=== PATIENT | female | born 1960 | race Caucasian/White ===

== ENCOUNTER → 2018-03-21 | Outpatient (REF) | payer OTHER | LOC: M LAB REF 17:00 | DX: N39.0 Urinary tract infection, site not specified (principal) ==

== ENCOUNTER → 2019-04-24 | Outpatient (REF) | payer MEDICARE, OTHER | LOC: M LAB REF 16:59 | PROVIDERS: ATTEND Internal Medicine Nephrology | DX: N39.0 Urinary tract infection, site not specified (principal) ==

== ENCOUNTER 2019-05-01 06:02 | Emergency (ER) | payer MEDICARE ==
[~2019-05-01] VITALS: Ht 160 cm; Wt 80.0 kg
[2019-05-01] MEDS ORDERED: AMPI500C9 PO (06:14)
[2019-05-01] MEDS ORDERED: HYDR-3715 PO (06:14)
[2019-05-01] MEDS ORDERED: SYNT150T PO (06:14)
[2019-05-01] MEDS ORDERED: METO1TAB87 PO (06:14)
[2019-05-01] MEDS ORDERED: CALC-333 PO (06:14)
[2019-05-01] MEDS ORDERED: RENATAB6 PO (06:14)
[2019-05-01] MEDS ORDERED: PANT40TA3 PO (06:14)
[2019-05-01] MEDS ORDERED: ONDANSETRON 4MG/2ML VIAL (J2405) IV ONE (06:30)
[2019-05-01] MEDS ORDERED: MORPHINE 4 MG/ML 1ML VIAL/SYRINGE (J2270) IV ONE ×2 (06:30→09:15)
[2019-05-01] MEDS ORDERED: NS 1,000 ML IV ONE (06:30)
[2019-05-01 07:37] LABS: BASO # 0.1 10^3/uL (0.0-0.2); BASO % 0.5 % (0.0-1.0); EOS # 0.1 10^3/uL (0.0-0.50); EOS % 0.3 % (0.0-3.0); HEMATOCRIT 46.7 % (36.0-47.0); HEMOGLOBIN 15.2 g/dl (12.0-15.5); LYMPH # 1.1 10^3/uL (1.5-4.5); LYMPH % 6.8 % (24.0-44.0); MEAN CORPUSCULAR HEMOGLOBIN 29.8 pg (27.0-33.0); MEAN CORPUSCULAR HGB CONC 32.5 g/dl (32.0-36.5); MEAN CORPUSCULAR VOLUME 91.6 fl (80.0-96.0); MONO # 0.8 10^3/uL (0.0-0.8); MONO % 4.9 % (0.0-5.0); NEUTROPHILS # 13.4 10^3/uL (1.8-7.7); NEUTROPHILS % 86.5 % (36.0-66.0); PLATELET COUNT, AUTOMATED 188 10^3/uL (150-450); WHITE BLOOD COUNT 15.5 10^3/uL (4.0-10.0)
[2019-05-01 07:52] LABS: CALCIUM LEVEL 8.6 MG/DL (8.5-10.1); CREATININE FOR GFR 2.83 MG/DL (0.55-1.30); GLOMERULAR FILTRATION RATE 18.3 (>51); POTASSIUM SERUM 3.7 MEQ/L (3.5-5.1)
[2019-05-01] MEDS ORDERED: cefTRIAXone SOD 1 GM in D5W MINI-BAG PLUS 50 ML IV ONE (09:00)
--- NOTE | 2019-05-01 10:02 | REPVR ---
EXAM: US Retroperitoneal Limited, Kidneys EXAM DATE/TIME: 05/01/19 (7:27am) CLINICAL HISTORY: 59 year old female. Right flank pain. Evaluate for hydronephrosis, stones. TECHNIQUE: Imaging protocol: Real-time ultrasound of the retroperitoneum with image documentation. Examination was focused on the kidneys. COMPARISON: No relevant prior studies available FINDINGS: RIGHT KIDNEY --- The right kidney measures 16.3 cm in length. No hydronephrosis is noted. No upper tract stones are identified. Numerous cysts. Largest right renal cyst (medial right kidney) measures 5.2 x 5.1 x 5.0 cm size. LEFT KIDNEY --- The left kidney measures 15.6 cm in length. No hydronephrosis is noted. No upper tract stones are identified. Numerous cysts. Largest left renal cyst (mid-upper pole) measures 4.1 x 4.2 x 3.3 cm size. URINARY BLADDER --- No significant pathology. No stones nor mass. IMPRESSION: Findings compatible with polycystic kidney disease. Each kidney is enlarged, with numerous cysts, bilaterally. No hydronephrosis. No urinary tract stones are identified. No perinephric collections. Electronically signed by: Caty Garcia On 05/01/2019 10:02:26 AM
[2019-05-01] MEDS ORDERED: NORC1TAB7 PO (10:37)
[2019-05-01] MEDS ORDERED: KEFL500C17 PO (10:37)
--- NOTE | 2019-05-01 10:46 | REP ---
REASON: Possible pyelonephritis. Patient has right flank pain. History of recent urinary tract infection. COMPARISON: 06/12/2008. The lack of intravenous contrast significantly decreases the sensitivity of the examination particularly when evaluating for acute pyelonephritis. Bilateral dependent subsegmental atelectatic changes are seen in the lung bases. There are no pleural or pericardial effusions. There is bilateral hydronephrosis and hydroureter. This has increased from the prior exam. There is right perinephric stranding. There is a 7 mm sized calcification in the inferior pole of the left kidney. This was not present on the prior exam. The single tiny calcification is not causing obstructive phenomenon. There are no other nephroliths. There are no ureteroliths. There are no urinary bladder calcifications. There are bilateral pelvic phleboliths status quo. There are no choleliths. Limited evaluation of the solid intra-abdominal organs shown no gross abnormalities. Limited evaluation of the pancreas and adrenal glands show no gross abnormalities or significant changes from the prior exam. Limited evaluation of the abdominal aorta and para-aortic regions show para-aortic adenopathy on the right representing a change from the prior exam. There is no free fluid or free air. Limited evaluation of the bowel loops show no gross abnormalities. CT PELVIS: Limited evaluation of the bowel loops show sigmoid colon diverticulosis. In the left adnexa, there is a 2.4 cm sized low density lesion most consistent with small left ovarian cyst. This is essentially unchanged compared to the prior exam. There is no free fluid or free air. There is no pelvic adenopathy. Bone window technique throughout the examination shows the osseous structures to be stable and intact. IMPRESSION: 1. Bilateral hydronephrosis and hydroureter increased from the prior exam. Etiology uncertain. Without intravenous contrast accurate assessment for inflammatory/infectious etiologies cannot be made. Acute pyelonephritis cannot be assessed for. Renal carbuncle cannot be assessed for. There is right para-aortic adenopathy, which indicate a certain degree of perinephric inflammation. Again, since no intravenous contrast was administered, the finding can only be presumptive. 2. Small nonobstructing left nephrolith as described above. 3. Bilateral subsegmental atelectatic changes in the lung bases. 4. Small left ovarian cyst as described above. 5. Sigmoid colon diverticulosis. Electronically Signed by Ryne Meléndez DO 05/01/2019 12:01 P
[2019-05-01 10:51] VITALS: BP 141/67
--- NOTE | 2019-05-06 19:48 | ED PDOC ---
Post-Departure Follow-Up dr tatum faxed formal report of renal us for fu Ottoniel Renee MD May 06, 2019 19:48
== END 2019-05-01 10:53 | disposition home or self-care (01) ==
LOC: M ED 06:02
DX: N10 Acute pyelonephritis (principal); I10 Essential (primary) hypertension; E03.9 Hypothyroidism, unspecified; Z85.43 Personal history of malignant neoplasm of ovary; Z79.899 Other long term (current) drug therapy; Z79.890 Hormone replacement therapy; Z88.1 Allergy status to other antibiotic agents; Z88.2 Allergy status to sulfonamides; Z88.8 Allergy status to other drugs, medicaments and biological substances; Z87.891 Personal history of nicotine dependence
CPT/HCPCS: 36415; 51701; 74176; 76775; 80048; 81001; 83605; 85025; 87088; 87186; 96361; 96365; 96375; 96376; 99284; J0696; J2270; J2405

== ENCOUNTER → 2019-05-16 | Outpatient (REF) | payer MEDICARE ==
[~2019-05-16] MED LIST: ACET-897 PO; AMPI500C9 PO; AUGM875T28 PO; CALC-333 PO; CALC500T44 PO; CEFU1TAB20 PO; CEFU50TA PO; FLUC10TA PO; HYDR-3715 PO; KEFL500C17 PO; METO1TAB87 PO; METR1GEL7 PV; NORC1TAB7 PO; PANT40TA3 PO; RENATAB6 PO; SYNT150T PO
== END ==
LOC: M LAB REF 16:59
PROVIDERS: ATTEND Nurse Practitioner Family
DX: N39.0 Urinary tract infection, site not specified (principal)

== ENCOUNTER → 2019-07-11 | Outpatient (REF) | payer MEDICARE ==
[~2019-07-11] MED LIST changes: -ACET-897 PO; -AUGM875T28 PO; -CALC500T44 PO; -CEFU1TAB20 PO; -CEFU50TA PO; -FLUC10TA PO; -METR1GEL7 PV
== END ==
LOC: M LAB REF 13:42
PROVIDERS: ATTEND Nurse Practitioner Family
DX: N39.0 Urinary tract infection, site not specified (principal)

== ENCOUNTER 2019-09-08 23:25 | Inpatient (IN) | payer MEDICARE ==
[~2019-09-08] VITALS: Ht 162.6 cm; Wt 81.8 kg
[2019-09-08] MEDS ORDERED: NS 1,000 ML IV ONE (23:45)
[2019-09-08 23:54] LABS: BASO # 0.1 10^3/uL (0.0-0.2); BASO % 0.4 % (0.0-1.0); EOS # 0.1 10^3/uL (0.0-0.5); EOS % 0.4 % (0.0-3.0); HEMATOCRIT 47.9 % (36.0-47.0); HEMOGLOBIN 15.3 g/dl (12.0-15.5); LYMPH # 1.9 10^3/uL (1.5-5.0); LYMPH % 9.7 % (24.0-44.0); MEAN CORPUSCULAR HEMOGLOBIN 27.9 pg (27.0-33.0); MEAN CORPUSCULAR HGB CONC 31.9 g/dl (32.0-36.5); MEAN CORPUSCULAR VOLUME 87.2 fl (80.0-96.0); MONO # 0.8 10^3/uL (0.0-0.8); MONO % 3.8 % (0.0-5.0); NEUTROPHILS # 16.9 10^3/uL (1.5-8.5); PLATELET COUNT, AUTOMATED 229 10^3/uL (150-450); RED BLOOD COUNT 5.49 10^6/uL (4.00-5.40); WHITE BLOOD COUNT 19.9 10^3/uL (4.0-10.0)
[2019-09-09] MEDS ORDERED: ONDANSETRON 4MG/2ML VIAL (J2405) IV ONE (00:15)
[2019-09-09] MEDS: MORPHINE 4 MG/ML 1ML VIAL/SYRINGE (J2270) IV PRN ×2 (00:18→02:15)
[2019-09-09 00:35] LABS: ALBUMIN 3.6 GM/DL (3.2-5.2); ALT/SGPT 27 U/L (12-78); BILIRUBIN,DIRECT < 0.1 MG/DL (0.0-0.2); BILIRUBIN,TOTAL 0.4 MG/DL (0.2-1.0); LIPASE 485 U/L (73-393); TOTAL PROTEIN 8.1 GM/DL (6.4-8.2)
[2019-09-09 00:38] LABS: ETHYL ALCOHOL (ETHANOL) < 0.003 % (0.000-0.010)
[2019-09-09] MEDS ORDERED: cefTRIAXone SOD 1 GM in D5W MINI-BAG PLUS 50 ML IV ONE (01:45)
--- NOTE | 2019-09-09 02:14 | REPVR ---
PROCEDURE INFORMATION: Exam: CT Abdomen And Pelvis Without Contrast Exam date and time: 09/09/2019 1:52 AM Age: 59 years old Clinical indication: Abdominal pain; Flank; Right; Additional info: Right flank pain TECHNIQUE: Imaging protocol: Computed tomography of the abdomen and pelvis without contrast. Radiation optimization: All CT scans at this facility use at least one of these dose optimization techniques: automated exposure control; mA and/or kV adjustment per patient size (includes targeted exams where dose is matched to clinical indication); or iterative reconstruction. COMPARISON: CT ABD PELVIS W/O CONTRAST 05/01/2019 9:22 AM FINDINGS: Lungs: Lung parenchyma is unremarkable except for dependent atelectasis. Mediastinum: Small hiatal hernia is present. Liver: Noncontrast liver shows no obvious lesion. Gallbladder and bile ducts: Gallbladder is present and shows no evidence of gallstone. Pancreas: Noncontrast pancreas shows no obvious mass or adjacent fluid. Spleen: Noncontrast spleen shows no obvious focal deformity. Adrenals: Adrenal glands are normal in appearance. Kidneys and ureters: Bilateral hydroureteronephrosis and perinephric lymphadenopathy, similar to the prior CT. No identifiable ureter calculus. Nonobstructive lower pole left renal stone. Stomach and bowel: No evidence of small bowel obstruction. Diverticular changes are present within the colon without inflammation. Appendix: Appendix is not seen. No RLQ inflammation to suggest appendicitis. Intraperitoneal space: No pneumoperitoneum. Vasculature: Atherosclerotic change present in the aorta, without aneurysm. Bladder: Unremarkable as visualized. Reproductive: Stable left ovarian cystic lesion measuring 2 cm. Bones/joints: Bony structures show no acute fracture or destructive process. Other findings: Limited evaluation without enteric or IV contrast. IMPRESSION: Bilateral hydroureteronephrosis asymmetric right perinephric stranding and perinephric lymphadenopathy without identifiable stone. Pattern is similar to the prior CT from 05/01/2019. This could be secondary to a urothelial mass involving the distal ureter. Electronically signed by: Rajiv Jose On 09/09/2019 02:14:40 AM
[2019-09-09] MEDS ORDERED: NS 1,000 ML IV SCH (03:34)
[2019-09-09] MEDS ORDERED: ONDANSETRON 4MG/2ML VIAL (J2405) IV PRN (03:45)
--- NOTE | 2019-09-09 04:06 | HPEPDOC ---
General Date of Admission 09/09/19 Date of Service: Sep 09, 2019 Chief Complaint The patient is a 59-year-old female admitted with a reason for visit of Back Pain. Source: Patient Timing/Duration: Day(s) Severity: Moderate Associated Symptoms: Chills, Nausea, Vomiting, Weakness History of Present Illness Patient is 59 years old female with past medical history of cervical cancer treated with radiation in 1991, atonic bladder, radiation cystitis, secondary hyperparathyroidism, patient self catheterizes herself a few times in a day, chronic kidney diseases stage IV, hypertension, chronic anemia presented hospital with chills, right flank and suprapubic pain. Patient stated that for past 2 days she has been having increased right flank pain associated with suprapubic pain and chills. Of note, patient was recently treated with cephalexin for UTI, she completed the course of antibiotics for 10 days. In emergency room patient was found to have tachycardia, leukocytosis. Urinalysis shows pyuria. CT of abdomen and pelvis showed bilateral hydroureteronephrosis asymmetric right perinephric stranding and perinephric lymphadenopathy without identifiable stone. Pattern is similar to the prior CT from 05/01/2019. This could be secondary to a urothelial mass involving the distal ureter. Home Medications Scheduled Calcium Carbonate/Vitamin D3 (Calcium 500+D Tablet Chew) 1 Each Tab.chew, 1 TAB PO DAILY, (Reported) Levothyroxine Sodium (Synthroid) 150 Mcg Tablet, 150 MCG PO DAILY, (Reported) TAKES BEFORE DINNER Metoprolol Tartrate (Metoprolol Tartrate) 25 Mg Tablet, 25 MG PO BID, (Reported) Pantoprazole Sodium (Pantoprazole Sodium) 40 Mg Tablet.dr, 40 MG PO DAILY, (Reported) Vit B Comp No.3/Folic/C/Biotin ([place] Rx Tablet) 1 Each Tablet, 1 TAB PO DAILY, (Reported) Allergies Coded Allergies: povidone-iodine (Verified Allergy, Severe, rash/burn, 09/08/19) soap (Verified Allergy, Severe, rash/burn, 09/08/19) Quinolones (Verified Allergy, Unknown, 09/08/19) Sulfa (Sulfonamide Antibiotics) (Verified Allergy, Unknown, 09/08/19) ciprofloxacin (Verified Allergy, Unknown, 09/08/19) epoetin reina (Verified Allergy, Unknown, 09/08/19) ibuprofen (Verified Allergy, Unknown, 09/08/19) trimethoprim (Verified Allergy, Unknown, 09/08/19) Past Medical History Medical History cervical cancer treated with radiation in 1991, atonic bladder, radiation cystitis, secondary hyperparathyroidism, patient self catheterizes herself a few times in a day, chronic kidney diseases stage IV, hypertension, chronic anemia Surgical History Appendectomy Family History I personally reviewed family history and found nonsignificant Social History * Smoker: Denies Alcohol: occationally Drugs: denies A-FIB/CHADSVASC A-FIB History Current/History of A-Fib/PAF?: No Current PO Anticoag Therapy: No Review of Systems Constitutional: Reports: Chills, Malaise Eyes: Denies: Pain ENT: Denies: Head Aches Skin: Denies: Rash Pulmonary: Denies: Dyspnea Cardiovascular: Denies: Chest Pain, Palpitations Gastrointestinal: Reports: Nausea Genitourinary: Reports: Other Symptoms (suprapubic pain) Hematologic: Denies: Bruising Endocrine: Denies: Polydipsia, Polyphagia Musculoskeletal: Denies: Neck Pain Neurological: Denies: Weakness, Numbness Psych: Reports: Mood Normal Physical Examination General Exam: Positive: Alert, Cooperative Eye Exam: Positive: PERRLA ENT Exam: Positive: Atraumatic Neck Exam: Positive: Supple; Negative: JVD Chest Exam: Positive: Clear to auscultation Heart Exam: Positive: Tachycardic; Negative: Rate Normal Telemetry: Positive: Sinus, Tachycardia Abdomen Exam: Positive: Normal bowel sounds Extremity Exam: Negative: Cyanosis Skin Exam: Positive: Nl turgor and temperature Neuro Exam: Positive: Normal Gait, Cranial Nerves 3-12 NL Psych Exam: Positive: Mental status NL Vital Signs Vital Signs Date Time Temp Pulse Resp B/P (MAP) Pulse Ox O2 Delivery O2 Flow Rate FiO2 09/09/19 02:15 18 93 Room Air 09/09/19 01:05 135/70 (91) 09/09/19 00:55 91 09/08/19 23:26 97.4 Laboratory Data Labs 24H Laboratory Tests 2 09/08/19 23:43: Immature Granulocyte % (Auto) 0.7, Neutrophils (%) (Auto) 85.0H, Lymphocytes (%) (Auto) 9.7L, Monocytes (%) (Auto) 3.8, Eosinophils (%) (Auto) 0.4, Basophils (%) (Auto) 0.4, Neutrophils # (Auto) 16.9H, Lymphocytes # (Auto) 1.9, Monocytes # (Auto) 0.8, Eosinophils # (Auto) 0.1, Basophils # (Auto) 0.1, Nucleated Red Blood Cells % (auto) 0.0, Total Bilirubin 0.4, Direct Bilirubin < 0.1, Aspartate Amino Transf (AST/SGOT) 27, Alanine Aminotransferase (ALT/SGPT) 27, Alkaline Phosphatase 67, Total Protein 8.1, Albumin 3.6, Albumin/Globulin Ratio 0.80L, Lipase 485H, Ethyl Alcohol Level < 0.003 09/08/19 23:59: POC Glucose (Misc Panel) 142H, POC Sodium (Misc Panel) 141, POC Potassium (Misc Panel) 4.1, POC Chloride (Misc Panel) 111H, POC Total CO2 (Misc Panel) 21.0L, POC Blood Urea Nitrogen (Misc Panel 73H, POC Ionized Calcium (Misc Panel) 4.7, POC Creatinine (Misc Panel) 3.1H, POC Hematocrit (Misc Panel) 47.0 09/09/19 00:44: Urine Color YELLOW, Urine Appearance TURBIDH, Urine pH 6.0, Urine Specific [place] 1.009, Urine Protein 3+H, Urine Glucose (UA) NEGATIVE, Urine Ketones NEGATIVE, Urine Blood 2+H, Urine Nitrite NEGATIVE, Urine Bilirubin NEGATIVE, Urine Urobilinogen 0.2, Urine Leukocyte Esterase 3+H, Urine WBC (Auto) TNTCH, Urine RBC (Auto) TNTCH, Urine Hyaline Casts (Auto) 0, Urine Bacteria (Auto) 1+H, Urine Squamous Epithelial Cells 0, Urine Sperm (Auto) 09/09/19 02:34: Lactic Acid Level 1.8 CBC/BMP Laboratory Tests 09/08/19 23:43 Microbiology Microbiology 09/09/19 Blood Culture, Received Pending 09/09/19 Blood Culture, Received Pending 09/09/19 Urine Culture, Received Pending Assessment/Plan Patient is 59 years old female with past medical history of cervical cancer treated with radiation in 1991, atonic bladder, radiation cystitis, secondary hyperparathyroidism, patient self catheterizes herself a few times in a day, chronic kidney diseases stage IV, hypertension, chronic anemia presented hospital with chills, right flank and suprapubic pain. Patient stated that for past 2 days she has been having increased right flank pain associated with suprapubic pain and chills. Of note, patient was recently treated with cephalexin for UTI, she completed the course of antibiotics for 10 days. Patient was diagnosed with sepsis secondary to acute pyelonephritis Problems (1) Sepsis Status: Acute Problem Text: Secondary to acute pyelonephritis Patient has leukocytosis with tachycardia Patient had a history of bacteriuria with Pseudomonas Cefepime IV IV fluid Urine culture Blood culture CT of abdomen showed Bilateral hydroureteronephrosis asymmetric right perinephric stranding and perinephric lymphadenopathy without identifiable stone.This could be secondary to a urothelial mass involving the distal ureter. Consider urologist consult for further evaluation of possible malignancy of the right distal ureter (2) Pyelonephritis Status: Acute Problem Text: See above Plan / VTE VTE Prophylaxis Ordered?: Yes JOSE ANTONIO ROBLERO DO Sep 09, 2019 04:06
[2019-09-09 04:22] VITALS: BP 127/75
[2019-09-09] MEDS: METOPROLOL TART 25 MG TABLET PO SCH ×2 (08:12→20:40)
[2019-09-09] MEDS: CEFEPIME HCL 1 GM in D5W MINI-BAG PLUS 50 ML IV SCH ×2 (08:12→20:40)
[2019-09-09] MEDS: ACETAMINOPHEN TAB 650MG DOSE (2X325MG) PO PRN ×2 (08:12→15:20)
[2019-09-09] MEDS: PANTOPRAZOLE 40MG TAB (PROTONIX) PO SCH (08:12)
[2019-09-09 08:38] LABS: BASO # 0.1 10^3/uL (0.0-0.2); BASO % 0.3 % (0.0-1.0); EOS % 0.1 % (0.0-3.0); HEMATOCRIT 44.3 % (36.0-47.0); LYMPH # 1.2 10^3/uL (1.5-5.0); LYMPH % 6.7 % (24.0-44.0); MEAN CORPUSCULAR HEMOGLOBIN 28.1 pg (27.0-33.0); MEAN CORPUSCULAR HGB CONC 31.6 g/dl (32.0-36.5); MEAN CORPUSCULAR VOLUME 88.8 fl (80.0-96.0); MONO % 5.4 % (0.0-5.0); NEUTROPHILS # 15.3 10^3/uL (1.5-8.5); NEUTROPHILS % 87.1 % (36.0-66.0); PLATELET COUNT, AUTOMATED 204 10^3/uL (150-450); RED BLOOD COUNT 4.99 10^6/uL (4.00-5.40); WHITE BLOOD COUNT 17.6 10^3/uL (4.0-10.0)
[2019-09-09 09:11] LABS: ALBUMIN 2.7 GM/DL (3.2-5.2); BILIRUBIN,TOTAL 0.5 MG/DL (0.2-1.0); CALCIUM LEVEL 8.2 MG/DL (8.5-10.1); CREATININE FOR GFR 2.75 MG/DL (0.55-1.30); GLOMERULAR FILTRATION RATE 18.9 (>51); POTASSIUM SERUM 3.8 MEQ/L (3.5-5.1)
[2019-09-09] MEDS: KCL 20MEQ IN 0.45NS 1000ML 1,000 ML IV SCH ×2 (10:37→20:40)
[2019-09-09 14:00] VITALS: BP 126/73
[2019-09-09] MEDS: LEVOTHYROXINE 150MCG TABLET (0.15MG) PO SCH (15:20)
--- NOTE | 2019-09-09 20:25 | IPN ---
DATE: 09/09/2019 Shayla was on the hospitalist service, a patient of , was also followed by Dr. Sparrow from nephrology group. She has recurrent pyelonephritis recently in April. She had a recent urinary tract infection (UTI) being treated with Keflex as an outpatient, is off the medicine for two days when she developed right flank pain, presented to the emergency room with leukocytosis and evidence of pyelonephritis. PAST MEDICAL HISTORY: Shows hypertension, hypothyroidism, history of gastroesophageal reflux disease (GERD), chronic kidney disease stage IV, history of cervical cancer with radiation therapy, radiation cystitis lead to atonic bladder requiring intermittent self catheterization. She has chronic anemia from chronic kidney disease. Overall, she feels better than she did when she came in, but still feels quite ill. Has remained afebrile, 120/75, pulse 97, 94% oxygen saturation on room air. GENERAL APPEARANCE: Alert and oriented to person in no distress. HEENT: Unremarkable. Lungs: Clear. Heart: Without murmur. Abdomen: Soft, nontender. No masses. Right costovertebral angle (CVA) tenderness present. Extremities: No peripheral edema. LABORATORY: Creatinine is 2.7, potassium is 3.8, white count 17,000, hemoglobin 14, IMPRESSION: 1. Suspected pyelonephritis. She is currently on cefepime 1 gram every 12 hours. She typically grows Klebsiella, which in the past has been sensitive to cephalosporins, including ceftriaxone and cefazolin, await for the culture report to return. She was recently on cephalexin and developed this pyelonephritis a few days after its discontinued. 2. Chronic kidney disease, stage IV. I have ordered daily labs to check renal function. If it is needed, will consult nephrology. 3. Hypertension. Blood pressure under good control on current dose of metoprolol. 4. Hypothyroidism. Continue current dose of levothyroxine.
[2019-09-09 20:35] VITALS: BP 123/72
[2019-09-10] MEDS ORDERED: cefTRIAXone SOD 1 GM in D5W MINI-BAG PLUS 50 ML IV SCH (06:00)
[2019-09-10 06:07] VITALS: BP 126/75
[2019-09-10 06:17] LABS: HEMATOCRIT 40.6 % (36.0-47.0); HEMOGLOBIN 12.7 g/dl (12.0-15.5); MEAN CORPUSCULAR HEMOGLOBIN 28.1 pg (27.0-33.0); MEAN CORPUSCULAR HGB CONC 31.3 g/dl (32.0-36.5); MEAN CORPUSCULAR VOLUME 89.8 fl (80.0-96.0); PLATELET COUNT, AUTOMATED 196 10^3/uL (150-450); RED BLOOD COUNT 4.52 10^6/uL (4.00-5.40); WHITE BLOOD COUNT 10.1 10^3/uL (4.0-10.0)
[2019-09-10 06:46] LABS: CALCIUM LEVEL 8.2 MG/DL (8.5-10.1); CREATININE FOR GFR 3.2 MG/DL (0.55-1.30); GLOMERULAR FILTRATION RATE 15.9 (>51); MAGNESIUM LEVEL 1.9 MG/DL (1.8-2.4); POTASSIUM SERUM 4.8 MEQ/L (3.5-5.1)
[2019-09-10] MEDS: KCL 20MEQ IN 0.45NS 1000ML 1,000 ML IV SCH (06:49)
[2019-09-10] MEDS: PANTOPRAZOLE 40MG TAB (PROTONIX) PO SCH (08:32)
[2019-09-10] MEDS: CEFEPIME HCL 1 GM in D5W MINI-BAG PLUS 50 ML IV SCH ×2 (08:33→20:53)
[2019-09-10] MEDS: METOPROLOL TART 25 MG TABLET PO SCH ×2 (08:33→20:41)
--- NOTE | 2019-09-10 11:10 | IPN ---
DATE: 09/10/2019 Shayla feels better and leukocytosis has improved. She is not febrile. Her renal function is actually a worse today. Her CT showed right greater than left hydroureter, which has been present since April, right ureteral obstruction from possible mass noted. The patient has not seen a urologist in many years. He used to see Dr. Mcclelland, when he was the urologist here, but has not one in the interval. PHYSICAL EXAM: 125/75, pulse of 95, 97.3 degrees. General Appearance: Alert, conversant, looks much better. HEENT: Unremarkable. Lungs: Clear. Heart: Regular rate and rhythm. Abdomen: Soft. Tender on the right side costovertebral angle (CVA) tenderness. No peripheral edema. LABS: White count is down 10. Creatinine is up 3.2. Potassium 4.8. IMPRESSION: 1. Right pyelonephritis. She is on IV cefepime, waiting for results of urine culture. Previously, she grew out Klebsiella and we can narrow the antibiotic spectrum once this comes back. 2. Bilateral ureteral obstruction, right greater than left, possible right ureteral mass can be considered. I have consulted urology to see her. Probably could have an outpatient workup for this, but I think she is very connected with urologist. 3. Chronic kidney disease (CKD), IV. Renal function slightly worse. Will consult nephrology today. 4. Hypertension. Well controlled on current regimen. 5. Hypothyroidism. Stable on current regimen, which will continue.
[2019-09-10] MEDS: SODIUM BICARBONATE 75 MEQ in NS 0.45% 1,000 ML IV SCH (13:49)
[2019-09-10 14:00] VITALS: BP 118/68
--- NOTE | 2019-09-10 14:10 | SMCUROLCON ---
Urology Consultation General Date of Consultation 09/10/19 Reason For Consultation This patient is seen for Pyelonephritis. History of Present Illness This is a 59 y/o F w/ a PMH significant for cervical cancer treated with radiation in 1991, atonic bladder managed w/ CIC, CKD, and HTN, admitted a few days ago for right pyelonephritis. A CT A/P obtained on this admission was notable for b/l hydroureteronephrosis (R > L) down to the level of a distended bladder and right perinephric stranding. She has been in the hospital on broad spectrum abx for 2 days and she notes that her fevers and flank pain are much better. She also notes that she was followed by urology years ago for ureteral strictures and this was managed w/ chronic ureteral stenting for a while. The stents were ultimately removed as they did not improve her kidney function when in place. She notes that she does CIC q3-4hrs, including at night. She denies difficulty w/ this. She has been getting UTIs frequently recently but has only been admitted for pyelonephritis twice, w/ the first episode back in April. She does not take suppressive abx. Past Medical History Medical History see HPI Surgical Hstory appendectomy Medications Current Medications Current Medications Medications (Trade) Dose Ordered Sig/Jahaira Route PRN Reason Start Time Stop Time Status Last Admin Dose Admin Acetaminophen (Tylenol Tab) 650 mg Q4HP PRN PO MILD PAIN or TEMP > 101 09/09/19 03:45 09/09/19 15:20 Cefepime HCl 1 gm/ Dextrose 50 ml @ 100 mls/hr Q12H IV 09/09/19 08:00 09/10/19 08:33 Ceftriaxone Sodium 1 gm/ Dextrose 50 ml @ 100 mls/hr Q24H IV 09/10/19 06:00 09/09/19 03:52 DC Home Med (Med Rec Complete!) ASDIRECTED XX 09/09/19 02:30 09/09/19 02:18 DC Levothyroxine Sodium (Synthroid) 150 mcg DAILY@1600 PO 09/09/19 16:00 09/09/19 15:20 Metoprolol Tartrate (Lopressor) 25 mg BID PO 09/09/19 09:00 09/10/19 08:33 Morphine Sulfate (Morphine Sulfate Inj) 4 mg Q30M PRN IV SEVERE PAIN (PS 8-10) 12/22/19 00:15 09/09/19 02:15 DC 09/09/19 02:15 Ondansetron HCl (ZOFRAN INJection) 4 mg Q6HP PRN IV NAUSEA OR VOMITING 09/09/19 03:45 Pantoprazole Sodium (Protonix) 40 mg DAILY PO 09/09/19 09:00 09/10/19 08:32 Potassium Chloride/Sodium Chloride 1,000 ml @ 100 mls/hr Q10H IV 09/09/19 10:00 09/10/19 10:46 DC 09/10/19 06:49 Sodium Bicarbonate 75 meq/Sodium Chloride 1,075 ml @ 100 mls/hr [id number] IV 09/10/19 13:00 09/11/19 08:59 09/10/19 13:49 Sodium Chloride 1,000 ml @ 150 mls/hr Q6H40M IV 09/09/19 03:34 09/09/19 09:29 DC 09/09/19 03:59 Allergies Allergies: Coded Allergies: povidone-iodine (Verified Allergy, Severe, rash/burn, 09/08/19) soap (Verified Allergy, Severe, rash/burn, 09/08/19) Quinolones (Verified Allergy, Unknown, 09/08/19) Sulfa (Sulfonamide Antibiotics) (Verified Allergy, Unknown, 09/08/19) ciprofloxacin (Verified Allergy, Unknown, 09/08/19) epoetin reina (Verified Allergy, Unknown, 09/08/19) ibuprofen (Verified Allergy, Unknown, 09/08/19) trimethoprim (Verified Allergy, Unknown, 09/08/19) Review of Systems Constitutional: Denies: Fever, Chills, Sweats, Weakness, Malaise Pulmonary: Denies: Dyspnea, Cough Cardiovascular: Denies Chest Pain, Denies Palpitations Gastrointestinal: Denies: Nausea, Vomiting, Abdominal Pain Genitourinary: Reports: Retention (managed w/ CIC) Musculoskeletal: Reports: Back Pain (right flank pain improving) Physical Examination General Exam: Alert, Cooperative ENT EXAM: Atraumatic Chest Exam: Clear to auscultation Heart Exam: Rate Normal, Regular Rhythm Abdomen Exam: BS Hypoactive, Soft, Hepatospenomegaly; No: Tenderness Skin Exam: Nl turgor and temperature Neuro Exam: Normal Speech Psych Exam: Mental status NL, Mood NL Vital Signs/I&O Vital Signs Date Time Temp Pulse Resp B/P (MAP) Pulse Ox O2 Delivery O2 Flow Rate FiO2 09/10/19 08:33 95 126/75 09/10/19 06:07 97.3 20 96 Room Air I&O- Last 24 Hours up to 6 AM 09/10/19 06:00 Intake Total 1460 ml Output Total 2150 ml Balance -690 ml Laboratory Data 24H Labs Laboratory Tests 2 09/10/19 06:01: Nucleated Red Blood Cells % (auto) 0.0, Anion Gap 8, Glomerular Filtration Rate 15.9L, Calcium Level 8.2L, Magnesium Level 1.9 CBC/BMP Laboratory Tests 09/10/19 06:01 Microbiology Microbiology 09/09/19 Blood Culture - Preliminary, Resulted No growth after 24 hours . All specim... 09/09/19 Blood Culture - Preliminary, Resulted No growth after 24 hours . All specim... 09/09/19 Urine Culture, Received Pending Assessment This is a 59 y/o F an atonic bladder managed w/ CIC and b/l hydroureteronephrosis, admitted for right pyelonephritis. She was told that she had b/l ureteral strictures previously. This could be the cause of her hydro. It could also be caused by urinary retention. I recommend placing an indwelling catheter and getting a f/u renal US as an outpatient. If the hydro improves w/ an indwelling catheter, then we will either recommend that she continue w/ that or increase her frequency of CIC. If her hydro does not improve, it would confirm that she has b/l ureteral strictures. For her recurrent UTIs, I recomme nd completing a full course of culture specific abx for this current episode of right pyelonephritis. We will then likely start her on suppressive abx as an outpatient. Plan - place 16Fr indwelling catheter - cont abx for pyelonephritis and adjust based on C&S results - recommend leaving catheter in at discharge - my office will arrange a f/u renal US and f/u in our office in the next 1-2 wks CECILIA LACEY MD Sep 10, 2019 14:10
[2019-09-10] MEDS: LEVOTHYROXINE 150MCG TABLET (0.15MG) PO SCH (15:32)
[2019-09-10 20:15] VITALS: BP 113/59
[2019-09-11] MEDS: SODIUM BICARBONATE 75 MEQ in NS 0.45% 1,000 ML IV SCH (00:55)
[2019-09-11 05:15] VITALS: BP 118/80
[2019-09-11 07:00] LABS: HEMATOCRIT 36.5 % (36.0-47.0); HEMOGLOBIN 11.7 g/dl (12.0-15.5); MEAN CORPUSCULAR HEMOGLOBIN 28.2 pg (27.0-33.0); MEAN CORPUSCULAR HGB CONC 32.1 g/dl (32.0-36.5); PLATELET COUNT, AUTOMATED 169 10^3/uL (150-450); RED BLOOD COUNT 4.15 10^6/uL (4.00-5.40); WHITE BLOOD COUNT 7.6 10^3/uL (4.0-10.0)
[2019-09-11 07:14] LABS: ALBUMIN 2.5 GM/DL (3.2-5.2); CALCIUM LEVEL 8.2 MG/DL (8.5-10.1); CREATININE FOR GFR 2.66 MG/DL (0.55-1.30); GLOMERULAR FILTRATION RATE 19.7 (>51); PHOSPHORUS LEVEL 2.7 MG/DL (2.5-4.9); POTASSIUM SERUM 3.7 MEQ/L (3.5-5.1)
[2019-09-11] MEDS: CEFEPIME HCL 1 GM in D5W MINI-BAG PLUS 50 ML IV SCH (07:54)
[2019-09-11 07:55] VITALS: BP 135/60
[2019-09-11] MEDS: METOPROLOL TART 25 MG TABLET PO SCH (07:55)
[2019-09-11] MEDS: PANTOPRAZOLE 40MG TAB (PROTONIX) PO SCH (09:00)
[2019-09-11] MEDS ORDERED: CEFU1TAB20 PO (11:06)
--- NOTE | 2019-09-11 13:01 | CR ---
DATE OF CONSULTATION: 09/10/2019 CONSULTATION REPORT FOR: Dr. Pancho Campos CONSULTING PHYSICIAN: Dr. Marshal Sparrow REASON FOR CONSULTATION: Chronic kidney disease (CKD), stage IV with obstructive uropathy. HISTORY OF PRESENT ILLNESS: Shayla Cole is a 59-year-old female well-established patient of Dr. Wendi Sparrow. She has a past medical history of remote cervical cancer treated with radiation in the early , atonic bladder, radiation cystitis, chronic kidney disease (CKD) stage IV, secondary hyperparathyroidism of renal origin, and other comorbid conditions mentioned below. She was admitted on 09/09/2019 after presenting to the hospital with complaints of chills, rigors and right flank pain. She reports recent outpatient course of antibiotics for a urinary tract infection. In the emergency room, she was found to be tachycardiac and afebrile. Laboratory studies revealed leukocytosis, white count of 19,000, and metabolic acidosis. Imaging revealed bilateral hydroureteronephrosis with right perinephric stranding and perinephric lymphadenopathy. The patient was admitted and started on IV fluids and IV antibiotics and her renal function and acidosis did not improve and nephrology evaluation was subsequently requested. PAST MEDICAL HISTORY: 1. Chronic kidney disease (CKD), stage IV with baseline glomerular filtration rate (GFR) of about 15 mL/minute per the patient. 2. Atonic bladder, intermittent self-catheterization dependent. 3. Radiation cystitis. 4. Remote history of cervical cancer in the . 5. Secondary hyperparathyroidism. 6. Hypertension. 7. Hypothyroidism. 8. Gastroesophageal reflux disease (GERD). PAST SURGICAL HISTORY: 1. Appendectomy. 2. Failed left arm arteriovenous (AV) fistula. ALLERGIES: QUINOLONES, SULFA, CIPROFLOXACIN, IBUPROFEN, TRIMETHOPRIN, EPOEITIN. HOME MEDICATIONS: - calcium plus vitamin D - Synthroid 150 mcg by mouth daily - metoprolol 25 mg by mouth twice a day - Protonix 40 mg by mouth daily - Helen-Layo one tablet by mouth daily FAMILY HISTORY: Denies family history of end-stage renal disease requiring dialysis. SOCIAL HISTORY: Denies smoking. Reports occasional alcohol. Denies drugs. REVIEW OF SYSTEMS: CONSTITUTIONAL: She reports some chills and malaise. EYES: She denies visual changes or tearing. EARS, NOSE AND THROAT (ENT): She denies odynophagia or rhinorrhea. SKIN: Denies rash or pruritus. PULMONARY: Denies dyspnea or shortness of breath. CARDIOVASCULAR: Denies chest pain, palpitations or edema. GASTROINTESTINAL: Denies vomiting or diarrhea. GENITOURINARY: Reports self-catheterization dependent and she reports recent urinary tract infection (UTI). HEMATOLOGIC: She denies easy bleeding or bruising. ENDOCRINE: She reports secondary hyperparathyroidism. She denies diabetes. MUSCULOSKELETAL: Denies any acute myalgias or arthralgias. NEUROLOGIC: Denies seizure or syncope. PSYCHIATRIC: Denies depression or anxiety. Remainder of review of systems is negative or as per history of present illness (HPI). VITAL SIGNS: Temperature 98.5, pulse 88, respiratory rate 16, blood pressure 118/68, saturating 95% on room air. Urine output today is 3500. GENERAL: The patient is seen at the bedside awake, alert, oriented, comfortable, in no distress. Extraocular muscles are intact. Pupils are round and reactive to light. Tongue is moist. Neck is supple. There is no jugular venous distension. CARDIAC: S1, S2, regular rate and rhythm. No friction murmur. LUNGS: Clear to auscultation bilaterally. No crackle, rale or rhonchus. ABDOMEN: Soft and nontender. There are bowel sounds. GENITOURINARY: Shows indwelling Weeks catheter. MUSCULOSKELETAL: No clubbing, cyanosis or edema. There is a failed fistula present in the left upper extremity. NEUROLOGIC: She is oriented times three. No focal deficits. PSYCHIATRIC: Appropriate mood and affect. SKIN: Normal turgor and temperature. LABORATORY DATA: White count 10.1, hemoglobin 12.7, potassium 4.8, bicarbonate 16, BUN 54, creatinine 3.2. INPATIENT MEDICATIONS: - cefepime 1 gram IV daily - I started her on half-normal saline with 75 mEq of sodium bicarbonate to run at 100 mL/hour - Synthroid 150 mcg by mouth daily - metoprolol 25 mg by mouth twice a day - Zofran as needed - Protonix 40 mg by mouth daily IMAGING STUDIES: CT of the abdomen and pelvis 09/09/2019: Bilateral hydroureteronephrosis with right-sided perinephric stranding and some lesion at the ureter. PROBLEMS: 1. Chronic kidney disease (CKD), stage IV. The patient has a very longstanding history of CKD, stage IV, reports her baseline glomerular filtration rate (GFR) is around 15 mL/minute and she is fairly close to baseline renal function. She has had a fistula placed in the left arm previously but it failed. There is no urgent indication for dialysis initiation at this time. Her volume status is acceptable. She is mildly acidotic and I am putting her on some bicarbonate-containing fluids. Her obstructive uropathy is being addressed by urology. 2. Obstructive uropathy, CAT scan with bilateral hydroureteronephrosis. The patient reports history of ureteral strictures in the past that were attributed to her history of radiation therapy for cervical cancer. Her right-sided hydronephrosis is more prominent. If obstruction does not repeat on imaging with the Weeks catheter then her on ureteral strictures will need to be addressed. 3. Metabolic acidosis, secondary to renal failure. The patient is switched over to bicarbonate-containing fluids half normal saline (NS) with 75 mEq of sodium bicarbonate. 4. Pyelonephritis. White count is improving steadily from 19,000 down to 10,000. She is on IV cefepime. Urine culture is pending.
--- NOTE | 2019-09-11 13:35 | IPN ---
DATE: 09/11/2019 SUBJECTIVE: Shayla is seen and examined this morning at bedside. She denies any overnight events or complaints. Her Weeks catheter put out 4.5 liters of urine yesterday. Her acidosis has improved with serum bicarbonate up to 20, and her urine culture grew 30,000 colonies of klebsiella. She is on discharge pending this morning. VITAL SIGNS: Temperature 97.0, pulse 79, respiratory rate 18, blood pressure 118/80, saturating 97% on room air. Intake yesterday was 1560. Urine output was 4475, net negative 2915. Weight in the bed scale today is not recorded. GENERAL: The patient is seen awake, alert, oriented, comfortable in no acute distress. Extraocular muscles are intact. Pupils are round and reactive to light. Mucous membranes are moist. NECK: Supple. Jugular veins were not elevated. CARDIAC: S1, S2, regular rate and rhythm. No friction murmur. LUNGS: Clear to auscultation bilaterally. No crackle, rale, or rhonchus. ABDOMEN: Soft and nontender. There are bowel sounds. GENITOURINARY: Shows indwelling Weeks catheter with yellow urine. EXTREMITIES: Negative for clubbing, cyanosis, or edema. The left upper extremity has failed fistula present. NEUROLOGIC: She is oriented times three. No focal deficits. SKIN: Normal turgor and temperature. LABORATORY DATA: Sodium 146, potassium 3.7, bicarbonate 20, BUN 45, creatinine 2.6. White count 7.6. Urine culture: Klebsiella 30,000 colonies. MEDICATIONS: Reviewed and no change from prior. PROBLEMS: 1. Chronic kidney disease (CKD), stage IV. The patient's renal function is at her baseline or actually a little bit better than her usual baseline. Her bicarbonate level has come up nicely. She is off of intravenous (IV) fluids. She has had improved urine output with the Weeks catheter. She is acceptable for discharge from a nephrology point of view with followup in the nephrology office with Dr. Wendi Sparrow in 1-2 weeks. 2. Pyelonephritis. Her serum white blood cell (WBC) count has normalized from 19,000 down to 7000 today. She remained afebrile. Her urine culture grew klebsiella. She has received a couple days of IV cefepime, and now she is been transitioned over to oral cephalosporin. 3. Bilateral hydroureteronephrosis in this patient with history of obstructive uropathy. She has been evaluated by urology. She has a Weeks catheter. Urine output was 4.5 liters. She is going to be discharged with the Weeks catheter in place, to followup with urology to assess with a repeat imaging to see if the bilateral obstruction has improved. 4. Hypertension. Blood pressures are well controlled. No changes are being made number DISPOSITION: The patient is at baseline renal function or actually better than baseline renal function. Her volume status and electrolytes are acceptable. She has a Weeks catheter in place and will be discharged with the same and will complete a course of cephalosporin for her klebsiella pyelonephritis. She will followup in the nephrology office and tells me she already has an appointment made. The patient is okay for discharge from nephrology point of view.
--- NOTE | 2019-09-12 18:06 | DS.PDOC ---
Discharge Summary General Date of Admission Sep 09, 2019 at 03:34 Date of Discharge September 11, 2019 Primary Care Physician: Carlos A Martínez MD [facility] Specialist/Consultants Involve: DARNELL FERGUSON DO Specialist/Consultants Involve Merlin Dumas M.D. Discharge Summary PROCEDURES PERFORMED DURING STAY: [None]. ADMITTING DIAGNOSES: 1. . DISCHARGE DIAGNOSES: 1. . COMPLICATIONS/CHIEF COMPLAINT: Pyelonephritis. HISTORY OF PRESENT ILLNESS: . HOSPITAL COURSE: . DISCHARGE MEDICATIONS: Please see below. ALLERGIES: Please see below. PHYSICAL EXAMINATION ON DISCHARGE: VITAL SIGNS: Please see below. GENERAL: HEENT: NECK: CARDIOVASCULAR EXAMINATION: RESPIRATORY EXAMINATION: ABDOMINAL EXAMINATION: EXTREMITIES: SKIN: NEUROLOGICAL EXAMINATION: PSYCHIATRIC EXAMINATION: LABORATORY DATA: Please see below. IMAGING: PROGNOSIS: ACTIVITY: [As tolerated]. DIET: DISCHARGE PLAN: DISPOSITION: Home, Self-Care. DISCHARGE INSTRUCTIONS: 1. . ITEMS TO FOLLOWUP ON ON OUTPATIENT: 1. . DISCHARGE CONDITION: [Stable]. TIME SPENT ON DISCHARGE: Greater than minutes. Vital Signs/I&Os Vital Signs Date Time Temp Pulse Resp B/P (MAP) Pulse Ox O2 Delivery O2 Flow Rate FiO2 09/11/19 07:55 60 135/60 09/11/19 05:15 97.0 18 97 Room Air I&O- Last 24 Hours up to 6 AM 09/12/19 06:00 Intake Total 720 ml Output Total 450 ml Balance 270 ml Microbiology Microbiology 09/09/19 Blood Culture - Preliminary, Resulted No Growth after 72 hours. All specime... 09/09/19 Blood Culture - Preliminary, Resulted No Growth after 72 hours. All specime... 09/09/19 Urine Culture - Final, Complete Klebsiella Oxytoca Discharge Medications Scheduled Calcium Carbonate/Vitamin D3 (Calcium 500+D Tablet Chew) 1 Each Tab.chew, 1 TAB PO DAILY, (Reported) Cefuroxime Axetil (Cefuroxime) 250 Mg Tablet, 250 MG PO BID Levothyroxine Sodium (Synthroid) 150 Mcg Tablet, 150 MCG PO DAILY, (Reported) TAKES BEFORE DINNER Metoprolol Tartrate (Metoprolol Tartrate) 25 Mg Tablet, 25 MG PO BID, (Reported) Pantoprazole Sodium (Pantoprazole Sodium) 40 Mg Tablet.dr, 40 MG PO DAILY, (Reported) Vit B Comp No.3/Folic/C/Biotin (Helen-Layo Rx Tablet) 1 Each Tablet, 1 TAB PO SUKHI LY, (Reported) Allergies Coded Allergies: povidone-iodine (Verified Allergy, Severe, rash/burn, 09/08/19) soap (Verified Allergy, Severe, rash/burn, 09/08/19) Quinolones (Verified Allergy, Unknown, 09/08/19) Sulfa (Sulfonamide Antibiotics) (Verified Allergy, Unknown, 09/08/19) ciprofloxacin (Verified Allergy, Unknown, 09/08/19) epoetin reina (Verified Allergy, Unknown, 09/08/19) ibuprofen (Verified Allergy, Unknown, 09/08/19) trimethoprim (Verified Allergy, Unknown, 09/08/19) REGGIE JACOBSON MD Sep 12, 2019 18:06
== END 2019-09-11 14:34 | disposition home or self-care (01) | DRG 690 ==
LOC: M ED 23:25 → M ED INP 09-09 03:34 → M MS5PR 09-09 04:19
PROVIDERS: ADMIT Internal Medicine; ATTEND Internal Medicine
DX: N13.6 Pyonephrosis (principal); E87.2 Acidosis; N31.2 Flaccid neuropathic bladder, not elsewhere classified; N25.81 Secondary hyperparathyroidism of renal origin; N18.4 Chronic kidney disease, stage 4 (severe); I12.9 Hypertensive chronic kidney disease with stage 1 through stage 4 chronic kidney disease, or unspecified chronic kidney disease; D63.1 Anemia in chronic kidney disease; E03.9 Hypothyroidism, unspecified; K21.9 Gastro-esophageal reflux disease without esophagitis; B96.1 Klebsiella pneumoniae [K. pneumoniae] as the cause of diseases classified elsewhere; Z85.41 Personal history of malignant neoplasm of cervix uteri; Z92.3 Personal history of irradiation; Z79.899 Other long term (current) drug therapy; Z88.1 Allergy status to other antibiotic agents; Z88.2 Allergy status to sulfonamides; Z88.8 Allergy status to other drugs, medicaments and biological substances; Z88.6 Allergy status to analgesic agent; Z91.048 Other nonmedicinal substance allergy status

== ENCOUNTER 2019-09-21 00:50 | Inpatient (IN) | payer MEDICARE ==
[~2019-09-21] VITALS: Ht 162.6 cm; Wt 81.8 kg
[~2019-09-21 00:50] MED LIST changes: +CEFU1TAB20 PO
[2019-09-21] MEDS ORDERED: ONDANSETRON 4 MG ORAL DISINTEGRATING TAB (Q0162 PER 1MG) PO ONE (01:45)
[2019-09-21] MEDS ORDERED: ONDANSETRON 4MG/2ML VIAL (J2405) IV ONE ×2 (02:00→04:30)
[2019-09-21 02:41] LABS: BASO # 0.1 10^3/uL (0.0-0.2); BASO % 0.3 % (0.0-1.0); EOS # 0.1 10^3/uL (0.0-0.5); EOS % 0.6 % (0.0-3.0); HEMATOCRIT 49.4 % (36.0-47.0); HEMOGLOBIN 15.6 g/dl (12.0-15.5); LYMPH # 1.3 10^3/uL (1.5-5.0); LYMPH % 6.3 % (24.0-44.0); MEAN CORPUSCULAR HEMOGLOBIN 27.8 pg (27.0-33.0); MEAN CORPUSCULAR HGB CONC 31.6 g/dl (32.0-36.5); MEAN CORPUSCULAR VOLUME 88.1 fl (80.0-96.0); MONO # 0.6 10^3/uL (0.0-0.8); NEUTROPHILS # 18.7 10^3/uL (1.5-8.5); NEUTROPHILS % 89.3 % (36.0-66.0); PLATELET COUNT, AUTOMATED 231 10^3/uL (150-450); RED BLOOD COUNT 5.61 10^6/uL (4.00-5.40); WHITE BLOOD COUNT 20.9 10^3/uL (4.0-10.0)
[2019-09-21 03:12] LABS: ALBUMIN 3.7 GM/DL (3.2-5.2); BILIRUBIN,DIRECT 0.1 MG/DL (0.0-0.2); BILIRUBIN,TOTAL 0.7 MG/DL (0.2-1.0); CALCIUM LEVEL 9.4 MG/DL (8.5-10.1); CREATININE FOR GFR 2.82 MG/DL (0.55-1.30); GLOMERULAR FILTRATION RATE 18.4 (>51); POTASSIUM SERUM 4.3 MEQ/L (3.5-5.1); TOTAL PROTEIN 8.7 GM/DL (6.4-8.2)
[2019-09-21] MEDS ORDERED: MORPHINE 4 MG/ML 1ML VIAL/SYRINGE (J2270) IV PRN (04:30)
[2019-09-21] MEDS ORDERED: PIPERACILLIN/TAZOBACTAM SOD 3.375 GM in D5W MINI-BAG PLUS 50 ML IV ONE (05:15)
[2019-09-21] MEDS ORDERED: CALC500T44 PO (05:30)
[2019-09-21] MEDS ORDERED: ACET-897 PO (05:30)
[2019-09-21] MEDS ORDERED: PIPERACILLIN/TAZOBACTAM SOD 3.375 GM in D5W MINI-BAG PLUS 50 ML IV SCH (08:00)
[2019-09-21] MEDS ORDERED: ONDANSETRON 4MG/2ML VIAL (J2405) IV PRN (08:00)
--- NOTE | 2019-09-21 08:14 | HPEPDOC ---
General Date of Admission 09/21/19 Date of Service: Sep 21, 2019 Chief Complaint The patient is a 59-year-old female admitted with a reason for visit of Flank Pain/Vomiting. Source: Patient Exam Limitations: No limitations Timing/Duration: 24 hours Severity: Moderate Associated Symptoms: Loss of appetite, Nausea, Vomiting History of Present Illness Patient is 59 years old female with past medical history of cervical cancer treated with radiation in 1991, atonic bladder, radiation cystitis, secondary hyperparathyroidism, patient self catheterizes herself a few times in a day, chronic kidney diseases stage IV, hypertension, chronic anemia presented hospital with chills, right flank and suprapubic pain. Patient stated that for past 12h she has been having increased right flank pain associated with suprapubic pain and chills. Of note, patient was recently treated for right pyelonephritis in August 2019, patient was discharge with recommendation to continue taking antibiotics. However, patient stopped taking antibiotics due to fungal infection. In previous admission urologist Dr. Dumas recommended suppressive dose of antibiotics in the outpatient settings. Of note patient has been having frequent UTI due to self-catheterization and atonic bladder. 16Fr indwelling catheter was recommended on discharge. In ER patient was found to have tachycardia, leukocytosis. CT of abdomen and pelvis was done, result has been result pending. Home Medications Scheduled Calcium Carbonate/Vitamin D3 (Calcium 500-Vit D3 200 Tablet) 1 Each Tablet, 1 TAB PO BID, (Reported) Cefuroxime Axetil (Cefuroxime) 500 Mg Tablet, 1 TAB PO BID Fluconazole (Diflucan) 100 Mg Tablet, 100 MG PO DAILY Levothyroxine Sodium (Synthroid) 150 Mcg Tablet, 150 MCG PO QPM, (Reported) TAKES AROUND 1600 Metoprolol Tartrate (Metoprolol Tartrate) 25 Mg Tablet, 25 MG PO BID, (Reported) Metronidazole (Metrogel-Vaginal) 70 Gm Gel.w.appl, 1 APLCTR PV QPM Pantoprazole Sodium (Pantoprazole Sodium) 40 Mg Tablet.dr, 40 MG PO DAILY, (Reported) Vit B Comp No.3/Folic/C/Biotin (Helen-Layo Rx Tablet) 1 Each Tablet, 1 TAB PO DAILY, (Reported) Scheduled PRN Acetaminophen (Tylenol Extra Strength) 500 Mg Tablet, 500 MG PO Q4H PRN for PAIN / FEVER, (Reported) Allergies Coded Allergies: povidone-iodine (Verified Allergy, Severe, rash/burn, 09/21/19) soap (Verified Allergy, Severe, rash/burn, 09/21/19) Quinolones (Verified Allergy, Unknown, 09/21/19) Sulfa (Sulfonamide Antibiotics) (Verified Allergy, Unknown, 09/21/19) ciprofloxacin (Verified Allergy, Unknown, 09/21/19) epoetin reina (Verified Allergy, Unknown, 09/21/19) ibuprofen (Verified Allergy, Unknown, 09/21/19) trimethoprim (Verified Allergy, Unknown, 09/21/19) Past Medical History Medical History cervical cancer treated with radiation in 1991, atonic bladder, radiation cystitis, secondary hyperparathyroidism, patient self catheterizes herself a few times in a day, chronic kidney diseases stage IV, hypertension, chronic anemia Surgical History Appendectomy Family History I personally reviewed family history and found nonsignificant Social History * Smoker: Denies Alcohol: rarely Drugs: denies A-FIB/CHADSVASC A-FIB History Current/History of A-Fib/PAF?: No Current PO Anticoag Therapy: No Review of Systems Constitutional: Reports: Chills, Fatigue Eyes: Denies: Pain ENT: Denies: Head Aches, Ear Pain Skin: Denies: Rash, Lesions Pulmonary: Denies: Dyspnea, Cough Cardiovascular: Denies: Chest Pain, Palpitations Gastrointestinal: Reports: Nausea, Vomiting Genitourinary: Reports: Dysuria Hematologic: Denies: Bruising Endocrine: Denies: Polydipsia, Polyphagia Musculoskeletal: Denies: Neck Pain Neurological: Denies: Weakness Psych: Reports: Mood Normal Physical Examination General Exam: Positive: Alert, Cooperative Eye Exam: Positive: PERRLA ENT Exam: Positive: Atraumatic, Mucous membr. moist/pink Neck Exam: Positive: Supple; Negative: JVD Chest Exam: Positive: Clear to auscultation Heart Exam: Positive: Tachycardic Telemetry: Positive: Tachycardia; Negative: No significant arrhythmia Abdomen Exam: Positive: BS Hypoactive, Tenderness (right flank tenderness) Extremity Exam: Negative: Clubbing, Cyanosis Skin Exam: Positive: Nl turgor and temperature Neuro Exam: Positive: Normal Gait, Strength at 5/5 X4 ext, Cranial Nerves 3-12 NL Psych Exam: Positive: Mental status NL Vital Signs Vital Signs Date Time Temp Pulse Resp B/P (MAP) Pulse Ox O2 Delivery O2 Flow Rate FiO2 09/21/19 07:00 92 16 117/57 (77) 94 09/21/19 05:10 Room Air 09/21/19 00:51 97.5 Laboratory Data Labs 24H Laboratory Tests 2 09/21/19 02:27: Immature Granulocyte % (Auto) 0.5, Neutrophils (%) (Auto) 89.3H, Lymphocytes (%) (Auto) 6.3L, Monocytes (%) (Auto) 3.0, Eosinophils (%) (Auto) 0.6, Basophils (%) (Auto) 0.3, Neutrophils # (Auto) 18.7H, Lymphocytes # (Auto) 1.3L, Monocytes # (Auto) 0.6, Eosinophils # (Auto) 0.1, Basophils # (Auto) 0.1, Nucleated Red Blood Cells % (auto) 0.0, Urine Color YELLOW, Urine Appearance TURBIDH, Urine pH 6.0, Urine Specific [place] 1.007, Urine Protein 3+H, Urine Glucose (UA) NEGATIVE, Urine Ketones NEGATIVE, Urine Blood 2+H, Urine Nitrite NEGATIVE, Urine Bilirubin NEGATIVE, Urine Urobilinogen 0.2, Urine Leukocyte Esterase 3+H, Urine WBC (Auto) TNTCH, Urine RBC (Auto) 140H, Urine Hyaline Casts (Auto) 0, Urine Bacteria (Auto) NEGATIVE, Urine Squamous Epithelial Cells 0, Urine Sperm (Auto) , Anion Gap 13, Glomerular Filtration Rate 18.4L, Calcium Level 9.4, Total Bilirubin 0.7, Direct Bilirubin 0.1, Aspartate Amino Transf (AST/SGOT) 25, Alanine Aminotransferase (ALT/SGPT) 29, Alkaline Phosphatase 64, Total Protein 8.7H, Albumin 3.7, Albumin/Globulin Ratio 0.74L, Lipase 568H CBC/BMP Laboratory Tests 09/21/19 02:27 Microbiology Microbiology 09/21/19 Urine Culture, Received Pending Assessment/Plan Patient is 59 years old female with past medical history of cervical cancer treated with radiation in 1991, atonic bladder, radiation cystitis, secondary hyperparathyroidism, patient self catheterizes herself a few times in a day, chronic kidney diseases stage IV, hypertension, chronic anemia presented hospital with chills, right flank and suprapubic pain. Patient stated that for past 12h she has been having increased right flank pain associated with suprap ubic pain and chills. Of note, patient was recently treated for right pyelonephritis in August 2019, patient was discharge with recommendation to continue taking antibiotics. However, patient stopped taking antibiotics due to fungal infection Problems (1) Sepsis Status: Acute Problem Text: Secondary to acute pyelonephritis Patient has leukocytosis with tachycardia Patient had a history of bacteriuria with Pseudomonas. Also patient received multiple courses of different antibiotics for past 6 months Zosyn IV IV fluid Urine culture Blood culture CT of abdomen was done, result pending Ultrasound of the kidneys Appreciate/agree with urologist consult (2) Pyelonephritis Status: Acute Problem Text: Pyelonephritis Acute See above Plan / VTE VTE Prophylaxis Ordered?: Yes JOSE ANTONIO ROBLERO DO Sep 21, 2019 08:14
--- NOTE | 2019-09-21 08:17 | REPVR ---
PROCEDURE INFORMATION: Exam: CT Abdomen And Pelvis Without Contrast Exam date and time: 09/21/2019 5:08 AM Age: 59 years old Clinical indication: Abdominal pain; Flank; Right; Additional info: Right flank pain, pyelonephritis, ckd TECHNIQUE: Imaging protocol: Computed tomography of the abdomen and pelvis without contrast. Radiation optimization: All CT scans at this facility use at least one of these dose optimization techniques: automated exposure control; mA and/or kV adjustment per patient size (includes targeted exams where dose is matched to clinical indication); or iterative reconstruction. COMPARISON: CT ABD PELVIS W/O CONTRAST 09/09/2019 1:49 AM FINDINGS: Liver: Normal. No mass. Gallbladder and bile ducts: Normal. No calcified stones. No ductal dilation. Pancreas: Normal. No ductal dilation. Spleen: Normal. No splenomegaly. Adrenals: Normal. No mass. Kidneys and ureters: Severe bilateral renal pelvicaliectasis and mild-moderate ureterectasis redemonstrated. Persistent RIGHT perinephric stranding, stable. Stable mild LEFT renal lower pole calculus disease. Stomach and bowel: Sigmoid colonic diverticula are present without evidence of diverticulitis. Appendix: The vermiform appendix is not identified on this examination. There is, however, no pericecal abnormality to suggest appendicitis. Intraperitoneal space: Unremarkable. No free air. No significant fluid collection. Vasculature: A retroaortic left renal vein is present. Mild aortic atherosclerotic calcification without aneurysm. Calcified phleboliths are present in the lower pelvis bilaterally. Lymph nodes: Unremarkable. No enlarged lymph nodes. Bladder: The urinary bladder is drained by a Weeks catheter. Reproductive: 2.6 cm LEFT ovarian cyst/follicle redemonstrated. Bones/joints: No acute abnormality identified. No acute fracture. Soft tissues: Unremarkable. IMPRESSION: 1. Severe bilateral renal pelvicaliectasis and mild-moderate ureterectasis redemonstrated. 2. Persistent RIGHT perinephric stranding, stable. The finding is consistent with the clinical diagnosis of pyelonephritis. 3. Stable mild LEFT renal lower pole calculus disease. 4. Diverticulosis. Electronically signed by: Angel Irving On 09/21/2019 08:17:03 AM
[2019-09-21] MEDS ORDERED: NS 1,000 ML IV ONE (08:30)
--- NOTE | 2019-09-21 09:08 | REP ---
Clinical: Hydronephrosis. Technique: Real time vaca scale ultrasound examination using curved array transducer. Findings: The bilateral kidneys are enlarged and demonstrate significant cortical thinning and presumed cysts as well as generalized chronic hydronephrosis. The right kidney measures 16.0 x 8.6 x 8.8 cm and the largest cystic area versus chronic dilated paula measures 5.5 cm. The left kidney measures 14.7 x 6.2 x 7.5 cm and the largest cystic area versus chronic dilated paula measures 6.8 cm. No obvious nephrolithiasis. Weeks catheter in bladder. Impression: Marked bilateral cortical thinning and significant bilateral cystic changes versus marked bilateral hydronephrosis. Correlation with renal function and possible pre and postcontrast CT of the abdomen to differentiate between hydronephrosis and cysts should be considered as well as nuclear medicine imaging. Electronically Signed by Thee Browne MD 09/21/2019 08:59 A
[2019-09-21] MEDS: NS 1,000 ML IV SCH ×2 (11:38→17:44)
[2019-09-21] MEDS: HEPARIN SOD (PORCINE) 5000 UNITS/ML VIAL SC SCH ×2 (11:39→20:20)
[2019-09-21] MEDS: PIPERACILLIN/TAZOBACTAM SOD 2.25 GM in D5W MINI-BAG PLUS 50 ML IV SCH ×2 (11:40→17:44)
[2019-09-21] MEDS: ACETAMINOPHEN TAB 650MG DOSE (2X325MG) PO PRN ×2 (13:40→17:45)
[2019-09-21 14:00] VITALS: BP 118/75
[2019-09-21] MEDS: PANTOPRAZOLE 40MG TAB (PROTONIX) PO SCH ×2 (19:27→20:03)
[2019-09-21] MEDS: LEVOTHYROXINE 150MCG TABLET (0.15MG) PO SCH (20:20)
[2019-09-21] MEDS: METOPROLOL TART 25 MG TABLET PO SCH (20:20)
[2019-09-21] MEDS ORDERED: PANTOPRAZOLE 40MG TAB (PROTONIX) PO ONE (21:00)
[2019-09-21 22:00] VITALS: BP 112/64
[2019-09-22] MEDS: PIPERACILLIN/TAZOBACTAM SOD 2.25 GM in D5W MINI-BAG PLUS 50 ML IV SCH ×5 (00:24→23:56)
[2019-09-22] MEDS: NS 1,000 ML IV SCH ×4 (05:12→23:56)
[2019-09-22 06:00] VITALS: BP 113/65
[2019-09-22 06:14] LABS: HEMATOCRIT 36.5 % (36.0-47.0); MEAN CORPUSCULAR HEMOGLOBIN 28.2 pg (27.0-33.0); MEAN CORPUSCULAR HGB CONC 31.5 g/dl (32.0-36.5); MEAN CORPUSCULAR VOLUME 89.5 fl (80.0-96.0); PLATELET COUNT, AUTOMATED 162 10^3/uL (150-450); RED BLOOD COUNT 4.08 10^6/uL (4.00-5.40)
[2019-09-22 06:17] LABS: HEMOGLOBIN 11.5 g/dl (12.0-15.5)
[2019-09-22 06:32] LABS: CALCIUM LEVEL 7.9 MG/DL (8.5-10.1); CREATININE FOR GFR 2.64 MG/DL (0.55-1.30); GLOMERULAR FILTRATION RATE 19.8 (>51); MAGNESIUM LEVEL 1.8 MG/DL (1.8-2.4); POTASSIUM SERUM 3.6 MEQ/L (3.5-5.1)
[2019-09-22] MEDS ORDERED: POTASSIUM CHLORIDE 10 MEQ SR TABLET PO ONE (08:00)
[2019-09-22] MEDS: HEPARIN SOD (PORCINE) 5000 UNITS/ML VIAL SC SCH ×2 (08:07→20:22)
[2019-09-22] MEDS: PANTOPRAZOLE 40MG TAB (PROTONIX) PO SCH (08:08)
[2019-09-22] MEDS: METOPROLOL TART 25 MG TABLET PO SCH ×2 (08:08→20:24)
[2019-09-22] MEDS ORDERED: MIRALAX *UNIT DOSE* 17GM PACKET PO PRN (10:30)
[2019-09-22 14:00] VITALS: BP 114/58
--- NOTE | 2019-09-22 16:11 | IPNPDOC ---
Text Note Date of Service The patient was seen on 09/22/19. NOTE Subjective: Patient stated that she feels much better today, flank pain resolv ed. Patient complains of intermittent vaginal itchiness Objective: GENERAL APPEARANCE: Obese female, not in apparent distress HEENT: Normocephalic, atraumatic. Mucous members moist and pink CARDIOVASCULAR: Regular rate and rhythm. No murmurs, rubs or gallops. Radial pulses are intact. There is no lower extremity edema LUNGS: Diminished lung sounds ABDOMEN: Abdomen is soft and nontender. MUSCULOSKELETAL: Range of motion is intact in all 4 extremities NEUROLOGICAL: Cranial nerves II-12 are grossly intact. Speech is not dysarthric PROCEDURE INFORMATION: Exam: CT Abdomen And Pelvis Without Contrast Exam date and time: 09/21/2019 5:08 AM Age: 59 years old Clinical indication: Abdominal pain; Flank; Right; Additional info: Right flank pain, pyelonephritis, ckd TECHNIQUE: Imaging protocol: Computed tomography of the abdomen and pelvis without contrast. Radiation optimization: All CT scans at this facility use at least one of these dose optimization techniques: automated exposure control; mA and/or kV adjustment per patient size (includes targeted exams where dose is matched to clinical indication); or iterative reconstruction. COMPARISON: CT ABD PELVIS W/O CONTRAST 09/09/2019 1:49 AM FINDINGS: Liver: Normal. No mass. Gallbladder and bile ducts: Normal. No calcified stones. No ductal dilation. Pancreas: Normal. No ductal dilation. Spleen: Normal. No splenomegaly. Adrenals: Normal. No mass. Kidneys and ureters: Severe bilateral renal pelvicaliectasis and mild-moderate ureterectasis redemonstrated. Persistent RIGHT perinephric stranding, stable. Stable mild LEFT renal lower pole calculus disease. Stomach and bowel: Sigmoid colonic diverticula are present without evidence of diverticulitis. Appendix: The vermiform appendix is not identified on this examination. There is, however, no pericecal abnormality to suggest appendicitis. Intraperitoneal space: Unremarkable. No free air. No significant fluid collection. Vasculature: A retroaortic left renal vein is present. Mild aortic atherosclerotic calcification without aneurysm. Calcified phleboliths are present in the lower pelvis bilaterally. Lymph nodes: Unremarkable. No enlarged lymph nodes. Bladder: The urinary bladder is drained by a Weeks catheter. Reproductive: 2.6 cm LEFT ovarian cyst/follicle redemonstrated. Bones/joints: No acute abnormality identified. No acute fracture. Soft tissues: Unremarkable. IMPRESSION: 1. Severe bilateral renal pelvicaliectasis and mild-moderate ureterectasis redemonstrated. 2. Persistent RIGHT perinephric stranding, stable. The finding is consistent with the clinical diagnosis of pyelonephritis. 3. Stable mild LEFT renal lower pole calculus disease. 4. Diverticulosis. Electronically signed by: Angel Irving On 09/21/2019 08:17:03 AM DD: ANGEL IRVING MD 09/21/19 0508 DT: PARKER 09/21/19816 DS: SHEBA 09/21/19816 Assessment/Plan Patient is 59 years old female with past medical history of cervical cancer treated with radiation in 1991, atonic bladder, radiation cystitis, secondary hyperparathyroidism, patient self catheterizes herself a few times in a day, chronic kidney diseases stage IV, hypertension, chronic anemia presented hospital with chills, right flank and suprapubic pain. Patient stated that for past 12h she has been having increased right flank pain associated with suprapubic pain and chills. Of note, patient was recently treated for right pyelonephritis in August 2019, patient was discharge with recommendation to continue taking antibiotics. However, patient stopped taking antibiotics due to fungal infection Problems (1) Sepsis Secondary to acute pyelonephritis Patient has leukocytosis with tachycardia Patient had a history of bacteriuria with Pseudomonas. Also patient received multiple courses of different antibiotics for past 6 months Zosyn IV IV fluid Urine culture pending Blood culture negative for [address] of abdomen was done, no ureter stones urologist consult in the outpatient settings (2) Pyelonephritis See above vaginal itchiness Most likely secondary to yeast infection Diflucan by mouth daily during antibiotic therapy VS,Fishbone, I+O VS, Fishbone, I+O Laboratory Tests 09/22/19 05:56 Vital Signs Date Time Temp Pulse Resp B/P (MAP) Pulse Ox O2 Delivery O2 Flow Rate FiO2 09/22/19 14:00 98.5 88 20 114/58 (76) 96 Room Air I&O- Last 24 Hours up to 6 AM 09/22/19 06:00 Intake Total 2700 ml Output Total 3675 ml Balance -975 ml JOSE ANTONIO ROBLERO DO Sep 22, 2019 16:11
[2019-09-22] MEDS: FLUCONAZOLE 100 MG TAB PO SCH (16:36)
[2019-09-22] MEDS: LEVOTHYROXINE 150MCG TABLET (0.15MG) PO SCH (20:23)
[2019-09-22 22:00] VITALS: BP 122/61
[2019-09-23 06:00] VITALS: BP 122/73
[2019-09-23] MEDS: PIPERACILLIN/TAZOBACTAM SOD 2.25 GM in D5W MINI-BAG PLUS 50 ML IV SCH (06:17)
[2019-09-23 08:16] LABS: HEMATOCRIT 35.1 % (36.0-47.0); MEAN CORPUSCULAR HEMOGLOBIN 28.2 pg (27.0-33.0); MEAN CORPUSCULAR HGB CONC 31.3 g/dl (32.0-36.5); PLATELET COUNT, AUTOMATED 174 10^3/uL (150-450); WHITE BLOOD COUNT 7.5 10^3/uL (4.0-10.0)
[2019-09-23 08:22] VITALS: BP 122/73
[2019-09-23] MEDS: METOPROLOL TART 25 MG TABLET PO SCH (08:22)
[2019-09-23] MEDS: FLUCONAZOLE 100 MG TAB PO SCH (08:22)
[2019-09-23] MEDS: HEPARIN SOD (PORCINE) 5000 UNITS/ML VIAL SC SCH (08:22)
[2019-09-23] MEDS: PANTOPRAZOLE 40MG TAB (PROTONIX) PO SCH (08:22)
[2019-09-23 08:43] LABS: CALCIUM LEVEL 8.4 MG/DL (8.5-10.1); CREATININE FOR GFR 2.49 MG/DL (0.55-1.30); GLOMERULAR FILTRATION RATE 21.2 (>51)
[2019-09-23] MEDS ORDERED: METR1GEL7 PV (10:02)
[2019-09-23] MEDS ORDERED: FLUC10TA PO (10:02)
[2019-09-23] MEDS ORDERED: AUGM875T28 PO (10:02)
[2019-09-23] MEDS ORDERED: CEFU50TA PO (10:04)
--- NOTE | 2019-09-23 11:38 | DS.PDOC ---
Discharge Summary General Date of Admission Sep 21, 2019 at 07:59 Date of Discharge 09/23/19 Discharge Summary PROCEDURES PERFORMED DURING STAY: [None]. ADMITTING DIAGNOSES: Sepsis Pyelonephritis DISCHARGE DIAGNOSES: Sepsis Pyelonephritis COMPLICATIONS/CHIEF COMPLAINT: Pyelonephritis. HISTORY OF PRESENT ILLNESS: Patient is 59 years old female with past medical history of cervical cancer treated with radiation in 1991, atonic bladder, radiation cystitis, secondary hyperparathyroidism, patient self catheterizes herself a few times in a day, chronic kidney diseases stage IV, hypertension, chronic anemia presented hospital with chills, right flank and suprapubic pain. Patient stated that for past 12h she has been having increased right flank pain associated with suprapubic pain and chills. Of note, patient was recently treated for right pyelonephritis in August 2019, patient was discharge with recommendation to continue taking antibiotics. However, patient stopped taking antibiotics due to fungal infection. In previous admission urologist Dr. Dumas recommended suppressive dose of antibiotics in the outpatient settings. Of note patient has been having frequent UTI due to self-catheterization and atonic bladder. 16Fr indwelling catheter was recommended on discharge. In ER patient was found to have tachycardia, leukocytosis. HOSPITAL COURSE: During hospital stay following issue addressed (1) Sepsis Secondary to acute pyelonephritis Patient has leukocytosis with tachycardia Patient had a history of bacteriuria with Pseudomonas. Also patient received multiple courses of different antibiotics for past 6 months Patient received Zosyn IV IV fluid Urine culture positive for Klebsiella oxytoca Blood culture negative CT of abdomen was done, no ureter stones urologist consult in the outpatient settings (2) Pyelonephritis See above vaginal itchiness Most likely secondary to yeast infection Diflucan by mouth daily during antibiotic therapy DISCHARGE MEDICATIONS: Please see below. ALLERGIES: Please see below. PHYSICAL EXAMINATION ON DISCHARGE: VITAL SIGNS: Please see below. GENERAL APPEARANCE: Obese female, not in apparent distress HEENT: Normocephalic, atraumatic. Mucous members moist and pink CARDIOVASCULAR: Regular rate and rhythm. No murmurs, rubs or gallops. Radial pulses are intact. There is no lower extremity edema LUNGS: Diminished lung sounds ABDOMEN: Abdomen is soft and nontender. MUSCULOSKELETAL: Range of motion is intact in all 4 extremities NEUROLOGICAL: Cranial nerves II-12 are grossly intact. Speech is not dysarthric LABORATORY DATA: Please see below. IMAGING: CT ABD PELVIS W/O CONTRAST 09/09/2019 1:49 AM FINDINGS: Liver: Normal. No mass. Gallbladder and bile ducts: Normal. No calcified stones. No ductal dilation. Pancreas: Normal. No ductal dilation. Spleen: Normal. No splenomegaly. Adrenals: Normal. No mass. Kidneys and ureters: Severe bilateral renal pelvicaliectasis and mild-moderate ureterectasis redemonstrated. Persistent RIGHT perinephric stranding, stable. Stable mild LEFT renal lower pole calculus disease. Stomach and bowel: Sigmoid colonic diverticula are present without evidence of diverticulitis. Appendix: The vermiform appendix is not identified on this examination. There is, however, no pericecal abnormality to suggest appendicitis. Intraperitoneal space: Unremarkable. No free air. No significant fluid collection. Vasculature: A retroaortic left renal vein is present. Mild aortic atherosclerotic calcification without aneurysm. Calcified phleboliths are present in the lower pelvis bilaterally. Lymph nodes: Unremarkable. No enlarged lymph nodes. Bladder: The urinary bladder is drained by a Weeks catheter. Reproductive: 2.6 cm LEFT ovarian cyst/follicle redemonstrated. Bones/joints: No acute abnormality identified. No acute fracture. Soft tissues: Unremarkable. IMPRESSION: 1. Severe bilateral renal pelvicaliectasis and mild-moderate ureterectasis redemonstrated. 2. Persistent RIGHT perinephric stranding, stable. The finding is consistent with the clinical diagnosis of pyelonephritis. 3. Stable mild LEFT renal lower pole calculus disease. 4. Diverticulosis. PROGNOSIS: Favorable ACTIVITY: As tolerated DIET: Cardiac DISCHARGE PLAN: Home DISPOSITION: Home DISCHARGE INSTRUCTIONS: Take prescribed medications ITEMS TO FOLLOWUP ON ON OUTPATIENT: Follow-up with urologist on the next week DISCHARGE CONDITION: Stable TIME SPENT ON DISCHARGE: Greater than 20 minutes. Vital Signs/I&Os Vital Signs Date Time Temp Pulse Resp B/P (MAP) Pulse Ox O2 Delivery O2 Flow Rate FiO2 09/23/19 08:22 70 122/73 09/23/19 06:00 97.5 19 96 Room Air I&O- Last 24 Hours up to 6 AM 09/23/19 06:00 Intake Total 3870 ml Output Total 3825 ml Balance 45 ml Laboratory Data Labs 24H Laboratory Tests 2 09/23/19 07:57: Nucleated Red Blood Cells % (auto) 0.0, Anion Gap 9, Glomerular Filtration Rate 21.2L, Calcium Level 8.4L CBC/BMP Laboratory Tests 09/23/19 07:57 Microbiology Microbiology 09/21/19 Blood Culture - Preliminary, Resulted No Growth after 48 hours. All Specime... 09/21/19 Urine Culture - Final, Complete Klebsiella Oxytoca Discharge Medications Scheduled Calcium Carbonate/Vitamin D3 (Calcium 500-Vit D3 200 Tablet) 1 Each Tablet, 1 TAB PO BID, (Reported) Cefuroxime Axetil (Cefuroxime) 500 Mg Tablet, 1 TAB PO BID Fluconazole (Diflucan) 100 Mg Tablet, 100 MG PO DAILY Levothyroxine Sodium (Synthroid) 150 Mcg Tablet, 150 MCG PO QPM, (Reported) TAKES AROUND 1600 Metoprolol Tartrate (Metoprolol Tartrate) 25 Mg Tablet, 25 MG PO BID, (Reported) Metronidazole (Metrogel-Vaginal) 70 Gm Gel.w.appl, 1 APLCTR PV QPM Pantoprazole Sodium (Pantoprazole Sodium) 40 Mg Tablet.dr, 40 MG PO DAILY, (Reported) Vit B Comp No.3/Folic/C/Biotin (Helen-Layo Rx Tablet) 1 Each Tablet, 1 TAB PO DAILY, (Reported) Scheduled PRN Acetaminophen (Tylenol Extra Strength) 500 Mg Tablet, 500 MG PO Q4H PRN for PAIN / FEVER, (Reported) Allergies Coded Allergies: povidone-iodine (Verified Allergy, Severe, rash/burn, 09/21/19) soap (Verified Allergy, Severe, rash/burn, 09/21/19) Quinolones (Verified Allergy, Unknown, 09/21/19) Sulfa (Sulfonamide Antibiotics) (Verified Allergy, Unknown, 09/21/19) ciprofloxacin (Verified Allergy, Unknown, 09/21/19) epoetin reina (Verified Allergy, Unknown, 09/21/19) ibuprofen (Verified Allergy, Unknown, 09/21/19) trimethoprim (Verified Allergy, Unknown, 09/21/19) JOSE ANTONIO ROBLERO DO Sep 23, 2019 11:38
== END 2019-09-23 11:51 | disposition home or self-care (01) | DRG 872 ==
LOC: M ED 00:50 → M ED INP 07:59 → ENRESERV 12:08 → M MSPAV 13:35
PROVIDERS: ADMIT Internal Medicine; ATTEND Internal Medicine
DX: A41.9 Sepsis, unspecified organism (principal); N10 Acute pyelonephritis; N18.4 Chronic kidney disease, stage 4 (severe); N25.81 Secondary hyperparathyroidism of renal origin; N31.2 Flaccid neuropathic bladder, not elsewhere classified; I12.9 Hypertensive chronic kidney disease with stage 1 through stage 4 chronic kidney disease, or unspecified chronic kidney disease; B37.3 Candidiasis of vulva and vagina; D64.9 Anemia, unspecified; Z85.41 Personal history of malignant neoplasm of cervix uteri; Z92.3 Personal history of irradiation; Z79.899 Other long term (current) drug therapy; Z88.1 Allergy status to other antibiotic agents; Z88.2 Allergy status to sulfonamides; Z88.6 Allergy status to analgesic agent; Z88.8 Allergy status to other drugs, medicaments and biological substances

== ENCOUNTER → 2019-11-27 | Outpatient (REF) | payer MEDICARE ==
[~2019-11-27] MED LIST changes: +ACET-897 PO; +AUGM875T28 PO; +CALC500T44 PO; +CEFU50TA PO; +FLUC10TA PO; +HYDR-3713 PO; +METR1GEL7 PV
[2019-11-27 18:13] LABS: APPEARANCE, URINE HAZY (CLEAR); BACTERIA, URINE AUTO 1+ (NEGATIVE); BILIRUBIN, URINE AUTO NEGATIVE (NEGATIVE); BLOOD, URINE BLOOD 1+ (NEGATIVE); COLOR, URINE YELLOW (YELLOW); GLUCOSE, URINE (UA) AUTO NEGATIVE (NEGATIVE); KETONE, URINE AUTO NEGATIVE (NEGATIVE); LEUKOCYTE ESTERASE, URINE AUTO 1+ (NEGATIVE); NITRITE, URINE AUTO NEGATIVE (NEGATIVE); PROTEIN, URINE AUTO 2+ mg/dL (NEGATIVE); RBC, URINE AUTO 9 /HPF (0-3); SPECIFIC GRAVITY URINE AUTO 1.009 (1.002-1.035); SQUAMOUS EPITHELIAL CELL UR AU 0 /HPF (0-6); UROBILINOGEN, URINE AUTO 0.2 mg/dL (0.0-2.0); WBC, URINE AUTO 5 /HPF (0-3)
== END ==
LOC: M SMT 16:46
PROVIDERS: ATTEND Nurse Practitioner Women's Health
DX: R33.9 Retention of urine, unspecified (principal)
CPT/HCPCS: 51702; 81001; 87088; 87186; G0463

== ENCOUNTER 2019-12-12 16:18 | Outpatient (CLI) | payer MEDICARE ==
[~2019-12-12] VITALS: Ht 162.6 cm; Wt 81.0 kg
[2019-12-12 17:00] VITALS: BP 134/63
[2019-12-12] MEDS ORDERED: MEROPENEM INJ 1 GM in IV 1 EA IV ONE (17:00)
[2019-12-12 18:26] VITALS: BP 157/75
== END 2019-12-12 18:30 | disposition home or self-care (01) ==
LOC: M INFU 16:18
PROVIDERS: ATTEND Nurse Practitioner Women's Health
DX: N39.0 Urinary tract infection, site not specified (principal); Z88.1 Allergy status to other antibiotic agents; Z88.2 Allergy status to sulfonamides; Z88.6 Allergy status to analgesic agent; Z88.8 Allergy status to other drugs, medicaments and biological substances
CPT/HCPCS: 96365; J2185

== ENCOUNTER 2019-12-13 09:50 | Day surgery (SDC) | payer MEDICARE ==
[~2019-12-13] VITALS: Ht 162.6 cm; Wt 83.0 kg
[~2019-12-13 09:50] MED LIST changes: +LR 1,000 ML IV ONE; +MEROPENEM INJ 1 GM in IV 1 EA IV ONE; +ceFAZolin SOD 2 GM in IV 1 EA IV ONE
[2019-12-13 10:31] LABS: INR 0.95; PROTHROMBIN TIME 12.4 SECONDS (11.8-14.0)
[2019-12-13] MEDS ORDERED: propofoL 500 MG/50 ML VIAL As Ordered ONE (11:56)
[2019-12-13] MEDS ORDERED: fentaNYL 100 MCG/2 ML INJECTION (J3010) As Ordered ONE (12:08)
[2019-12-13] MEDS ORDERED: ONDANSETRON 4MG/2ML VIAL (J2405) As Ordered ONE (12:08)
[2019-12-13] MEDS ORDERED: MIDAZOLAM INJ 2 MG/2 ML VIAL (J2250) As Ordered ONE (12:08)
[2019-12-13] MEDS ORDERED: CONRAY-60 60% 50ML VIAL (Q9961) As Ordered ONE (12:18)
[2019-12-13] MEDS ORDERED: LIDOCAINE 2% 5ML JELLY UROJET As Ordered ONE (12:18)
[2019-12-13] MEDS ORDERED: LIDOCAINE 2% INJ 100 MG/5 ML SDV (FOR ANES.) As Ordered ONE (13:11)
[2019-12-13] MEDS ORDERED: propofoL 200 MG/20 ML VIAL As Ordered ONE ×3 (13:14→13:37)
--- NOTE | 2019-12-13 14:33 | REP ---
C-ARM VIEWS DURING BILATERAL URETERAL STENT PLACEMENT: Three C-arm views are performed of the abdomen and pelvis. Contrast partially opacifies severe dilated pelvicaliceal systems bilaterally. There are bilateral ureteral stents placed. Both proximal ends of the stents are in their respective renal pelvis and the distal ends in the urinary bladder. 42 seconds of fluoroscopy time is utilized. Electronically Signed by Santhosh Hanna MD 12/13/2019 04:58 P
--- NOTE | 2019-12-13 14:35 | RO ---
DATE OF PROCEDURE: 12/13/2019 PREPROCEDURE DIAGNOSIS: Bilateral hydroureteronephrosis. POSTPROCEDURE DIAGNOSIS: Bilateral ureteral strictures. PROCEDURE: Cystoscopy, bilateral retrograde pyelograms with intraoperative interpretation of images, bilateral ureteral stent placement. SURGEON: Merlin Dumas MD RETAIL ASSOCIATE: None. ANESTHESIA: Monitored anesthesia care (MAC). OPERATIVE INDICATIONS: This is a 59-year-old female with a history of chronic kidney disease and worsening serum creatinine. Recent imaging demonstrated persistent bilateral hydroureteronephrosis. She was brought to the operating room for placement of bilateral ureteral stents. DESCRIPTION OF PROCEDURE: The patient was brought to the operating room and MAC anesthesia was administered. Prophylactic antibiotics were administered. She was then placed in the dorsal lithotomy position, then prepped and draped in the usual sterile fashion. At this point, a rigid cystoscope was inserted into the urethral meatus and advanced to the bladder. Of note, the bladder had changes consistent with radiation cystitis. Bilateral ureteral orifices appeared to be stenotic. At this point, a guidewire was advanced up the left collecting system. A 5-Ugandan open-ended ureteral catheter was then advanced up the left collecting system and then the wire was removed. Once that was done, I aspirated out about approximately 40-50 mL of clear urine from the left kidney. I then shot a retrograde pyelogram. It was notable for severe left hydronephrosis with no extravasation. I then advanced the wire back up the left collecting system and then removed the open-ended ureteral catheter. I then utilized the wire to advance a 7-Ugandan x 24 cm black silicone ureteral stent up into the left collecting system. The wire was removed and there were adequate curls of the stent in the left renal pelvis and in the bladder. At this point, I examined the right ureteral orifice and it was even more stenotic than the left side. With some difficulty I was ultimately able to negotiate a wire up into the right collecting system, and then the 5-Ugandan open-ended ureteral catheter was advanced up the right collecting system. The wire was removed and I aspirated out approximately 40-50 mL of clear urine from the right kidney. I then shot a retrograde pyelogram. It was notable for severe right hydronephrosis with no extravasation. I then advanced the wire back up the right collecting system and removed the open-ended ureteral catheter. I then utilized the wire to advance a 7-Ugandan x 24 cm black silicone ureteral stent into the right collecting system. The wire was removed and there were adequate curls of the stent in the right renal pelvis and in the bladder. At this point, I put in new 16-Ugandan Weeks catheter and the balloon was filled with 10 mL of sterile water. The catheter was connected to gravity drainage, and this marked the conclusion of the procedure. The patient was then taken out of the dorsal lithotomy position, awakened from anesthesia and transported to the recovery room in stable condition. Estimated blood loss: 5 mL. Complications: None. Specimens: None. Plan: I will have the patient followup in urology clinic in approximately 1 month. I will get a renal ultrasound at that time to see if her hydronephrosis has resolved. Also of note at that time, assuming the hydronephrosis has improved, we will likely remove her Weeks catheter, and at that point, she can go back to clean intermittent catheterization. RON
[2019-12-13] MEDS ORDERED: PERCOCET 5MG/325MG TAB As Ordered ONE (14:55)
[2019-12-13] MEDS ORDERED: ONDANSETRON 4MG/2ML VIAL (J2405) IV PRN (15:00)
[2019-12-13] MEDS ORDERED: fentaNYL 100 MCG/2 ML INJECTION (J3010) IV PRN (15:00)
[2019-12-13] MEDS ORDERED: PERCOCET 5MG/325MG TAB PO PRN (15:00)
[2019-12-13 15:45] VITALS: BP 129/66
== END 2019-12-13 16:00 | disposition home or self-care (01) ==
LOC: M SDC 09:50
PROVIDERS: ATTEND Urology
DX: N13.1 Hydronephrosis with ureteral stricture, not elsewhere classified (principal); K21.9 Gastro-esophageal reflux disease without esophagitis; I12.9 Hypertensive chronic kidney disease with stage 1 through stage 4 chronic kidney disease, or unspecified chronic kidney disease; M10.9 Gout, unspecified; N18.4 Chronic kidney disease, stage 4 (severe); Z92.3 Personal history of irradiation; Z79.899 Other long term (current) drug therapy; Z87.891 Personal history of nicotine dependence; Z85.41 Personal history of malignant neoplasm of cervix uteri; Z88.2 Allergy status to sulfonamides; Z88.5 Allergy status to narcotic agent; Z88.8 Allergy status to other drugs, medicaments and biological substances
CPT/HCPCS: 36415; 52332; 74420; 85610; C1769; C2617; J2185; J2250; J2405; J3010; Q9961

== ENCOUNTER → 2020-01-16 | Outpatient (REF) | payer MEDICARE ==
[~2020-01-16] MED LIST changes: -LR 1,000 ML IV ONE; -MEROPENEM INJ 1 GM in IV 1 EA IV ONE; -ceFAZolin SOD 2 GM in IV 1 EA IV ONE
== END ==
LOC: M SMT 17:34
PROVIDERS: ATTEND Nurse Practitioner Women's Health
DX: R33.9 Retention of urine, unspecified (principal)
CPT/HCPCS: 51701; 87186; G0463

== ENCOUNTER → 2020-04-16 | Outpatient (CLI) | payer MEDICARE ==
[~2020-04-16] MED LIST changes: +LEVO150T7 PO; +OXYC1TAB23 PO; +PANT40TA29 PO; -PANT40TA3 PO; +SODI325T9 PO
--- NOTE | 2020-06-06 07:30 | REP ---
URINARY TRACT SONOGRAPHY: HISTORY: Bilateral hydronephrosis. Atonic bladder. Urinary retention. COMPARISON: None. Report is delayed pursuant to a malware attack on the facility. FINDINGS: Scanning at the level of the urinary bladder demonstrates that the urinary bladder is empty. A draining Weeks catheter is in place. Renal cortical atrophy is seen bilaterally. There is moderate to severe bilateral hydronephrosis. Stent catheters are visible in the renal pelvis bilaterally. Bilateral hydroureter is seen. The proximal ureter measures 2.9 cm in AP dimension on the right and 2.0 cm on the left. No renal mass or cyst is observed. The right kidney measures 13.1 x 7.2 x 5.8 cm. Left renal dimensions are 13.9 x 5.2 x 5.5 cm. IMPRESSION: Moderate to advanced bilateral hydronephrosis. Stent catheters visible in the renal pelvis bilaterally. Weeks catheter. MTDD
== END ==
LOC: M RAD 10:00
PROVIDERS: ATTEND Nurse Practitioner Women's Health
DX: N13.30 Unspecified hydronephrosis (principal); N31.2 Flaccid neuropathic bladder, not elsewhere classified; R33.9 Retention of urine, unspecified

== ENCOUNTER → 2020-06-15 | Outpatient (CLI) | payer MEDICARE | LOC: M LABSMTC 11:28 | PROVIDERS: ATTEND Anesthesiology | DX: Z01.812 Encounter for preprocedural laboratory examination (principal); Z20.828 Contact with and (suspected) exposure to other viral communicable diseases | CPT/HCPCS: C9803; U0003 ==

== ENCOUNTER 2020-06-19 13:27 | Outpatient (CLI) | payer MEDICARE ==
[~2020-06-19] VITALS: Ht 162.6 cm; Wt 85.9 kg
[~2020-06-19 13:27] MED LIST changes: -OXYC1TAB23 PO
[2020-06-19 13:30] VITALS: BP 135/71
[2020-06-19] MEDS ORDERED: CEFEPIME HCL 1 GM in D5W MINI-BAG PLUS 50 ML IV ONE (14:00)
[2020-06-19 15:06] VITALS: BP 137/70
== END 2020-06-19 15:20 | disposition home or self-care (01) ==
LOC: M INFU 13:27
PROVIDERS: ATTEND Nurse Practitioner Women's Health
DX: N39.0 Urinary tract infection, site not specified (principal)
CPT/HCPCS: 96365; J0692

== ENCOUNTER 2020-06-20 10:04 | Day surgery (SDC) | payer MEDICARE ==
[~2020-06-20] VITALS: Ht 162.6 cm; Wt 83.9 kg
[~2020-06-20 10:04] MED LIST changes: +CEFEPIME HCL 1 GM in D5W MINI-BAG PLUS 50 ML IV ONE; +LIDOCAINE 1% MDV 20ML VIAL SQ PRN; +LR 1,000 ML IV ONE
[2020-06-20] MEDS ORDERED: MIDAZOLAM INJ 2MG/2ML VIAL (J2250 PER 1MG) As Ordered ONE (10:40)
[2020-06-20] MEDS ORDERED: CONRAY-60 60% 50ML VIAL (Q9961) As Ordered ONE (10:40)
[2020-06-20] MEDS ORDERED: fentaNYL 100 MCG/2 ML INJECTION (J3010) As Ordered ONE (10:41)
[2020-06-20] MEDS ORDERED: LIDOCAINE 2% 100MG/5ML SDV (FOR ANES.) As Ordered ONE (10:42)
[2020-06-20] MEDS ORDERED: propofoL 200 MG/20 ML VIAL As Ordered ONE (10:42)
[2020-06-20] MEDS ORDERED: LIDOCAINE 2% 5ML JELLY UROJET As Ordered ONE (11:50)
[2020-06-20] MEDS ORDERED: PHENYLephrine HCL 500 MCG/5 ML (100MCG/ML) SYRINGE (J2370) As Ordered ONE (12:34)
[2020-06-20] MEDS ORDERED: ACETAMINOPHEN 1000MG 100ML IV BTL (OFIRMEV) (J0131 PER 10MG) As Ordered ONE (12:49)
[2020-06-20] MEDS ORDERED: ONDANSETRON 4MG/2ML VIAL As Ordered ONE (12:49)
[2020-06-20] MEDS ORDERED: PERCOCET 5MG/325MG TAB As Ordered ONE (13:17)
[2020-06-20] MEDS ORDERED: ACETAMINOPHEN TAB 650MG DOSE (2X325MG) PO PRN (13:30)
[2020-06-20] MEDS ORDERED: METOCLOPRAMIDE INJ 10MG/2ML VIAL (J2765 PER 1) IV PRN (13:30)
[2020-06-20] MEDS ORDERED: fentaNYL 100 MCG/2 ML INJECTION (J3010) IV PRN (13:30)
[2020-06-20] MEDS ORDERED: LR 1,000 ML IV SCH (13:30)
[2020-06-20] MEDS ORDERED: ONDANSETRON 4MG/2ML VIAL IV PRN (13:30)
[2020-06-20] MEDS ORDERED: PERCOCET 5MG/325MG TAB PO PRN (13:30)
--- NOTE | 2020-06-20 13:39 | ROOPDOC ---
[facility] Report Of Operation Report of Operation DATE OF PROCEDURE: 06/20/20 PREPROCEDURE DIAGNOSIS: Bilateral hydroureteronephrosis. POSTPROCEDURE DIAGNOSIS: Bilateral ureteral strictures. PROCEDURE: Cystoscopy, bilateral retrograde pyelograms with intraoperative interpretation of images, bilateral ureteral stent placement. SURGEON: Cecilia Lacey MD BUSINESS BROKER: None. ANESTHESIA: Monitored anesthesia care (MAC). OPERATIVE INDICATIONS: This is a 60-year-old female with bilateral ureteral obstruction and urinary retention, managed with chronic ureteral stents and a chronic Weeks, here today for routine stent exchange. DESCRIPTION OF PROCEDURE: The patient was brought to the operating room and MAC anesthesia was administered. Prophylactic antibiotics were administered. She was then placed in the dorsal lithotomy position, then prepped and draped in the usual sterile fashion. At this point, a rigid cystoscope was inserted into the urethral meatus and advanced to the bladder. Of note, the bladder had changes consistent with radiation cystitis. At this point, a guidewire was advanced up the left collecting system. A 5-Prydeinig open-ended ureteral catheter was then advanced up the left collecting system and then the wire was removed. Once that was done, I aspirated out about approximately 30 mL of clear urine from the left kidney. I then shot a retrograde pyelogram. It was notable for mild left hydronephrosis with no extravasation. I then advanced the wire back up the left collecting system and then removed the open-ended ureteral catheter. I then utilized the wire to advance a 7-Prydeinig x 24 cm black silicone ureteral stent up into the left collecting system. The wire was removed and there were adequate curls of the stent in the left renal pelvis and in the bladder. At this point, I examined the right ureteral orifice and it was even more stenotic than the left side. With some difficulty I was ultimately able to negotiate a wire up into the right collecting system, and then the 5-Prydeinig open-ended ureteral catheter was advanced up the right collecting system. The wire was removed and I aspirated out approximately 30 mL of clear urine from the right kidney. I then shot a retrograde pyelogram. It was notable for mild right hydronephrosis with no extravasation. I then advanced the wire back up the right collecting system and removed the open-ended ureteral catheter. I then utilized the wire to advance a 7-Prydeinig x 24 cm black silicone ureteral stent into the right collecting system. The wire was removed and there were adequate curls of the stent in the right renal pelvis and in the bladder. At this point, I put in new 16-Prydeinig Weeks catheter and the balloon was filled with 10 mL of sterile water. The catheter was connected to gravity drainage, and this marked the conclusion of the procedure. The patient was then taken out of the dorsal lithotomy position, awakened from anesthesia and transported to the recovery room in stable condition. Estimated blood loss: 5 mL. Complications: None. Specimens: None. Plan: The patient will continue monthly follow up for catheter changes. We will plan to change her stents in 6 months. CECILIA LACEY MD Jun 20, 2020 13:39
[2020-06-20 14:40] VITALS: BP 123/75
--- NOTE | 2020-06-28 13:35 | REP ---
C-ARM VIEWS ABDOMEN AND PELVIS DURING URETERAL STENT EXCHANGE TECHNIQUE: Three C-arm views of the abdomen and pelvis are performed. FINDINGS: Contrast partially opacifies both pelvicalyceal systems. There are bilateral ureteral stents with their proximal ends in their respective renal pelvis and the distal ends in the urinary bladder. FLUROSCOPY TIME: 45 seconds utilized. MTDD
== END 2020-06-20 15:01 | disposition home or self-care (01) ==
LOC: M SDC 10:04
PROVIDERS: ATTEND Urology
DX: N13.4 Hydroureter (principal); I10 Essential (primary) hypertension; E03.9 Hypothyroidism, unspecified; D64.9 Anemia, unspecified; N18.4 Chronic kidney disease, stage 4 (severe); Z92.3 Personal history of irradiation; Z79.899 Other long term (current) drug therapy; Z88.2 Allergy status to sulfonamides; Z88.1 Allergy status to other antibiotic agents; Z91.048 Other nonmedicinal substance allergy status
CPT/HCPCS: 52332; 74420; C1769; C2617; J0131; J0692; J2250; J2370; J2405; J3010; Q9961

== ENCOUNTER 2020-07-19 09:22 | Inpatient (IN) | payer MEDICARE ==
[~2020-07-19] VITALS: Ht 162.6 cm; Wt 81.5 kg
[2020-07-19] MEDS: LEVOTHYROXINE 150MCG TABLET (0.15MG) PO SCH (06:00)
[~2020-07-19 09:22] MED LIST changes: -CEFEPIME HCL 1 GM in D5W MINI-BAG PLUS 50 ML IV ONE; -LIDOCAINE 1% MDV 20ML VIAL SQ PRN; +LORazepam 2 MG TAB PO PRN; -LR 1,000 ML IV ONE
[2020-07-19] MEDS ORDERED: NS 500 ML IV ONE (10:00)
[2020-07-19] MEDS ORDERED: MORPHINE 2 MG/ML 1ML VIAL (J2270) IV PRN (10:00)
[2020-07-19] MEDS ORDERED: ONDANSETRON 4MG/2ML VIAL IV ONE (10:00)
--- NOTE | 2020-07-19 10:21 | REP ---
INDICATION: hx 2 ureteral stents; left flank pain; foul uirne COMPARISON: Comparison CT study September 21, 2019.. TECHNIQUE: Helical scanning is acquired in 4 mm axial images were reformatted. Coronal and sagittal MPR images were generated and reviewed. FINDINGS: Preliminary digital assembler body radiograph demonstrates a normal bowel gas pattern. Monitoring electrodes are seen. Bilateral double pigtail ureteral stents are noted. The lung bases are clear on axial CT images. There are granulomatous calcifications scattered in the spleen which is normal in size. Liver is normal in size homogeneous in texture. No abnormality is noted in the gallbladder or in the pancreas. Normal adrenal glands are seen bilaterally. No retroperitoneal mass or adenopathy is seen. There is a retroaortic left renal vein. Double-pigtail ureteral stents are noted in good place position. A Weeks catheter is noted in the empty urinary bladder. There is no evidence hydronephrosis on the right. However, there is moderate to marked hydronephrosis affecting the left kidney with cortical thinning. There is mild hydroureter. No ureteral calculus is observed. No ureteral or periureteral mass is appreciated. there is cortical atrophy affecting the right kidney as well. No right ureteral or intrarenal calculus is seen. There is left colonic diverticulosis without CT evidence of diverticulitis. No uterine or abnormality is seen. There is a 2.6 cm cyst in the left ovary unchanged from the comparison CT study September 21, 2019. No abdominal wall defect is observed. The appendix is surgically absent. IMPRESSION: There is moderate to marked hydronephrosis on the left despite the presence of a well positioned double-pigtail ureteral stent. No obstructive lesion is appreciated. Double-pigtail stent on the right in position. Previously noted right-sided hydronephrosis fro cysts is resolved. Bilateral cortical atrophy in the kidneys. 2.6 cm stable cyst left ovary. <Electronically signed by Emile Hester > 07/19/20 101
[2020-07-19 11:00] LABS: BASO # 0.1 10^3/uL (0.0-0.2); BASO % 0.6 % (0.0-1.0); EOS # 0.2 10^3/uL (0.0-0.5); EOS % 2.2 % (0.0-3.0); HEMATOCRIT 45.6 % (36.0-47.0); HEMOGLOBIN 14.9 g/dl (12.0-15.5); LYMPH # 1.7 10^3/uL (1.5-5.0); LYMPH % 17.7 % (24.0-44.0); MEAN CORPUSCULAR HEMOGLOBIN 28.5 pg (27.0-33.0); MEAN CORPUSCULAR HGB CONC 32.7 g/dl (32.0-36.5); MEAN CORPUSCULAR VOLUME 87.2 fl (80.0-96.0); MONO # 0.8 10^3/uL (0.0-0.8); MONO % 7.9 % (0.0-5.0); NEUTROPHILS # 6.8 10^3/uL (1.5-8.5); NEUTROPHILS % 71.1 % (36.0-66.0); PLATELET COUNT, AUTOMATED 173 10^3/uL (150-450); RED BLOOD COUNT 5.23 10^6/uL (4.00-5.40); WHITE BLOOD COUNT 9.6 10^3/uL (4.0-10.0)
[2020-07-19 11:13] LABS: INR 0.93; PROTHROMBIN TIME 12.7 SECONDS (12.5-14.3)
[2020-07-19 11:14] LABS: PARTIAL THROMBOPLASTIN TIME 26.9 SECONDS (24.2-38.5)
[2020-07-19 11:23] LABS: ALBUMIN 3.5 GM/DL (3.2-5.2); BILIRUBIN,DIRECT 0.1 MG/DL (0.0-0.2); BILIRUBIN,TOTAL 0.7 MG/DL (0.2-1.0); TOTAL PROTEIN 7.7 GM/DL (6.4-8.2)
[2020-07-19] MEDS ORDERED: MORPHINE 2 MG/ML 1ML VIAL (J2270) IV ONE (11:30)
[2020-07-19] MEDS ORDERED: PIPERACILLIN/TAZOBACTAM SOD 4.5 GM in D5W MINI-BAG PLUS 50 ML IV ONE (11:30)
[2020-07-19 11:58] LABS: CALCIUM LEVEL 9.2 MG/DL (8.5-10.1); CREATININE FOR GFR 3.01 MG/DL (0.55-1.30); POTASSIUM SERUM 4.2 MEQ/L (3.5-5.1)
[2020-07-19] MEDS ORDERED: MOM 30ML SUSPENSION UDC PO PRN (12:45)
[2020-07-19] MEDS ORDERED: MAALOX 30 ML SUSP *UDC PO PRN (12:45)
--- NOTE | 2020-07-19 13:55 | HPEPDOC ---
[facility] Medical History & Physical Date of Admission Jul 19, 2020 Date of Service: Jul 19, 2020 Attending Physician: PATRICA COLLINS MD History and Physical CHIEF COMPLAINT: fever, CVA tenderness HISTORY OF PRESENT ILLNESS: 60-year-old female with a history of cervical cancer treated with radiation in 1991, atonic bladder, now with indwelling Fernando, CK, stage IV, hypertension, secondary hyperparathyroidism and history of ureteral strictures presented to the ED with 2 day history of fevers, chills, malaise, diaphoresis, lower abdominal pain and left flank pain. She reports having turbid foul-smelling urine. Her urologist is Dr. Dumas. She also sees Dr. Sparrow. She said numerous admissions in the past 2 years for pyelonephritis. She does not take suppressive antibiotic therapy. Her ureteral stents were last exchanged on on 06/20/[address] Dumas. On arrival to ED, she is afebrile, pulse 75, respiratory 20, blood pressure 140/70, pulse oximetry 90% on room air. White blood cell count 9.6. Hemoglobin 14.9. Sodium 140, potassium 4.2. BUN 54. Creatinine 3.[address] of the abdomen and pelvis with and without contrast showed marked hydronephrosis on the left kidney with presence of ureteral stents bilaterally. Of note, patient reports that she drinks 5 beers per day, last drink 07/18/20. She denies ever having episodes of etoh withdrawal, seizures or hallucinations. PAST MEDICAL HISTORY: 1. Cervical cancer treated with radiation therapy in 1991 2. Radiation cystitis 3. Atonic bladder 4. Secondary hyperparathyroism 5. CKDIV 6. Hypertension 7. Chronic anemia PAST SURGICAL HISTORY: appendectomy bilateral ureteral stents last replaced 06/20/2020 SOCIAL HISTORY: [id number] history, quit smoking 2002 Drinks up to 5 beers daily last drink day before admission As illicit drug use FAMILY HISTORY: Family history of diabetes, hypertension, coronary artery disease Patient unable to specify relative specifically ALLERGIES: Please see below. REVIEW OF SYSTEMS: CONSTITUTIONAL: Warts, fevers, chills, diaphoresis overnight HEENT: patient denies blurred vision, loss of vision, headache,. CARDIOVASCULAR: patient denies chest pain, palpitations. RESPIRATORY: patient denies shortness of breath, cough, hemoptysis. GASTROINTESTINAL: patient denies abdominal pain, n/v/d, blood in stool. GENITOURINARY: Patient reports no abdominal pain, left CVA tenderness SKIN: patient denies rashes. MUSCULOSKELETAL: patient denies joint pain, neck pain. NEUROLOGICAL: patient denies focal weakness, numbness, seizures. PSYCHIATRIC: patient denies SI/HI. ENDOCRINE: patient denies polyuria, heat intolerance, cold intolerance. HEMATOLOGIC/LYMPHATIC: patient denies easy bruising. HOME MEDICATIONS: Please see below. PHYSICAL EXAMINATION: VITAL SIGNS: please see below General: NAD, comfortable HEENT: PERRLA, EOMI, sclerae clear Neck: supple, normal ROM, no JVD Respiratory: lungs CTAB, no wheeze, no rales, no crackles CVS: RRR, normal S1, S2, no murmurs Abdo: soft, no masses, no hepatosplenomegaly, BS+, lower abdomen tender to palpation Extremities: no edema, pulses 2+ lower MSK: no joint deformities, normal ROM, left CVA tenderness to percussion Neuro: no focal neuro deficits, moving all 4 extremities, CN2-12 intact. Strength 5/5 in all 4 extremities. No nystagmus. Psych: calm, cooperative, AAO x 3 LABORATORY DATA: See below. IMAGING: CT abdo pelvis wwo contrast (07/19/20): There is moderate to marked hydronephrosis on the left despite the presence of a well positioned double-pigtail ureteral stent. No obstructive lesion is appreciated. Double-pigtail stent on the right in position. Previously noted right-sided hydronephrosis fro cysts is resolved. Bilateral cortical atrophy in the kidneys. 2.6 cm stable cyst left ovary. MICROBIOLOGY: Please see below. ASSESSMENT: 60-year-old female with a history of cervical cancer treated with radiation in 1991, atonic bladder, now with indwelling Fernando, CK, stage IV, hypertension, secondary hyperparathyroidism and history of ureteral strictures. . She is admitted to hospitalist service for management of suspected pyelonephritis and hydronephrosis, with urology and nephrology in consultation. She is plane for ureteral stent replacement for suspected stent blockage. . PLAN: #UTI/pyelonephritis: monitor WBC. follow up cultures. c/w Zosyn, renally dosed. Tylenol prn for fevers. zofran prn for nausea. #L kidney hydronephrosis: seen on CT imaging. bilateral pigtail stents well positioned. Cr 3.2 on POC. Urology consulted for ureteral stent replacement. D/w Dr. Howell. #CKD IV: Cr 3.2, baseline ~2.3-2.5. Follows with Dr. Black, consulted. Avoid nephrotoxins. c/w sodium bicarb 325 mg PO TID. #secondary hyperparathyroidism: c/w calcium-vitD #HTN: c/w home metoprolol 25 mg PO bid #Atonic bladder: indwelling fernando #hypothyroidism: c/w home levothyroxine 150 mcg PO daily #ETOH use: 5 beers per day. CIWA. Ativan prn. withdrawal precautions. Folate, MVT, thiamine. #GERD: pantoprazole 40 mg PO daily DVT ppx: lovenox 30 mg sc daily Vital Signs Vital Signs Date Time Temp Pulse Resp B/P (MAP) Pulse Ox O2 Delivery O2 Flow Rate FiO2 07/19/20 12:00 155/75 (101) 07/19/20 11:55 76 96 07/19/20 11:20 16 Room Air 07/19/20 09:28 97.8 Laboratory Data Labs 24H Laboratory Tests 2 07/19/20 09:46: Immature Granulocyte % (Auto) 0.5, Neutrophils (%) (Auto) 71.1H, Lymphocytes (%) (Auto) 17.7L, Monocytes (%) (Auto) 7.9H, Eosinophils (%) (Auto) 2.2, Basophils (%) (Auto) 0.6, Neutrophils # (Auto) 6.8, Lymphocytes # (Auto) 1.7, Monocytes # (Auto) 0.8, Eosinophils # (Auto) 0.2, Basophils # (Auto) 0.1, Nucleated Red Blood Cells % (auto) 0.0 07/19/20 10:00: Urine Color YELLOW, Urine Appearance CLOUDYH, Urine pH 6.0, Urine Specific [place] 1.006, Urine Protein 2+H, Urine Glucose (UA) NEGATIVE, Urine Ketones NEGATIVE, Urine Blood 3+H, Urine Nitrite NEGATIVE, Urine Bilirubin NEGATIVE, Urine Urobilinogen 0.2, Urine Leukocyte Esterase 3+H, Urine WBC (Auto) TNTCH, Urine RBC (Auto) 41H, Urine Hyaline Casts (Auto) 0, Urine Bacteria (Auto) 2+H, Urine Squamous Epithelial Cells 0, Urine Mucus (Auto) SMALL, Urine Sperm (Auto) 07/19/20 10:01: Prothrombin Time 12.7, Prothromb Time International Ratio 0.93, Activated Parti al Thromboplast Time 26.9, Anion Gap 9, Glomerular Filtration Rate 17.0L, Calcium Level 9.2, Total Bilirubin 0.7, Direct Bilirubin 0.1, Aspartate Amino Transf (AST/SGOT) 11, Alanine Aminotransferase (ALT/SGPT) 21, Alkaline Phosphatase 81, Total Protein 7.7, Albumin 3.5, Albumin/Globulin Ratio 0.8L, Lipase 266 07/19/20 12:16: Coronavirus (COVID-19)(PCR) NEGATIVE CBC/BMP Laboratory Tests 07/19/20 09:46 07/19/20 10:01 Microbiology Microbiology 07/19/20 Blood Culture, Received Pending 07/19/20 Urine Culture, Received Pending 07/19/20 Blood Culture, Received Pending Home Medications Scheduled Calcium Carbonate/Vitamin D3 (Calcium 500-Vit D3 200 Tablet) 1 Each Tablet, 1 TAB PO DAILY Levothyroxine Sodium (Levothyroxine Sodium) 150 Mcg Tablet, 150 MCG PO DAILY Metoprolol Tartrate (Metoprolol Tartrate) 25 Mg Tablet, 25 MG PO BID Pantoprazole Sodium (Pantoprazole Sodium) 40 Mg Tablet.dr, 40 MG PO DAILY NOON Sodium Bicarbonate (Sodium Bicarbonate) 325 Mg Tablet, 325 MG PO TID Vit B Comp No.3/Folic/C/Biotin (Helen-Layo Rx Tablet) 1 Each Tablet, 1 TAB PO DAILY Scheduled PRN Acetaminophen (Tylenol Extra Strength) 500 Mg Tablet, 500 MG PO Q4H PRN for PAIN / FEVER Hydrocodone/Acetaminophen (Hydrocodone-Acetamin 5-325 mg) 1 Each Tablet, 1 TAB PO Q12H PRN for PAIN Allergies Coded Allergies: potassium (Verified Allergy, Intermediate, HIVES, POUNDING HEARTBEAT, 06/13/20) povidone-iodine (Verified Allergy, Intermediate, rash/burn, 06/13/20) soap (Verified Allergy, Intermediate, rash/burn, 06/13/20) Quinolones (Verified Allergy, Unknown, 06/13/20) Sulfa (Sulfonamide Antibiotics) (Verified Allergy, Unknown, 06/13/20) ciprofloxacin (Verified Allergy, Unknown, 06/13/20) epoetin reina (Verified Allergy, Unknown, 06/13/20) ibuprofen (Verified Allergy, Unknown, 06/13/20) trimethoprim (Verified Allergy, Unknown, 06/13/20) A-FIB/CHADSVASC A-FIB History Current/History of A-Fib/PAF?: No Current PO Anticoag Therapy: No PATRICA COLLINS MD Jul 19, 2020 13:55
--- NOTE | 2020-07-19 13:57 | CR.PDOC ---
General Date of Consultation: Jul 19, 2020 Referring Provider: WILLIAM FERGUSON MD @ Consultation REASON FOR CONSULTATION/CHIEF COMPLAINT: Left flank pain in a patient with bilateral left ureteral stents for ureteral obstruction secondary to radiation. HISTORY OF PRESENT ILLNESS: Shayla has a 2 day history of left flank pain, chills, and dark and smelly urine. She is well-known to Dr. Dumas and had bilateral ureteral stent exchanges done in November 2019 and then 06/20/2020. She has bilateral ureteral obstruction and also an atonic bladder. She has a chronic indwelling Weeks catheter. She denies any gross hematuria, history of recurrent urinary tract infections, kidney stones, or other issues. She had radiation therapy for cervical cancer approximately 30 years ago. Her baseline creatinine is usually about 2.4 and today was 3.2. A CT scan of the abdomen and pelvis was done which showed the left ureteral stent to be in place but with left moderate to marked hydronephrosis and the right side was improved since his stents were exchanged. ALLERGIES: Please see below. HOME MEDICATIONS: Please see below. PAST MEDICAL HISTORY: -Cervical cancer with bilateral ureteral obstruction and an atonic bladder after radiation therapy 30 years ago -Hyperparathyroidism -Chronic kidney disease stage IV -High blood pressure PAST SURGICAL HISTORY: -Bilateral ureteral stent exchanges 06/20/[address] Dumas -Appendectomy -Fistula repair in 2014 FAMILY HISTORY: She has 7 brothers and 3 sisters and no significant family history REVIEW OF SYSTEMS: CONSTITUTIONAL: Denies fever and has had chills. A 12 system review is otherwise negative. She has been feeling fairly well. PHYSICAL EXAMINATION: VITAL SIGNS: Please see below. GENERAL APPEARANCE: Well develop well-nourished female in no apparent res piratory distress HEENT: EOMI PERRLA RESPIRATORY: Clear to auscultation CARDIOVASCULAR: Regular rate and rhythm ABDOMEN: Some mild diffuse tenderness but without any rebound or guarding EXTREMITIES: Left flank pain NEUROLOGICAL: Nonfocal PSYCHIATRIC: Alert and oriented 3 LABORATORY DATA: Please see below. ASSESSMENT/PLAN: -Will remove and replace left ureteral stent and most likely will do the right side at the same time -Wait at least 24-48 hours with antibiotics so not to cause septicemia -Follow kidney function Vital Signs/I&O Vital Signs Date Time Temp Pulse Resp B/P (MAP) Pulse Ox O2 Delivery O2 Flow Rate FiO2 07/19/20 12:00 155/75 (101) 07/19/20 11:55 76 96 07/19/20 11:20 16 Room Air 07/19/20 09:28 97.8 Laboratory Data Labs 24H Laboratory Tests 2 07/19/20 09:46: Immature Granulocyte % (Auto) 0.5, Neutrophils (%) (Auto) 71.1H, Lymphocytes (%) (Auto) 17.7L, Monocytes (%) (Auto) 7.9H, Eosinophils (%) (Auto) 2.2, Basophils (%) (Auto) 0.6, Neutrophils # (Auto) 6.8, Lymphocytes # (Auto) 1.7, Monocytes # (Auto) 0.8, Eosinophils # (Auto) 0.2, Basophils # (Auto) 0.1, Nucleated Red Blood Cells % (auto) 0.0 07/19/20 10:00: Urine Color YELLOW, Urine Appearance CLOUDYH, Urine pH 6.0, Urine Specific [place] 1.006, Urine Protein 2+H, Urine Glucose (UA) NEGATIVE, Urine Ketones NEGATIVE, Urine Blood 3+H, Urine Nitrite NEGATIVE, Urine Bilirubin NEGATIVE, Urine Urobilinogen 0.2, Urine Leukocyte Esterase 3+H, Urine WBC (Auto) TNTCH, Urine RBC (Auto) 41H, Urine Hyaline Casts (Auto) 0, Urine Bacteria (Auto) 2+H, Urine Squamous Epithelial Cells 0, Urine Mucus (Auto) SMALL, Urine Sperm (Auto) 07/19/20 10:01: Prothrombin Time 12.7, Prothromb Time International Ratio 0.93, Activated Partial Thromboplast Time 26.9, Anion Gap 9, Glomerular Filtration Rate 17.0L, Calcium Level 9.2, Total Bilirubin 0.7, Direct Bilirubin 0.1, Aspartate Amino Transf (AST/SGOT) 11, Alanine Aminotransferase (ALT/SGPT) 21, Alkaline Phosphatase 81, Total Protein 7.7, Albumin 3.5, Albumin/Globulin Ratio 0.8L, Lipase 266 07/19/20 12:16: Coronavirus (COVID-19)(PCR) NEGATIVE CBC/BMP Laboratory Tests 07/19/20 09:46 07/19/20 10:01 Microbiology Microbiology 07/19/20 Blood Culture, Received Pending 07/19/20 Urine Culture, Received Pending 07/19/20 Blood Culture, Received Pending Allergies Coded Allergies: potassium (Verified Allergy, Intermediate, HIVES, POUNDING HEARTBEAT, 05/21 02/05) povidone-iodine (Verified Allergy, Intermediate, rash/burn, 06/13/20) soap (Verified Allergy, Intermediate, rash/burn, 06/13/20) Quinolones (Verified Allergy, Unknown, 06/13/20) Sulfa (Sulfonamide Antibiotics) (Verified Allergy, Unknown, 06/13/20) ciprofloxacin (Verified Allergy, Unknown, 06/13/20) epoetin reina (Verified Allergy, Unknown, 06/13/20) ibuprofen (Verified Allergy, Unknown, 06/13/20) trimethoprim (Verified Allergy, Unknown, 06/13/20) Home Medications Scheduled Calcium Carbonate/Vitamin D3 (Calcium 500-Vit D3 200 Tablet) 1 Each Tablet, 1 TAB PO DAILY, (Reported) Levothyroxine Sodium (Levothyroxine Sodium) 150 Mcg Tablet, 150 MCG PO DAILY, (Reported) Metoprolol Tartrate (Metoprolol Tartrate) 25 Mg Tablet, 25 MG PO BID, (Reported) Pantoprazole Sodium (Pantoprazole Sodium) 40 Mg Tablet.dr, 40 MG PO DAILY, (Reported) NOON Sodium Bicarbonate (Sodium Bicarbonate) 325 Mg Tablet, 325 MG PO TID, (Reported) Vit B Comp No.3/Folic/C/Biotin (Helen-Layo Rx Tablet) 1 Each Tablet, 1 TAB PO DAILY, (Reported) Scheduled PRN Acetaminophen (Tylenol Extra Strength) 500 Mg Tablet, 500 MG PO Q4H PRN for PAIN / FEVER, (Reported) Hydrocodone/Acetaminophen (Hydrocodone-Acetamin 5-325 mg) 1 Each Tablet, 1 TAB PO Q12H PRN for PAIN, (Reported) RANDALL PASCUAL MD Jul 19, 2020 13:57
[2020-07-19] MEDS: PANTOPRAZOLE 40MG TAB (PROTONIX) PO SCH (14:26)
[2020-07-19 15:00] VITALS: BP 146/89
[2020-07-19] MEDS: CALCIUM/VITAMIN D 500 MG TAB PO SCH (15:10)
[2020-07-19] MEDS: NORCO, ANEXSIA 5/325MG TABLET (HYDROcodone/ACETAMINOPHEN) PO PRN (15:11)
[2020-07-19 18:00] VITALS: BP 146/89
[2020-07-19] MEDS: MULTIVITAMINS/MINERALS THERAP 1 TAB PO SCH (18:05)
[2020-07-19] MEDS: SODIUM BICARBONATE 325 MG TAB PO SCH ×2 (18:05→20:24)
[2020-07-19] MEDS: FOLIC ACID 1 MG TAB PO SCH (18:06)
[2020-07-19] MEDS: PIPERACILLIN/TAZOBACTAM SOD 4.5 GM in D5W MINI-BAG PLUS 50 ML IV SCH (20:22)
[2020-07-19] MEDS: DOCUSATE SODIUM 100 MG CAP PO SCH (20:22)
[2020-07-19] MEDS: THIAMINE 100 MG TAB PO SCH (20:23)
[2020-07-19] MEDS: METOPROLOL TART 25 MG TABLET PO SCH (20:24)
[2020-07-19 22:00] VITALS: BP 114/65
[2020-07-20] VITALS (9 sets, daily range): BP systolic 94–145; BP diastolic 60–85
[2020-07-20] MEDS: PIPERACILLIN/TAZOBACTAM SOD 4.5 GM in D5W MINI-BAG PLUS 50 ML IV SCH ×3 (04:50→12:34)
[2020-07-20 06:42] LABS: BASO # 0.1 10^3/uL (0.0-0.2); BASO % 0.6 % (0.0-1.0); EOS # 0.3 10^3/uL (0.0-0.5); EOS % 3.2 % (0.0-3.0); HEMATOCRIT 41.9 % (36.0-47.0); HEMOGLOBIN 13.3 g/dl (12.0-15.5); LYMPH # 1.6 10^3/uL (1.5-5.0); LYMPH % 20.7 % (24.0-44.0); MEAN CORPUSCULAR HEMOGLOBIN 27.8 pg (27.0-33.0); MEAN CORPUSCULAR HGB CONC 31.7 g/dl (32.0-36.5); MEAN CORPUSCULAR VOLUME 87.7 fl (80.0-96.0); MONO # 0.7 10^3/uL (0.0-0.8); MONO % 8.5 % (0.0-5.0); NEUTROPHILS # 5.3 10^3/uL (1.5-8.5); NEUTROPHILS % 66.5 % (36.0-66.0); PLATELET COUNT, AUTOMATED 167 10^3/uL (150-450); RED BLOOD COUNT 4.78 10^6/uL (4.00-5.40); WHITE BLOOD COUNT 7.9 10^3/uL (4.0-10.0)
[2020-07-20] MEDS: LEVOTHYROXINE 150MCG TABLET (0.15MG) PO SCH (06:53)
[2020-07-20 07:03] LABS: BILIRUBIN,TOTAL 0.7 MG/DL (0.2-1.0); CALCIUM LEVEL 9.2 MG/DL (8.5-10.1); CREATININE FOR GFR 3.25 MG/DL (0.55-1.30); GLOMERULAR FILTRATION RATE 15.6 (>51); MAGNESIUM LEVEL 2.2 MG/DL (1.8-2.4); TOTAL PROTEIN 7.3 GM/DL (6.4-8.2)
[2020-07-20] MEDS: SODIUM BICARBONATE 325 MG TAB PO SCH ×3 (08:59→21:46)
[2020-07-20] MEDS: FOLIC ACID 1 MG TAB PO SCH (08:59)
[2020-07-20] MEDS: DOCUSATE SODIUM 100 MG CAP PO SCH ×2 (08:59→21:47)
[2020-07-20] MEDS: MULTIVITAMINS/MINERALS THERAP 1 TAB PO SCH (08:59)
[2020-07-20] MEDS: PANTOPRAZOLE 40MG TAB (PROTONIX) PO SCH (08:59)
[2020-07-20] MEDS: THIAMINE 100 MG TAB PO SCH ×2 (08:59→21:47)
[2020-07-20] MEDS: CALCIUM/VITAMIN D 500 MG TAB PO SCH (08:59)
[2020-07-20] MEDS: ENOXAPARIN 30MG/0.3ML SYRINGE (J1650 PER 10MG) SC SCH (09:00)
[2020-07-20] MEDS: METOPROLOL TART 25 MG TABLET PO SCH ×2 (09:02→21:47)
--- NOTE | 2020-07-20 09:45 | IPNPDOC ---
Date Seen The patient was seen on 07/20/20. Progress Note SUBJECTIVE: Patient seen and examined at bedside this morning. No acute events overnight. Denies fevers and chills, back pain, dysuria, lower abdominal pain OBJECTIVE PHYSICAL EXAMINATION: VITAL SIGNS: please see below General: NAD, comfortable HEENT: PERRLA, EOMI, sclerae clear Neck: supple, normal ROM, no JVD Respiratory: lungs CTAB, no wheeze, no rales, no crackles CVS: RRR, normal S1, S2, no murmurs Abdo: soft, no masses, no hepatosplenomegaly, BS+ Extremities: no edema, pulses 2+ lower MSK: no joint deformities, normal ROM, left CVA mild tenderness to percussion (improved) Neuro: no focal neuro deficits, moving all 4 extremities, CN2-12 intact. Strength 5/5 in all 4 extremities. No nystagmus. Psych: calm, cooperative, AAO x 3 LABORATORY DATA, IMAGING STUDIES, MICROBIOLOGY: Please see below. DVT prophylaxis ordered?: Y ASSESSMENT: 60-year-old female with a history of cervical cancer treated with radiation in 1991, atonic bladder, now with indwelling Fernando, CK, stage IV, hy pertension, secondary hyperparathyroidism and history of ureteral strictures. She is admitted to hospitalist service for management of suspected pyelonephritis and hydronephrosis, with urology and nephrology in consultation. She is planned for ureteral stent replacement for suspected stent blockage. . PLAN: #UTI/pyelonephritis: afebrile, no WBC. follow up cultures. c/w Zosyn, renally dosed. Tylenol prn for fevers. zofran prn for nausea. #L kidney hydronephrosis: seen on CT imaging. bilateral pigtail stents well positioned. Cr 3.25. Urology consulted for ureteral stent replacement. D/w Dr. Howell, likely OR 07/21/20. #CKD IV: Cr 3.25, stable, baseline ~2.3-2.5. Follows with Dr. Black, consulted. Avoid nephrotoxins. c/w sodium bicarb 325 mg PO TID. #secondary hyperparathyroidism: c/w calcium-vitD #HTN: c/w home metoprolol 25 mg PO bid #Atonic bladder: indwelling fernando #hypothyroidism: c/w home levothyroxine 150 mcg PO daily #ETOH use: 5 beers per day. CIWA. Ativan prn. withdrawal precautions. Folate, MVT, thiamine. #GERD: pantoprazole 40 mg PO daily DVT ppx: lovenox 30 mg sc daily VS, I&O, 24H, Fishbone Vital Signs/I&O Vital Signs Date Time Temp Pulse Resp B/P (MAP) Pulse Ox O2 Delivery O2 Flow Rate FiO2 07/20/20 09:02 75 131/77 07/20/20 06:00 98.5 18 96 Room Air I&O- Last 24 Hours up to 6 AM 07/20/20 06:00 Intake Total 780 ml Output Total 2650 ml Balance -1870 ml Laboratory Data 24H LABS Laboratory Tests 2 07/19/20 09:46: Immature Granulocyte % (Auto) 0.5, Neutrophils (%) (Auto) 71.1H, Lymphocytes (%) (Auto) 17.7L, Monocytes (%) (Auto) 7.9H, Eosinophils (%) (Auto) 2.2, Basophils (%) (Auto) 0.6, Neutrophils # (Auto) 6.8, Lymphocytes # (Auto) 1.7, Monocytes # (Auto) 0.8, Eosinophils # (Auto) 0.2, Basophils # (Auto) 0.1, Nucleated Red Blood Cells % (auto) 0.0 07/19/20 10:00: Urine Color YELLOW, Urine Appearance CLOUDYH, Urine pH 6.0, Urine Specific [place] 1.006, Urine Protein 2+H, Urine Glucose (UA) NEGATIVE, Urine Ketones NEGATIVE, Urine Blood 3+H, Urine Nitrite NEGATIVE, Urine Bilirubin NEGATIVE, Urine Urobilinogen 0.2, Urine Leukocyte Esterase 3+H, Urine WBC (Auto) TNTCH, Urine RBC (Auto) 41H, Urine Hyaline Casts (Auto) 0, Urine Bacteria (Auto) 2+H, Urine Squamous Epithelial Cells 0, Urine Mucus (Auto) SMALL, Urine Sperm (Auto) 07/19/20 10:01: Prothrombin Time 12.7, Prothromb Time International Ratio 0.93, Activated Partial Thromboplast Time 26.9, Anion Gap 9, Glomerular Filtration Rate 17.0L, Calcium Level 9.2, Total Bilirubin 0.7, Direct Bilirubin 0.1, Aspartate Amino Transf (AST/SGOT) 11, Alanine Aminotransferase (ALT/SGPT) 21, Alkaline Phosphatase 81, Total Protein 7.7, Albumin 3.5, Albumin/Globulin Ratio 0.8L, Lipase 266 07/19/20 10:44: POC Lactate (Misc Panel) 1.24 07/19/20 10:49: POC Glucose (Misc Panel) 101, POC Sodium (Misc Panel) 140, POC Potassium (Misc Panel) 4.2, POC Chloride (Misc Panel) 111H, POC Total CO2 (Misc Panel) 20.0L, POC Blood Urea Nitrogen (Misc Panel 56H, POC Ionized Calcium (Misc Panel) 5.1, POC Creatinine (Misc Panel) 3.2H, POC Hematocrit (Misc Panel) 46.0 07/19/20 12:16: Coronavirus (COVID-19)(PCR) NEGATIVE 07/20/20 06:14: Immature Granulocyte % (Auto) 0.5, Neutrophils (%) (Auto) 66.5H, Lymphocytes (%) (Auto) 20.7L, Monocytes (%) (Auto) 8.5H, Eosinophils (%) (Auto) 3.2H, Basophils (%) (Auto) 0.6, Neutrophils # (Auto) 5.3, Lymphocytes # (Auto) 1.6, Monocytes # (Auto) 0.7, Eosinophils # (Auto) 0.3, Basophils # (Auto) 0.1, Nucleated Red Blood Cells % (auto) 0.0, Anion Gap 9, Glomerular Filtration Rate 15.6L, Calcium Level 9.2, Magnesium Level 2.2, Total Bilirubin 0.7, Aspartate Amino Transf (AST/SGOT) 10, Alanine Aminotransferase (ALT/SGPT) 19, Alkaline Phosphatase 74, Total Protein 7.3, Albumin 3.0L, Albumin/Globulin Ratio 0.7L CBC/BMP Laboratory Tests 07/19/20 09:46 07/19/20 10:01 07/20/20 06:14 Microbiology Microbiology 07/19/20 Blood Culture, Received Pending 07/19/20 Urine Culture, Received Pending 07/19/20 Blood Culture, Received Pending PATRICA COLLINS MD Jul 20, 2020 09:45
[2020-07-20] MEDS ORDERED: CONRAY-60 60% 50ML VIAL (Q9961) As Ordered ONE (11:33)
[2020-07-20] MEDS ORDERED: fentaNYL 100 MCG/2 ML INJECTION (J3010) As Ordered ONE ×2 (11:45→14:02)
[2020-07-20] MEDS ORDERED: MIDAZOLAM INJ 2MG/2ML VIAL (J2250 PER 1MG) As Ordered ONE (11:45)
[2020-07-20] MEDS ORDERED: propofoL 200 MG/20 ML VIAL As Ordered ONE (11:46)
[2020-07-20] MEDS ORDERED: dexameTHASONE 4 MG/ML 1ML VIAL (J1100 PER 1MG) As Ordered ONE (11:46)
[2020-07-20] MEDS ORDERED: ONDANSETRON 4MG/2ML VIAL As Ordered ONE (11:46)
[2020-07-20] MEDS ORDERED: LIDOCAINE 2% 100MG/5ML SDV (FOR ANES.) As Ordered ONE (11:46)
[2020-07-20] MEDS ORDERED: ACETAMINOPHEN 1000MG 100ML IV BTL (OFIRMEV) (J0131 PER 10MG) As Ordered ONE (11:51)
[2020-07-20] MEDS ORDERED: ZOSYN 2.25GM VIAL (J2543) As Ordered ONE (12:07)
[2020-07-20] MEDS ORDERED: ePHEDrine SULFATE 25 MG/5 ML(5MG/ML) SYRINGE As Ordered ONE (12:57)
[2020-07-20] MEDS ORDERED: PHENYLephrine HCL 500 MCG/5 ML (100MCG/ML) SYRINGE (J2370) As Ordered ONE (12:57)
--- NOTE | 2020-07-20 13:37 | REP ---
INDICATION: BILATERAL STENT EXCHANGE. COMPARISON: None. TECHNIQUE: Eleven views. 1 minutes 42 seconds of fluoroscopy time. FINDINGS: A sequence of 11 last image hold fluoroscopically obtained spot radiographs of the abdomen document bilateral ureteral stent placement. IMPRESSION: Procedural imaging. <Electronically signed by Emile Hester > 07/20/20 [id number]
[2020-07-20] MEDS ORDERED: oxyCODONE 5MG TAB As Ordered ONE ×2 (13:55→14:22)
[2020-07-20] MEDS: oxyCODONE 5MG TAB PO PRN ×2 (13:55→14:25)
--- NOTE | 2020-07-20 13:55 | ROOPDOC ---
[facility] Report Of Operation Report of Operation DATE OF PROCEDURE: 07/20/20 PREPROCEDURE DIAGNOSES: Bilateral ureteral obstruction and atonic bladder with left stent not functioning correctly. POSTPROCEDURE DIAGNOSES: Same but am not sure that left stent was all the way in the collecting system PROCEDURE: Cystoscopy, urethral dilation, bilateral ureteral stent exchanges, left retrograde pyelogram SURGEON: Melly Pascual MD BORING MACHINE OPERATOR: None ANESTHESIA: LMA, General ESTIMATED BLOOD LOSS: Approximately 5 mL. COMPLICATIONS: There is a question if the left stent is in the collecting system. The original retrograde pyelogram where the stent was did not show the pulse system PROCEDURE NOTE: The patient came through the ER yesterday with left flank pain, not feeling well, and increasing creatinine. A CT scan showed the left stent to be at least in the UPJ but with significant moderate to severe hydronephrosis. The stents had been exchanged at the beginning of June [address] Sparrow requested that they be exchanged again. DESCRIPTION OF PROCEDURE: The patient was brought to the operating room and was prepped and draped in usual fashion. A urethral dilation was done because she said she's been having difficulty with getting catheters in and out because of radiation scar tissue. This went easily. A 22 Latvian cystoscope was then inserted and first the left ureteral stent was pulled out through the urethra and a wire was placed. A yellow open-ended catheter was placed over the wire and a retrograde pyelogram was done which only showed what either looked like the upper pole the kidney. I then pulled back and a repeat retrograde either showed a very large collecting system or we were not in the correct place. It was very hard to tell because I could never get the collecting system completely full to see if there was extravasation. At this point a 8 Latvian universal stent was placed but there is a question if this is in the correct place or not. The right ureteral stent was grasped and a wire was placed and a another stent was placed over the wire. This was shown to be in good placement. The patient tolerated the procedure well and was returned to the recovery room in stable condition. I texted Dr. Duenas who is not donations attendant this weekend just to give her heads up that a nephrostomy tube may need to be placed and then an antegrade nephrostogram can be attempted in the future. If the stent is not in good placement. I Ordered an ultrasound for today. This was dictated with Klaudia and not proofread for errors MELLY PASCUAL MD Jul 20, 2020 13:55
[2020-07-20] MEDS ORDERED: ONDANSETRON 4MG/2ML VIAL IV PRN (14:00)
[2020-07-20] MEDS: fentaNYL 100 MCG/2 ML INJECTION (J3010) IV PRN ×2 (14:01→14:08)
[2020-07-20] MEDS: NORCO, ANEXSIA 5/325MG TABLET (HYDROcodone/ACETAMINOPHEN) PO PRN (17:20)
--- NOTE | 2020-07-20 20:23 | REPVR ---
PROCEDURE INFORMATION: Exam: US Retroperitoneal Limited, Kidneys Exam date and time: 07/20/2020 7:57 PM Age: 60 years old Clinical indication: Condition or disease; Non-vascular catheter/shunt placement or management; Prior surgery; Surgery date: Post-operative (0-2 days); Surgery type: Stent replacement today; Additional info: Renal US today re: Stent placement TECHNIQUE: Imaging protocol: Real-time ultrasound of the retroperitoneum with image documentation. Examination was focused on the kidneys. COMPARISON: RENAL US 05/01/2019 7:25 AM FINDINGS: Right kidney: Right kidney measures 12.3 x 5.9 x 6.7 cm. Increased renal parenchymal echogenicity. Tip of a stent catheter demonstrated in the right collecting system. Left kidney: Left kidney measures 14.5 x 7.1 x 7.8 cm. Tip of stent catheter demonstrated in the left collecting system. Increased renal parenchymal echogenicity. Bladder: Weeks catheter within the urinary bladder. Bladder is collapsed and as such not evaluated. IMPRESSION: Bilateral stents in the kidneys. Increased echogenicity in both kidneys may indicate the presence of an underlying renal parenchymal disorder (medical renal or type 1 renal disease). Electronically signed by: John Rascon On 07/20/2020 20:22:57 PM
[2020-07-20] MEDS: ACETAMINOPHEN TAB 650MG DOSE (2X325MG) PO PRN (21:47)
[2020-07-21] VITALS (13 sets, daily range): BP systolic 141–194; BP diastolic 55–102
[2020-07-21] MEDS: ONDANSETRON 4 MG TAB PO PRN ×2 (01:58→06:31)
[2020-07-21] MEDS: ACETAMINOPHEN TAB 650MG DOSE (2X325MG) PO PRN ×3 (01:59→10:21)
[2020-07-21] MEDS: PIPERACILLIN/TAZOBACTAM SOD 4.5 GM in D5W MINI-BAG PLUS 50 ML IV SCH (05:14)
[2020-07-21] MEDS: LEVOTHYROXINE 150MCG TABLET (0.15MG) PO SCH (05:54)
[2020-07-21 07:00] LABS: BASO % 0.3 % (0.0-1.0); EOS % 0.1 % (0.0-3.0); HEMATOCRIT 42.2 % (36.0-47.0); HEMOGLOBIN 13.3 g/dl (12.0-15.5); LYMPH # 0.5 10^3/uL (1.5-5.0); LYMPH % 4.1 % (24.0-44.0); MEAN CORPUSCULAR HEMOGLOBIN 27.5 pg (27.0-33.0); MEAN CORPUSCULAR HGB CONC 31.5 g/dl (32.0-36.5); MEAN CORPUSCULAR VOLUME 87.4 fl (80.0-96.0); MONO # 0.7 10^3/uL (0.0-0.8); MONO % 5.8 % (0.0-5.0); NEUTROPHILS # 10.6 10^3/uL (1.5-8.5); NEUTROPHILS % 89.2 % (36.0-66.0); PLATELET COUNT, AUTOMATED 166 10^3/uL (150-450); RED BLOOD COUNT 4.83 10^6/uL (4.00-5.40); WHITE BLOOD COUNT 11.8 10^3/uL (4.0-10.0)
[2020-07-21 07:27] LABS: BILIRUBIN,TOTAL 0.8 MG/DL (0.2-1.0); CREATININE FOR GFR 3.31 MG/DL (0.55-1.30); GLOMERULAR FILTRATION RATE 15.2 (>51); MAGNESIUM LEVEL 1.9 MG/DL (1.8-2.4); POTASSIUM SERUM 3.9 MEQ/L (3.5-5.1)
--- NOTE | 2020-07-21 08:49 | IPNPDOC ---
Date Seen The patient was seen on 07/21/20. Progress Note SUBJECTIVE: Patient seen and examined at bedside this morning. Vision, afebrile overnight, and this morning. MAXIMUM TEMPERATURE 100.5 noted patient reports nausea overnight, as well as left flank pain. Reports malaise. OBJECTIVE PHYSICAL EXAMINATION: VITAL SIGNS: please see below General: NAD, comfortable HEENT: PERRLA, EOMI, sclerae clear Neck: supple, normal ROM, no JVD Respiratory: lungs CTAB, no wheeze, no rales, no crackles CVS: RRR, normal S1, S2, no murmurs Abdo: soft, no masses, no hepatosplenomegaly, BS+ Extremities: no edema, pulses 2+ lower MSK: no joint deformities, normal ROM, left CVA mild tenderness to percussion. Neuro: no focal neuro deficits, moving all 4 extremities, CN2-12 intact. Strength 5/5 in all 4 extremities. No nystagmus. Psych: calm, cooperative, AAO x 3 LABORATORY DATA, IMAGING STUDIES, MICROBIOLOGY: Please see below. DVT prophylaxis ordered?: Y ASSESSMENT: 60-year-old female with a history of cervical cancer treated with radiation in 1991, atonic bladder, now with indwelling Fernando, CK, stage IV, hypertension, secondary hyperparathyroidism and history of ureteral strictures. She is admitted to hospitalist service for management of suspected py elonephritis and hydronephrosis, with urology and nephrology in consultation. Status post bilateral ureteral stent placement by Dr. Howell on 07/20/20. . PLAN: #UTI/pyelonephritis: patient developed fevers overnight. no WBC. UA 07/19 (LE 3+, puyuria, bacteria). follow up cultures. c/w Zosyn, renally dosed. Tylenol prn for fevers. zofran prn for nausea. #L kidney hydronephrosis: seen on CT imaging. bilateral pigtail stents well positioned. Cr 3.25. Urology consulted for ureteral stent replacement. Dr. Howell exchanged bilateral ureteral stents. I discussed with her this morning, she reports appropriate stent placement. Continue to monitor UOP. C/w IV zosyn. #CKD IV: Cr 3.25, stable, baseline ~2.3-2.5. Follows with Dr. Black, consulted. Avoid nephrotoxins. c/w sodium bicarb 325 mg PO TID. #secondary hyperparathyroidism: c/w calcium-vitD #HTN: c/w home metoprolol 25 mg PO bid #Atonic bladder: indwelling fernando #hypothyroidism: c/w home levothyroxine 150 mcg PO daily #ETOH use: 5 beers per day. CIWA. Ativan prn. withdrawal precautions. Folate, MVT, thiamine. #GERD: pantoprazole 40 mg PO daily DVT ppx: lovenox 30 mg sc daily VS, I&O, 24H, Fishbone Vital Signs/I&O Vital Signs Date Time Temp Pulse Resp B/P (MAP) Pulse Ox O2 Delivery O2 Flow Rate FiO2 07/21/20 06:00 100.5 96 18 158/97 (117) 93 Room Air 07/20/20 17:45 2.0 I&O- Last 24 Hours up to 6 AM 07/21/20 06:00 Intake Total 2240 ml Output Total 2795 ml Balance -555 ml Laboratory Data 24H LABS Laboratory Tests 2 07/21/20 06:48: Immature Granulocyte % (Auto) 0.5, Neutrophils (%) (Auto) 89.2H, Lymphocytes (%) (Auto) 4.1L, Monocytes (%) (Auto) 5.8H, Eosinophils (%) (Auto) 0.1, Basophils (%) (Auto) 0.3, Neutrophils # (Auto) 10.6H, Lymphocytes # (Auto) 0.5L, Monocytes # (Auto) 0.7, Eosinophils # (Auto) 0.0, Basophils # (Auto) 0.0, Nucleated Red Blood Cells % (auto) 0.0, Anion Gap 8, Glomerular Filtration Rate 15.2L, Calcium Level 9.0, Magnesium Level 1.9, Total Bilirubin 0.8, Aspartate Amino Transf (AST/SGOT) 19, Alanine Aminotransferase (ALT/SGPT) 29, Alkaline Phosphatase 81, Total Protein 8.0, Albumin 3.0L, Albumin/Globulin Ratio 0.6L CBC/BMP Laboratory Tests 07/21/20 06:48 Microbiology Microbiology 07/19/20 Blood Culture - Preliminary, Resulted No growth after 24 hours . All specim... 07/19/20 Urine Culture, Received Pending 07/19/20 Blood Culture - Preliminary, Resulted No growth after 24 hours . All specim... PATRICA COLLINS MD Jul 21, 2020:49
[2020-07-21] MEDS: NORCO, ANEXSIA 5/325MG TABLET (HYDROcodone/ACETAMINOPHEN) PO PRN (08:53)
[2020-07-21] MEDS: DOCUSATE SODIUM 100 MG CAP PO SCH ×2 (08:53→20:48)
[2020-07-21] MEDS: MULTIVITAMINS/MINERALS THERAP 1 TAB PO SCH (08:53)
[2020-07-21] MEDS: PANTOPRAZOLE 40MG TAB (PROTONIX) PO SCH (08:53)
[2020-07-21] MEDS: FOLIC ACID 1 MG TAB PO SCH (08:54)
[2020-07-21] MEDS: SODIUM BICARBONATE 325 MG TAB PO SCH ×3 (08:54→20:47)
[2020-07-21] MEDS: CALCIUM/VITAMIN D 500 MG TAB PO SCH (08:54)
[2020-07-21] MEDS: THIAMINE 100 MG TAB PO SCH ×2 (08:54→20:47)
[2020-07-21] MEDS: METOPROLOL TART 25 MG TABLET PO SCH ×2 (08:54→20:48)
[2020-07-21] MEDS ORDERED: LORazepam 2 MG/ML VIAL IV PRN (09:15)
[2020-07-21] MEDS ORDERED: ONDANSETRON 4MG/2ML VIAL IV PRN (10:00)
[2020-07-21] MEDS ORDERED: VANCOMYCIN HCL 1,000 MG, VIAL MATE ADAPTER 1 EACH in D5W 250 ML IV ONE (11:00)
--- NOTE | 2020-07-21 11:12 | CR ---
DATE: 07/20/2020 REFERRING PHYSICIAN: Julito Hong M.D. REASON FOR CONSULTATION: Acute renal failure in this lady with complicated medical history and admission for left pyelonephritis and hydronephrosis. HISTORY OF PRESENT ILLNESS: Miss Crain is a 60-year-old female, very well known to me. She has a long history of chronic kidney disease with recurrent hydronephrosis in the past. She also has history of atonic bladder and requires self-catheterization. She had bilateral ureteral stents placed in November this year and they were changed on June 20. She presented to the emergency room yesterday with left flank pain. A CT scan of abdomen and pelvis was done which showed moderate to severe left-sided hydronephrosis though she still has the stent in that kidney. There was no hydronephrosis on the right side. The patient did have fever and flank pain and was felt to have a complicated acute pyelonephritis in her left kidney along with obstruction. I was called by emergency room physician and admitting physician and did discuss the plan of care with the ER physician and with the admitting physician. The patient was seen by urology and initially a nephrostomy placement was suggested. However, I did not feel that that was appropriate. The patient was placed on IV antibiotics and urology has now decided to replace her ureteral stents. In any event, she is feeling better today and is currently waiting to go to the OR. She has been on IV antibiotics since yesterday and currently afebrile. PAST MEDICAL AND SURGICAL HISTORY: 1. History of cancer of cervix, status post radiation therapy in 1991. 2. History of radiation cystitis. 3. History of atonic bladder with urinary retention requiring intermittent self-catheterization. 4. History of stage 4 of chronic kidney disease. 5. History of secondary hyperparathyroidism. 6. Hypertension. 7. History of recurrent UTIs. 8. History of chronic anemia. PAST SURGICAL HISTORY: 1. Appendectomy. 2. Bilateral ureteral stents. 3. History of intermittent self-catheterizations. PERSONAL AND SOCIAL HISTORY: Patient reports smoking for about 30 years which she quit in 2002. She drinks up to five beers a day. She denies any illicit drug use. FAMILY HISTORY: Negative for end-stage renal disease. She does have history of diabetes, hypertension and coronary artery disease in her family. HOME MEDICATIONS: 1. Calcium carbonate with vitamin D one tablet daily. 2. Levothyroxine 150 mcg daily. 3. Metoprolol 25 mg b.i.d. 4. Pantoprazole 40 mg daily. 5. Sodium bicarbonate 325 mg t.i.d. 6. Multivitamin one tablet daily. 7. Hydrocodone with Tylenol 5/325 mg every 12 hours p.r.n. pain. ALLERGIES: She has multiple drug allergies including various antibiotics. Her allergies include quinolones, sulfa, Epogen, ibuprofen, trimethoprim, potassium, Povidone-iodine. REVIEW OF SYSTEMS: Patient did have severe pain in her left flank and fever yesterday. She denies any high-grade fever today. Ears, nose and throat are unremarkable. Cardiovascular system: Negative for dyspnea, chest pain or leg edema. Respiratory system is negative for cough or hemoptysis. GI system is negative for vomiting or diarrhea. She does get recurrent nausea. system is as per history of present illness. Endocrine system is significant for hypothyroidism and secondary hyperparathyroidism. Hematological system is significant for anemia but no history of long-term anticoagulation. Psychosocial system: Negative for depression or anxiety. Neurological system is negative for seizures or stroke. Skin is negative for rash or ulcers. Musculoskeletal system is significant for chronic back pain but no leg edema. PHYSICAL EXAMINATION: At the time of my visit, the patient is sitting at the edge of bed. She is awake and alert and without any acute distress. Vital signs: Temperature is 98 degrees Fahrenheit, heart is 60 per minute and respiratory rate 18 per minute. Blood pressure 131/77 mmHg and oxygen saturation 95% on room air. Head is atraumatic. Neck: Supple and without JVD or thyroid enlargement. Pupils equal and reactive to light and sclera is anicteric. Ears, nose and throat are unremarkable. Heart sounds are regular and lungs clear to auscultation bilaterally. She has left-sided flank area tenderness. Abdomen is otherwise soft and bowel sounds are present. Extremities have no cyanosis or clubbing. Neurologically she is awake, alert and oriented x3. LABORATORY DATA: Todays labs showed WBC count 7.9, hemoglobin 13.3 and hematocrit 41.9. Urinalysis showed 3+ leukocyte esterase, too numerous to count WBCs and 41 RBCs. She had 2+ bacteria. Urine culture is still pending. Todays labs showed sodium level 142, potassium 4.0, CO2 21, BUN 52 and creatinine 3.25. Glucose 104 and calcium 9.2. Total protein is 7.3 and albumin of 3.0. CT scan of abdomen and pelvis done in the emergency room yesterday. It did show left-sided hydronephrosis with the stent in place. Right-sided hydronephrosis has resolved. PROBLEMS: 1. Acute pyelonephritis and left hydronephrosis. The patient has most likely obstructed ureteral stent with left-sided hydronephrosis and she also has acute pyelonephritis in that kidney. She has advanced chronic kidney disease and at risk for worsening kidney function. Urology has already seen her and scheduled her for exchange of ureteral stent today. She has been receiving antibiotics which is appropriate pending her urine culture results. I have advised the patient to stay for inpatient antibiotics until she is advised otherwise. 2. Acute renal failure superimposed on chronic kidney disease. The patient has known history of stage 4 of chronic kidney disease at baseline. Worsening kidney function is related to left-sided hydronephrosis and obstruction. I anticipate improvement in her kidney function after she gets her ureteral stent exchanged. She has been receiving IV fluid as she is NPO. 3. Metabolic acidosis. She has chronic metabolic acidosis and had been on sodium bicarbonate tablets which will be continued. 4. Atonic bladder with urinary retention. The patient currently has an indwelling Weeks catheter which is appropriate. Thank you for involving me in the care of Miss Crain. I will follow her along with you. RON
[2020-07-21] MEDS: OXAZEPAM 10 MG CAP PO SCH ×2 (11:20→16:17)
[2020-07-21] MEDS ORDERED: **hydrALAZINE HCL** 25 MG TAB PO ONE (11:30)
[2020-07-21] MEDS: ENOXAPARIN 30MG/0.3ML SYRINGE (J1650 PER 10MG) SC SCH (11:30)
[2020-07-21] MEDS ORDERED: ACETAMINOPHEN TAB 650MG DOSE (2X325MG) PO PRN (13:00)
[2020-07-21] MEDS: MEROPENEM INJ 500 MG in IV 1 EA IV SCH ×2 (13:29→23:47)
--- NOTE | 2020-07-21 14:15 | IRMSE ---
[facility] IR Moderate Sedation Eval. Date and Time Date: Jul 21, 2020 Time: 14:14 ASA Classification ASA Classification: III-Severe systemic dis. Mallampati Score: II NPO: Yes Obstructive Sleep Apnea: No Interval Plan: moderate sedation DAVID JAMES MD Jul 21, 2020 14:14
[2020-07-21] MEDS ORDERED: ISOVUE-300 61% 50ML VIAL As Ordered ONE (14:34)
[2020-07-21] MEDS ORDERED: LIDOCAINE 1% MDV 20ML VIAL As Ordered ONE (14:34)
[2020-07-21] MEDS ORDERED: MIDAZOLAM INJ 2MG/2ML VIAL (J2250 PER 1MG) As Ordered ONE (14:35)
[2020-07-21] MEDS ORDERED: fentaNYL 100 MCG/2 ML INJECTION (J3010) As Ordered ONE (14:35)
[2020-07-21] MEDS ORDERED: diphenhydrAMINE 50MG/ML VIAL (J1200) As Ordered ONE (14:35)
--- NOTE | 2020-07-21 15:28 | IRINPTCON ---
[facility] IR Inpatient Consultation IR Inpatient Consultation DATE: Jul 21, 2020 REASON FOR CONSULTATION/CHIEF COMPLAINT: Left-sided hydronephrosis. HISTORY OF PRESENT ILLNESS: 60-year-old female with known cervical cancer treated with radiation in 1991, with known ureteral strictures treated with bilateral internal ureteral stents, presented to the hospital couple of days ago with fevers, chills, malaise, diaphoresis, lower abdominal pain and left flank pain. CT scan showed massive left-sided hydronephrosis. She then underwent left ureteral stent exchange yesterday. Patient has persistent fevers, increasing white count and worsening renal failure with persistent left-sided hydronephrosis on ultrasound. ALLERGIES: Please see below. HOME MEDICATIONS: Please see below. PAST MEDICAL HISTORY: Cervical cancer Radiation cystitis Atonic bladder Secondary hyperparathyroidism Chronic renal disease Hypertension Anemia PAST SURGICAL HISTORY: Appendectomy Bilateral ureteral stents FAMILY HISTORY: Noncontributory. SOCIAL HISTORY: Quit smoking in 2002. [id number] history. Drinks 5 beers years daily. Denies illicit drug use. REVIEW OF SYSTEMS: Otherwise negative. PHYSICAL EXAMINATION: VITAL SIGNS: Temperature 101.1 pulse 110 blood pressure 164/88 GENERAL APPEARANCE: Patient is in discomfort. Complaining of pain and nausea. HEENT: No scleral icterus. RESPIRATORY: Normal breathing at rest. CARDIOVASCULAR: Tachycardic. ABDOMEN: Distended but soft. EXTREMITIES: Moving all 4 extremities. NEUROLOGICAL: Alert and oriented. PSYCHIATRIC: Appropriate to circumstance. LABORATORY DATA: 07/21/2020 hemoglobin 13.3 hematocrit 42.2 WBC 11.8 (increased from 7.9 yesterday) platelets 166 sodium 136 potassium 3.9 BUN 42 creatinine 3 .31 (increased from 3.01 on 07/19/2020) GFR 15.2 fasting glucose 125. 07/19 INR 0.93 Imaging: I personally reviewed the CT abdomen pelvis performed 07/19/2020. Massive left-sided hydronephrosis. Left ureteral stent in place. I personally reviewed the retrograde pyelogram performed yesterday 07/20/2020 at time of left internal stent exchange. Extravasation left kidney. I personally reviewed the ultrasound performed 07/20/2020. There is left-sided hydronephrosis. ASSESSMENT/PLAN: 60-year-old female with known bilateral ureteral strictures, presents with sepsis and massive left-sided hydronephrosis which persists despite replacement of left internal stent. I discussed the risks and benefits of left nephrostomy and patient is agreeable to proceed. We will perform left nephrostomy for left renal drainage and treatment of sepsis and worsening renal failure. Thank you for this referral. Allergies Coded Allergies: potassium (Verified Allergy, Intermediate, HIVES, POUNDING HEARTBEAT, 06/13/20) povidone-iodine (Verified Allergy, Intermediate, rash/burn, 06/13/20) soap (Verified Allergy, Intermediate, rash/burn, 06/13/20) Quinolones (Verified Allergy, Unknown, 06/13/20) Sulfa (Sulfonamide Antibiotics) (Verified Allergy, Unknown, 06/13/20) ciprofloxacin (Verified Allergy, Unknown, 06/13/20) epoetin reina (Verified Allergy, Unknown, 06/13/20) ibuprofen (Verified Allergy, Unknown, 06/13/20) trimethoprim (Verified Allergy, Unknown, 06/13/20) Home Medications Scheduled Calcium Carbonate/Vitamin D3 (Calcium 500-Vit D3 200 Tablet), 1 TAB PO DAILY, (Reported) Levothyroxine Sodium (Levothyroxine Sodium), 150 MCG PO DAILY, (Reported) Metoprolol Tartrate (Metoprolol Tartrate), 25 MG PO BID, (Reported) Pantoprazole Sodium (Pantoprazole Sodium), 40 MG PO DAILY, (Reported) Sodium Bicarbonate (Sodium Bicarbonate), 325 MG PO TID, (Reported) Vit B Comp No.3/Folic/C/Biotin (Helen-Layo Rx Tablet), 1 TAB PO DAILY, (Reported) Scheduled PRN Acetaminophen (Tylenol Extra Strength), 500 MG PO Q4H PRN for PAIN / FEVER, (Reported) Hydrocodone/Acetaminophen (Hydrocodone-Acetamin 5-325 mg), 1 TAB PO Q12H PRN for PAIN, (Reported) VS, I&O, 24H, Fishbone Vital Signs/I&O Vital Signs Date Time Temp Pulse Resp B/P (MAP) Pulse Ox O2 Delivery O2 Flow Rate FiO2 07/21/20 15:05 109 16 96 Nasal Cannula 2 07/21/20 13:36 101.1 164/88 (113) I&O- Last 24 Hours up to 6 AM 07/21/20 06:00 Intake Total 2240 ml Output Total 2795 ml Balance -555 ml Laboratory Data 24H LABS Laboratory Tests 2 07/21/20 06:48: Immature Granulocyte % (Auto) 0.5, Neutrophils (%) (Auto) 89.2H, Lymphocytes (%) (Auto) 4.1L, Monocytes (%) (Auto) 5.8H, Eosinophils (%) (Auto) 0.1, Basophils (%) (Auto) 0.3, Neutrophils # (Auto) 10.6H, Lymphocytes # (Auto) 0.5L, Monocytes # (Auto) 0.7, Eosinophils # (Auto) 0.0, Basophils # (Auto) 0.0, Nucleated Red Blood Cells % (auto) 0.0, Anion Gap 8, Glomerular Filtration Rate 15.2L, Calcium Level 9.0, Magnesium Level 1.9, Total Bilirubin 0.8, Aspartate Amino Transf (AST/SGOT) 19, Alanine Aminotransferase (ALT/SGPT) 29, Alkaline Phosphatase 81, Total Protein 8.0, Albumin 3.0L, Albumin/Globulin Ratio 0.6L 07/21/20 10:25: Urine Color YELLOW, Urine Appearance HAZY, Urine pH 6.0, Urine Specific [place] 1.011, Urine Protein 2+H, Urine Glucose (UA) NEGATIVE, Urine Ketones NEGATIVE, Urine Blood 3+H, Urine Nitrite NEGATIVE, Urine Bilirubin NEGATIVE, Urine Urobilinogen 0.2, Urine Leukocyte Esterase 3+H, Urine WBC (Auto) 78H, Urine RBC (Auto) TNTCH, Urine Hyaline Casts (Auto) 0, Urine Bacteria (Auto) 1+H, Urine Squamous Epithelial Cells 0, Urine Mucus (Auto) SMALL, Urine Sperm (Auto) 07/21/20 14:09: Lab Scanned Report Miscellaneous Lab CBC/BMP Laboratory Tests 07/21/20 06:48 Microbiology Microbiology 07/21/20 Blood Culture, Received Pending 07/21/20 Blood Culture, Received Pending 07/21/20 Urine Culture, Received Pending 07/19/20 Blood Culture - Preliminary, Resulted No Growth after 48 hours. All Specime... 07/19/20 Urine Culture, Received Pending 07/19/20 Blood Culture - Preliminary, Resulted No Growth after 48 hours. All Specime... DAVID JAMES MD Jul 21, 2020 15:28
--- NOTE | 2020-07-21 15:44 | POST-OPPD ---
Postoperative Procedure Note Date Of Procedure: Jul 21, 2020 Time Of Procedure: 15:28 Percutaneous nephrostomy catheter placement using fluoroscopic and ultrasound guidance. Nephrostogram and Ureterogram. Ultrasound of the left kidney. Clinical Information:Cervical cancer with ureteral strictures. Persistent left hydronephrosis and worsening sepsis and renal failure despite internal stent exchange. Physician: Dr. Duenas. Procedure: The patient was advised of the benefits, risks, and alternatives of the procedure and informed consent was obtained. A time out was performed with verification of the patient's name, MRN, site of procedure, and type of procedure to be performed. The patient was positioned in the prone position on the angiographic table. The site was prepped and draped in the usual sterile fashion. Moderate sedation was performed by the physician including the presence of an independent trained RN who assisted in monitoring the patient's level of consciousness and physiological status. Following the administration of fentanyl and Versed, the physician spent 45 minutes of continuous [id number] time with the patient. A slip tender radiograph reveals bilateral double-J stents. Ultrasound of the left kidney demonstrates dilated calyces. The anticipated puncture site on the flank was anesthetized with lidocaine. Using ultrasound guidance, a lower pole calyx was accessed with a 21G Chiba needle. A nephrostogram and ureterogram were performed demonstrating massive left sided hydronephrosis and complete stent occlusion. An 018 wire was then advanced into the collecting system, under fluoroscopy guidance. The needle was then exchanged for a nonvascular introducer set which was advanced over the wire under fluoroscopy guidance, into the renal pelvis. An Amplatz wire was then advanced into the ureter.This sheath was removed over the wire. A 10 Monegasque nephrostomy catheter was then advanced over the wire, under fluoroscopy guidance into the renal collecting system. The pigtail was formed and locked in position. A final nephrostogram and ureterogram were performed confirming positioning of the pigtail within the renal pelvis with hydronephrosis. There is no contrast within the internal stent. The catheter was sutured in position with 2-0 Prolene and a sterile dressing applied. The catheter was placed to gravity drainage. The patient tolerated the procedure well and was returned to the PRU in stable condition. EBL:< 5 mL. Complications:None. Conclusion: 1. Left-sided nephrostogram demonstrates massive left-sided hydronephrosis. There is no contrast in the left internal stent 2. Successful left-sided nephrostomy catheter placement. Left nephrostomy catheter will require flushing with 10 mL sterile saline daily. 3. Patient to return to IR clinic in 6 weeks for discussion of nephrostomy removal and/or antegrade stenting. 4. Patient will need outpatient follow-up with urology regarding left internal stent. Thank you for this referral DAVID DUENAS MD Jul 21, 2020 15:44
[2020-07-21] MEDS: ACETAMINOPHEN 500 MG TAB PO PRN ×2 (16:18→22:22)
--- NOTE | 2020-07-21 18:21 | IPNPDOC ---
Text Note Date of Service The patient was seen on 07/21/20. NOTE Pt seen at bedside with a Temp of 102 and not feeling well. Still left flank pain. Renal US showed stent to be in good placement. PE: Febrile. Urine slightly dark. Left flank tenderness. Some diffuse abdominal tenderness. Lungs clear. Heart reg. No calf tenderness Impression: -POD #1 Bilateral ureteral stent exchange with massive left hydro -Urosepsis -AKD on top of CKD -Radiation therapy for Cervical CA now with atonic bladder managed by fernando and bilateral ureteral obstruction managed by bilateral ureteral stents Plan: -Pt would benefit from placement of left nephrostomy tube -Continue bilateral ureteral stents and should be exchanged every 6 months -Continue Medical Managment -Continue indwelling fernando catheter for atonic bladder vs Clean Intermittent Catheterization VS,Fishbone, I+O VS, Fishbone, I+O Laboratory Tests 07/21/20 06:48 Vital Signs Date Time Temp Pulse Resp B/P (MAP) Pulse Ox O2 Delivery O2 Flow Rate FiO2 07/21/20 17:55 97.6 116 95 Nasal Cannula 2.0 07/21/20 16:00 152/86 07/21/20 15:57 22 I&O- Last 24 Hours up to 6 AM 07/21/20 06:00 Intake Total 2240 ml Output Total 2795 ml Balance -555 ml RANDALL PASCUAL MD Jul 21, 2020 18:15
[2020-07-21] MEDS ORDERED: diazePAM 10MG/2ML SYRINGE (J3360 PER 5MG) IV ONE (19:15)
[2020-07-21 19:48] LABS: BASO % 0.3 % (0.0-1.0); HEMATOCRIT 44.1 % (36.0-47.0); HEMOGLOBIN 14.2 g/dl (12.0-15.5); LYMPH # 0.6 10^3/uL (1.5-5.0); LYMPH % 4.9 % (24.0-44.0); MEAN CORPUSCULAR HEMOGLOBIN 28.1 pg (27.0-33.0); MEAN CORPUSCULAR HGB CONC 32.2 g/dl (32.0-36.5); MEAN CORPUSCULAR VOLUME 87.3 fl (80.0-96.0); MONO # 0.5 10^3/uL (0.0-0.8); MONO % 4.6 % (0.0-5.0); NEUTROPHILS # 10.6 10^3/uL (1.5-8.5); NEUTROPHILS % 89.8 % (36.0-66.0); PLATELET COUNT, AUTOMATED 155 10^3/uL (150-450); RED BLOOD COUNT 5.05 10^6/uL (4.00-5.40); WHITE BLOOD COUNT 11.8 10^3/uL (4.0-10.0)
[2020-07-21 20:10] LABS: ALBUMIN 3.2 GM/DL (3.2-5.2); BILIRUBIN,TOTAL 0.8 MG/DL (0.2-1.0); CALCIUM LEVEL 8.9 MG/DL (8.5-10.1); CREATININE FOR GFR 3.74 MG/DL (0.55-1.30); GLOMERULAR FILTRATION RATE 13.2 (>51); POTASSIUM SERUM 4.3 MEQ/L (3.5-5.1); TOTAL PROTEIN 7.6 GM/DL (6.4-8.2)
[2020-07-22] VITALS: BP 122/74
[2020-07-22 04:00] VITALS: BP 119/64
[2020-07-22] MEDS: LEVOTHYROXINE 150MCG TABLET (0.15MG) PO SCH (06:18)
[2020-07-22 06:34] LABS: BASO % 0.3 % (0.0-1.0); HEMATOCRIT 39.6 % (36.0-47.0); HEMOGLOBIN 12.4 g/dl (12.0-15.5); LYMPH # 1.3 10^3/uL (1.5-5.0); LYMPH % 8.3 % (24.0-44.0); MEAN CORPUSCULAR HEMOGLOBIN 27.3 pg (27.0-33.0); MEAN CORPUSCULAR HGB CONC 31.3 g/dl (32.0-36.5); MEAN CORPUSCULAR VOLUME 87.2 fl (80.0-96.0); MONO # 1.3 10^3/uL (0.0-0.8); MONO % 8.4 % (0.0-5.0); NEUTROPHILS # 13.1 10^3/uL (1.5-8.5); NEUTROPHILS % 82.5 % (36.0-66.0); PLATELET COUNT, AUTOMATED 161 10^3/uL (150-450); RED BLOOD COUNT 4.54 10^6/uL (4.00-5.40); WHITE BLOOD COUNT 15.8 10^3/uL (4.0-10.0)
[2020-07-22 07:09] LABS: ALBUMIN 2.8 GM/DL (3.2-5.2); BILIRUBIN,TOTAL 0.6 MG/DL (0.2-1.0); CALCIUM LEVEL 8.5 MG/DL (8.5-10.1); CREATININE FOR GFR 4.68 MG/DL (0.55-1.30); GLOMERULAR FILTRATION RATE 10.2 (>51); MAGNESIUM LEVEL 2.1 MG/DL (1.8-2.4); POTASSIUM SERUM 4.2 MEQ/L (3.5-5.1)
[2020-07-22 08:00] VITALS: BP 107/71
--- NOTE | 2020-07-22 08:00 | IPN ---
DATE: 07/21/2020 SUBJECTIVE: Ms. Crain is seen this morning on her bedside. She is not feeling well today. She reports generalized pains and aches and nausea. She underwent ureteral stent exchange yesterday. Patient has been febrile with temperature up to 102.7 degrees Fahrenheit. PHYSICAL EXAMINATION: Heart rate is 110 per minute, respiratory rate 16 per minute and blood pressure 157/96 mmHg. Oxygen saturation is 90% on room air. Temperature 102.7 degrees Fahrenheit. Head: Face is slightly flushed. Her head is atraumatic. Neck: Supple and without JVD or thyroid enlargement. Heart: Sounds are tachycardic. Lungs: Clear to auscultation. Abdomen: Soft and mild tenderness in the left flank area is present. Bowel sounds are normal. Extremities: Without any cyanosis or clubbing. Neurologically: She is awake, at her baseline mentation and without any focal deficit. LABORATORY DATA: Todays labs showed WBC count 11.8, hemoglobin 13.3 and hematocrit 42.2. Platelets 166. Sodium 136, potassium 3.9, chloride 106, CO2 22, BUN 42 and creatinine 3.31. PROBLEMS/PLAN: * Acute renal failure superimposed on chronic kidney disease: No significant change in kidney function. She did have ureteral stents exchanged yesterday. At present she does not have any uremic symptoms and there is no emergent need for dialysis. * Sepsis with left pyelonephritis: Patient had left sided hydronephrosis and acute pyelonephritis. She had her ureteral stent exchange done yesterday and now she feels even more sick. She has already been on Zosyn intravenously and I am going to add vancomycin with 1 gram dose today. Her blood and urine cultures are pending so far. We will get another set of blood cultures today. * Hypertension: Blood pressure is well controlled on current anti-hypertensive medications should be continued. MTDD
[2020-07-22] MEDS: ENOXAPARIN 30MG/0.3ML SYRINGE (J1650 PER 10MG) SC SCH (09:01)
[2020-07-22] MEDS: DOCUSATE SODIUM 100 MG CAP PO SCH ×2 (09:01→19:56)
[2020-07-22] MEDS: FOLIC ACID 1 MG TAB PO SCH (09:02)
[2020-07-22] MEDS: PANTOPRAZOLE 40MG TAB (PROTONIX) PO SCH (09:02)
[2020-07-22] MEDS: SODIUM BICARBONATE 325 MG TAB PO SCH ×3 (09:02→19:56)
[2020-07-22] MEDS: MULTIVITAMINS/MINERALS THERAP 1 TAB PO SCH (09:02)
[2020-07-22] MEDS: CALCIUM/VITAMIN D 500 MG TAB PO SCH (09:02)
[2020-07-22] MEDS: METOPROLOL TART 25 MG TABLET PO SCH ×2 (09:02→19:56)
[2020-07-22] MEDS: THIAMINE 100 MG TAB PO SCH (09:03)
[2020-07-22 12:00] VITALS: BP 127/70
--- NOTE | 2020-07-22 12:21 | IPN ---
NEPHROLOGY PROGRESS NOTE DATE: 07/22/2020 SUBJECTIVE: Ms. Crain is seen this morning on her bedside. She is feeling somewhat better, but still not feeling at her baseline. She has some pain at the site of her nephrostomy that was placed yesterday. She has gross blood in her Weeks catheter bag and in the nephrostomy bag. She denies any dyspnea or chest pain. Her fever has improved. PHYSICAL EXAMINATION: Temperature 97.3 degrees Fahrenheit, heart rate 94 per minute and respiratory rate 20 per minute. Blood pressure 107/70 mmHg and oxygen saturation 97% on 2 liters oxygen. Head: Atraumatic. Neck: Supple and without JVD or thyroid enlargement. Heart: Sounds are regular and without a pericardial friction rub. Lungs: Clear to auscultation. Abdomen: Soft and bowel sounds are normal. A left nephrostomy is in place. Her Weeks catheter is also draining urine with gross hematuria. Neurologically: She is awake, alert and at her baseline mentation. LABORATORY DATA: Todays labs show sodium 136, potassium 4.2, CO2 20, BUN 151 and creatinine up to 4.68. Calcium is 8.5, total protein 7 and albumin 2.8. Yesterday her lactic acid level was 1.1. Urine culture has come back positive for pseudomonas and blood cultures are still pending. PROBLEMS/PLAN: 1. Acute renal failure superimposed on chronic kidney disease: Kidney function did get worse despite nephrostomy tube placement in her left kidney and bilateral ureteral stents. At this point there is no emergent indication for dialysis and we will watch her kidney function for the next 24 hours. I am going to start her on I.V. normal saline 100 mL per hour. 2. Metabolic acidosis: She has mild metabolic acidosis and remains on oral sodium bicarbonate supplement which will be continued. 3. Sepsis with left sided hydronephrosis: Her urine culture has come back positive for pseudomonas and blood cultures are still pending. She had a nephrostomy tube placed yesterday while she had bilateral ureteral stents changed on Tuesday. At this point she remains on antibiotics and meropenem is appropriate for pseudomonas for now. [facility]
[2020-07-22] MEDS: MEROPENEM INJ 500 MG in IV 1 EA IV SCH ×2 (12:29→23:37)
[2020-07-22] MEDS: NS 1,000 ML IV SCH ×3 (12:29→19:56)
[2020-07-22] MEDS: NORCO, ANEXSIA 5/325MG TABLET (HYDROcodone/ACETAMINOPHEN) PO PRN ×2 (12:35→20:41)
--- NOTE | 2020-07-22 15:32 | IPNPDOC ---
Date Seen The patient was seen on 07/22/20. Progress Note SUBJECTIVE: POD1 nephrostomy tube placement, left. Improving sepsis. Cr incr, IVFs started- discussed with Dr. Duenas and Dr. Sparrow. Afebrile since 8 PM 07/21/20. Denies shortness of breath, n/v/d but admits to lethargy. OBJECTIVE: PHYSICAL EXAMINATION: VITAL SIGNS: please see below General: NAD, comfortable HEENT: PERRLA, EOMI, sclerae clear Neck: supple, normal ROM, no JVD Respiratory: lungs CTAB, no wheeze, no rales, no crackles CVS: RRR, normal S1, S2, no murmurs Abdo: soft, no masses, no hepatosplenomegaly, BS+ Back/flank: left flank nephrostomy tube with bright red blood in bag Extremities: no edema, pulses 2+ lower : fernando catheter in place, 100 mL of bright red urine in bag MSK: no joint deformities, normal ROM, left CVA mild tenderness to percussion. Neuro: no focal neuro deficits, moving all 4 extremities, CN2-12 intact. Strength 5/5 in all 4 extremities. No nystagmus. Psych: calm, cooperative, AAO x 3 LABORATORY DATA, IMAGING STUDIES, MICROBIOLOGY: Please see below. DVT prophylaxis ordered?: Y ASSESSMENT: 60-year-old female with a history of cervical cancer treated with radiation in 1991, atonic bladder, now with indwelling Fernando, CK, stage IV, hypertension, secondary hyperparathyroidism and history of ureteral strictures. She is admitted to hospitalist service for management of suspected pyelonephritis and hydronephrosis, with urology and nephrology in consultation. Status post bilateral ureteral stent placement by Dr. Howell on 07/20/20. Nephro stomy tube placement 07/21/20 for left hydronephrosis and UTI, sepsis. PLAN: #Pseudomonas UTI, sepsis likely 2/2 to left kidney hydronephrosis -WBC incr to 15.8, afebrile since 8 PM 07/21/20 temp 102F -UCx: pseudomonas sensitive to meropenem (Day 2) -BCx NG at 24 hrs -F/u daily labs, monitor I&Os -Consider deescalation to PO abx when WBC improves further, remained afebrile for full 24 hours #L kidney hydronephrosis s/p nephrostomy tube 07/21/20 -Dr. Howell exchanged bilateral ureteral stents 07/20/20 -Cr worsened -Started IVFs, c/w treatment above -Nephrology, IR and urology following #Acute kidney injury on CKD IV -Cr worsened to 4.68 from 3.74. Baseline ~2.3-2.5. -C/w IVFs -F/u daily labs. -Avoid nephrotoxic medications Hematuria likely 2/2 to nephrostomy tube placement -H/h decreased to 12.4/39 from 14.2/44. -Does not appear to be worsening -May seen worsening anemia due to dilutional effect with fluids. -Monitor closely, CBC daily #Metabolic acidosis -C/w sodium bicarb 325 mg PO TID #secondary hyperparathyroidism -c/w calcium-vitD #HTN -Stable - c/w home metoprolol 25 mg PO bid #Atonic bladder - indwelling fernando #hypothyroidism - c/w home levothyroxine 150 mcg PO daily #ETOH use -No s/s of withdrawl currently, 5 beers per day. -Follow CIWA. Ativan prn. withdrawal precautions. -C/w Folate, MVT, thiamine. #GERD - pantoprazole 40 mg PO daily DVT ppx -lovenox stopped 2/2 to hematuria. SCD, teds DISPOSITION: C/w treatment above. PT/OT. Plan undecided for discharge. VS, I&O, 24H, Fishbone Vital Signs/I&O Vital Signs Date Time Temp Pulse Resp B/P (MAP) Pulse Ox O2 Delivery O2 Flow Rate FiO2 07/22/20 12:35 18 Room Air 07/22/20 12:00 91 127/70 07/22/20 12:00 97.1 95 2.0 I&O- Last 24 Hours up to 6 AM 07/22/20 05:57 Intake Total 50 ml Output Total 1995 ml Balance -1945 ml Laboratory Data 24H LABS Laboratory Tests 2 07/21/20 19:35: Immature Granulocyte % (Auto) 0.4, Neutrophils (%) (Auto) 89.8H, Lymphocytes (%) (Auto) 4.9L, Monocytes (%) (Auto) 4.6, Eosinophils (%) (Auto) 0.0, Basophils (%) (Auto) 0.3, Neutrophils # (Auto) 10.6H, Lymphocytes # (Auto) 0.6L, Monocytes # (Auto) 0.5, Eosinophils # (Auto) 0.0, Basophils # (Auto) 0.0, Nucleated Red Blood Cells % (auto) 0.0, Anion Gap 12, Glomerular Filtration Rate 13.2L, Lactic Acid Level 1.1, Calcium Level 8.9, Total Bilirubin 0.8, Aspartate Amino Transf (AST/SGOT) 31, Alanine Aminotransferase (ALT/SGPT) 42, Alkaline Phosphatase 104, Total Protein 7.6, Albumin 3.2, Albumin/Globulin Ratio 0.7L 07/22/20 06:23: Immature Granulocyte % (Auto) 0.5, Neutrophils (%) (Auto) 82.5H, Lymphocytes (%) (Auto) 8.3L, Monocytes (%) (Auto) 8.4H, Eosinophils (%) (Auto) 0.0, Basophils (%) (Auto) 0.3, Neutrophils # (Auto) 13.1H, Lymphocytes # (Auto) 1.3L, Monocytes # (Auto) 1.3H, Eosinophils # (Auto) 0.0, Basophils # (Auto) 0.0, Nucleated Red Blood Cells % (auto) 0.0, Anion Gap 9, Glomerular Filtration Rate 10.2L, Calcium Level 8.5, Total Bilirubin 0.6, Aspartate Amino Transf (AST/SGOT) 22, Alanine Aminotransferase (ALT/SGPT) 36, Alkaline Phosphatase 94, Total Protein 7.0, Albumin 2.8L, Albumin/Globulin Ratio 0.7L, Magnesium Level 2.1 CBC/BMP Laboratory Tests 07/21/20 19:35 07/22/20 06:23 Microbiology Microbiology 07/21/20 Blood Culture - Preliminary, Resulted No growth after 24 hours . All specim... 07/21/20 Blood Culture - Preliminary, Resulted No growth after 24 hours . All specim... 07/21/20 Urine Culture - Final, Complete 07/19/20 Blood Culture - Preliminary, Resulted No Growth after 72 hours. All specime... 07/19/20 Urine Culture - Final, Complete Pseudomonas Aeruginosa 07/19/20 Blood Culture - Preliminary, Resulted No Growth after 72 hours. All specime... Current Medications Current Medications Medications (Trade) Dose Ordered Sig/Jahaira Route PRN Reason Start Time Stop Time Status Last Admin Dose Admin Acetaminophen (Tylenol Tab) 650 mg Q4H PRN PO PAIN OR FEVER 07/19/20 12:45 07/21/20 12:52 DC 07/21/20 10:21 Acetaminophen (Tylenol Tab) 1,000 mg Q6HP PRN PO fever 07/21/20 13:00 07/21/20 12:57 DC Acetaminophen (Tylenol Tab) 1,000 mg Q6HP PRN PO fever 07/21/20 13:00 07/21/20 22:22 Acetaminophen/ Hydrocodone Bitart ([place], Anexsia 5/325) 1 tab Q12H PRN PO severe pain 07/19/20 08:00 07/22/20 12:35 Al Hydrox/Mg Hydrox/Simethicone (Mylanta) 30 ml DAILY PRN PO DYSPEPSIA 07/19/20 12:45 Calcium/Vitamin D (Oscal D) 500 mg DAILY PO 07/19/20 09:00 07/22/20 09:02 Docusate Sodium (Colace) 100 mg BID PO 07/19/20 21:00 07/22/20 09:01 Enoxaparin Sodium (Lovenox) 30 mg DAILY SC 07/20/20 09:00 07/22/20 12:01 DC 07/22/20 09:01 Fentanyl Citrate (Sublimaze) 25 mcg Q5MP PRN IV PAIN LEVEL 5-10 07/20/20 14:00 07/20/20 15:00 DC 07/20/20 14:08 Folic Acid (Folic Acid) 1 mg DAILY PO 07/19/20 09:00 07/22/20 09:02 Home Med (Med Rec Complete!) ASDIRECTED XX 07/19/20 12:30 07/19/20 12:35 DC Levothyroxine Sodium (Synthroid) 150 mcg DAILY@0600 PO 07/19/20 06:00 07/22/20 06:18 Lorazepam (Ativan) 2 mg ASDIRECTED PRN IV SEE PROTOCOL 07/21/20 09:15 07/21/20 09:28 Lorazepam (Ativan) 2 mg ASDIRECTED PRN PO SEE PROTOCOL 07/19/20 09:00 07/21/20 09:09 DC 07/21/20 09:01 Magnesium Hydroxide (Milk Of Magnesia) 30 ml DAILY PRN PO CONSTIPATION 07/19/20 12:45 Meropenem 500 mg/ IV Miscellaneous Supplies 50 ml @ 100 mls/hr Q12H IV 07/21/20 12:00 07/22/20 12:29 Metoprolol Tartrate (Lopressor) 25 mg BID PO 07/19/20 21:00 07/22/20 09:02 Morphine Sulfate (Morphine Sulfate Inj) 2 mg Q30M PRN IV MODERATE PAIN (PS 5-7) 07/19/20 10:00 Cancel Multivitamins (Theragram-M) 1 tab DAILY PO 07/19/20 09:00 07/22/20 09:02 Ondansetron HCl (ZOFRAN INJection) 4 mg Q4H PRN IV NAUSEA OR VOMITING 07/21/20 10:00 07/21/20 18:49 Ondansetron HCl (ZOFRAN INJection) 4 mg Q4HP PRN IV NAUSEA OR VOMITING 07/20/20 14:00 07/20/20 15:00 DC Ondansetron HCl (Zofran) 4 mg Q6HP PRN PO NAUSEA OR VOMITING 07/21/20 01:45 07/21/20 09:14 DC 07/21/20 06:31 Oxazepam (Serax) 10 mg TID PO 07/21/20 09:30 07/21/20 19:51 DC 07/21/20 16:17 Oxycodone HCl (Roxicodone, Oxyir) 5 mg ASDIRECTED PRN PO PAIN LEVEL 1-4 07/20/20 14:00 07/20/20 14:26 DC 07/20/20 14:25 Pantoprazole Sodium (Protonix) 40 mg DAILY PO 07/19/20 09:00 07/22/20 09:02 Piperacillin Sod/ Tazobactam Sod 4.5 gm/Dextrose 50 ml @ 50 mls/hr Q8H IV 07/19/20 20:00 07/21/20 10:22 DC 07/21/20 05:14 Sodium Bicarbonate (Sodium Bicarbonate) 325 mg TID PO 07/19/20 16:00 07/22/20 09:02 Sodium Chloride 1,000 ml @ 200 mls/hr Q5H IV 07/22/20 11:45 07/22/20 12:29 Thiamine HCl (Thiamine HCl) 100 mg BID PO 07/19/20 21:00 07/22/20 09:01 DC 07/22/20 09:03 Allergies Coded Allergies: potassium (Verified Allergy, Intermediate, HIVES, POUNDING HEARTBEAT, 06/13/20) povidone-iodine (Verified Allergy, Intermediate, rash/burn, 06/13/20) soap (Verified Allergy, Intermediate, rash/burn, 06/13/20) Quinolones (Verified Allergy, Unknown, 06/13/20) Sulfa (Sulfonamide Antibiotics) (Verified Allergy, Unknown, 06/13/20) epoetin reina (Verified Allergy, Unknown, 06/13/20) ibuprofen (Verified Allergy, Unknown, 06/13/20) trimethoprim (Verified Allergy, Unknown, 06/13/20) Nimo Pat MD Jul 22, 2020 15:32
[2020-07-22 16:00] VITALS: BP 130/84
[2020-07-22] MEDS ORDERED: ACETAMINOPHEN 500 MG TAB PO PRN (16:00)
[2020-07-22 20:00] VITALS: BP_SYST 130; BP_SYST 145; BP_DIAS 75; BP_DIAS 84
[2020-07-23] VITALS: BP_SYST 119; BP_DIAS 59; BP_DIAS 64
[2020-07-23 04:00] VITALS: BP_SYST 119; BP_SYST 123; BP_DIAS 64; BP_DIAS 70
[2020-07-23] MEDS: NS 1,000 ML IV SCH ×2 (05:03→16:30)
[2020-07-23] MEDS: LEVOTHYROXINE 150MCG TABLET (0.15MG) PO SCH (05:03)
[2020-07-23 05:58] LABS: BASO % 0.2 % (0.0-1.0); EOS # 0.1 10^3/uL (0.0-0.5); HEMATOCRIT 38.1 % (36.0-47.0); HEMOGLOBIN 12.1 g/dl (12.0-15.5); LYMPH # 1.4 10^3/uL (1.5-5.0); LYMPH % 11.5 % (24.0-44.0); MEAN CORPUSCULAR HEMOGLOBIN 28.3 pg (27.0-33.0); MEAN CORPUSCULAR HGB CONC 31.8 g/dl (32.0-36.5); MEAN CORPUSCULAR VOLUME 89.2 fl (80.0-96.0); MONO # 0.8 10^3/uL (0.0-0.8); MONO % 6.7 % (0.0-5.0); NEUTROPHILS # 9.9 10^3/uL (1.5-8.5); NEUTROPHILS % 79.9 % (36.0-66.0); PLATELET COUNT, AUTOMATED 153 10^3/uL (150-450); RED BLOOD COUNT 4.27 10^6/uL (4.00-5.40); WHITE BLOOD COUNT 12.4 10^3/uL (4.0-10.0)
[2020-07-23 06:44] LABS: ALBUMIN 2.3 GM/DL (3.2-5.2); BILIRUBIN,TOTAL 0.6 MG/DL (0.2-1.0); CALCIUM LEVEL 8.6 MG/DL (8.5-10.1); CREATININE FOR GFR 3.75 MG/DL (0.55-1.30); GLOMERULAR FILTRATION RATE 13.2 (>51); MAGNESIUM LEVEL 2.3 MG/DL (1.8-2.4); TOTAL PROTEIN 7.3 GM/DL (6.4-8.2)
[2020-07-23 08:00] VITALS: BP 137/61
[2020-07-23] MEDS: SODIUM BICARBONATE 325 MG TAB PO SCH ×3 (08:24→20:48)
[2020-07-23] MEDS: CALCIUM/VITAMIN D 500 MG TAB PO SCH (08:25)
[2020-07-23] MEDS: FOLIC ACID 1 MG TAB PO SCH (08:25)
[2020-07-23] MEDS: NORCO, ANEXSIA 5/325MG TABLET (HYDROcodone/ACETAMINOPHEN) PO PRN ×2 (08:25→16:30)
[2020-07-23] MEDS: MULTIVITAMINS/MINERALS THERAP 1 TAB PO SCH (08:25)
[2020-07-23] MEDS: DOCUSATE SODIUM 100 MG CAP PO SCH ×2 (08:25→20:48)
[2020-07-23] MEDS: PANTOPRAZOLE 40MG TAB (PROTONIX) PO SCH (08:25)
[2020-07-23] MEDS: METOPROLOL TART 25 MG TABLET PO SCH ×2 (08:26→20:47)
[2020-07-23] MEDS ORDERED: MIRALAX *UNIT DOSE* 17GM PACKET PO PRN (10:15)
[2020-07-23] MEDS: MEROPENEM INJ 500 MG in IV 1 EA IV SCH (11:36)
[2020-07-23 12:00] VITALS: BP 119/67
--- NOTE | 2020-07-23 13:26 | IPNPDOC ---
Date Seen The patient was seen on 07/23/20. Progress Note SUBJECTIVE: POD2 nephrostomy tube placement, left. WBC improving, on IV abx. Output greater from nephrostomy tube vs. fernando catheter. Discussed case with Dr. Duenas, c/w IVFs. Hematuria persists but H/H stable. Last dose of lovenox on 07/22/20 so hopefully see improvement in hematuria after today. PT today. Denies shortness of breath, n/v/d but admits to lethargy. OBJECTIVE: PHYSICAL EXAMINATION: VITAL SIGNS: please see below General: NAD, comfortable and more awake this AM HEENT: PERRLA, EOMI, sclerae clear Neck: supple, normal ROM, no JVD Respiratory: lungs CTAB, no wheeze, no rales, no crackles CVS: RRR, normal S1, S2, no murmurs Abdo: soft, no masses, no hepatosplenomegaly, BS+ Back/flank: left flank nephrostomy tube with dark mixed with bright red blood in bag, no clots Extremities: no edema, pulses 2+ lower : fernando catheter in place, sediment but clear urine today MSK: no joint deformities, normal ROM, left CVA mild tenderness to percussion. Neuro: no focal neuro deficits, moving all 4 extremities, CN2-12 intact. Strength 5/5 in all 4 extremities. No nystagmus. Psych: calm, cooperative, AAO x 3 LABORATORY DATA, IMAGING STUDIES, MICROBIOLOGY: Please see below. DVT prophylaxis ordered?: Y ASSESSMENT: 60-year-old female with a history of cervical cancer treated with radiation in 1991, atonic bladder, now with indwelling Fernando, CK, stage IV, hypertension, secondary hyperparathyroidism and history of ureteral strictures. She is admitted to hospitalist service for management of suspected pyelonephritis and hydronephrosis, with urology and nephrology in consultation. Status post bilateral ureteral stent placement by Dr. Howell on 07/20/20. Nephrostomy tube placement 07/21/20 for left hydronephrosis and UTI, sepsis. PLAN: #Pseudomonas UTI, sepsis likely 2/2 to left kidney hydronephrosis -WBC decreased further to 12. 4, afebrile -UCx: pseudomonas sensitive to meropenem (Day 3) -BCx NG at 24 hrs -F/u daily labs, monitor I&Os -Consider deescalation to PO abx when WBC improves further #L kidney hydronephrosis s/p nephrostomy tube 07/21/20 -Incr output from nephrostomy tube vs. fernando cath bag -Dr. Howell exchanged bilateral ureteral stents 07/20/20 -Cr improved today -C/w IVFs, treatment above -Nephrology, IR and urology following #Acute kidney injury on CKD IV -Cr worsened to 4.68 from 3.74. Baseline ~2.3-2.5. -C/w IVFs -F/u daily labs. -Avoid nephrotoxic medications #Hematuria likely s/p nephrostomy tube placement vs. being on lovenox (last administered 07/22/20 in AM) -H/H decreased to 12.1/38 -Monitor closely, CBC daily -If persists, may need to have IR investigate further to r/o bleed #Metabolic acidosis -C/w sodium bicarb 325 mg PO TID #secondary hyperparathyroidism -c/w calcium-vitD #HTN -Stable - c/w home metoprolol 25 mg PO bid #Atonic bladder - indwelling fernando #Hypothyroidism - c/w home levothyroxine 150 mcg PO daily #ETOH use -No s/s of withdrawl -Follow CIWA. Ativan prn. withdrawal precautions. -C/w Folate, MVT, thiamine. #GERD - pantoprazole 40 mg PO daily DVT ppx -lovenox stopped 2/2 to hematuria. SCD, teds DISPOSITION: C/w treatment above. PT/OT. Plan undecided for discharge. VS, I&O, 24H, Fishbone Vital Signs/I&O Vital Signs Date Time Temp Pulse Resp B/P (MAP) Pulse Ox O2 Delivery O2 Flow Rate FiO2 07/23/20 12:00 97.8 65 20 119/67 (84) 95 Room Air 07/22/20 16:00 2.0 I&O- Last 24 Hours up to 6 AM 07/23/20 06:00 Intake Total 2199 ml Output Total 3050 ml Balance -851 ml Laboratory Data 24H LABS Laboratory Tests 2 07/23/20 05:25: Immature Granulocyte % (Auto) 0.7, Neutrophils (%) (Auto) 79.9H, Lymphocytes (%) (Auto) 11.5L, Monocytes (%) (Auto) 6.7H, Eosinophils (%) (Auto) 1.0, Basophils (%) (Auto) 0.2, Neutrophils # (Auto) 9.9H, Lymphocytes # (Auto) 1.4L, Monocytes # (Auto) 0.8, Eosinophils # (Auto) 0.1, Basophils # (Auto) 0.0, Nucleated Red Blood Cells % (auto) 0.0, Anion Gap 10, Glomerular Filtration Rate 13.2L, Calcium Level 8.6, Magnesium Level 2.3, Total Bilirubin 0.6, Aspartate Amino Transf (AST/SGOT) 13, Alanine Aminotransferase (ALT/SGPT) 29, Alkaline Phosphatase 83, Total Protein 7.3, Albumin 2.3L, Albumin/Globulin Ratio 0.5L CBC/BMP Laboratory Tests 07/23/20 05:25 Microbiology Microbiology 07/21/20 Blood Culture - Preliminary, Resulted No Growth after 48 hours. All Specime... 07/21/20 Blood Culture - Preliminary, Resulted No Growth after 48 hours. All Specime... 07/21/20 Urine Culture - Final, Complete 07/19/20 Blood Culture - Preliminary, Resulted No Growth after 72 hours. All specime... 07/19/20 Urine Culture - Final, Complete Pseudomonas Aeruginosa 07/19/20 Blood Culture - Preliminary, Resulted No Growth after 72 hours. All specime... Current Medications Current Medications Medications (Trade) Dose Ordered Sig/Jahaira Route PRN Reason Start Time Stop Time Status Last Admin Dose Admin Acetaminophen (Tylenol Tab) 650 mg Q4H PRN PO PAIN OR FEVER 07/19/20 12:45 07/21/20 12:52 DC 07/21/20 10:21 Acetaminophen (Tylenol Tab) 650 mg Q8HP PRN PO fever 07/22/20 16:00 Acetaminophen (Tylenol Tab) 1,000 mg Q6HP PRN PO fever 07/21/20 13:00 07/21/20 12:57 DC Acetaminophen (Tylenol Tab) 1,000 mg Q6HP PRN PO fever 07/21/20 13:00 07/22/20 15:20 DC 07/21/20 22:22 Acetaminophen/ Hydrocodone Bitart ([place], Anexsia 5/325) 1 tab Q12H PRN PO severe pain 07/19/20 08:00 07/22/20 15:20 DC 07/22/20 12:35 Acetaminophen/ Hydrocodone Bitart ([place], Anexsia 5/325) 1 tab Q8HP PRN PO severe pain 07/22/20 16:00 07/23/20 08:25 Al Hydrox/Mg Hydrox/Simethicone (Mylanta) 30 ml DAILY PRN PO DYSPEPSIA 07/19/20 12:45 Calcium/Vitamin D (Oscal D) 500 mg DAILY PO 07/19/20 09:00 07/23/20 08:25 Docusate Sodium (Colace) 100 mg BID PO 07/19/20 21:00 07/23/20 08:25 Enoxaparin Sodium (Lovenox) 30 mg DAILY SC 07/20/20 09:00 07/22/20 12:01 DC 07/22/20 09:01 Fentanyl Citrate (Sublimaze) 25 mcg Q5MP PRN IV PAIN LEVEL 5-10 07/20/20 14:00 07/20/20 15:00 DC 07/20/20 14:08 Folic Acid (Folic Acid) 1 mg DAILY PO 07/19/20 09:00 07/23/20 08:25 Home Med (Med Rec Complete!) ASDIRECTED XX 07/19/20 12:30 07/19/20 12:35 DC Levothyroxine Sodium (Synthroid) 150 mcg DAILY@0600 PO 07/19/20 06:00 07/23/20 05:03 Lorazepam (Ativan) 2 mg ASDIRECTED PRN IV SEE PROTOCOL 07/21/20 09:15 07/21/20 09:28 Lorazepam (Ativan) 2 mg ASDIRECTED PRN PO SEE PROTOCOL 07/19/20 09:00 07/21/20 09:09 DC 07/21/20 09:01 Magnesium Hydroxide (Milk Of Magnesia) 30 ml DAILY PRN PO CONSTIPATION 07/19/20 12:45 Meropenem 500 mg/ IV Miscellaneous Supplies 50 ml @ 100 mls/hr Q12H IV 07/21/20 12:00 07/23/20 11:36 Metoprolol Tartrate (Lopressor) 25 mg BID PO 07/19/20 21:00 07/23/20 08:26 Morphine Sulfate (Morphine Sulfate Inj) 2 mg Q30M PRN IV MODERATE PAIN (PS 5-7) 07/19/20 10:00 Cancel Multivitamins (Theragram-M) 1 tab DAILY PO 07/19/20 09:00 07/23/20 08:25 Ondansetron HCl (ZOFRAN INJection) 4 mg Q4H PRN IV NAUSEA OR VOMITING 07/21/20 10:00 07/21/20 18:49 Ondansetron HCl (ZOFRAN INJection) 4 mg Q4HP PRN IV NAUSEA OR VOMITING 07/20/20 14:00 07/20/20 15:00 DC Ondansetron HCl (Zofran) 4 mg Q6HP PRN PO NAUSEA OR VOMITING 07/21/20 01:45 07/21/20 09:14 DC 07/21/20 06:31 Oxazepam (Serax) 10 mg TID PO 07/21/20 09:30 07/21/20 19:51 DC 07/21/20 16:17 Oxycodone HCl (Roxicodone, Oxyir) 5 mg ASDIRECTED PRN PO PAIN LEVEL 1-4 07/20/20 14:00 07/20/20 14:26 DC 07/20/20 14:25 Pantoprazole Sodium (Protonix) 40 mg DAILY PO 07/19/20 09:00 07/23/20 08:25 Piperacillin Sod/ Tazobactam Sod 4.5 gm/Dextrose 50 ml @ 50 mls/hr Q8H IV 07/19/20 20:00 07/21/20 10:22 DC 07/21/20 05:14 Polyethylene Glycol (Miralax) 1 pkt DAILYPRN PRN PO CONSTIPATION 07/23/20 10:15 07/23/20 11:26 Senna (Senokot) 2 tab QHS PO 07/23/20 21:00 Sodium Bicarbonate (Sodium Bicarbonate) 325 mg TID PO 07/19/20 16:00 07/23/20 08:24 Sodium Chloride 1,000 ml @ 100 mls/hr Q10H IV 07/22/20 11:45 07/23/20 05:03 Thiamine HCl (Thiamine HCl) 100 mg BID PO 07/19/20 21:00 07/22/20 09:01 DC 07/22/20 09:03 Allergies Coded Allergies: potassium (Verified Allergy, Intermediate, HIVES, POUNDING HEARTBEAT, 06/13/20) povidone-iodine (Verified Allergy, Intermediate, rash/burn, 06/13/20) soap (Verified Allergy, Intermediate, rash/burn, 06/13/20) Quinolones (Verified Allergy, Unknown, 06/13/20) Sulfa (Sulfonamide Antibiotics) (Verified Allergy, Unknown, 06/13/20) epoetin reina (Verified Allergy, Unknown, 06/13/20) ibuprofen (Verified Allergy, Unknown, 06/13/20) trimethoprim (Verified Allergy, Unknown, 06/13/20) Nimo Pat MD Jul 23, 2020 13:26
--- NOTE | 2020-07-23 14:37 | IRPN ---
[facility] IR Progress Note IR Progress Note DATE: Jul 23, 2020 FOLLOW-UP: 48 hours status post left nephrostomy placement for massive left- sided hydronephrosis and urosepsis with worsening renal failure. Patient now feels much better. Left flank pain has gone. No further chills or rigors. Patient is sitting up in bed eating and drinking now. The evening of the nephrostomy placement, she did have hematuria in the Weeks bag and a little bit in the left nephrostomy. She was on Lovenox, last dose she received was yesterday 9 in the morning. She denies dizziness. ON EXAMINATION: Temperature 97.8 pulse 65 blood pressure 119/67 sats 95% on room air Patient appears much better today. No acute distress. Left nephrostomy bag has dark red urine. No clots. Weeks bag has dark red urine. No clots. Patient states Weeks bag had cleared up earlier and then she walked around the block and it became bloody again. Denies dizziness. Ins and outs: 24 hour intake 1430 24 hour output 3000 fluid balance -1570 Left nephrostomy output last 24 hours 1900 mL Labs: 07/23/2020 hemoglobin 12.1 (12.4 yesterday) Hematocrit 38.1 (39.6 yesterday) WBC 12.4 (down from 15.8) platelets 153 Sodium 138 potassium 4.0 BUN 51 creatinine 3.75 (reduced from 4.68 yesterday) IMPRESSION: 60-year-old female status post left nephrostomy placement for acute on chronic renal failure, urosepsis and obstructed left ureter. Patient has good left nephrostomy output. She last received Lovenox 24 hours ago, now that it was stopped, I would anticipate the bloody drainage to clear over the next 48 hours. Patient's hemoglobin remains stable. Patient's kidney function is improving, leukocytosis coming down and patient is now afebrile. Continue to monitor left nephrostomy output. Hydrate patient as patient is currently in negative fluid balance. Will continue to monitor. Allergies Coded Allergies: potassium (Verified Allergy, Intermediate, HIVES, POUNDING HEARTBEAT, ) povidone-iodine (Verified Allergy, Intermediate, rash/burn, 06/13/20) soap (Verified Allergy, Intermediate, rash/burn, 06/13/20) Quinolones (Verified Allergy, Unknown, 06/13/20) Sulfa (Sulfonamide Antibiotics) (Verified Allergy, Unknown, 06/13/20) epoetin reina (Verified Allergy, Unknown, 06/13/20) ibuprofen (Verified Allergy, Unknown, 06/13/20) trimethoprim (Verified Allergy, Unknown, 06/13/20) Current Medications Current Medications Medications (Trade) Dose Ordered Sig/Jahaira Route PRN Reason Start Time Stop Time Status Last Admin Dose Admin Acetaminophen (Tylenol Tab) 650 mg Q4H PRN PO PAIN OR FEVER 07/19/20 12:45 07/21/20 12:52 DC 07/21/20 10:21 Acetaminophen (Tylenol Tab) 650 mg Q8HP PRN PO fever 07/22/20 16:00 Acetaminophen (Tylenol Tab) 1,000 mg Q6HP PRN PO fever 07/21/20 13:00 07/21/20 12:57 DC Acetaminophen (Tylenol Tab) 1,000 mg Q6HP PRN PO fever 07/21/20 13:00 07/22/20 15:20 DC 07/21/20 22:22 Acetaminophen/ Hydrocodone Bitart ([place], Anexsia 5/325) 1 tab Q12H PRN PO severe pain 07/19/20 08:00 07/22/20 15:20 DC 07/22/20 12:35 Acetaminophen/ Hydrocodone Bitart ([place], Anexsia 5/325) 1 tab Q8HP PRN PO severe pain 07/22/20 16:00 07/23/20 08:25 Al Hydrox/Mg Hydrox/Simethicone (Mylanta) 30 ml DAILY PRN PO DYSPEPSIA 07/19/20 12:45 Calcium/Vitamin D (Oscal D) 500 mg DAILY PO 07/19/20 09:00 07/23/20 08:25 Docusate Sodium (Colace) 100 mg BID PO 07/19/20 21:00 07/23/20 08:25 Enoxaparin Sodium (Lovenox) 30 mg DAILY SC 07/20/20 09:00 07/22/20 12:01 DC 07/22/20 09:01 Fentanyl Citrate (Sublimaze) 25 mcg Q5MP PRN IV PAIN LEVEL 5-10 07/20/20 14:00 07/20/20 15:00 DC 07/20/20 14:08 Folic Acid (Folic Acid) 1 mg DAILY PO 07/19/20 09:00 07/23/20 08:25 Home Med (Med Rec Complete!) ASDIRECTED XX 07/19/20 12:30 07/19/20 12:35 DC Levothyroxine Sodium (Synthroid) 150 mcg DAILY@0600 PO 07/19/20 06:00 07/23/20 05:03 Lorazepam (Ativan) 2 mg ASDIRECTED PRN IV SEE PROTOCOL 07/21/20 09:15 07/21/20 09:28 Lorazepam (Ativan) 2 mg ASDIRECTED PRN PO SEE PROTOCOL 07/19/20 09:00 07/21/20 09:09 DC 07/21/20 09:01 Magnesium Hydroxide (Milk Of Magnesia) 30 ml DAILY PRN PO CONSTIPATION 07/19/20 12:45 Meropenem 500 mg/ IV Miscellaneous Supplies 50 ml @ 100 mls/hr Q12H IV 07/21/20 12:00 07/23/20 11:36 Metoprolol Tartrate (Lopressor) 25 mg BID PO 07/19/20 21:00 07/23/20 08:26 Morphine Sulfate (Morphine Sulfate Inj) 2 mg Q30M PRN IV MODERATE PAIN (PS 5-7) 07/19/20 10:00 Cancel Multivitamins (Theragram-M) 1 tab DAILY PO 07/19/20 09:00 07/23/20 08:25 Ondansetron HCl (ZOFRAN INJection) 4 mg Q4H PRN IV NAUSEA OR VOMITING 07/21/20 10:00 07/21/20 18:49 Ondansetron HCl (ZOFRAN INJection) 4 mg Q4HP PRN IV NAUSEA OR VOMITING 07/20/20 14:00 07/20/20 15:00 DC Ondansetron HCl (Zofran) 4 mg Q6HP PRN PO NAUSEA OR VOMITING 07/21/20 01:45 07/21/20 09:14 DC 07/21/20 06:31 Oxazepam (Serax) 10 mg TID PO 07/21/20 09:30 07/21/20 19:51 DC 07/21/20 16:17 Oxycodone HCl (Roxicodone, Oxyir) 5 mg ASDIRECTED PRN PO PAIN LEVEL 1-4 07/20/20 14:00 07/20/20 14:26 DC 07/20/20 14:25 Pantoprazole Sodium (Protonix) 40 mg DAILY PO 07/19/20 09:00 07/23/20 08:25 Piperacillin Sod/ Tazobactam Sod 4.5 gm/Dextrose 50 ml @ 50 mls/hr Q8H IV 07/19/20 20:00 07/21/20 10:22 DC 07/21/20 05:14 Polyethylene Glycol (Miralax) 1 pkt DAILYPRN PRN PO CONSTIPATION 07/23/20 10:15 07/23/20 11:26 Senna (Senokot) 2 tab QHS PO 07/23/20 21:00 Sodium Bicarbonate (Sodium Bicarbonate) 325 mg TID PO 07/19/20 16:00 07/23/20 08:24 Sodium Chloride 1,000 ml @ 100 mls/hr Q10H IV 07/22/20 11:45 07/23/20 05:03 Thiamine HCl (Thiamine HCl) 100 mg BID PO 07/19/20 21:00 07/22/20 09:01 DC 07/22/20 09:03 VS,Fishbone, I+O VS, Fishbone, I+O Laboratory Tests 07/23/20 05:25 Vital Signs Date Time Temp Pulse Resp B/P (MAP) Pulse Ox O2 Delivery O2 Flow Rate FiO2 07/23/20 12:00 97.8 65 20 119/67 (84) 95 Room Air 07/22/20 16:00 2.0 I&O- Last 24 Hours up to 6 AM 07/23/20 06:00 Intake Total 2199 ml Output Total 3050 ml Balance -851 ml DAVID JAMES MD Jul 23, 2020 14:37
[2020-07-23 16:00] VITALS: BP 116/68
[2020-07-23 20:00] VITALS: BP 142/81
[2020-07-23] MEDS ORDERED: SENNA 8.6 MG TAB (SENOKOT) PO SCH (21:00)
[2020-07-24] VITALS: BP 123/64
[2020-07-24] MEDS: NORCO, ANEXSIA 5/325MG TABLET (HYDROcodone/ACETAMINOPHEN) PO PRN ×2 (00:22→16:34)
[2020-07-24] MEDS: NS 1,000 ML IV SCH ×3 (00:27→20:27)
[2020-07-24] MEDS: MEROPENEM INJ 500 MG in IV 1 EA IV SCH (00:54)
[2020-07-24 04:00] VITALS: BP 111/64
[2020-07-24 06:00] LABS: BASO % 0.4 % (0.0-1.0); EOS # 0.2 10^3/uL (0.0-0.5); EOS % 2.4 % (0.0-3.0); HEMATOCRIT 36.4 % (36.0-47.0); HEMOGLOBIN 11.5 g/dl (12.0-15.5); LYMPH # 1.5 10^3/uL (1.5-5.0); MEAN CORPUSCULAR HEMOGLOBIN 27.6 pg (27.0-33.0); MEAN CORPUSCULAR HGB CONC 31.6 g/dl (32.0-36.5); MEAN CORPUSCULAR VOLUME 87.5 fl (80.0-96.0); MONO # 0.7 10^3/uL (0.0-0.8); MONO % 7.2 % (0.0-5.0); NEUTROPHILS # 6.8 10^3/uL (1.5-8.5); NEUTROPHILS % 73.4 % (36.0-66.0); PLATELET COUNT, AUTOMATED 174 10^3/uL (150-450); RED BLOOD COUNT 4.16 10^6/uL (4.00-5.40); WHITE BLOOD COUNT 9.3 10^3/uL (4.0-10.0)
[2020-07-24] MEDS: LEVOTHYROXINE 150MCG TABLET (0.15MG) PO SCH (06:23)
[2020-07-24 06:33] LABS: ALBUMIN 2.3 GM/DL (3.2-5.2); BILIRUBIN,TOTAL 0.5 MG/DL (0.2-1.0); CALCIUM LEVEL 8.7 MG/DL (8.5-10.1); CREATININE FOR GFR 2.85 MG/DL (0.55-1.30); GLOMERULAR FILTRATION RATE 18.1 (>51); MAGNESIUM LEVEL 2.2 MG/DL (1.8-2.4); POTASSIUM SERUM 3.9 MEQ/L (3.5-5.1); TOTAL PROTEIN 6.3 GM/DL (6.4-8.2)
--- NOTE | 2020-07-24 07:50 | IPN ---
DATE: 07/23/2020 SUBJECTIVE: Ms. Cole is seen this morning at her bedside. She is feeling better today and reports that her nausea has improved. She still has pain at the site of the left nephrostomy. She denies any dyspnea, fever, or chills. She is receiving IV fluid which she is tolerating well. She continues to have gross hematuria from her nephrostomy tube, however urine in the Weeks catheter bag is now clear. PHYSICAL EXAMINATION: VITAL SIGNS: Temperature 98.2 degrees Fahrenheit, heart rate 110 per minute, respiratory rate 18 per minute, blood pressure 137/60 mm of mercury and oxygen saturation is 95% on room air. HEENT: Head is atraumatic. NECK: Supple and JVD or thyroid enlargement. Trachea is midline. HEART: Tachycardic. LUNGS: Clear to auscultation. ABDOMEN: Soft with minimal tenderness on the left side. Bowel sounds are present. Nephrostomy tube in the kidney is draining grossly bloody urine. She has a Weeks catheter which is draining clear urine. EXTREMITIES: Without any cyanosis or clubbing. NEUROLOGICALLY: She is awake, alert and oriented x3. LABORATORY STUDIES: Todays labs show a WBC count of 12.4, hemoglobin 12.1 and hematocrit 38.1, platelets 153. Sodium 138, potassium 4.0, CO2 19, BUN 51 and creatinine 3.75, glucose 86 and calcium 8.6. PROBLEMS: 1. Acute kidney injury superimposed on chronic kidney disease related to acute pyelonephritis and obstructed left kidney. Now she has nephrostomy tube after the exchange of ureteral stent failed to drain her kidney. She is receiving IV fluids and kidney function is improving. We will continue with IV fluid hydration at present with normal saline at 100 mL per hour. Kidney function will be checked again tomorrow. 2. Acute pyelonephritis with sepsis her urine culture did grow pseudomonas, however blood cultures have been negative so far. She remains on Meropenem and is currently afebrile. We will continue with the antibiotics and IV fluids. 3. Left sided hydronephrosis - The patient had a nephrostomy tube placed after ureteral stent failed to improve her hydronephrosis. She has gross hematuria in her nephrostomy bag and it remains to be seen how quickly it clears. Hemoglobin dropped only slightly. We will continue with IV fluid hydration for now. Hospitalist is discussing with the Interventional Radiology. 4. Metabolic acidosis she has mild metabolic acidosis and remains on oral sodium bicarbonate supplement which will be continued. MTDD
[2020-07-24 08:00] VITALS: BP 141/78
[2020-07-24] MEDS: DOCUSATE SODIUM 100 MG CAP PO SCH ×2 (09:00→21:00)
[2020-07-24] MEDS: MULTIVITAMINS/MINERALS THERAP 1 TAB PO SCH (09:14)
[2020-07-24] MEDS: SODIUM BICARBONATE 325 MG TAB PO SCH ×3 (09:14→21:00)
[2020-07-24] MEDS: METOPROLOL TART 25 MG TABLET PO SCH ×2 (09:14→21:01)
[2020-07-24] MEDS: CALCIUM/VITAMIN D 500 MG TAB PO SCH (09:14)
[2020-07-24] MEDS: FOLIC ACID 1 MG TAB PO SCH (09:14)
[2020-07-24] MEDS: PANTOPRAZOLE 40MG TAB (PROTONIX) PO SCH (09:14)
[2020-07-24 12:00] VITALS: BP 135/85
--- NOTE | 2020-07-24 13:45 | IPN ---
DATE: 07/24/2020 Mrs. Cole is seen this morning on her bedside. She continues to have significant hematuria from her nephrostomy tube. Her Weeks catheter is draining clear urine. Currently her intravenous (IV) fluid is off due to lack of an IV access, and she is waiting for peripherally inserted central catheter (PICC) line placement. Her oral intake is adequate. She denies any nausea, vomiting, dyspnea, chest pain, fever, or chills. PHYSICAL EXAMINATION: Temperature 97.3 degrees Fahrenheit, heart rate 104 per minute, respiratory rate 20 per minute, blood pressure 141/78 mm of mercury, and oxygen saturation 96% on room air. Head is atraumatic. Neck supple and without jugular venous distention (JVD) or thyroid enlargement. Heart sounds are slightly tachycardic. Lungs clear to auscultation. Abdomen soft and nontender, and bowel sounds are present. Left nephrostomy is in place. Nephrostomy bag has dark, red-colored urine. Her Weeks catheter is draining clear urine. Extremities without any cyanosis or clubbing. Neurologically she is awake, alert, and oriented times three. Today's labs show WBC count 9.3, hemoglobin 11.5, and hematocrit 36.4. Platelets are 174. Sodium 142, potassium 3.9, BUN 45, and creatinine 2.85. PROBLEMS: 1. Acute renal failure superimposed on chronic kidney disease. Kidney function is gradually improving since she had the nephrostomy tube placed in her left kidney. She is also receiving antibiotics and IV fluids. 2. Acute pyelonephritis with hydronephrosis. She had left-sided hydronephrosis despite the ureteral stent placement. Now she has a nephrostomy tube in and remains on antibiotic. Her leukocytosis has improved, and she is afebrile. 3. Gross hematuria from nephrostomy. I am concerned about ongoing hematuria. Dr. Price from interventional radiology is aware of it, and she has already seen and talked to the patient yesterday. Her hemoglobin is gradually dropping. There is no emergent indication for a transfusion at present. 4. Chronic kidney disease. She has significant chronic kidney disease at baseline, and acute kidney failure was related to hydronephrosis and sepsis. Her kidney function is coming toward baseline. She does not have any uremic symptoms, and there is no emergent indication for dialysis. RON
[2020-07-24] MEDS ORDERED: LIDOCAINE 1% MDV 20ML VIAL As Ordered ONE ×2 (13:56→15:15)
[2020-07-24] MEDS ORDERED: ISOVUE-300 61% 50ML VIAL As Ordered ONE (14:54)
[2020-07-24] MEDS ORDERED: MIDAZOLAM INJ 2MG/2ML VIAL (J2250 PER 1MG) As Ordered ONE (15:32)
[2020-07-24] MEDS ORDERED: fentaNYL 100 MCG/2 ML INJECTION (J3010) As Ordered ONE (15:32)
[2020-07-24] MEDS ORDERED: diphenhydrAMINE 50MG/ML VIAL (J1200) As Ordered ONE (15:36)
[2020-07-24] MEDS ORDERED: PROMETHAZINE INJ 25 MG/ML VIAL (J2550) As Ordered ONE (15:40)
--- NOTE | 2020-07-24 15:53 | IPNPDOC ---
Date Seen The patient was seen on 07/24/20. Progress Note SUBJECTIVE: POD3 left nephrostomy tube placement. WBC wnl, d/verenice IV meropenem and started On PO levofloxacin. Still greater o/p from nephrostomy tube (-3.75 L24h) vs. fernando catheter (-1.675L/24h). Hematuria persists , H/H slightly less today. Discussed case with Dr. Sparrow, monitoring closely. Participating well with PT/OT, deconditioned. Denies shortness of breath, n/v/d but admits to lethargy. OBJECTIVE: PHYSICAL EXAMINATION: VITAL SIGNS: please see below General: NAD, comfortable and more awake this AM HEENT: PERRLA, EOMI, sclerae clear Neck: supple, normal ROM, no JVD Respiratory: lungs CTAB, no wheeze, no rales, no crackles CVS: RRR, normal S1, S2, no murmurs Abdo: soft, no masses, no hepatosplenomegaly, BS+ Back/flank: left flank nephrostomy tube with dark mixed with bright red blood in bag, no clots Extremities: no edema, pulses 2+ lower : fernando catheter in place, yellow urine today MSK: no joint deformities, normal ROM, left CVA mild tenderness to percussion. Neuro: no focal neuro deficits, moving all 4 extremities, CN2-12 intact. Strength 5/5 in all 4 extremities. No nystagmus. Psych: calm, cooperative, AAO x 3 LABORATORY DATA, IMAGING STUDIES, MICROBIOLOGY: Please see below. ASSESSMENT: 60-year-old female with a history of cervical cancer treated with radiation in 1991, atonic bladder, now with indwelling Fernando, CK, stage IV, hypertension, secondary hyperparathyroidism and history of ureteral strictures. She is admitted to hospitalist service for management of suspected pyelonephritis and hydronephrosis, with urology and nephrology in consultation. Status post bilateral ureteral stent placement by Dr. Howell on 07/20/20. Nephrostomy tube placement 07/21/20 for left hydronephrosis and UTI, sepsis. PLAN: #Pseudomonas UTI, resolved sepsis likely 2/2 to left kidney hydronephrosis -WBC now wnl, afebrile, still slightly tachycardic -UCx: pseudomonas sensitive to meropenem (Day 4)--> PO levofloxacin. -BCx NG at 24 hrs -F/u daily labs, monitor I&Os -Prior allergy to quinolones;however, was to old one no longer on the market- blistering of lips. Will see how she tolerates this med with her permission. #L kidney hydronephrosis s/p nephrostomy tube 07/21/20 -Incr output from nephrostomy tube vs. fernando cath bag -Dr. Howell exchanged bilateral ureteral stents 07/20/20 -Cr improved today to 2.85, near baseline. -C/w IVFs, treatment above -Nephrology, IR and urology following #Acute kidney injury on CKD IV -Cr improved to 2.85. Baseline ~2.3-2.5. -C/w IVFs -F/u daily labs. -Avoid further nephrotoxic medications #Hematuria likely s/p nephrostomy tube placement vs. being on lovenox (last administered 07/22/20 in AM) -H/H decreased further to 11.5/36.4. -Monitor closely, CBC daily -Discussed with Dr. Cabral, will monitor closely for now. #Metabolic acidosis -C/w sodium bicarb 325 mg PO TID #Secondary hyperparathyroidism -c/w calcium-vitD #HTN -Stable - c/w home metoprolol 25 mg PO bid #Atonic bladder - indwelling fernando #Hypothyroidism - c/w home levothyroxine 150 mcg PO daily #ETOH use -No s/s of withdrawl -Follow CIWA. Ativan prn. withdrawal precautions. -C/w Folate, MVT, thiamine. #GERD - pantoprazole 40 mg PO daily DVT ppx -lovenox stopped 2/2 to hematuria. SCD, teds DISPOSITION: C/w treatment above. PT/OT. Plan undecided for discharge. VS, I&O, 24H, Fishbone Vital Signs/I&O Vital Signs Date Time Temp Pulse Resp B/P (MAP) Pulse Ox O2 Delivery O2 Flow Rate FiO2 07/24/20 13:08 97.5 98 21 98 Room Air 07/24/20 12:00 135/85 (102) 07/22/20 16:00 2.0 I&O- Last 24 Hours up to 6 AM 07/24/20 06:00 Intake Total 2390 ml Output Total 4525 ml Balance -2135 ml Laboratory Data 24H LABS Laboratory Tests 2 07/24/20 05:43: Immature Granulocyte % (Auto) 0.6, Neutrophils (%) (Auto) 73.4H, Lymphocytes (%) (Auto) 16.0L, Monocytes (%) (Auto) 7.2H, Eosinophils (%) (Auto) 2.4, Basophils (%) (Auto) 0.4, Neutrophils # (Auto) 6.8, Lymphocytes # (Auto) 1.5, Monocytes # (Auto) 0.7, Eosinophils # (Auto) 0.2, Basophils # (Auto) 0.0, Nucleated Red Blood Cells % (auto) 0.0, Anion Gap 7L, Glomerular Filtration Rate 18.1L, Calcium Level 8.7, Magnesium Level 2.2, Total Bilirubin 0.5, Aspartate Amino Transf (AST/SGOT) 14, Alanine Aminotransferase (ALT/SGPT) 27, Alkaline Phosphatase 82, Total Protein 6.3L, Albumin 2.3L, Albumin/Globulin Ratio 0.6L CBC/BMP Laboratory Tests 07/24/20 05:43 Microbiology Microbiology 07/21/20 Blood Culture - Preliminary, Resulted No Growth after 72 hours. All specime... 07/21/20 Blood Culture - Preliminary, Resulted No Growth after 72 hours. All specime... 07/21/20 Urine Culture - Final, Complete 07/19/20 Blood Culture - Final, Complete NO GROWTH AFTER 5 DAYS 07/19/20 Urine Culture - Final, Complete Pseudomonas Aeruginosa 07/19/20 Blood Culture - Final, Complete NO GROWTH AFTER 5 DAYS Current Medications Current Medications Medications (Trade) Dose Ordered Sig/Jahaira Route PRN Reason Start Time Stop Time Status Last Admin Dose Admin Acetaminophen (Tylenol Tab) 650 mg Q4H PRN PO PAIN OR FEVER 07/19/20 12:45 07/21/20 12:52 DC 07/21/20 10:21 Acetaminophen (Tylenol Tab) 650 mg Q8HP PRN PO fever 07/22/20 16:00 07/24/20 15:53 DC Acetaminophen (Tylenol Tab) 650 mg Q8HP PRN PO fever 07/24/20 15:53 Acetaminophen (Tylenol Tab) 1,000 mg Q6HP PRN PO fever 07/21/20 13:00 07/21/20 12:57 DC Acetaminophen (Tylenol Tab) 1,000 mg Q6HP PRN PO fever 07/21/20 13:00 07/22/20 15:20 DC 07/21/20 22:22 Acetaminophen/ Hydrocodone Bitart ([place], Anexsia 5/325) 1 tab Q12H PRN PO severe pain 07/19/20 08:00 07/22/20 15:20 DC 07/22/20 12:35 Acetaminophen/ Hydrocodone Bitart ([place], Anexs[place] 5/325) 1 tab Q8HP PRN PO severe pain 07/22/20 16:00 07/24/20 00:22 Al Hydrox/Mg Hydrox/Simethicone (Mylanta) 30 ml DAILY PRN PO DYSPEPSIA 07/19/20 12:45 Calcium/Vitamin D (Oscal D) 500 mg DAILY PO 07/19/20 09:00 07/24/20 09:14 Docusate Sodium (Colace) 100 mg BID PO 07/19/20 21:00 07/23/20 20:48 Enoxaparin Sodium (Lovenox) 30 mg DAILY SC 07/20/20 09:00 07/22/20 12:01 DC 07/22/20 09:01 Fentanyl Citrate (Sublimaze) 25 mcg Q5MP PRN IV PAIN LEVEL 5-10 07/20/20 14:00 07/20/20 15:00 DC 07/20/20 14:08 Folic Acid (Folic Acid) 1 mg DAILY PO 07/19/20 09:00 07/24/20 09:14 Home Med (Med Rec Complete!) ASDIRECTED XX 07/19/20 12:30 07/19/20 12:35 DC Levofloxacin (Levaquin) 250 mg Q48H PO 07/24/20 16:00 UNV Levofloxacin (Levaquin) 500 mg DAILY@06 PO 07/24/20 16:00 UNV Levothyroxine Sodium (Synthroid) 150 mcg DAILY@0600 PO 07/19/20 06:00 07/24/20 06:23 Lorazepam (Ativan) 2 mg ASDIRECTED PRN IV SEE PROTOCOL 07/21/20 09:15 07/21/20 09:28 Lorazepam (Ativan) 2 mg ASDIRECTED PRN PO SEE PROTOCOL 07/19/20 09:00 07/21/20 09:09 DC 07/21/20 09:01 Magnesium Hydroxide (Milk Of Magnesia) 30 ml DAILY PRN PO CONSTIPATION 07/19/20 12:45 07/23/20 16:36 Meropenem 500 mg/ IV Miscellaneous Supplies 50 ml @ 100 mls/hr Q12H IV 07/21/20 12:00 07/24/20 15:50 DC 07/24/20 00:54 Metoprolol Tartrate (Lopressor) 25 mg BID PO 07/19/20 21:00 07/24/20 09:14 Morphine Sulfate (Morphine Sulfate Inj) 2 mg Q30M PRN IV MODERATE PAIN (PS 5-7) 07/19/20 10:00 Cancel Multivitamins (Theragram-M) 1 tab DAILY PO 07/19/20 09:00 07/24/20 09:14 Ondansetron HCl (ZOFRAN INJection) 4 mg Q4H PRN IV NAUSEA OR VOMITING 07/21/20 10:00 07/21/20 18:49 Ondansetron HCl (ZOFRAN INJection) 4 mg Q4HP PRN IV NAUSEA OR VOMITING 07/20/20 14:00 07/20/20 15:00 DC Ondansetron HCl (Zofran) 4 mg Q6HP PRN PO NAUSEA OR VOMITING 07/21/20 01:45 07/21/20 09:14 DC 07/21/20 06:31 Oxazepam (Serax) 10 mg TID PO 07/21/20 09:30 07/21/20 19:51 DC 07/21/20 16:17 Oxycodone HCl (Roxicodone, Oxyir) 5 mg ASDIRECTED PRN PO PAIN LEVEL 1-4 07/20/20 14:00 07/20/20 14:26 DC 07/20/20 14:25 Pantoprazole Sodium (Protonix) 40 mg DAILY PO 07/19/20 09:00 07/24/20 09:14 Piperacillin Sod/ Tazobactam Sod 4.5 gm/Dextrose 50 ml @ 50 mls/hr Q8H IV 07/19/20 20:00 07/21/20 10:22 DC 07/21/20 05:14 Polyethylene Glycol (Miralax) 1 pkt DAILYPRN PRN PO CONSTIPATION 07/23/20 10:15 07/23/20 11:26 Senna (Senokot) 2 tab QHS PO 07/23/20 21:00 07/24/20 10:02 DC Sodium Bicarbonate (Sodium Bicarbonate) 325 mg TID PO 07/19/20 16:00 07/24/20 09:14 Sodium Chloride 1,000 ml @ 100 mls/hr Q10H IV 07/22/20 11:45 07/24/20 00:27 Thiamine HCl (Thiamine HCl) 100 mg BID PO 07/19/20 21:00 07/22/20 09:01 DC 07/22/20 09:03 Allergies Coded Allergies: potassium (Verified Allergy, Intermediate, HIVES, POUNDING HEARTBEAT, 06/13/20) povidone-iodine (Verified Allergy, Intermediate, rash/burn, 06/13/20) soap (Verified Allergy, Intermediate, rash/burn, 06/13/20) Quinolones (Verified Allergy, Unknown, 06/13/20) Sulfa (Sulfonamide Antibiotics) (Verified Allergy, Unknown, 06/13/20) epoetin reina (Verified Allergy, Unknown, 06/13/20) ibuprofen (Verified Allergy, Unknown, 06/13/20) trimethoprim (Verified Allergy, Unknown, 06/13/20) Nimo Pat MD Jul 24, 2020 15:53
[2020-07-24 16:00] VITALS: BP 152/87
[2020-07-24] MEDS ORDERED: HYDROMORPHONE HCL 0.5 MG/ 0.5 ML SYRINGE (J1170 PER 1) IV PRN (16:00)
[2020-07-24] MEDS ORDERED: ONDANSETRON 4MG/2ML VIAL IV PRN (16:00)
--- NOTE | 2020-07-24 16:13 | IRHP ---
[facility] IR Pre-Procedure H & P General Date of Service: Jul 24, 2020 Procedure: Same Day Surgery Interval History and Physical I have seen the patient and reviewed last H & P performed within 30 days. There is no significant interval change. History of Present Illness Chief Complaint The patient is a 60-year-old female admitted with a reason for visit of Acute Renal Failure,Hydronephrosis. PRE-PROCEDURE DIAGNOSIS: hematuria HEART: normal rate. LUNGS: normal breathing at rest. ASA Classification ASA Classification: III-Severe systemic dis. Mallampati Score: II NPO: Yes Problems with prior sedation: No Obstructive Sleep Apnea: No Plan moderate sedation Allergies Coded Allergies: Quinolones (Verified Allergy, Intermediate, tequin - blisters on lips, 07/24/20) potassium (Verified Allergy, Intermediate, HIVES, POUNDING HEARTBEAT, 06/13/20) povidone-iodine (Verified Allergy, Intermediate, rash/burn, 06/13/20) soap (Verified Allergy, Intermediate, rash/burn, 06/13/20) Sulfa (Sulfonamide Antibiotics) (Verified Allergy, Unknown, 06/13/20) epoetin reina (Verified Allergy, Unknown, 06/13/20) ibuprofen (Verified Allergy, Unknown, 06/13/20) trimethoprim (Verified Allergy, Unknown, 06/13/20) Home Medications Scheduled Calcium Carbonate/Vitamin D3 (Calcium 500-Vit D3 200 Tablet), 1 TAB PO DAILY, (R eported) Levothyroxine Sodium (Levothyroxine Sodium), 150 MCG PO DAILY, (Reported) Metoprolol Tartrate (Metoprolol Tartrate), 25 MG PO BID, (Reported) Pantoprazole Sodium (Pantoprazole Sodium), 40 MG PO DAILY, (Reported) Sodium Bicarbonate (Sodium Bicarbonate), 325 MG PO TID, (Reported) Vit B Comp No.3/Folic/C/Biotin ([place] Rx Tablet), 1 TAB PO DAILY, (Reported) Scheduled PRN Acetaminophen (Tylenol Extra Strength), 500 MG PO Q4H PRN for PAIN / FEVER, (Reported) Hydrocodone/Acetaminophen (Hydrocodone-Acetamin 5-325 mg), 1 TAB PO Q12H PRN for PAIN, (Reported) VS, I&O, 24H, Fishbone Vital Signs/I&O Vital Signs Date Time Temp Pulse Resp B/P (MAP) Pulse Ox O2 Delivery O2 Flow Rate FiO2 07/24/20 15:55 109 16 96 Nasal Cannula 2 07/24/20 13:08 97.5 07/24/20 12:00 135/85 (102) I&O- Last 24 Hours up to 6 AM 07/24/20 06:00 Intake Total 2390 ml Output Total 4525 ml Balance -2135 ml Laboratory Data 24H LABS Laboratory Tests 2 07/24/20 05:43: Immature Granulocyte % (Auto) 0.6, Neutrophils (%) (Auto) 73.4H, Lymphocytes (%) (Auto) 16.0L, Monocytes (%) (Auto) 7.2H, Eosinophils (%) (Auto) 2.4, Basophils (%) (Auto) 0.4, Neutrophils # (Auto) 6.8, Lymphocytes # (Auto) 1.5, Monocytes # (Auto) 0.7, Eosinophils # (Auto) 0.2, Basophils # (Auto) 0.0, Nucleated Red Blood Cells % (auto) 0.0, Anion Gap 7L, Glomerular Filtration Rate 18.1L, Calcium Level 8.7, Magnesium Level 2.2, Total Bilirubin 0.5, Aspartate Amino Transf (AST/SGOT) 14, Alanine Aminotransferase (ALT/SGPT) 27, Alkaline Ph osphatase 82, Total Protein 6.3L, Albumin 2.3L, Albumin/Globulin Ratio 0.6L CBC/BMP Laboratory Tests 07/24/20 05:43 Microbiology Microbiology 07/21/20 Blood Culture - Preliminary, Resulted No Growth after 72 hours. All specime... 07/21/20 Blood Culture - Preliminary, Resulted No Growth after 72 hours. All specime... 07/21/20 Urine Culture - Final, Complete 07/19/20 Blood Culture - Final, Complete NO GROWTH AFTER 5 DAYS 07/19/20 Urine Culture - Final, Complete Pseudomonas Aeruginosa 07/19/20 Blood Culture - Final, Complete NO GROWTH AFTER 5 DAYS DAVID JAMES MD Jul 24, 2020 16:12
--- NOTE | 2020-07-24 16:16 | POST-OPPD ---
Postoperative Procedure Note Date Of Procedure: Jul 24, 2020 Time Of Procedure: 16:13 PREOPERATIVE DIAGNOSIS: Persistent hematuria 72 hours post left nephrostomy placement POSTOPERATIVE DIAGNOSIS: Same FINDINGS: Left over the wire nephrostogram demonstrates no arterial or venous communication. Manipulation of nephrostomy location did not change the appearance of the bloody urine. A wire was used under fluoroscopy guidance to gain access down the ureter into the bladder. A nephroureteral catheter was then advanced over the wire and positioned in the bladder. This catheter can drain externally but can also drain internally. We'll continue to urine for clearing of hematuria. PROCEDURE: Nephrostomy to nephroureteral catheter conversion. SURGEON: Henrique ANESTHESIA: Mod sed ESTIMATED BLOOD LOSS: Less than 5 mL COMPLICATIONS: None POSTOPERATIVE CONDITION: Stable DAVID JAMES MD Jul 24, 2020 16:16
[2020-07-24] MEDS ORDERED: LevoFLOXacin 500 MG TABLET PO ONE (16:30)
[2020-07-24] MEDS: CEFEPIME HCL 1 GM in D5W MINI-BAG PLUS 50 ML IV SCH (17:16)
[2020-07-24] MEDS ORDERED: SODIUM CHLORIDE 0.9% INJ 10 ML SYR IV PRN (17:30)
[2020-07-24] MEDS: SODIUM CHLORIDE 0.9% INJ 10 ML SYR IV SCH (18:28)
[2020-07-24 19:20] VITALS: BP 139/63
[2020-07-24] MEDS: MORPHINE 2 MG/ML 1ML VIAL (J2270) IV PRN (22:28)
[2020-07-25] VITALS: BP 145/86
[2020-07-25] MEDS: NORCO, ANEXSIA 5/325MG TABLET (HYDROcodone/ACETAMINOPHEN) PO PRN ×2 (00:44→08:32)
[2020-07-25 04:00] VITALS: BP 122/71
[2020-07-25] MEDS: CEFEPIME HCL 1 GM in D5W MINI-BAG PLUS 50 ML IV SCH ×2 (04:13→16:41)
[2020-07-25 04:42] LABS: BASO # 0.1 10^3/uL (0.0-0.2); BASO % 0.5 % (0.0-1.0); EOS # 0.3 10^3/uL (0.0-0.5); EOS % 2.6 % (0.0-3.0); HEMATOCRIT 33.8 % (36.0-47.0); HEMOGLOBIN 10.7 g/dl (12.0-15.5); LYMPH # 2.4 10^3/uL (1.5-5.0); LYMPH % 23.9 % (24.0-44.0); MEAN CORPUSCULAR HEMOGLOBIN 27.9 pg (27.0-33.0); MEAN CORPUSCULAR HGB CONC 31.7 g/dl (32.0-36.5); MONO # 0.8 10^3/uL (0.0-0.8); MONO % 8.2 % (0.0-5.0); NEUTROPHILS # 6.3 10^3/uL (1.5-8.5); NEUTROPHILS % 63.4 % (36.0-66.0); PLATELET COUNT, AUTOMATED 205 10^3/uL (150-450); RED BLOOD COUNT 3.84 10^6/uL (4.00-5.40)
[2020-07-25 05:10] LABS: ALBUMIN 2.1 GM/DL (3.2-5.2); BILIRUBIN,TOTAL 0.4 MG/DL (0.2-1.0); CREATININE FOR GFR 2.51 MG/DL (0.55-1.30); MAGNESIUM LEVEL 1.9 MG/DL (1.8-2.4); POTASSIUM SERUM 3.9 MEQ/L (3.5-5.1); TOTAL PROTEIN 5.8 GM/DL (6.4-8.2)
[2020-07-25] MEDS: SODIUM CHLORIDE 0.9% INJ 10 ML SYR IV SCH ×2 (06:07→16:42)
[2020-07-25] MEDS: LEVOTHYROXINE 150MCG TABLET (0.15MG) PO SCH (06:07)
[2020-07-25 08:00] VITALS: BP 154/87
[2020-07-25] MEDS: DOCUSATE SODIUM 100 MG CAP PO SCH ×2 (08:10→21:43)
[2020-07-25] MEDS: SODIUM BICARBONATE 325 MG TAB PO SCH ×3 (08:32→21:43)
[2020-07-25] MEDS: CALCIUM/VITAMIN D 500 MG TAB PO SCH (08:32)
[2020-07-25] MEDS: PANTOPRAZOLE 40MG TAB (PROTONIX) PO SCH (08:32)
[2020-07-25] MEDS: FOLIC ACID 1 MG TAB PO SCH (08:32)
[2020-07-25] MEDS: MULTIVITAMINS/MINERALS THERAP 1 TAB PO SCH (08:32)
[2020-07-25] MEDS: NS 1,000 ML IV SCH ×2 (08:33→16:41)
[2020-07-25] MEDS: METOPROLOL TART 25 MG TABLET PO SCH ×2 (08:33→21:44)
[2020-07-25 12:00] VITALS: BP 141/89
[2020-07-25] MEDS: MORPHINE 2 MG/ML 1ML VIAL (J2270) IV PRN (13:51)
[2020-07-25 16:00] VITALS: BP 138/77
--- NOTE | 2020-07-25 17:00 | IPNPDOC ---
Date Seen The patient was seen on 07/25/20. Progress Note SUBJECTIVE: POD 1 of nephrostomy to nephroureteral catheter conversion. Hematuria much improved in nephroureteral catheter bag. Cr improved further. H/H slightly less but should start to level out. Discussed case with Dr. Sparrow, likely discharge after weekend with home health/IV abx. Participating well with PT/OT. Denies shortness of breath, n/v/d but admits to lethargy. OBJECTIVE: PHYSICAL EXAMINATION: VITAL SIGNS: please see below General: NAD, comfortable and more awake this AM HEENT: PERRLA, EOMI, sclerae clear Neck: supple, normal ROM, no JVD Respiratory: lungs CTAB, no wheeze, no rales, no crackles CVS: RRR, normal S1, S2, no murmurs Abdo: soft, no masses, no hepatosplenomegaly, BS+ Back/flank: left flank catheter with light pink, yellow urine in bag Extremities: no edema, pulses 2+ lower : fernando catheter in place, yellow urine today MSK: no joint deformities, normal ROM, left CVA mild tenderness to percussion. Neuro: no focal neuro deficits, moving all 4 extremities, CN2-12 intact. Strength 5/5 in all 4 extremities. No nystagmus. Psych: calm, cooperative, AAO x 3 LABORATORY DATA, IMAGING STUDIES, MICROBIOLOGY: Please see below. ASSESSMENT: 60-year-old female with a history of cervical cancer treated with radiation in 1991, atonic bladder, now with indwelling Fernando, CK, stage IV, hypertension, secondary hyperparathyroidism and history of ureteral strictures. She is admitted to hospitalist service for management of suspected pyelonephritis and hydronephrosis, with urology and nephrology in consultation. Status post bilateral ureteral stent placement by Dr. Howell on 07/20/20. Nephrostomy tube placement 07/21/20 for left hydronephrosis and UTI, sepsis. PLAN: #Pseudomonas UTI, complicated pyelonephritis with resolved sepsis -WBC now wnl, afebrile -UCx: pseudomonas -BCx NG at 24 hrs -Per nephrology, will need to continue 7 days of IV abx after discharge. Arranging with PFS, likely home after weekend due to needing to set up arrangement. -Completed 4 days meropenem, c/w cefepime (Day 2) -F/u daily labs, monitor I&Os #L kidney hydronephrosis s/p nephrostomy tube 07/21/20 -POD 1 of nephrostomy to nephroureteral catheter conversion. -Dr. Howell exchanged bilateral ureteral stents 07/20/20 -Cr improved today to 2.51, near baseline. -C/w IVFs, treatment above -Nephrology, IR and urology following #Hematuria likely s/p nephrostomy tube placement vs. being on lovenox (last administered 07/22/20 in AM) -POD 1 of nephrostomy to nephroureteral catheter conversion with much improvement in hematuria this AM -H/H decreased further to 10.7/33. -Monitor closely, CBC daily -Discussed with Dr. Sparrow #Acute kidney injury on CKD IV -Cr improved to 2.5. Baseline ~2.3-2.5. -C/w IVFs -F/u daily labs. -Avoid further nephrotoxic medications -Nephrology following #Metabolic acidosis -C/w sodium bicarb 325 mg PO TID #Secondary hyperparathyroidism -c/w calcium-vitD #HTN -Stable - c/w home metoprolol 25 mg PO bid #Atonic bladder - indwelling fernando #Hypothyroidism - c/w home levothyroxine 150 mcg PO daily #ETOH use -No s/s of withdrawl -Follow CIWA. Ativan prn. withdrawal precautions. -C/w Folate, MVT, thiamine. #GERD - pantoprazole 40 mg PO daily DVT ppx -lovenox stopped 2/2 to hematuria. SCD, teds DISPOSITION: PT cleared patient for home, no services need. Plan is likely d/c home after weekend to complete a 7 days course of IV cefepime. PFS made aware and arranging home services. Will need f/u with Dr. Sparrow and PCP at discharge. VS, I&O, 24H, Fishbone Vital Signs/I&O Vital Signs Date Time Temp Pulse Resp B/P (MAP) Pulse Ox O2 Delivery O2 Flow Rate FiO2 07/25/20 16:00 98.2 93 16 138/77 (97) 96 Room Air 07/24/20 15:55 2 I&O- Last 24 Hours up to 6 AM 07/25/20 06:00 Intake Total 880 ml Output Total 3350 ml Balance -2470 ml Laboratory Data 24H LABS Laboratory Tests 2 07/25/20 04:34: Immature Granulocyte % (Auto) 1.4, Neutrophils (%) (Auto) 63.4, Lymphocytes (%) (Auto) 23.9L, Monocytes (%) (Auto) 8.2H, Eosinophils (%) (Auto) 2.6, Basophils (%) (Auto) 0.5, Neutrophils # (Auto) 6.3, Lymphocytes # (Auto) 2.4, Monocytes # (Auto) 0.8, Eosinophils # (Auto) 0.3, Basophils # (Auto) 0.1, Nucleated Red Blood Cells % (auto) 0.0, Anion Gap 7L, Glomerular Filtration Rate 21.0L, Calcium Level 8.0L, Magnesium Level 1.9, Total Bilirubin 0.4, Aspartate Amino Transf (AST/SGOT) 24, Alanine Aminotransferase (ALT/SGPT) 33, Alkaline Phosphatase 74, Total Protein 5.8L, Albumin 2.1L, Albumin/Globulin Ratio 0.6L CBC/BMP Laboratory Tests 07/25/20 04:34 Microbiology Microbiology 07/21/20 Blood Culture - Preliminary, Resulted No Growth after 72 hours. All specime... 07/21/20 Blood Culture - Preliminary, Resulted No Growth after 72 hours. All specime... 07/21/20 Urine Culture - Final, Complete 07/19/20 Blood Culture - Final, Complete NO GROWTH AFTER 5 DAYS 07/19/20 Urine Culture - Final, Complete Pseudomonas Aeruginosa 07/19/20 Blood Culture - Final, Complete NO GROWTH AFTER 5 DAYS Current Medications Current Medications Medications (Trade) Dose Ordered Sig/Jahaira Route PRN Reason Start Time Stop Time Status Last Admin Dose Admin Acetaminophen (Tylenol Tab) 650 mg Q4H PRN PO PAIN OR FEVER 07/19/20 12:45 07/21/20 12:52 DC 07/21/20 10:21 Acetaminophen (Tylenol Tab) 650 mg Q8HP PRN PO fever 07/22/20 16:00 07/24/20 15:53 DC Acetaminophen (Tylenol Tab) 650 mg Q8HP PRN PO fever 07/24/20 15:53 Acetaminophen (Tylenol Tab) 1,000 mg Q6HP PRN PO fever 07/21/20 13:00 07/21/20 12:57 DC Acetaminophen (Tylenol Tab) 1,000 mg Q6HP PRN PO fever 07/21/20 13:00 07/22/20 15:20 DC 07/21/20 22:22 Acetaminophen/ Hydrocodone Bitart ([place], Anexsia 5/325) 1 tab Q12H PRN PO severe pain 07/19/20 08:00 07/22/20 15:20 DC 07/22/20 12:35 Acetaminophen/ Hydrocodone Bitart ([place], [place]nexs[place] 5/325) 1 tab Q8HP PRN PO severe pain 07/22/20 16:00 07/25/20 08:32 Al Hydrox/Mg Hydrox/Simethicone (Mylanta) 30 ml DAILY PRN PO DYSPEPSIA 07/19/20 12:45 Calcium/Vitamin D (Oscal D) 500 mg DAILY PO 07/19/20 09:00 07/25/20 08:32 Cefepime HCl 1 gm/ Dextrose 50 ml @ 100 mls/hr Q12H IV 07/24/20 17:00 07/25/20 16:41 Docusate Sodium (Colace) 100 mg BID PO 07/19/20 21:00 07/23/20 20:48 Enoxaparin Sodium (Lovenox) 30 mg DAILY SC 07/20/20 09:00 07/22/20 12:01 DC 07/22/20 09:01 Fentanyl Citrate (Sublimaze) 25 mcg Q5MP PRN IV PAIN LEVEL 5-10 07/20/20 14:00 07/20/20 15:00 DC 07/20/20 14:08 Folic Acid (Folic Acid) 1 mg DAILY PO 07/19/20 09:00 07/25/20 08:32 Heparin Sodium (Heparin (Flush)) 200 units ASDIRECTED PRN IV SEE LABEL COMMENTS 07/24/20 17:30 Heparin Sodium (Heparin (Flush)) 200 units PICC IV 07/24/20 18:00 07/25/20 16:41 Home Med (Med Rec Complete!) ASDIRECTED XX 07/19/20 12:30 07/19/20 12:35 DC Hydromorphone HCl (Dilaudid) 0.5 mg Q2HP PRN IV SEVERE PAIN (PS 8-10) 07/24/20 16:00 07/24/20 18:34 DC Levofloxacin (Levaquin) 250 mg Q48H PO 07/26/20 06:00 07/24/20 16:57 DC Levothyroxine Sodium (Synthroid) 150 mcg DAILY@0600 PO 07/19/20 06:00 07/25/20 06:07 Lorazepam (Ativan) 2 mg ASDIRECTED PRN IV SEE PROTOCOL 07/21/20 09:15 07/21/20 09:28 Lorazepam (Ativan) 2 mg ASDIRECTED PRN PO SEE PROTOCOL 07/19/20 09:00 07/21/20 09:09 DC 07/21/20 09:01 Magnesium Hydroxide (Milk Of Magnesia) 30 ml DAILY PRN PO CONSTIPATION 07/19/20 12:45 07/23/20 16:36 Meropenem 500 mg/ IV Miscellaneous Supplies 50 ml @ 100 mls/hr Q12H IV 07/21/20 12:00 07/24/20 15:50 DC 07/24/20 00:54 Metoprolol Tartrate (Lopressor) 25 mg BID PO 07/19/20 21:00 07/25/20 08:33 Morphine Sulfate (Morphine Sulfate Inj) 2 mg Q30M PRN IV MODERATE PAIN (PS 5-7) 07/19/20 10:00 Cancel Morphine Sulfate (Morphine Sulfate Inj) 2 mg Q4H PRN IV SEVERE BREAKTHROUGH PAIN 07/24/20 22:15 07/25/20 13:51 Multivitamins (Theragram-M) 1 tab DAILY PO 07/19/20 09:00 07/25/20 08:32 Ondansetron HCl (ZOFRAN INJection) 4 mg Q4H PRN IV NAUSEA OR VOMITING 07/21/20 10:00 07/21/20 18:49 Ondansetron HCl (ZOFRAN INJection) 4 mg Q4HP PRN IV NAUSEA OR VOMITING 07/20/20 14:00 07/20/20 15:00 DC Ondansetron HCl (ZOFRAN INJection) 4 mg Q8HP PRN IV NAUSEA 07/24/20 16:00 07/24/20 18:34 DC Ondansetron HCl (Zofran) 4 mg Q6HP PRN PO NAUSEA OR VOMITING 07/21/20 01:45 07/21/20 09:14 DC 07/21/20 06:31 Oxazepam (Serax) 10 mg TID PO 07/21/20 09:30 07/21/20 19:51 DC 07/21/20 16:17 Oxycodone HCl (Roxicodone, Oxyir) 5 mg ASDIRECTED PRN PO PAIN LEVEL 1-4 07/20/20 14:00 07/20/20 14:26 DC 07/20/20 14:25 Pantoprazole Sodium (Protonix) 40 mg DAILY PO 07/19/20 09:00 07/25/20 08:32 Piperacillin Sod/ Tazobactam Sod 4.5 gm/Dextrose 50 ml @ 50 mls/hr Q8H IV 07/19/20 20:00 07/21/20 10:22 DC 07/21/20 05:14 Polyethylene Glycol (Miralax) 1 pkt DAILYPRN PRN PO CONSTIPATION 07/23/20 10:15 07/23/20 11:26 Senna (Senokot) 2 tab QHS PO 07/23/20 21:00 07/24/20 10:02 DC Sodium Bicarbonate (Sodium Bicarbonate) 325 mg TID PO 07/19/20 16:00 07/25/20 16:41 Sodium Chloride 1,000 ml @ 100 mls/hr Q10H IV 07/22/20 11:45 07/25/20 16:41 Sodium Chloride (Saline Lock Flush) 10 ml ASDIRECTED PRN IV SEE LABEL COMMENTS 07/24/20 17:30 Sodium Chloride (Saline Lock Flush) 10 ml PICC IV 07/24/20 18:00 07/25/20 16:42 Thiamine HCl (Thiamine HCl) 100 mg BID PO 07/19/20 21:00 07/22/20 09:01 DC 07/22/20 09:03 Allergies Coded Allergies: Quinolones (Verified Allergy, Intermediate, tequin - blisters on lips, 07/24/20) potassium (Verified Allergy, Intermediate, HIVES, POUNDING HEARTBEAT, 06/13/20) povidone-iodine (Verified Allergy, Intermediate, rash/burn, 06/13/20) soap (Verified Allergy, Intermediate, rash/burn, 06/13/20) Sulfa (Sulfonamide Antibiotics) (Verified Allergy, Unknown, 06/13/20) epoetin reina (Verified Allergy, Unknown, 06/13/20) ibuprofen (Verified Allergy, Unknown, 06/13/20) trimethoprim (Verified Allergy, Unknown, 06/13/20) Nimo Pat MD Jul 25, 2020 16:59
--- NOTE | 2020-07-25 17:51 | REP ---
INDICATION: poor venous access. COMPARISON: None. TECHNIQUE: The procedure was performed under the direct supervision of Dr. Chaves. The risks and benefits of the procedure were explained to the patient and informed consent was obtained. The right basilic vein was localized using ultrasound guidance. The skin was prepped and draped in a sterile fashion. 2% lidocaine was used as a local anesthetic. Using ultrasound guidance the basilic vein was cannulated and a 0.018 guidewire was inserted and advanced to the SVC using fluoroscopic guidance. The needle was removed and a 5.5 [place] dilator and peel-away sheath was inserted over the guide wire. A 5.5 [place] dual lumen catheter was cut to length of 36 cm. The dilator was removed and the catheter was inserted over the guide wire with the tip ending in the SVC. The peel-away sheath was removed and the catheter was flushed with heparinized saline as per Hospital protocol. The catheter was affixed to the skin and a sterile dressing was applied. The patient tolerated the procedure well and there were no immediate complications. 0.2 minutes of fluoro time was utilized for this procedure. FINDINGS: None IMPRESSION: Technically successful PICC line insertion right basilic vein. <Electronically signed by Dhiraj Dyer > 07/25/20 1311 <Electronically signed by Santhosh Hanna > 07/25/20 [id number]
[2020-07-25 20:00] VITALS: BP 137/73
[2020-07-26] VITALS: BP_SYST 122; BP_DIAS 63; BP_DIAS 65
[2020-07-26 04:00] VITALS: BP 136/65
[2020-07-26] MEDS: LEVOTHYROXINE 150MCG TABLET (0.15MG) PO SCH (05:31)
[2020-07-26] MEDS: SODIUM CHLORIDE 0.9% INJ 10 ML SYR IV SCH ×2 (05:31→17:16)
[2020-07-26] MEDS: CEFEPIME HCL 1 GM in D5W MINI-BAG PLUS 50 ML IV SCH ×2 (05:31→17:16)
[2020-07-26 05:45] LABS: BASO # 0.1 10^3/uL (0.0-0.2); BASO % 0.9 % (0.0-1.0); EOS # 0.3 10^3/uL (0.0-0.5); EOS % 2.9 % (0.0-3.0); HEMATOCRIT 33.6 % (36.0-47.0); HEMOGLOBIN 10.3 g/dl (12.0-15.5); LYMPH # 2.2 10^3/uL (1.5-5.0); LYMPH % 21.1 % (24.0-44.0); MEAN CORPUSCULAR HGB CONC 30.7 g/dl (32.0-36.5); MONO # 0.7 10^3/uL (0.0-0.8); MONO % 6.9 % (0.0-5.0); NEUTROPHILS # 6.6 10^3/uL (1.5-8.5); NEUTROPHILS % 64.4 % (36.0-66.0); PLATELET COUNT, AUTOMATED 229 10^3/uL (150-450); RED BLOOD COUNT 3.82 10^6/uL (4.00-5.40); WHITE BLOOD COUNT 10.3 10^3/uL (4.0-10.0)
[2020-07-26] MEDS ORDERED: LevoFLOXacin 250 MG TABLET PO SCH (06:00)
[2020-07-26 06:11] LABS: ALBUMIN 2.1 GM/DL (3.2-5.2); BILIRUBIN,TOTAL 0.3 MG/DL (0.2-1.0); CALCIUM LEVEL 8.4 MG/DL (8.5-10.1); CREATININE FOR GFR 2.21 MG/DL (0.55-1.30); GLOMERULAR FILTRATION RATE 24.3 (>51); MAGNESIUM LEVEL 1.7 MG/DL (1.8-2.4); POTASSIUM SERUM 4.1 MEQ/L (3.5-5.1); TOTAL PROTEIN 6.6 GM/DL (6.4-8.2)
[2020-07-26] MEDS: NS 1,000 ML IV SCH (07:02)
[2020-07-26 08:16] VITALS: BP 139/73
[2020-07-26] MEDS: DOCUSATE SODIUM 100 MG CAP PO SCH ×2 (09:00→20:59)
[2020-07-26] MEDS ORDERED: MAGNESIUM OXIDE 400 MG TAB (MAG-OX) PO ONE (09:00)
[2020-07-26] MEDS: PANTOPRAZOLE 40MG TAB (PROTONIX) PO SCH (09:20)
[2020-07-26] MEDS: FOLIC ACID 1 MG TAB PO SCH (09:20)
[2020-07-26] MEDS: SODIUM BICARBONATE 325 MG TAB PO SCH ×3 (09:20→20:57)
[2020-07-26] MEDS: CALCIUM/VITAMIN D 500 MG TAB PO SCH (09:20)
[2020-07-26] MEDS: MULTIVITAMINS/MINERALS THERAP 1 TAB PO SCH (09:20)
[2020-07-26] MEDS: METOPROLOL TART 25 MG TABLET PO SCH ×2 (09:20→20:59)
[2020-07-26 11:57] VITALS: BP 150/76
[2020-07-26] MEDS ORDERED: NS 0.45% 1,000 ML IV SCH (12:30)
[2020-07-26] MEDS: ACETAMINOPHEN TAB 650MG DOSE (2X325MG) PO PRN ×2 (14:25→20:57)
[2020-07-26 20:00] VITALS: BP 150/79
--- NOTE | 2020-07-26 20:51 | IPNPDOC ---
Date Seen The patient was seen on 07/26/20. Progress Note SUBJECTIVE: POD 2 of nephrostomy to nephroureteral catheter conversion. Hematuria resolved in nephroureteral catheter bag. Cr improved further to 2.21. H/H slightly less at 10.3/33.6. Denies shortness of breath, n/v/d but admits to lethargy. OBJECTIVE: PHYSICAL EXAMINATION: VITAL SIGNS: please see below General: NAD, comfortable and more awake this AM HEENT: PERRLA, EOMI, sclerae clear Neck: supple, normal ROM, no JVD Respiratory: lungs CTAB, no wheeze, no rales, no crackles CVS: RRR, normal S1, S2, no murmurs Abdo: soft, no masses, no hepatosplenomegaly, BS+ Back/flank: left flank catheter with yellow urine in bag Extremities: no edema, pulses 2+ lower : fernando catheter in place, yellow urine today MSK: no joint deformities, normal ROM, left CVA mild tenderness to percussion. Neuro: no focal neuro deficits, moving all 4 extremities, CN2-12 intact. Strength 5/5 in all 4 extremities. No nystagmus. Psych: calm, cooperative, AAO x 3 LABORATORY DATA, IMAGING STUDIES, MICROBIOLOGY: Please see below. ASSESSMENT: 60-year-old female with a history of cervical cancer treated with radiation in 1991, atonic bladder, now with indwelling Fernando, CK, stage IV, hypertension, secondary hyperparathyroidism and history of ureteral strictures. She is admitted to hospitalist service for management of suspected pyelonephritis and hydronephrosis, with urology and nephrology in consultation. Status post bilateral ureteral stent placement by Dr. Howell on 07/20/20. Nephrostomy tube placement 07/21/20 for left hydronephrosis and UTI, sepsis. PLAN: #Pseudomonas UTI, complicated pyelonephritis with resolved sepsis -WBC now wnl, afebrile -UCx: pseudomonas -BCx NG at 24 hrs -Per nephrology, will need to continue 7 days of IV abx after discharge. Arranging with PFS, likely home after weekend due to needing to set up arrangement. -Completed 4 days meropenem, c/w cefepime (Day 3) -F/u daily labs, monitor I&Os #L kidney hydronephrosis s/p nephrostomy tube 07/21/20 -POD 2 of nephrostomy to nephroureteral catheter conversion. -Dr. Howell exchanged bilateral ureteral stents 07/20/20 -Cr improved further to 2.21, baseline. -C/w IVFs, treatment above -Patient will need to be d/verenice with nephroureteral catheter and fernando -Nephrology, IR and urology following #Hematuria likely s/p nephrostomy tube placement vs. being on lovenox (last administered 07/22/20 in AM) -POD 2 of nephrostomy to nephroureteral catheter conversion with much improvement in hematuria this AM -H/H decreased further to 10.7/33. -Monitor closely, CBC daily -D/c IVFs today #Acute kidney injury on CKD IV. Resolved. -Cr improved to 2.21. Baseline ~2.3-2.5. -F/u daily labs. -Avoid further nephrotoxic medications -D/c IVFs today -Nephrology following #Metabolic acidosis -C/w sodium bicarb 325 mg PO TID #Secondary hyperparathyroidism -c/w calcium-vitD #HTN -Stable - c/w home metoprolol 25 mg PO bid #Atonic bladder - indwelling fernando #Hypothyroidism - c/w home levothyroxine 150 mcg PO daily #ETOH use -No s/s of withdrawl -Follow CIWA. Ativan prn. withdrawal precautions. -C/w Folate, MVT, thiamine. #GERD - pantoprazole 40 mg PO daily DVT ppx -lovenox stopped 2/2 to hematuria. SCD, teds DISPOSITION: PT cleared patient for home, no services need. Plan is likely d/c home after weekend to complete a 7 days course of IV cefepime. PFS made aware and arranging home services. Will need f/u with Dr. Sparrow and PCP at discharge. VS, I&O, 24H, Fishbone Vital Signs/I&O Vital Signs Date Time Temp Pulse Resp B/P (MAP) Pulse Ox O2 Delivery O2 Flow Rate FiO2 07/26/20 15:51 97.2 18 0 07/26/20 11:57 150/76 (100) 97 Room Air 07/24/20 15:55 2 I&O- Last 24 Hours up to 6 AM 07/26/20 06:00 Intake Total 3560 ml Output Total 5025 ml Balance -1465 ml Laboratory Data 24H LABS Laboratory Tests 2 07/26/20 05:27: Immature Granulocyte % (Auto) 3.8H, Neutrophils (%) (Auto) 64.4, Lymphocytes (%) (Auto) 21.1L, Monocytes (%) (Auto) 6.9H, Eosinophils (%) (Auto) 2.9, Basophils (%) (Auto) 0.9, Neutrophils # (Auto) 6.6, Lymphocytes # (Auto) 2.2, Monocytes # (Auto) 0.7, Eosinophils # (Auto) 0.3, Basophils # (Auto) 0.1, Nucleated Red Blood Cells % (auto) 0.0, Anion Gap 6L, Glomerular Filtration Rate 24.3L, Calcium Level 8.4L, Magnesium Level 1.7L, Total Bilirubin 0.3, Aspartate Amino Transf (AST/SGOT) 22, Alanine Aminotransferase (ALT/SGPT) 34, Alkaline Phosphatase 68, Total Protein 6.6, Albumin 2.1L, Albumin/Globulin Ratio 0.5L CBC/BMP Laboratory Tests 07/26/20 05:27 Microbiology Microbiology 07/21/20 Blood Culture - Final, Complete NO GROWTH AFTER 5 DAYS 07/21/20 Blood Culture - Final, Complete NO GROWTH AFTER 5 DAYS 07/21/20 Urine Culture - Final, Complete 07/19/20 Blood Culture - Final, Complete NO GROWTH AFTER 5 DAYS 07/19/20 Urine Culture - Final, Complete Pseudomonas Aeruginosa 07/19/20 Blood Culture - Final, Complete NO GROWTH AFTER 5 DAYS Current Medications Current Medications Medications (Trade) Dose Ordered Sig/Jahaira Route PRN Reason Start Time Stop Time Status Last Admin Dose Admin Acetaminophen (Tylenol Tab) 650 mg Q4H PRN PO PAIN OR FEVER 07/19/20 12:45 07/21/20 12:52 DC 07/21/20 10:21 Acetaminophen (Tylenol Tab) 650 mg Q8HP PRN PO fever 07/22/20 16:00 07/24/20 15:53 DC Acetaminophen (Tylenol Tab) 650 mg Q8HP PRN PO fever 07/24/20 15:53 07/26/20 14:25 Acetaminophen (Tylenol Tab) 1,000 mg Q6HP PRN PO fever 07/21/20 13:00 07/21/20 12:57 DC Acetaminophen (Tylenol Tab) 1,000 mg Q6HP PRN PO fever 07/21/20 13:00 07/22/20 15:20 DC 07/21/20 22:22 Acetaminophen/ Hydrocodone Bitart ([place], Anexsia 5/325) 1 tab Q12H PRN PO severe pain 07/19/20 08:00 07/22/20 15:20 DC 07/22/20 12:35 Acetaminophen/ Hydrocodone Bitart ([place], [place] 5/325) 1 tab Q8HP PRN PO severe pain 07/22/20 16:00 07/25/20 08:32 Al Hydrox/Mg Hydrox/Simethicone (Mylanta) 30 ml DAILY PRN PO DYSPEPSIA 07/19/20 12:45 Calcium/Vitamin D (Oscal D) 500 mg DAILY PO 07/19/20 09:00 07/26/20 09:20 Cefepime HCl 1 gm/ Dextrose 50 ml @ 100 mls/hr Q12H IV 07/24/20 17:00 07/26/20 17:16 Docusate Sodium (Colace) 100 mg BID PO 07/19/20 21:00 07/25/20 21:43 Enoxaparin Sodium (Lovenox) 30 mg DAILY SC 07/20/20 09:00 07/22/20 12:01 DC 07/22/20 09:01 Fentanyl Citrate (Sublimaze) 25 mcg Q5MP PRN IV PAIN LEVEL 5-10 07/20/20 14:00 07/20/20 15:00 DC 07/20/20 14:08 Folic Acid (Folic Acid) 1 mg DAILY PO 07/19/20 09:00 07/26/20 09:20 Heparin Sodium (Heparin (Flush)) 200 units ASDIRECTED PRN IV SEE LABEL COMMENTS 07/24/20 17:30 Heparin Sodium (Heparin (Flush)) 200 units PICC IV 07/24/20 18:00 07/26/20 17:15 Home Med (Med Rec Complete!) ASDIRECTED XX 07/19/20 12:30 07/19/20 12:35 DC Hydromorphone HCl (Dilaudid) 0.5 mg Q2HP PRN IV SEVERE PAIN (PS 8-10) 07/24/20 16:00 07/24/20 18:34 DC Levofloxacin (Levaquin) 250 mg Q48H PO 07/26/20 06:00 07/24/20 16:57 DC Levothyroxine Sodium (Synthroid) 150 mcg DAILY@0600 PO 07/19/20 06:00 07/26/20 05:31 Lorazepam (Ativan) 2 mg ASDIRECTED PRN IV SEE PROTOCOL 07/21/20 09:15 07/21/20 09:28 Lorazepam (Ativan) 2 mg ASDIRECTED PRN PO SEE PROTOCOL 07/19/20 09:00 07/21/20 09:09 DC 07/21/20 09:01 Magnesium Hydroxide (Milk Of Magnesia) 30 ml DAILY PRN PO CONSTIPATION 07/19/20 12:45 07/23/20 16:36 Meropenem 500 mg/ IV Miscellaneous Supplies 50 ml @ 100 mls/hr Q12H IV 07/21/20 12:00 07/24/20 15:50 DC 07/24/20 00:54 Metoprolol Tartrate (Lopressor) 25 mg BID PO 07/19/20 21:00 07/26/20 09:20 Morphine Sulfate (Morphine Sulfate Inj) 2 mg Q30M PRN IV MODERATE PAIN (PS 5-7) 07/19/20 10:00 Cancel Morphine Sulfate (Morphine Sulfate Inj) 2 mg Q4H PRN IV SEVERE BREAKTHROUGH PAIN 07/24/20 22:15 07/25/20 13:51 Multivitamins (Theragram-M) 1 tab DAILY PO 07/19/20 09:00 07/26/20 09:20 Ondansetron HCl (ZOFRAN INJection) 4 mg Q4H PRN IV NAUSEA OR VOMITING 07/21/20 10:00 07/21/20 18:49 Ondansetron HCl (ZOFRAN INJection) 4 mg Q4HP PRN IV NAUSEA OR VOMITING 07/20/20 14:00 07/20/20 15:00 DC Ondansetron HCl (ZOFRAN INJection) 4 mg Q8HP PRN IV NAUSEA 07/24/20 16:00 07/24/20 18:34 DC Ondansetron HCl (Zofran) 4 mg Q6HP PRN PO NAUSEA OR VOMITING 07/21/20 01:45 07/21/20 09:14 DC 07/21/20 06:31 Oxazepam (Serax) 10 mg TID PO 07/21/20 09:30 07/21/20 19:51 DC 07/21/20 16:17 Oxycodone HCl (Roxicodone, Oxyir) 5 mg ASDIRECTED PRN PO PAIN LEVEL 1-4 07/20/20 14:00 07/20/20 14:26 DC 07/20/20 14:25 Pantoprazole Sodium (Protonix) 40 mg DAILY PO 07/19/20 09:00 07/26/20 09:20 Piperacillin Sod/ Tazobactam Sod 4.5 gm/Dextrose 50 ml @ 50 mls/hr Q8H IV 07/19/20 20:00 07/21/20 10:22 DC 07/21/20 05:14 Polyethylene Glycol (Miralax) 1 pkt DAILYPRN PRN PO CONSTIPATION 07/23/20 10:15 07/23/20 11:26 Senna (Senokot) 2 tab QHS PO 07/23/20 21:00 07/24/20 10:02 DC Sodium Bicarbonate (Sodium Bicarbonate) 325 mg TID PO 07/19/20 16:00 07/26/20 17:16 Sodium Chloride 1,000 ml @ 100 mls/hr Q10H IV 07/22/20 11:45 07/26/20 12:19 DC 07/26/20 07:02 Sodium Chloride 1,000 ml @ 100 mls/hr Q10H IV 07/26/20 12:30 07/26/20 22:29 07/26/20 13:09 Sodium Chloride (Saline Lock Flush) 10 ml ASDIRECTED PRN IV SEE LABEL COMMENTS 07/24/20 17:30 Sodium Chloride (Saline Lock Flush) 10 ml PICC IV 07/24/20 18:00 07/26/20 17:16 Thiamine HCl (Thiamine HCl) 100 mg BID PO 07/19/20 21:00 07/22/20 09:01 DC 07/22/20 09:03 Allergies Coded Allergies: Quinolones (Verified Allergy, Intermediate, tequin - blisters on lips, 07/24/20) potassium (Verified Allergy, Intermediate, HIVES, POUNDING HEARTBEAT, 06/13/20) povidone-iodine (Verified Allergy, Intermediate, rash/burn, 06/13/20) soap (Verified Allergy, Intermediate, rash/burn, 06/13/20) Sulfa (Sulfonamide Antibiotics) (Verified Allergy, Unknown, 06/13/20) epoetin reina (Verified Allergy, Unknown, 06/13/20) ibuprofen (Verified Allergy, Unknown, 06/13/20) trimethoprim (Verified Allergy, Unknown, 06/13/20) Nimo Pat MD Jul 26, 2020 20:51
[2020-07-27] VITALS: BP 153/78
[2020-07-27 04:00] VITALS: BP 161/73
[2020-07-27] MEDS: ACETAMINOPHEN TAB 650MG DOSE (2X325MG) PO PRN ×2 (05:00→13:01)
[2020-07-27] MEDS: LEVOTHYROXINE 150MCG TABLET (0.15MG) PO SCH (05:00)
[2020-07-27] MEDS: CEFEPIME HCL 1 GM in D5W MINI-BAG PLUS 50 ML IV SCH ×2 (05:01→16:11)
[2020-07-27] MEDS: SODIUM CHLORIDE 0.9% INJ 10 ML SYR IV SCH ×2 (05:03→16:12)
[2020-07-27 05:34] LABS: HEMATOCRIT 35.3 % (36.0-47.0); HEMOGLOBIN 10.9 g/dl (12.0-15.5); MEAN CORPUSCULAR HEMOGLOBIN 27.1 pg (27.0-33.0); MEAN CORPUSCULAR HGB CONC 30.9 g/dl (32.0-36.5); MEAN CORPUSCULAR VOLUME 87.8 fl (80.0-96.0); PLATELET COUNT, AUTOMATED 260 10^3/uL (150-450); RED BLOOD COUNT 4.02 10^6/uL (4.00-5.40); WHITE BLOOD COUNT 10.9 10^3/uL (4.0-10.0)
[2020-07-27 05:56] LABS: ALBUMIN 2.4 GM/DL (3.2-5.2); BILIRUBIN,TOTAL 0.3 MG/DL (0.2-1.0); CALCIUM LEVEL 8.7 MG/DL (8.5-10.1); CREATININE FOR GFR 2.25 MG/DL (0.55-1.30); GLOMERULAR FILTRATION RATE 23.8 (>51); TOTAL PROTEIN 6.4 GM/DL (6.4-8.2)
[2020-07-27 08:00] VITALS: BP 134/82
[2020-07-27] MEDS: MULTIVITAMINS/MINERALS THERAP 1 TAB PO SCH (08:56)
[2020-07-27] MEDS: CALCIUM/VITAMIN D 500 MG TAB PO SCH (08:56)
[2020-07-27] MEDS: DOCUSATE SODIUM 100 MG CAP PO SCH ×2 (08:57→20:41)
[2020-07-27] MEDS: SODIUM BICARBONATE 325 MG TAB PO SCH ×3 (08:57→20:41)
[2020-07-27] MEDS: FOLIC ACID 1 MG TAB PO SCH (08:57)
[2020-07-27] MEDS: PANTOPRAZOLE 40MG TAB (PROTONIX) PO SCH (08:57)
[2020-07-27] MEDS: METOPROLOL TART 25 MG TABLET PO SCH ×2 (08:58→20:41)
[2020-07-27 12:00] VITALS: BP 147/92
[2020-07-27] MEDS: NORCO, ANEXSIA 5/325MG TABLET (HYDROcodone/ACETAMINOPHEN) PO PRN (14:23)
--- NOTE | 2020-07-27 15:34 | IPNPDOC ---
Date Seen The patient was seen on 07/27/20. Progress Note SUBJECTIVE: POD 3 of nephrostomy to nephroureteral catheter conversion. H/H improving slightly. Denies shortness of breath, n/v/d but admits to lethargy. OBJECTIVE: PHYSICAL EXAMINATION: VITAL SIGNS: please see below General: NAD, comfortable and more awake this AM HEENT: PERRLA, EOMI, sclerae clear Neck: supple, normal ROM, no JVD Respiratory: lungs CTAB, no wheeze, no rales, no crackles CVS: RRR, normal S1, S2, no murmurs Abdo: soft, no masses, no hepatosplenomegaly, BS+ Back/flank: left flank catheter with yellow urine Extremities: no edema, pulses 2+ lower : fernando catheter in place, yellow urine MSK: no joint deformities, normal ROM, left CVA mild tenderness to percussion. Neuro: no focal neuro deficits, moving all 4 extremities, CN2-12 intact. Strength 5/5 in all 4 extremities. No nystagmus. Psych: calm, cooperative, AAO x 3 LABORATORY DATA, IMAGING STUDIES, MICROBIOLOGY: Please see below. ASSESSMENT: 60-year-old female with a history of cervical cancer treated with radiation in 1991, atonic bladder, now with indwelling Fernando, CK, stage IV, hypertension, secondary hyperparathyroidism and history of ureteral strictures. She is admitted to hospitalist service for management of suspected pyelonephritis and hydronephrosis, with urology and nephrology in consultation. Status post bilateral ureteral stent placement by Dr. Howell on 07/20/20. Nephrostomy tube placement 07/21/20 for left hydronephrosis and UTI, sepsis. PLAN: #Pseudomonas UTI, complicated pyelonephritis. Resolved sepsis -WBC now wnl, afebrile -UCx: pseudomonas -BCx NG at 24 hrs -Per nephrology, will need to continue 7 days of IV abx after discharge. Arranging with PFS, likely home after weekend due to needing to set up arrangement. -Completed 4 days meropenem, c/w cefepime (Day 4) -F/u daily labs, monitor I&Os #L kidney hydronephrosis s/p nephrostomy tube 07/21/20 -POD 2 of nephrostomy to nephroureteral catheter conversion. -Dr. Howell exchanged bilateral ureteral stents 07/20/20 -Cr improved further to 2.21, baseline. -Patient will need to be d/verenice with nephroureteral catheter and fernando -Nephrology, IR and urology following #Hematuria likely s/p nephrostomy tube placement vs. being on lovenox (last administered 07/22/20 in AM) -POD 3 of nephrostomy to nephroureteral catheter conversion, this corrected hematuria -H/H finally slightly increased today -Monitor closely, CBC daily -D/c IVFs today #Acute kidney injury on CKD IV. Resolved. -Cr at baseline 2.25. Baseline ~2.3-2.5. -F/u daily labs. -Avoid further nephrotoxic medications -D/c IVFs today -Nephrology following #Metabolic acidosis -C/w sodium bicarb 325 mg PO TID #Secondary hyperparathyroidism -c/w calcium-vitD #HTN -Stable - c/w home metoprolol 25 mg PO bid #Atonic bladder - indwelling fernando #Hypothyroidism - c/w home levothyroxine 150 mcg PO daily #ETOH use -No s/s of withdrawl -Follow CIWA. Ativan prn. withdrawal precautions. -C/w Folate, MVT, thiamine. #GERD - pantoprazole 40 mg PO daily DVT ppx -lovenox stopped 2/2 to hematuria. SCD, teds DISPOSITION: PT cleared patient for home, no services need. Plan is likely d/c home after weekend to complete a 7 days course of IV cefepime. PFS made aware and arranging home services. Will need f/u with Dr. Sparrow and PCP at discharge. VS, I&O, 24H, [facility] Vital Signs/I&O Vital Signs Date Time Temp Pulse Resp B/P (MAP) Pulse Ox O2 Delivery O2 Flow Rate FiO2 07/27/20 14:23 17 07/27/20 12:00 97.3 56 147/92 (110) 98 Room Air 07/24/20 15:55 2 I&O- Last 24 Hours up to 6 AM 07/27/20 05:59 Intake Total 3760 ml Output Total 5250 ml Balance -1490 ml Laboratory Data 24H LABS Laboratory Tests 2 07/27/20 05:04: Nucleated Red Blood Cells % (auto) 0.0, Anion Gap 7L, Glomerular Filtration Rate 23.8L, Calcium Level 8.7, Total Bilirubin 0.3, Aspartate Amino Transf (AST/SGOT) 21, Alanine Aminotransferase (ALT/SGPT) 36, Alkaline Phosphatase 71, Total Protein 6.4, Albumin 2.4L, Albumin/Globulin Ratio 0.6L CBC/BMP Laboratory Tests 07/27/20 05:04 Microbiology Microbiology 07/21/20 Blood Culture - Final, Complete NO GROWTH AFTER 5 DAYS 07/21/20 Blood Culture - Final, Complete NO GROWTH AFTER 5 DAYS 07/21/20 Urine Culture - Final, Complete 07/19/20 Blood Culture - Final, Complete NO GROWTH AFTER 5 DAYS 07/19/20 Urine Culture - Final, Complete Pseudomonas Aeruginosa 07/19/20 Blood Culture - Final, Complete NO GROWTH AFTER 5 DAYS Current Medications Current Medications Medications (Trade) Dose Ordered Sig/Jahaira Route PRN Reason Start Time Stop Time Status Last Admin Dose Admin Acetaminophen (Tylenol Tab) 650 mg Q4H PRN PO PAIN OR FEVER 07/19/20 12:45 07/21/20 12:52 DC 07/21/20 10:21 Acetaminophen (Tylenol Tab) 650 mg Q8HP PRN PO fever 07/22/20 16:00 07/24/20 15:53 DC Acetaminophen (Tylenol Tab) 650 mg Q8HP PRN PO fever 07/24/20 15:53 07/27/20 13:01 Acetaminophen (Tylenol Tab) 1,000 mg Q6HP PRN PO fever 07/21/20 13:00 07/21/20 12:57 DC Acetaminophen (Tylenol Tab) 1,000 mg Q6HP PRN PO fever 07/21/20 13:00 07/22/20 15:20 DC 07/21/20 22:22 Acetaminophen/ Hydrocodone Bitart ([place], Anexsia 5/325) 1 tab Q12H PRN PO severe pain 07/19/20 08:00 07/22/20 15:20 DC 07/22/20 12:35 Acetaminophen/ Hydrocodone Bitart ([place], [place] 5/325) 1 tab Q8HP PRN PO severe pain 07/22/20 16:00 07/27/20 14:23 Al Hydrox/Mg Hydrox/Simethicone (Mylanta) 30 ml DAILY PRN PO DYSPEPSIA 07/19/20 12:45 Calcium/Vitamin D (Oscal D) 500 mg DAILY PO 07/19/20 09:00 07/27/20 08:56 Cefepime HCl 1 gm/ Dextrose 50 ml @ 100 mls/hr Q12H IV 07/24/20 17:00 07/27/20 05:01 Docusate Sodium (Colace) 100 mg BID PO 07/19/20 21:00 07/27/20 08:57 Enoxaparin Sodium (Lovenox) 30 mg DAILY SC 07/20/20 09:00 07/22/20 12:01 DC 07/22/20 09:01 Fentanyl Citrate (Sublimaze) 25 mcg Q5MP PRN IV PAIN LEVEL 5-10 07/20/20 14:00 07/20/20 15:00 DC 07/20/20 14:08 Folic Acid (Folic Acid) 1 mg DAILY PO 07/19/20 09:00 07/27/20 08:57 Heparin Sodium (Heparin (Flush)) 200 units ASDIRECTED PRN IV SEE LABEL COMMENTS 07/24/20 17:30 Heparin Sodium (Heparin (Flush)) 200 units PICC IV 07/24/20 18:00 07/27/20 05:01 Home Med (Med Rec Complete!) ASDIRECTED XX 07/19/20 12:30 07/19/20 12:35 DC Hydromorphone HCl (Dilaudid) 0.5 mg Q2HP PRN IV SEVERE PAIN (PS 8-10) 07/24/20 16:00 07/24/20 18:34 DC Levofloxacin (Levaquin) 250 mg Q48H PO 07/26/20 06:00 07/24/20 16:57 DC Levothyroxine Sodium (Synthroid) 150 mcg DAILY@0600 PO 07/19/20 06:00 07/27/20 05:00 Lorazepam (Ativan) 2 mg ASDIRECTED PRN IV SEE PROTOCOL 07/21/20 09:15 07/21/20 09:28 Lorazepam (Ativan) 2 mg ASDIRECTED PRN PO SEE PROTOCOL 07/19/20 09:00 07/21/20 09:09 DC 07/21/20 09:01 Magnesium Hydroxide (Milk Of Magnesia) 30 ml DAILY PRN PO CONSTIPATION 07/19/20 12:45 07/23/20 16:36 Meropenem 500 mg/ IV Miscellaneous Supplies 50 ml @ 100 mls/hr Q12H IV 07/21/20 12:00 07/24/20 15:50 DC 07/24/20 00:54 Metoprolol Tartrate (Lopressor) 25 mg BID PO 07/19/20 21:00 07/27/20 08:58 Miscellaneous (Unresolved Clarification Entry) SEE LABEL COMMENTS DAILY XX 07/27/20 09:00 07/27/20 09:24 DC Morphine Sulfate (Morphine Sulfate Inj) 2 mg Q30M PRN IV MODERATE PAIN (PS 5-7) 07/19/20 10:00 Cancel Morphine Sulfate (Morphine Sulfate Inj) 2 mg Q4H PRN IV SEVERE BREAKTHROUGH PAIN 07/24/20 22:15 07/25/20 13:51 Multivitamins (Theragram-M) 1 tab DAILY PO 07/19/20 09:00 07/27/20 08:56 Ondansetron HCl (ZOFRAN INJection) 4 mg Q4H PRN IV NAUSEA OR VOMITING 07/21/20 10:00 07/21/20 18:49 Ondansetron HCl (ZOFRAN INJection) 4 mg Q4HP PRN IV NAUSEA OR VOMITING 07/20/20 14:00 07/20/20 15:00 DC Ondansetron HCl (ZOFRAN INJection) 4 mg Q8HP PRN IV NAUSEA 07/24/20 16:00 07/24/20 18:34 DC Ondansetron HCl (Zofran) 4 mg Q6HP PRN PO NAUSEA OR VOMITING 07/21/20 01:45 07/21/20 09:14 DC 07/21/20 06:31 Oxazepam (Serax) 10 mg TID PO 07/21/20 09:30 07/21/20 19:51 DC 07/21/20 16:17 Oxycodone HCl (Roxicodone, Oxyir) 5 mg ASDIRECTED PRN PO PAIN LEVEL 1-4 07/20/20 14:00 07/20/20 14:26 DC 07/20/20 14:25 Pantoprazole Sodium (Protonix) 40 mg DAILY PO 07/19/20 09:00 07/27/20 08:57 Piperacillin Sod/ Tazobactam Sod 4.5 gm/Dextrose 50 ml @ 50 mls/hr Q8H IV 07/19/20 20:00 07/21/20 10:22 DC 07/21/20 05:14 Polyethylene Glycol (Miralax) 1 pkt DAILYPRN PRN PO CONSTIPATION 07/23/20 10:15 07/23/20 11:26 Senna (Senokot) 2 tab QHS PO 07/23/20 21:00 07/24/20 10:02 DC Sodium Bicarbonate (Sodium Bicarbonate) 325 mg TID PO 07/19/20 16:00 07/27/20 08:57 Sodium Chloride 1,000 ml @ 100 mls/hr Q10H IV 07/22/20 11:45 07/26/20 12:19 DC 07/26/20 07:02 Sodium Chloride 1,000 ml @ 100 mls/hr Q10H IV 07/26/20 12:30 07/26/20 22:29 DC 07/26/20 13:09 Sodium Chloride (Saline Lock Flush) 10 ml ASDIRECTED PRN IV SEE LABEL COMMENTS 07/24/20 17:30 Sodium Chloride (Saline Lock Flush) 10 ml PICC IV 07/24/20 18:00 07/27/20 05:03 Thiamine HCl (Thiamine HCl) 100 mg BID PO 07/19/20 21:00 07/22/20 09:01 DC 07/22/20 09:03 Allergies Coded Allergies: Quinolones (Verified Allergy, Intermediate, tequin - blisters on lips, 07/24/20) potassium (Verified Allergy, Intermediate, HIVES, POUNDING HEARTBEAT, 06/13/20) povidone-iodine (Verified Allergy, Intermediate, rash/burn, 06/13/20) soap (Verified Allergy, Intermediate, rash/burn, 06/13/20) Sulfa (Sulfonamide Antibiotics) (Verified Allergy, Unknown, 06/13/20) epoetin reina (Verified Allergy, Unknown, 06/13/20) ibuprofen (Verified Allergy, Unknown, 06/13/20) trimethoprim (Verified Allergy, Unknown, 06/13/20) Nimo Pat MD Jul 27, 2020 15:34
[2020-07-27 16:00] VITALS: BP 140/90
[2020-07-27 20:00] VITALS: BP 138/63
[2020-07-28] VITALS: BP 137/77
[2020-07-28 04:00] VITALS: BP 140/63
[2020-07-28] MEDS: CEFEPIME HCL 1 GM in D5W MINI-BAG PLUS 50 ML IV SCH (05:08)
[2020-07-28] MEDS: LEVOTHYROXINE 150MCG TABLET (0.15MG) PO SCH (05:09)
[2020-07-28] MEDS: SODIUM CHLORIDE 0.9% INJ 10 ML SYR IV SCH (05:09)
[2020-07-28 05:33] LABS: HEMATOCRIT 35.8 % (36.0-47.0); HEMOGLOBIN 11.2 g/dl (12.0-15.5); MEAN CORPUSCULAR HEMOGLOBIN 27.4 pg (27.0-33.0); MEAN CORPUSCULAR HGB CONC 31.3 g/dl (32.0-36.5); MEAN CORPUSCULAR VOLUME 87.5 fl (80.0-96.0); PLATELET COUNT, AUTOMATED 283 10^3/uL (150-450); RED BLOOD COUNT 4.09 10^6/uL (4.00-5.40); WHITE BLOOD COUNT 11.6 10^3/uL (4.0-10.0)
[2020-07-28 05:59] LABS: ALBUMIN 2.4 GM/DL (3.2-5.2); BILIRUBIN,TOTAL 0.3 MG/DL (0.2-1.0); CALCIUM LEVEL 8.9 MG/DL (8.5-10.1); CREATININE FOR GFR 2.5 MG/DL (0.55-1.30); GLOMERULAR FILTRATION RATE 21.1 (>51); POTASSIUM SERUM 3.9 MEQ/L (3.5-5.1); TOTAL PROTEIN 7.2 GM/DL (6.4-8.2)
[2020-07-28 07:46] VITALS: BP 133/78
[2020-07-28] MEDS: CALCIUM/VITAMIN D 500 MG TAB PO SCH (08:48)
[2020-07-28] MEDS: DOCUSATE SODIUM 100 MG CAP PO SCH (08:48)
[2020-07-28] MEDS: SODIUM BICARBONATE 325 MG TAB PO SCH (08:48)
[2020-07-28] MEDS: MULTIVITAMINS/MINERALS THERAP 1 TAB PO SCH (08:48)
[2020-07-28 08:49] VITALS: BP 133/78
[2020-07-28] MEDS: METOPROLOL TART 25 MG TABLET PO SCH (08:49)
[2020-07-28] MEDS: PANTOPRAZOLE 40MG TAB (PROTONIX) PO SCH (08:49)
[2020-07-28] MEDS: FOLIC ACID 1 MG TAB PO SCH (08:49)
[2020-07-28] MEDS: NORCO, ANEXSIA 5/325MG TABLET (HYDROcodone/ACETAMINOPHEN) PO PRN (08:52)
[2020-07-28 10:34] VITALS: BP 133/78
--- NOTE | 2020-07-28 10:44 | IRPN ---
[facility] IR Progress Note IR Progress Note DATE: Jul 28, 2020 FOLLOW-UP: Patient with bilateral ureteral obstruction related to prior cervical cancer treatment managed with internal stents. Patient had left nephrostomy placed for persistent left hydronephrosis. urosepsis and worsening renal failure despite internal stent exchange. Patient now has a left nephroureteral catheter in place as well as the internal stent. Left nephrostomy drainage has now cleared up with no further hematuria. Patient is afebrile, comfortable and moving around. Denies pain. ON EXAMINATION: Vitals: Temperature 97.5 pulse 77 blood pressure 133/78 status 94 on room air. Left nephroureteral catheter bag - clear yellow urine. Bladder Weeks: Clear yellow urine. Labs: Hemoglobin 11.2 increased from 10.3 hematocrit 35.8 WBC 11.6 platelets 283 sodium 139 potassium 3.9 BUN 39 creatinine 2.5 improved from 4.68 GFR 21.1 improved from 10.2 IMPRESSION: 60-year-old female with left hydronephrosis, urosepsis and worsening renal failure with blocked left internal stent. despite recent exchange. Patient now recovered status post left nephroureteral catheter placement. Catheter should remain in place and may be capped to drain internally. This catheter does need to be flushed with saline once a day. We'll follow-up in IR in 6 weeks for ongoing management in light of urology management of internal stents. Thank you for this referral. CC Dr. Sparrow Allergies Coded Allergies: Quinolones (Verified Allergy, Intermediate, tequin - blisters on lips, 07/24/20) potassium (Verified Allergy, Intermediate, HIVES, POUNDING HEARTBEAT, 06/13/20) povidone-iodine (Verified Allergy, Intermediate, rash/burn, 06/13/20) soap (Verified Allergy, Intermediate, rash/burn, 06/13/20) Sulfa (Sulfonamide Antibiotics) (Verified Allergy, Unknown, 06/13/20) epoetin reina (Verified Allergy, Unknown, 06/13/20) ibuprofen (Verified Allergy, Unknown, 06/13/20) trimethoprim (Verified Allergy, Unknown, 06/13/20) Current Medications Current Medications Medications (Trade) Dose Ordered Sig/Jahaira Route PRN Reason Start Time Stop Time Status Last Admin Dose Admin Acetaminophen (Tylenol Tab) 650 mg Q4H PRN PO PAIN OR FEVER 07/19/20 12:45 07/21/20 12:52 DC 07/21/20 10:21 Acetaminophen (Tylenol Tab) 650 mg Q8HP PRN PO fever 07/22/20 16:00 07/24/20 15:53 DC Acetaminophen (Tylenol Tab) 650 mg Q8HP PRN PO fever 07/24/20 15:53 07/27/20 13:01 Acetaminophen (Tylenol Tab) 1,000 mg Q6HP PRN PO fever 07/21/20 13:00 07/21/20 12:57 DC Acetaminophen (Tylenol Tab) 1,000 mg Q6HP PRN PO fever 07/21/20 13:00 07/22/20 15:20 DC 07/21/20 22:22 Acetaminophen/ Hydrocodone Bitart ([place], Anexsia 5/325) 1 tab Q12H PRN PO severe pain 07/19/20 08:00 07/22/20 15:20 DC 07/22/20 12:35 Acetaminophen/ Hydrocodone Bitart ([place], Anexsia 5/325) 1 tab Q8HP PRN PO severe pain 07/22/20 16:00 07/28/20 08:52 Al Hydrox/Mg Hydrox/Simethicone (Mylanta) 30 ml DAILY PRN PO DYSPEPSIA 07/19/20 12:45 Calcium/Vitamin D (Oscal D) 500 mg DAILY PO 07/19/20 09:00 07/28/20 08:48 Cefepime HCl 1 gm/ Dextrose 50 ml @ 100 mls/hr Q12H IV 07/24/20 17:00 07/28/20 05:08 Docusate Sodium (Colace) 100 mg BID PO 07/19/20 21:00 07/28/20 08:48 Enoxaparin Sodium (Lovenox) 30 mg DAILY SC 07/20/20 09:00 07/22/20 12:01 DC 07/22/20 09:01 Fentanyl Citrate (Sublimaze) 25 mcg Q5MP PRN IV PAIN LEVEL 5-10 07/20/20 14:00 07/20/20 15:00 DC 07/20/20 14:08 Folic Acid (Folic Acid) 1 mg DAILY PO 07/19/20 09:00 07/28/20 08:49 Heparin Sodium (Heparin (Flush)) 200 units ASDIRECTED PRN IV SEE LABEL COMMENTS 07/24/20 17:30 Heparin Sodium (Heparin (Flush)) 200 units PICC IV 07/24/20 18:00 07/28/20 05:09 Home Med (Med Rec Complete!) ASDIRECTED XX 07/19/20 12:30 07/19/20 12:35 DC Hydromorphone HCl (Dilaudid) 0.5 mg Q2HP PRN IV SEVERE PAIN (PS 8-10) 07/24/20 16:00 07/24/20 18:34 DC Levofloxacin (Levaquin) 250 mg Q48H PO 07/26/20 06:00 07/24/20 16:57 DC Levothyroxine Sodium (Synthroid) 150 mcg DAILY@0600 PO 07/19/20 06:00 07/28/20 05:09 Lorazepam (Ativan) 2 mg ASDIRECTED PRN IV SEE PROTOCOL 07/21/20 09:15 07/28/20 09:14 DC 07/21/20 09:28 Lorazepam (Ativan) 2 mg ASDIRECTED PRN PO SEE PROTOCOL 07/19/20 09:00 07/21/20 09:09 DC 07/21/20 09:01 Magnesium Hydroxide (Milk Of Magnesia) 30 ml DAILY PRN PO CONSTIPATION 07/19/20 12:45 07/23/20 16:36 Meropenem 500 mg/ IV Miscellaneous Supplies 50 ml @ 100 mls/hr Q12H IV 07/21/20 12:00 07/24/20 15:50 DC 07/24/20 00:54 Metoprolol Tartrate (Lopressor) 25 mg BID PO 07/19/20 21:00 07/28/20 08:49 Miscellaneous (Unresolved Clarification Entry) SEE LABEL COMMENTS DAILY XX 07/27/20 09:00 07/27/20 09:24 DC Morphine Sulfate (Morphine Sulfate Inj) 2 mg Q30M PRN IV MODERATE PAIN (PS 5-7) 07/19/20 10:00 Cancel Morphine Sulfate (Morphine Sulfate Inj) 2 mg Q4H PRN IV SEVERE BREAKTHROUGH PAIN 07/24/20 22:15 07/25/20 13:51 Multivitamins (Theragram-M) 1 tab DAILY PO 07/19/20 09:00 07/28/20 08:48 Ondansetron HCl (ZOFRAN INJection) 4 mg Q4H PRN IV NAUSEA OR VOMITING 07/21/20 10:00 07/21/20 18:49 Ondansetron HCl (ZOFRAN INJection) 4 mg Q4HP PRN IV NAUSEA OR VOMITING 07/20/20 14:00 07/20/20 15:00 DC Ondansetron HCl (ZOFRAN INJection) 4 mg Q8HP PRN IV NAUSEA 07/24/20 16:00 07/24/20 18:34 DC Ondansetron HCl (Zofran) 4 mg Q6HP PRN PO NAUSEA OR VOMITING 07/21/20 01:45 07/21/20 09:14 DC 07/21/20 06:31 Oxazepam (Serax) 10 mg TID PO 07/21/20 09:30 07/21/20 19:51 DC 07/21/20 16:17 Oxycodone HCl (Roxicodone, Oxyir) 5 mg ASDIRECTED PRN PO PAIN LEVEL 1-4 07/20/20 14:00 07/20/20 14:26 DC 07/20/20 14:25 Pantoprazole Sodium (Protonix) 40 mg DAILY PO 07/19/20 09:00 07/28/20 08:49 Piperacillin Sod/ Tazobactam Sod 4.5 gm/Dextrose 50 ml @ 50 mls/hr Q8H IV 07/19/20 20:00 07/21/20 10:22 DC 07/21/20 05:14 Polyethylene Glycol (Miralax) 1 pkt DAILYPRN PRN PO CONSTIPATION 07/23/20 10:15 07/23/20 11:26 Senna (Senokot) 2 tab QHS PO 07/23/20 21:00 07/24/20 10:02 DC Sodium Bicarbonate (Sodium Bicarbonate) 325 mg TID PO 07/19/20 16:00 07/28/20 08:48 Sodium Chloride 1,000 ml @ 100 mls/hr Q10H IV 07/22/20 11:45 07/26/20 12:19 DC 07/26/20 07:02 Sodium Chloride 1,000 ml @ 100 mls/hr Q10H IV 07/26/20 12:30 07/26/20 22:29 DC 07/26/20 13:09 Sodium Chloride (Saline Lock Flush) 10 ml ASDIRECTED PRN IV SEE LABEL COMMENTS 07/24/20 17:30 Sodium Chloride (Saline Lock Flush) 10 ml PICC IV 07/24/20 18:00 07/28/20 05:09 Thiamine HCl (Thiamine HCl) 100 mg BID PO 07/19/20 21:00 07/22/20 09:01 DC 07/22/20 09:03 VS,Fishbone, I+O VS, Fishbone, I+O Laboratory Tests 07/28/20 05:20 Vital Signs Date Time Temp Pulse Resp B/P (MAP) Pulse Ox O2 Delivery O2 Flow Rate FiO2 07/28/20 10:34 97.5 77 18 133/78 (96) 94 Room Air 07/24/20 15:55 2 I&O- Last 24 Hours up to 6 AM 07/28/20 06:00 Intake Total 1370 ml Output Total 3195 ml Balance -1825 ml DAVID JAMES MD Jul 28, 2020 10:44
--- NOTE | 2020-07-28 10:48 | IPN ---
DATE: 07/25/2020 SUBJECTIVE: Mrs. Cole was seen this morning at her bedside. She was sitting in the chair at the time of my visit. Yesterday I discussed with Dr. Duenas about her hematuria from the nephrostomy tube. Dr. Duenas has since then replaced the nephrostomy with a different tube which is now draining into her bladder and also outside. Hematuria has since resolved. The patient is feeling better today and denies any dyspnea, chest pain, nausea or vomiting. She reports good oral intake. PHYSICAL EXAMINATION: VITAL SIGNS: Temperature 97.9 degrees Fahrenheit, heart rate is 78 per minute and respiratory rate is 16 per minute. Blood pressure 140/89 mm of mercury and oxygen saturation is 97% on room air. HEENT: Head is atraumatic. NECK: Supple and without jugular venous distention or thyroid enlargement. LUNGS: Clear to auscultation. HEART: Regular. ABDOMEN: Soft and nontender. Left nephrostomy is draining almost clear urine now. Her Weeks catheter is also draining clear urine. NEUROLOGICAL: She is awake, alert, and oriented x3. EXTREMITIES: No leg edema. There is cyanosis or clubbing. LABORATORY STUDIES: Todays labs show a WBC count of 10.0, hemoglobin 10.7 and hematocrit 33.8. Sodium 142, potassium 3.9, CO2 23, BUN 41 and creatinine 2.51. Glucose 87 and calcium is 0.0. PROBLEMS: 1. Acute renal failure superimposed on chronic kidney disease she had acute pyelonephritis and bilateral hydronephrosis. Her kidney function is now improving and she has no uremic symptoms. She has bilateral ureteral stents and a nephrostomy in the left kidney. She has also been receiving IV fluids and antibiotics. 2. Acute pyelonephritis - The patient remains on intravenous Zosyn and I will recommend to continue with intravenous antibiotics for one more week in view of complicated acute pyelonephritis. I have discussed with the Hospitalist and recommended that the patient get IV antibiotics at home as she already has a PICC line in place. 3. Left sided hydronephrosis - The patient has a nephrostomy tube now which is draining well and hematuria has resolved. The patient will go home with it and we will tap off her nephrostomy tube. 4. Anemia she did have gross hematuria for at least 3 days and has developed moderate anemia. At present no intervention is indicated and her hematuria has already stopped. We hope that this will recover spontaneously. 5. Disposition I feel that the patient can be discharged to home with IV antibiotics at home for one more week and she will follow up in the office. RON
--- NOTE | 2020-07-28 10:49 | IPN ---
DATE: 07/26/2020 SUBJECTIVE: The patient was seen and examined today morning. She was sitting up in the sofa. She has a left sided percutaneous nephrostomy and an indwelling Weeks catheter. She reports that urine output is more from the left sided nephrostomy. Renal function is improving. Creatinine is down to 2.2. She continues to be on IV antibiotics for pseudomonas urinary tract infection. She denies any active complaints at this time. OBJECTIVE: VITAL SIGNS: Temperature is 97.1 degree Fahrenheit, blood pressure 150/79, pulse is 93, respiratory rate of 19, saturating 95% on room air. Intake and Output urine output recorded as 3 liters yesterday, 3.3 liters so far today since overnight. Weight on the bed scale was 84.6 kg yesterday. PHYSICAL EXAMINATION: GENERAL APPEARANCE: The patient is awake, alert, oriented x3, sitting up in the sofa in no apparent distress. HEAD AND NECK: Extraocular muscles intact. Pupils are equally round and reactive to light. Mucous membranes are moist. Neck is supple. There is no jugular venous distention. CARDIOVASCULAR: S1, S2, regular rate. EXTREMITIES: No edema of the bilateral lower extremities. RESPIRATORY: Chest is clear to auscultation bilaterally. Bilaterally currently no rales or rhonchi. ABDOMEN: Soft, positive bowel sounds. She has a left sided percutaneous nephrostomy. There is a small amount of debris in the nephrostomy tube in the left side. GENITOURINARY: She has an indwelling Weeks catheter. Urine in the bag is clear. MUSCULOSKELETAL: No clubbing, no cyanosis. Pulses are 2+. C&S: No focal deficits. Power 5/5 in all extremities. LAB REVIEW: CBC showed a WBC of 10.3, hemoglobin 10.3, platelets are 229. BMP showed sodium 143, potassium 4.1, chloride 113, bicarbonate 24, BUN 33, creatinine is 2.2; it was 2.5 yesterday. Magnesium 1.7. Albumin is 2.1. MICROBIOLOGY: Repeat blood cultures from July 21 are negative so far. CURRENT INPATIENT MEDICATIONS: The patient's medications were all reviewed by myself. She was started on IV Cefepime on July 24. She is getting one gram q. 12 hourly. The patient was getting IV normal saline which I have stopped and I have started her on half normal saline because of postobstructive diuresis. She continues to be on oral sodium bicarbonate and no other significant change in the medications today as compared with yesterday. ASSESSMENT AND PLAN: 1. Acute renal failure superimposed on chronic kidney disease - The patients renal function is significantly getting better after treatment of urinary tract infection and placement of left sided nephrostomy. Continue gentle IV fluid hydration. IV fluids will be stopped tonight. The patient is having postobstructive diuresis. She was advised and encouraged to drink more liquids orally. 2. Acute pyelonephritis secondary to pseudomonas urinary tract infection - The patient has left sided hydronephrosis. She got a left sided percutaneous nephrostomy. Her leukocytosis is getting better. 3. Hematuria it has resolved after placement of a new nephrostomy tube. 4. Metabolic acidosis it is controlled with the current dose of sodium bicarbonate, 325 mg p.o. three times a day. MTDD
--- NOTE | 2020-07-28 10:52 | IPN ---
DATE: 07/27/2020 SUBJECTIVE: The patient was seen and examined at the bedside today morning. Her renal function is stable. Creatinine is at 2.2. She is making a good amount of urine. IV fluids were stopped yesterday. The patient is afebrile, however she does report that she had soaking sweats last night. She continues to be on IV antibiotics. OBJECTIVE: VITAL SIGNS: Temperature is 97. Degrees Fahrenheit, blood pressure 140/90, pulse is 58, respiratory rate of 16, saturating 96% on room air. Intake and output urine output recorded as 3.7 liters yesterday, 1.3 liters so far today since overnight. Weight on the bed scale is 85.2 kg. PHYSICAL EXAMINATION: GENERAL APPEARANCE: The patient is awake, alert, oriented x3, laying in bed in no apparent distress. HEAD AND NECK: Extraocular muscles intact. Pupils are equally round and reactive to light. Mucous membranes are moist. Neck is supple. There is no jugular venous distention. CARDIOVASCULAR: S1, S2, regular rate. EXTREMITIES: No edema of the bilateral lower extremities. RESPIRATORY: Chest is clear to auscultation bilaterally. Bilaterally currently no rales or rhonchi. ABDOMEN: Soft, positive bowel sounds. She has a left sided percutaneous nephrostomy. Urine in the bag is clear. GENITOURINARY: She has an indwelling Weeks catheter. MUSCULOSKELETAL: No clubbing, no cyanosis. Pulses are 2+. MANUFACTURING OPERATOR: No focal deficits. Power is 5/5 in all extremities. LAB REVIEW: CBC showed a WBC of 10.9, hemoglobin 10.9, platelets are 260. BMP showed sodium 140, potassium 4, chloride 109, bicarbonate 24, BUN 34, creatinine is 2.2; it was 2.2 yesterday as well. CURRENT INPATIENT MEDICATIONS: The patient's medications were all reviewed by myself. She continues to be on IV Cefepime. IV fluids were stopped last night and no other significant change in her medications today as compared with yesterday. ASSESSMENT AND PLAN: 1. Acute renal failure superimposed on chronic kidney disease the patient's renal function is significantly better after treatment of pyelonephritis and obstructive uropathy. IV fluids have been stopped. Creatinine is stable. 2. Acute pyelonephritis secondary to pseudomonas aeruginosa urinary tract infection she continues to be on IV Cefepime and leukocytosis is stable and improving. 3. Hydronephrosis and left sided percutaneous nephrostomy - The patient is having good drainage on the nephrostomy and hematuria has resolved now. 4. Presence of bilateral ureteral stents - The patient has a history of bilateral hydronephrosis. She has stents in both sides. She is having a good urine output from the Weesk catheter as well. 5. Acidosis it is controlled with oral sodium bicarbonate. 6. Disposition - The patient has a PICC line. She hopefully will be discharged home tomorrow with IV antibiotics with a PICC line. RON
[2020-07-28] MEDS ORDERED: OXYC1TAB23 PO (11:19)
[2020-07-28] MEDS ORDERED: ACET-897 PO (11:22)
--- NOTE | 2020-07-28 11:47 | POST-OPPD ---
Postoperative Procedure Note Date Of Procedure: Jul 24, 2020 Time Of Procedure: 16:00 Full procedure report. IR Nephrostomy to nephro ureteral catheter conversion. IR Nephrostogram and ureterogram. Clinical information: Ureteral strictures status post cervical cancer treatment. Managed with bilateral ureteral stents, blocked left ureteral stent with worsening renal failure and urosepsis now being managed with the left nephrostomy catheter. Persistent hematuria from left nephrostomy catheter. Physician: Dr. Duenas. Procedure: The patient was advised of the benefits, risks and alternatives of the procedure and informed consent was obtained. The time-out was performed with verification of the patient's name, MRN, site of procedure and type of procedure to be performed. The patient was positioned in the prone position on the angiographic table. The site was prepped and draped in the usual sterile fashion. Moderate sedation was performed by the physician including the presence of an independent trained RN who assisted and monitored the patient's level of consciousness and physiologic status. Following the administration of fentanyl and Versed , the physician spent 45 minutes of continuous face to face time with the patient A dry house wheeler radiograph reveals a left nephrostomy catheter in expected location. Bilateral double-J ureteral stents. An initial nephrostogram and ureterogram was performed through the preexisting catheter confirming nephrostomy pigtail positioned in the renal collecting system. There is no passage of contrast down the ureter in the existing internal stent concluding that the left internal stent is occluded. The catheter was cut, an Amplatz wire was passed into the renal collecting system. The preexisting nephrostomy catheter was removed over the wire. A kumpe catheter was advanced over the wire and used under fluoroscopy guidance to catheterize the proximal left ureter. Injection of contrast confirmed intraureteral location. The catheter in conjunction with a wire was then used to catheterize the left mid and distal ureter. The catheter was removed over the wire. A 5 Senegalese Ansell sheath was advanced over the wire under fluoroscopy guidance to the distal left ureter. An [id number] ureterogram was performed which demonstrates intraureteral location and distal ureteral occlusion. The catheter in conjunction with the wire was then advanced through the sheath and used to catheterize the bladder. Injection of contrast to the catheter confirms location within the bladder. The catheter and sheath were removed over the wire. A 10 Senegalese 26 cm nephroureteral catheter was then advanced over the wire, under fluoroscopic guidance and positioned with the distal pigtail in the bladder and the proximal radiopaque marker in the renal pelvis. The wire was removed. Injection of contrast through the nephroureteral catheter confirms location within the renal collecting system, ureter and bladder. No extravasation from the kidney, ureter or bladder. The catheter was secured in position with 2-0 Prolene and a sterile dressing was applied to the site. The catheter was placed gravity drainage. The patient tolerated the procedure well and was returned to the PRU in stable condition. EBL: Less than 5 ml. Complications: None. Conclusion: 1. Nephrostogram and ureterogram demonstrated occluded left internal stent. 2. Successful left nephrostomy tube to nephroureteral catheter conversion for hematuria. 3. Patient to follow-up in IR clinic in 6 weeks to discuss ongoing management in light of urology management of internal stents. Thank you this referral. Cc DAVID Hays Dr[address] MD Jul 28, 2020 11:47
[2020-07-28 12:31] VITALS: BP 124/69
--- NOTE | 2020-07-28 14:45 | DS.PDOC ---
Discharge Summary General Date of Admission Jul 19, 2020 at 12:38 Date of Discharge 07/28/20 Attending Physician: Nimo Pat MD Discharge Summary HISTORY OF PRESENT ILLNESS: 60-year-old female with a history of cervical cancer treated with radiation in 1991, atonic bladder, now with indwelling Fernando, CK, stage IV, hypertension, secondary hyperparathyroidism and history of ureteral strictures presented to the ED with 2 day history of fevers, chills, malaise, diaphoresis, lower abdominal pain and left flank pain. She reports having turbid foul-smelling urine. Her urologist is Dr. Dumas. She also sees Dr. Sparrow. She said numerous admissions in the past 2 years for pyelonephritis. She does not take suppressive antibiotic therapy. Her ureteral stents were last exchanged on on 06/20/[address] Dumas. On arrival to ED, she is afebrile, pulse 75, respiratory 20, blood pressure 140/70, pulse oximetry 90% on room air. White blood cell count 9.6. Hemoglobin 14.9. Sodium 140, potassium 4.2. BUN 54. Creatinine 3.[address] of the abdomen and pelvis with and without contrast showed marked hydronephrosis on the left kidney with presence of ureteral stents bilaterally. Of note, patient reports that she drinks 5 beers per day, last drink 07/18/20. She denies ever having episodes of etoh withdrawal, seizures or hallucinations. HOSPITAL COURSE: Patient continued on IV abx for acute complicated pyelonephritis. On 07/20/20 patient went for bilateral ureteral stent placement by Dr. Howell. Nephrostomy tube placement 07/21/20 for left hydronephrosis. UTI was identified as pseudomonas and abx were changed. Patient experienced hematuria s/p left nephrostomy tube placement, being on lovenox. On 07/24/20 patient had nephrostomy to nephroureteral catheter conversion with hematuria later improving. Acute kidney injury continued to improve with IVFs, tubes, stents in place. H/h initially dropped but later improved gradually. Denies shortness of breath, n/v/d but admits to lethargy. Metabolic acidosis remained stable on TID sodium bicarb. Nephrology and IR followed closely. On 07/28/20 it was decided to discharge home with continued IV abx Cefepime Q12 H for additional 7 days. She will need f/u with IR in 6 weeks, nephrology within 1 week. Home health infusion services are to help with removal of PICC line. Dr. Sparrow to manage abx as o/p. At time of discharge patient had indwelling fernando catheter and left nephroureteral catheter per nephrology's request. She denied chest pain, shortness of breath, n/v/d, fevers, chills, abdominal pain, weakness. PAST MEDICAL HISTORY: 1. Cervical cancer treated with radiation therapy in 1991 2. Radiation cystitis 3. Atonic bladder 4. Secondary hyperparathyroism 5. CKDIV 6. Hypertension 7. Chronic anemia PAST SURGICAL HISTORY: appendectomy bilateral ureteral stents last replaced 06/20/2020 SOCIAL HISTORY: [id number] history, quit smoking 2002 Drinks up to 5 beers daily last drink day before admission As illicit drug use FAMILY HISTORY: Family history of diabetes, hypertension, coronary artery disease Patient unable to specify relative specifically ALLERGIES: Please see below. DISCHARGE MEDICATIONS: Please see below. PHYSICAL EXAMINATION: VITAL SIGNS: please see below General: NAD, comfortable and more awake this AM HEENT: PERRLA, EOMI, sclerae clear Neck: supple, normal ROM, no JVD Respiratory: lungs CTAB, no wheeze, no rales, no crackles CVS: RRR, normal S1, S2, no murmurs Abdo: soft, no masses, no hepatosplenomegaly, BS+ Back/flank: left flank catheter with yellow urine Extremities: no edema, pulses 2+ lower : fernando catheter in place, yellow urine MSK: no joint deformities, normal ROM, left CVA mild tenderness to percussion. Neuro: no focal neuro deficits, moving all 4 extremities, CN2-12 intact. Strength 5/5 in all 4 extremities. No nystagmus. Psych: calm, cooperative, AAO x 3 ASSESSMENT: 60-year-old female with a history of cervical cancer treated with radiation in 1991, atonic bladder, now with indwelling Fernando, CK, stage IV, hypertension, secondary hyperparathyroidism and history of ureteral strictures admitted and treated for hydronephrosis, complicated pyelonephritis with pseudomonas UTI, sepsis, acute kidney injury. Discharging today in improved condition. PLAN: #Pseudomonas UTI, complicated pyelonephritis. Resolved sepsis -WBC now wnl, afebrile -UCx: pseudomonas -BCx NG at 24 hrs -Per nephrology, will need to continue 7 days of IV abx after discharge. Home health arranged -Completed 4 days meropenem, c/w cefepime (Day 4) #L kidney hydronephrosis s/p nephrostomy tube 07/21/20 -07/25/20 had nephrostomy to nephroureteral catheter conversion. -Dr. Howell exchanged bilateral ureteral stents 07/20/20 -Cr improved further to baseline. -Patient will be d/verenice with nephroureteral catheter and fernando -Nephrology, IR and urology to follow as o/p #Hematuria likely s/p nephrostomy tube placement vs. being on lovenox (last administered 07/22/20 in AM) -POD 4 of nephrostomy to nephroureteral catheter conversion, this corrected hematuria -H/H stable -CBC to be monitored by PCP #Acute kidney injury on CKD IV. Resolved. -Cr at baseline (baseline ~2.3-2.5. ) -Avoid further nephrotoxic medications -Nephrology following #Metabolic acidosis -C/w sodium bicarb 325 mg PO TID #Secondary hyperparathyroidism -c/w calcium-vitD #HTN -Stable - c/w home BB #Atonic bladder - indwelling fernando #Hypothyroidism - c/w home levothyroxine #ETOH use -No s/s of withdrawl #GERD - pantoprazole 40 mg PO daily DISPOSITION: PT cleared patient for home, no services need. Plan is likely d/c home today to complete a 7 days course of IV cefepime. Will need f/u with Dr. Sparrow and PCP at discharge. She will need to f/u with urology and IR as well. TIME SPENT ON DISCHARGE: Greater than 30 minutes. Vital Signs/I&Os Vital Signs Date Time Temp Pulse Resp B/P (MAP) Pulse Ox O2 Delivery O2 Flow Rate FiO2 07/28/20 12:31 97.3 68 18 124/69 (87) 97 Room Air 07/24/20 15:55 2 I&O- Last 24 Hours up to 6 AM 07/28/20 06:00 Intake Total 1370 ml Output Total 3195 ml Balance -1825 ml Laboratory Data Labs 24H Laboratory Tests 2 07/28/20 05:20: Nucleated Red Blood Cells % (auto) 0.0, Anion Gap 7L, Glomerular Filtration Rate 21.1L, Calcium Level 8.9, Total Bilirubin 0.3, Aspartate Amino Transf (AST/SGOT) 20, Alanine Aminotransferase (ALT/SGPT) 38, Alkaline Phosphatase 69, Total Protein 7.2, Albumin 2.4L, Albumin/Globulin Ratio 0.5L CBC/BMP Laboratory Tests 07/28/20 05:20 Microbiology Microbiology 07/21/20 Blood Culture - Final, Complete NO GROWTH AFTER 5 DAYS 07/21/20 Blood Culture - Final, Complete NO GROWTH AFTER 5 DAYS 07/21/20 Urine Culture - Final, Complete 07/19/20 Blood Culture - Final, Complete NO GROWTH AFTER 5 DAYS 07/19/20 Urine Culture - Final, Complete Pseudomonas Aeruginosa 07/19/20 Blood Culture - Final, Complete NO GROWTH AFTER 5 DAYS Discharge Medications Scheduled Calcium Carbonate/Vitamin D3 (Calcium 500-Vit D3 200 Tablet) 1 Each Tablet, 1 TAB PO DAILY, (Reported) Levothyroxine Sodium (Levothyroxine Sodium) 150 Mcg Tablet, 150 MCG PO DAILY, (Reported) Metoprolol Tartrate (Metoprolol Tartrate) 25 Mg Tablet, 25 MG PO BID, (Reported) Pantoprazole Sodium (Pantoprazole Sodium) 40 Mg Tablet.dr, 40 MG PO DAILY, (Reported) NOON Sodium Bicarbonate (Sodium Bicarbonate) 325 Mg Tablet, 325 MG PO TID, (Reported) Vit B Comp No.3/Folic/C/Biotin (Helen-Layo Rx Tablet) 1 Each Tablet, 1 TAB PO DAILY, (Reported) Scheduled PRN Acetaminophen (Tylenol Extra Strength) 500 Mg Tablet, 500 MG PO Q8HP PRN for PAIN / FEVER Hydrocodone/Acetaminophen (Hydrocodone-Acetamin 5-325 mg) 1 Each Tablet, 1 TAB PO Q12H PRN for PAIN, (Reported) Oxycodone HCl/Acetaminophen (Oxycodone-Acetaminophen 5-325) 1 Each Tablet, 1 TAB PO TIDP PRN for pain Allergies Coded Allergies: Quinolones (Verified Allergy, Intermediate, tequin - blisters on lips, 07/24/20) potassium (Verified Allergy, Intermediate, HIVES, POUNDING HEARTBEAT, 06/13) povidone-iodine (Verified Allergy, Intermediate, rash/burn, 06/13/20) soap (Verified Allergy, Intermediate, rash/burn, 06/13/20) Sulfa (Sulfonamide Antibiotics) (Verified Allergy, Unknown, 06/13/20) epoetin reina (Verified Allergy, Unknown, 06/13/20) ibuprofen (Verified Allergy, Unknown, 06/13/20) trimethoprim (Verified Allergy, Unknown, 06/13/20) Nimo Pat MD Jul 28, 2020 14:45
[2020-07-28] MEDS ORDERED: AZITHROMYCIN INJ 500MG VIAL (J0456 PER 500MG) As Ordered ONE (15:26)
--- NOTE | 2020-07-29 08:52 | IPN ---
DATE: 07/28/2020 SUBJECTIVE: The patient was seen and examined at the bedside today morning. Her creatinine has slightly bumped up to 2.5, however, she reports that that is her baseline. There are no fevers, but she does report some rigors. She continues to be on I.V. antibiotics for pseudomonas UTI. OBJECTIVE: VITAL SIGNS: Temperature 97.3 degrees Fahrenheit, blood pressure 124/69, pulse 68, respiratory rate 18, saturating 97% on room air. INTAKE AND OUTPUT: Urine output recorded as 1.7 liters yesterday, 1 liter so far today since overnight. Weight in the bed scale is 81.5 kg. PHYSICAL EXAMINATION: GENERAL: Patient is awake, alert, oriented x3, sitting up in the bed in no apparent distress. HEAD AND NECK: Extraocular muscles intact. Pupils equally round and reactive to light. Mucous membranes are moist. Neck is supple. There is no JVD. CARDIOVASCULAR: S1, S2, regular rate. EXTREMITIES: No edema of the bilateral lower extremities. RESPIRATORY: Chest is clear to auscultation bilaterally. Bilateral equal air entry. No rales or rhonchi. ABDOMEN: Soft, positive bowel sounds. GENITOURINARY: She has a left-sided percutaneous nephrostomy and she has an indwelling Weeks catheter. MUSCULOSKELETAL: No clubbing or cyanosis. FULLING MACHINE OPERATOR: No focal deficits. Power 5/5 in all extremities. LAB REVIEW: CBC showed WBC 11.6, hemoglobin 11.2, platelets 283,000. BMP showed sodium 139, potassium 3.9, chloride 109, bicarbonate 23, BUN 39, creatinine 2.5. CURRENT INPATIENT MEDICATIONS: The patient's medications were all reviewed by myself. There is no significant change in the medications today as compared with yesterday. ASSESSMENT AND PLAN: 1. Acute renal failure superimposed on chronic kidney disease: It was secondary to hydronephrosis and pyelonephritis with sepsis. Renal function has improved back to baseline. 2. Acute pyelonephritis secondary to pseudomonas urinary tract infection: Patient is currently on Cefepime and she will be discharged home on I.V. antibiotics through the PICC line as well. 3. Left-sided hydronephrosis: Patient got left-sided percutaneous nephrostomy, she will follow-up with interventional radiology as an outpatient. DISPOSITION: Patient is optimized from a nephrology standpoint to be discharged home. She will need to follow-up with Dr. Sparrow within two weeks after discharge from the hospital. RON
== END 2020-07-28 15:39 | disposition home health service (06) | DRG 659 ==
LOC: M ED 09:22 → M ED INP 12:38 → M MS5PR 14:50 → M PCU 07-21 12:02
PROVIDERS: ADMIT Family Medicine; ATTEND Internal Medicine
PROC: 0TP980Z Removal of Drainage Device from Ureter, Via Natural or Artificial Opening Endoscopic (ICD-10-PCS; 2020-07-20)
PROC: BT0 Imaging, Urinary System, Plain Radiography (ICD-10-PCS; 2020-07-20)
PROC: 0T788DZ Dilation of Bilateral Ureters with Intraluminal Device, Via Natural or Artificial Opening Endoscopic (ICD-10-PCS; principal; 2020-07-20 10:05)
PROC: 0T9130Z Drainage of Left Kidney with Drainage Device, Percutaneous Approach (ICD-10-PCS; 2020-07-21)
PROC: 8E0W3EZ Fluorescence Guided Procedure of Trunk Region, Percutaneous Approach (ICD-10-PCS; 2020-07-21)
PROC: BT42ZZZ Ultrasonography of Left Kidney (ICD-10-PCS; 2020-07-21)
PROC: 0T9B30Z Drainage of Bladder with Drainage Device, Percutaneous Approach (ICD-10-PCS; 2020-07-24)
PROC: 0T773DZ Dilation of Left Ureter with Intraluminal Device, Percutaneous Approach (ICD-10-PCS; 2020-07-24)
PROC: 02HV33Z Insertion of Infusion Device into Superior Vena Cava, Percutaneous Approach (ICD-10-PCS; 2020-07-24)
DX: T83.192A Other mechanical complication of indwelling ureteral stent, initial encounter (principal); A41.9 Sepsis, unspecified organism; N30.41 Irradiation cystitis with hematuria; E87.2 Acidosis; N10 Acute pyelonephritis; N18.4 Chronic kidney disease, stage 4 (severe); N25.81 Secondary hyperparathyroidism of renal origin; N17.9 Acute kidney failure, unspecified; N13.1 Hydronephrosis with ureteral stricture, not elsewhere classified; I12.9 Hypertensive chronic kidney disease with stage 1 through stage 4 chronic kidney disease, or unspecified chronic kidney disease; D64.9 Anemia, unspecified; E03.9 Hypothyroidism, unspecified; R33.9 Retention of urine, unspecified; K21.9 Gastro-esophageal reflux disease without esophagitis; N31.2 Flaccid neuropathic bladder, not elsewhere classified; Z93.6 Other artificial openings of urinary tract status; Z90.49 Acquired absence of other specified parts of digestive tract; Z87.891 Personal history of nicotine dependence; Z79.899 Other long term (current) drug therapy; Z88.1 Allergy status to other antibiotic agents; Z88.2 Allergy status to sulfonamides; Z85.41 Personal history of malignant neoplasm of cervix uteri; Z92.3 Personal history of irradiation; Z88.8 Allergy status to other drugs, medicaments and biological substances; Z88.6 Allergy status to analgesic agent; Z91.048 Other nonmedicinal substance allergy status; Z79.891 Long term (current) use of opiate analgesic; B96.5 Pseudomonas (aeruginosa) (mallei) (pseudomallei) as the cause of diseases classified elsewhere; Y83.1 Surgical operation with implant of artificial internal device as the cause of abnormal reaction of the patient, or of later complication, without mention of misadventure at the time of the procedure; Z20.828 Contact with and (suspected) exposure to other viral communicable diseases

== ENCOUNTER → 2020-08-04 | Outpatient (REF) | payer MEDICARE ==
[~2020-08-04] MED LIST changes: -LORazepam 2 MG TAB PO PRN; +OXYC1TAB23 PO
[2020-08-04 14:49] LABS: APPEARANCE, URINE HAZY (CLEAR); BACTERIA, URINE AUTO NEGATIVE (NEGATIVE); BILIRUBIN, URINE AUTO NEGATIVE (NEGATIVE); BLOOD, URINE BLOOD 2+ (NEGATIVE); COLOR, URINE YELLOW (YELLOW); GLUCOSE, URINE (UA) AUTO NEGATIVE (NEGATIVE); KETONE, URINE AUTO NEGATIVE (NEGATIVE); LEUKOCYTE ESTERASE, URINE AUTO 3+ (NEGATIVE); NITRITE, URINE AUTO NEGATIVE (NEGATIVE); PROTEIN, URINE AUTO 2+ mg/dL (NEGATIVE); RBC, URINE AUTO 58 /HPF (0-3); SPECIFIC GRAVITY URINE AUTO 1.005 (1.002-1.035); SQUAMOUS EPITHELIAL CELL UR AU 0 /HPF (0-6); UROBILINOGEN, URINE AUTO 0.2 mg/dL (0.0-2.0); WBC, URINE AUTO 35 /HPF (0-3)
[2020-08-04 14:56] LABS: BASO # 0.1 10^3/uL (0.0-0.2); BASO % 0.8 % (0.0-1.0); EOS # 0.3 10^3/uL (0.0-0.5); EOS % 2.3 % (0.0-3.0); HEMATOCRIT 35.6 % (36.0-47.0); HEMOGLOBIN 10.9 g/dl (12.0-15.5); LYMPH # 2.5 10^3/uL (1.5-5.0); LYMPH % 21.7 % (24.0-44.0); MEAN CORPUSCULAR HEMOGLOBIN 27.2 pg (27.0-33.0); MEAN CORPUSCULAR HGB CONC 30.6 g/dl (32.0-36.5); MEAN CORPUSCULAR VOLUME 88.8 fl (80.0-96.0); MONO # 0.7 10^3/uL (0.0-0.8); MONO % 6.4 % (0.0-5.0); NEUTROPHILS # 7.7 10^3/uL (1.5-8.5); PLATELET COUNT, AUTOMATED 346 10^3/uL (150-450); RED BLOOD COUNT 4.01 10^6/uL (4.00-5.40); WHITE BLOOD COUNT 11.5 10^3/uL (4.0-10.0)
[2020-08-04 15:17] LABS: ALBUMIN 3.1 GM/DL (3.2-5.2); CALCIUM LEVEL 9.2 MG/DL (8.5-10.1); CREATININE FOR GFR 2.22 MG/DL (0.55-1.30); GLOMERULAR FILTRATION RATE 24.2 (>51); PHOSPHORUS LEVEL 2.9 MG/DL (2.5-4.9); POTASSIUM SERUM 4.4 MEQ/L (3.5-5.1)
[2020-08-04 15:28] LABS: PTH INTACT 94.1 PG/ML (18.5-88.0)
== END ==
LOC: M LAB REF 14:05
PROVIDERS: ATTEND Nurse Practitioner Family
DX: N18.4 Chronic kidney disease, stage 4 (severe) (principal); D63.1 Anemia in chronic kidney disease; N25.81 Secondary hyperparathyroidism of renal origin; M10.9 Gout, unspecified

== ENCOUNTER → 2020-08-06 | Outpatient (REF) | payer MEDICARE ==
[2020-08-06 18:15] LABS: APPEARANCE, URINE CLEAR (CLEAR); BACTERIA, URINE AUTO 1+ (NEGATIVE); BILIRUBIN, URINE AUTO NEGATIVE (NEGATIVE); BLOOD, URINE BLOOD 2+ (NEGATIVE); COLOR, URINE STRAW (YELLOW); GLUCOSE, URINE (UA) AUTO NEGATIVE (NEGATIVE); KETONE, URINE AUTO NEGATIVE (NEGATIVE); LEUKOCYTE ESTERASE, URINE AUTO 3+ (NEGATIVE); NITRITE, URINE AUTO NEGATIVE (NEGATIVE); PROTEIN, URINE AUTO 2+ mg/dL (NEGATIVE); RBC, URINE AUTO 9 /HPF (0-3); SPECIFIC GRAVITY URINE AUTO 1.005 (1.002-1.035); SQUAMOUS EPITHELIAL CELL UR AU 0 /HPF (0-6); UROBILINOGEN, URINE AUTO 0.2 mg/dL (0.0-2.0); WBC, URINE AUTO 21 /HPF (0-3)
== END ==
LOC: M LAB REF 16:51
PROVIDERS: ATTEND Nurse Practitioner Family
DX: N39.0 Urinary tract infection, site not specified (principal)

== ENCOUNTER 2020-09-03 11:23 | Inpatient (IN) | payer MEDICARE ==
[~2020-09-03] VITALS: Ht 162.6 cm; Wt 83.8 kg
[2020-09-03] MEDS ORDERED: MORPHINE 2 MG/ML 1ML VIAL (J2270) IV ONE ×2 (12:00→16:30)
[2020-09-03] MEDS ORDERED: ONDANSETRON 4MG/2ML VIAL IV ONE (12:00)
[2020-09-03 12:02] LABS: APPEARANCE, URINE CLOUDY (CLEAR); BACTERIA, URINE AUTO 2+ (NEGATIVE); BILIRUBIN, URINE AUTO NEGATIVE (NEGATIVE); BLOOD, URINE BLOOD 2+ (NEGATIVE); COLOR, URINE YELLOW (YELLOW); GLUCOSE, URINE (UA) AUTO NEGATIVE (NEGATIVE); KETONE, URINE AUTO NEGATIVE (NEGATIVE); LEUKOCYTE ESTERASE, URINE AUTO 3+ (NEGATIVE); MUCUS, URINE SMALL (NEGATIVE); NITRITE, URINE AUTO NEGATIVE (NEGATIVE); PROTEIN, URINE AUTO 2+ mg/dL (NEGATIVE); RBC, URINE AUTO 29 /HPF (0-3); SPECIFIC GRAVITY URINE AUTO 1.005 (1.002-1.035); SQUAMOUS EPITHELIAL CELL UR AU 0 /HPF (0-6); UROBILINOGEN, URINE AUTO 0.2 mg/dL (0.0-2.0); WBC, URINE AUTO 146 /HPF (0-3)
[2020-09-03 13:44] LABS: BASO # 0.1 10^3/uL (0.0-0.2); BASO % 0.6 % (0.0-1.0); EOS # 0.2 10^3/uL (0.0-0.5); EOS % 2.2 % (0.0-3.0); HEMATOCRIT 40.8 % (36.0-47.0); HEMOGLOBIN 12.6 g/dl (12.0-15.5); LYMPH # 2.3 10^3/uL (1.5-5.0); MEAN CORPUSCULAR HEMOGLOBIN 26.7 pg (27.0-33.0); MEAN CORPUSCULAR HGB CONC 30.9 g/dl (32.0-36.5); MEAN CORPUSCULAR VOLUME 86.4 fl (80.0-96.0); MONO # 0.5 10^3/uL (0.0-0.8); MONO % 5.3 % (0.0-5.0); NEUTROPHILS # 6.8 10^3/uL (1.5-8.5); NEUTROPHILS % 68.4 % (36.0-66.0); PLATELET COUNT, AUTOMATED 238 10^3/uL (150-450); RED BLOOD COUNT 4.72 10^6/uL (4.00-5.40); WHITE BLOOD COUNT 9.9 10^3/uL (4.0-10.0)
--- NOTE | 2020-09-03 14:14 | REP ---
INDICATION: R flank pain, dysuria, hematuria, ckd COMPARISON: Comparison CT study July 19, 2020.. TECHNIQUE: Helical scanning is acquired in 4 mm axial images were reformatted. Coronal and sagittal MPR images were generated and reviewed. FINDINGS: Digital preliminary floor runner radiograph demonstrates bilateral double-pigtail dri to all stents in place. On the left there is also a percutaneous nephroureterostomy stent in place as well. Bowel gas pattern is normal. The lung bases are essentially clear on axial CT images. Minimal bibasilar fibrosis. There are granulomatous calcifications scattered in the spleen. No focal liver lesion is seen. Normal adrenal glands. No abnormality is noted in the gallbladder or in the pancreas. Small and large bowel loops are unremarkable. There are some left colonic diverticuli. No uterine abnormality is observed. A small cyst is seen in the left ovary measuring 2.4 cm in greatest diameter. There is a Weeks catheter in the urinary bladder which is otherwise empty. There is evidence of bilateral renal cortical thinning. The PCNU, and the bilateral double pigtail ureteral stents appear in good position. The left hydronephrosis is improved compared with the July 19, 2020 study although there is still hydronephrosis on the left. Right kidney is essentially unchanged in appearance.. No intrarenal or ureteral calculus is observed. Distally the pigtail loops and in the urinary bladder. No retroperitoneal mass or adenopathy is observed. There is a retroaortic left renal vein noted incidentally unchanged. IMPRESSION: Left-sided percutaneous nephroureterostomy and bilateral pigtailed ureteral stents in good position. Improved left-sided hydronephrosis. Left colonic diverticulosis. Small left ovarian cyst. Otherwise no acute abnormality. <Electronically signed by Emile Hester > 09/03/20 1020
[2020-09-03 14:16] LABS: ALBUMIN 3.4 GM/DL (3.2-5.2); ALT/SGPT 20 U/L (12-78); AMYLASE 95 U/L (25-115); BILIRUBIN,DIRECT < 0.1 MG/DL (0.0-0.2); BILIRUBIN,TOTAL 0.4 MG/DL (0.2-1.0); BLOOD UREA NITROGEN 49 MG/DL (7-18); CALCIUM LEVEL 9.6 MG/DL (8.5-10.1); CARBON DIOXIDE LEVEL 22 MEQ/L (21-32); CHLORIDE LEVEL 109 MEQ/L (98-107); CREATININE FOR GFR 2.39 MG/DL (0.55-1.30); GLOMERULAR FILTRATION RATE 22.2 (>51); GLUCOSE, FASTING 90 MG/DL (70-100); LIPASE 404 U/L (73-393); POTASSIUM SERUM 4.4 MEQ/L (3.5-5.1); SODIUM LEVEL 141 MEQ/L (136-145); TOTAL PROTEIN 7.6 GM/DL (6.4-8.2)
[2020-09-03] MEDS ORDERED: ACET-897 PO (15:19)
[2020-09-03] MEDS ORDERED: CEFEPIME HCL 1 GM in D5W MINI-BAG PLUS 50 ML IV ONE (15:45)
--- NOTE | 2020-09-03 16:13 | HPEPDOC ---
General Date of Admission 09/03/2020 Date of Service: Sep 03, 2020 Attending Physician: MASSIMO MONTAGUE MD Chief Complaint HISTORY OF PRESENT ILLNESS: 60-year-old female with a history of cervical cancer treated with radiation in 1991, atonic bladder, now with indwelling Fernando, CKD, stage IV, hypertension, secondary hyperparathyroidism and history of ureteral strictures, presents to ER with cc of R flank pain that started on Tuesday which is described as a sharp pain. She saw very turbid foul smelling urine on Tuesday but since the pain resolved, she said that she didn't think much of it until she saw blood in her fernando this morning. The blood did not saturate the fernando bag. She denies fevers, chills, malaise, but does have suprapubic tenderness. Of note, she has had numerous admissions in the past 2 years for pyelonephritis and has recently just finished a 7 day course of cefepime via a PICC line back in the end of Jun, 2020. Imaging of abd/pelvis shows L sided percutaneous neprhoureterostomy and bilateral pigtailed ureteral stents in good position. Also shows improved L sided hydronephrosis. PAST MEDICAL HISTORY: 1. Cervical cancer treated with radiation therapy in 1991 2. Radiation cystitis 3. Atonic bladder 4. Secondary hyperparathyroism 5. CKD stage IV 6. Hypertension 7. Chronic anemia PAST SURGICAL HISTORY: Appendectomy Bilateral ureteral stents last replaced 06/20/2020 SOCIAL HISTORY: [id number] history, quit smoking 2002 occasional ETOH use As illicit drug use FAMILY HISTORY: Family history of diabetes, hypertension, CAD ALLERGIES: Please see below. REVIEW OF SYSTEMS: CONSTITUTIONAL: No fevers, chills, diaphoresis overnight HEENT: No blurred vision, loss of vision, or headache CARDIOVASCULAR: patient denies chest pain, palpitations. RESPIRATORY: patient denies shortness of breath, cough, hemoptysis. GASTROINTESTINAL: patient denies abdominal pain, n/v/d, blood in stool. GENITOURINARY: Suprapubic tenderness, dysuria, R flank pain SKIN: patient denies rashes. MUSCULOSKELETAL: patient denies joint pain, neck pain. NEUROLOGICAL:No focal neuro deficits PSYCHIATRIC: appropriate mood and affect ENDOCRINE: patient denies polyuria, heat intolerance, cold intolerance HEMATOLOGIC/LYMPHATIC: patient denies easy bruising. PHYSICAL EXAMINATION: VITAL SIGNS: please see below General: NAD, comfortable HEENT: PERRLA, EOMI, sclerae clear Neck: supple, normal ROM, no JVD Respiratory: lungs CTAB, no wheeze, no rales, no crackles CVS: RRR, normal S1, S2, no murmurs Abdomen: soft, no masses, no hepatosplenomegaly, BS+, lower abdomen tender to palpation : suprapubic tenderness, R sided CVA tenderness Extremities: no edema, pulses 2+ lower MSK: no joint deformities, normal ROM, left CVA tenderness to percussion Neuro: no focal neuro deficits, moving all 4 extremities, CN2-12 intact. Strength 5/5 in all 4 extremities. No nystagmus. Psych: calm, cooperative, AAO x 3 LABORATORY DATA: See below MICROBIOLOGY: Pending urine cx from fernando and nephrostomy tube Home Medications Scheduled Calcium Carbonate/Vitamin D3 (Calcium 500-Vit D3 200 Tablet) 1 Each Tablet, 1 TAB PO DAILY, (Reported) Levothyroxine Sodium (Levothyroxine Sodium) 150 Mcg Tablet, 150 MCG PO DAILY, (Reported) Metoprolol Tartrate (Metoprolol Tartrate) 25 Mg Tablet, 25 MG PO BID, (Reported) Pantoprazole Sodium (Pantoprazole Sodium) 40 Mg Tablet.dr, 40 MG PO DAILY, (Reported) Sodium Bicarbonate (Sodium Bicarbonate) 325 Mg Tablet, 325 MG PO TID, (Reported) Vit B Comp No.3/Folic/C/Biotin (Helen-[facility]ayo Rx Tablet) 1 Each Tablet, 1 TAB PO DAILY, (Reported) Scheduled PRN Acetaminophen (Tylenol Extra Strength) 500 Mg Tablet, 1,000 MG PO TID PRN for PAIN, (Reported) Hydrocodone/Acetaminophen (Hydrocodone-Acetamin 5-325 mg) 1 Each Tablet, 1 TAB PO TID PRN for PAIN, (Reported) Allergies Coded Allergies: Quinolones (Verified Allergy, Intermediate, tequin - blisters on lips, 07/24/20) potassium (Verified Allergy, Intermediate, HIVES, POUNDING HEARTBEAT, 06/13/20) povidone-iodine (Verified Allergy, Intermediate, rash/burn, 06/13/20) soap (Verified Allergy, Intermediate, rash/burn, 06/13/20) Sulfa (Sulfonamide Antibiotics) (Verified Allergy, Unknown, 06/13/20) epoetin reina (Verified Allergy, Unknown, 06/13/20) ibuprofen (Verified Allergy, Unknown, 06/13/20) trimethoprim (Verified Allergy, Unknown, 06/13/20) A-FIB/CHADSVASC A-FIB History Current/History of A-Fib/PAF?: No Current PO Anticoag Therapy: No Vital Signs Vital Signs Date Time Temp Pulse Resp B/P (MAP) Pulse Ox O2 Delivery O2 Flow Rate FiO2 09/03/20 15:43 20 09/03/20 14:42 97.8 73 151/84 (106) 97 Room Air Laboratory Data Labs 24H Laboratory Tests 2 09/03/20 11:48: Urine Color YELLOW, Urine Appearance CLOUDYH, Urine pH 6.0, Urine Specific [place] 1.005, Urine Protein 2+H, Urine Glucose (Auto)(UA) NEGATIVE, Urine Ketones (Auto) NEGATIVE, Urine Blood 2+H, Urine Nitrite NEGATIVE, Urine Bilirubin NEGATIVE, Urine Urobilinogen 0.2, Urine Leukocyte Esterase (Auto) 3+H, Urine WBC (Auto) 146H, Urine RBC (Auto) 29H, Urine Hyaline Casts (Auto) 0, Urine Bacteria (Auto) 2+H, Urine Squamous Epithelial Cells 0, Urine Mucus (Auto) SMALL, Urine Sperm (Auto) 09/03/20 13:33: Immature Granulocyte % (Auto) 0.5, Neutrophils (%) (Auto) 68.4H, Lymphocytes (%) (Auto) 23.0L, Monocytes (%) (Auto) 5.3H, Eosinophils (%) (Auto) 2.2, Basophils (%) (Auto) 0.6, Neutrophils # (Auto) 6.8, Lymphocytes # (Auto) 2.3, Monocytes # (Auto) 0.5, Eosinophils # (Auto) 0.2, Basophils # (Auto) 0.1, Nucleated Red Blood Cells % (auto) 0.0, Anion Gap 10, Glomerular Filtration Rate 22.2L, Calcium Level 9.6, Total Bilirubin 0.4, Direct Bilirubin < 0.1, Aspartate Amino Transf (AST/SGOT) 18, Alanine Aminotransferase (ALT/SGPT) 20, Alkaline Phosphatase 77, Total Protein 7.6, Albumin 3.4, Albumin/Globulin Ratio 0.8L, Amylase Level 95, Lipase 404H 09/03/20 15:17: CBC/BMP Laboratory Tests 09/03/20 13:33 Microbiology Microbiology 09/03/20 Blood Culture, Received Pending 09/03/20 Blood Culture, Received Pending Assessment/Plan This is a 60-year-old female with a history of cervical cancer treated with radiation in 1991, atonic bladder, now with indwelling Fernando, CKD, stage IV, hyp ertension, secondary hyperparathyroidism and history of ureteral strictures who presents for R sided flank pain and dysuria since Tuesday. It's suspected that her recurrent UTIs and pyelonephritis and hydronephrosis are sequaele of the radiation from her cervical ca resulting in strictures of her ureters. She has a chronic indwelling fernando catheter due to complications resulting in atonic bladder. CT/pelvis CT from ER shows improved L sided hydronephrosis but had no mentions of R sided findings. On presentation, patient is afebrile, no leukocytosis, normotensive, COVID negative, AAOx3; however, with her significant genitourinary hx, she will be admitted for further workup and empiric abx will be started while we wait for urine cx's from both nephrostomy and fernando tube #UTI with suspected Pyelonephritis - complicated by ureteral stents and left sided nephrostomy tube - Afebrile and no leukocytosis - Pt has multiple positive urine cx with pseudomonas and has responded to cefepime as she is allergic to many abx drug classes - Pending urine cx from both nephrostomy tube and fernando - Case discussed with IR, will c/w antibiotics at this time - Will discuss with urology about stent replacements; scheduled for outpatient replacement next month - Will start on cefepime 1g IV q24h #CKD stage 4 -Cr is at her baseline 2.39 -Continue home med sodium bicarb -Patient follow with Dr. Black -Avoid neprhotoxins #Secondary hyperparathyroidism -Continue w calcium-vitD #HTN -Continue with home meds # Hypothyroidism -Continue home meds #GERD -Continue with protonix DVT ppx: TEDs/SCDs GI ppx: protonix Fluids NS @80cc/h Diet: 2g Na Code status: Full Plan / VTE VTE Prophylaxis Ordered?: Yes GME ATTESTATION GME ATTESTATION My faculty preceptor for this patient encounter was physically present during the encounter and was fully available. All aspects of the patient interview, examination, medical decision making process, and medical care plan development were reviewed and approved by the faculty preceptor. The faculty preceptor is aware and concurs with the plan as stated in the body of this note and will atte st to such by his/her cosignature. ATTENDING NOTE I, Massimo Montague, have independently examined this patient and performed my own physical exam, as well as reviewed the documentation and edited where necessary. I have discussed in detail with the resident / student the findings and plan of treatment as documented by the resident / student and edited their note. I agree with their findings and treatment plan and have edited their documentation. I will continue to follow the patient during this hospital stay. Sumi Pearson DO Sep 03, 2020 16:13 MASSIMO MONTAGUE MD Sep 04, 2020 07:23
[2020-09-03] MEDS ORDERED: CEFEPIME HCL 1 GM in D5W MINI-BAG PLUS 50 ML IV SCH ×2 (17:30→18:00)
[2020-09-03] MEDS ORDERED: NS 1,000 ML IV SCH (17:30)
[2020-09-03] MEDS ORDERED: ACETAMINOPHEN 500 MG TAB PO PRN (17:30)
[2020-09-03 20:45] VITALS: BP 168/98
[2020-09-03] MEDS: NORCO, ANEXSIA 5/325MG TABLET (HYDROcodone/ACETAMINOPHEN) PO PRN (21:03)
[2020-09-03] MEDS: NS 1,000 ML IV SCH (21:05)
[2020-09-03] MEDS: METOPROLOL TART 25 MG TABLET PO SCH (21:05)
[2020-09-03] MEDS: SODIUM BICARBONATE 325 MG TAB PO SCH (22:27)
[2020-09-04] MEDS: ACETAMINOPHEN TAB 650MG DOSE (2X325MG) PO PRN ×2 (02:22→12:18)
[2020-09-04 06:00] VITALS: BP 140/80
[2020-09-04] MEDS: NS 1,000 ML IV SCH ×2 (06:08→17:35)
[2020-09-04] MEDS: CEFEPIME HCL 1 GM in D5W MINI-BAG PLUS 50 ML IV SCH ×2 (06:08→17:34)
[2020-09-04] MEDS: LEVOTHYROXINE 150MCG TABLET (0.15MG) PO SCH (06:09)
[2020-09-04] MEDS: NORCO, ANEXSIA 5/325MG TABLET (HYDROcodone/ACETAMINOPHEN) PO PRN ×2 (06:47→18:47)
[2020-09-04 08:42] LABS: HEMATOCRIT 42.9 % (36.0-47.0); HEMOGLOBIN 13.6 g/dl (12.0-15.5); MEAN CORPUSCULAR HEMOGLOBIN 27.8 pg (27.0-33.0); MEAN CORPUSCULAR HGB CONC 31.7 g/dl (32.0-36.5); MEAN CORPUSCULAR VOLUME 87.7 fl (80.0-96.0); PLATELET COUNT, AUTOMATED 256 10^3/uL (150-450); RED BLOOD COUNT 4.89 10^6/uL (4.00-5.40); WHITE BLOOD COUNT 8.4 10^3/uL (4.0-10.0)
[2020-09-04] MEDS ORDERED: ENOXAPARIN 30MG/0.3ML SYRINGE (J1650 PER 10MG) SC SCH (09:00)
[2020-09-04 09:15] LABS: CALCIUM LEVEL 8.7 MG/DL (8.5-10.1); CREATININE FOR GFR 2.51 MG/DL (0.55-1.30); POTASSIUM SERUM 3.5 MEQ/L (3.5-5.1)
[2020-09-04] MEDS: METOPROLOL TART 25 MG TABLET PO SCH ×2 (09:40→19:44)
[2020-09-04] MEDS: PANTOPRAZOLE 40MG TAB (PROTONIX) PO SCH (09:40)
--- NOTE | 2020-09-04 10:38 | IPNPDOC ---
Subjective Date Seen The patient was seen on 09/04/20. Subjective Chief Complaint/HPI Pt was seen at bedside this am. She does not report any acute events overnight. Small amount of hematuria seen in her fernando bag. Dysuria and suprapubic tenderness persist, but denies fever, chills, n/v/d. REVIEW OF SYSTEMS: CONSTITUTIONAL: No fevers, chills, diaphoresis overnight HEENT: No blurred vision, loss of vision, or headache CARDIOVASCULAR: patient denies chest pain, palpitations. RESPIRATORY: patient denies shortness of breath, cough, hemoptysis. GASTROINTESTINAL: patient denies abdominal pain, n/v/d, blood in stool. GENITOURINARY: Suprapubic tenderness, dysuria, R flank pain SKIN: patient denies rashes. MUSCULOSKELETAL: patient denies joint pain, neck pain. NEUROLOGICAL:No focal neuro deficits PSYCHIATRIC: appropriate mood and affect ENDOCRINE: patient denies polyuria, heat intolerance, cold intolerance HEMATOLOGIC/LYMPHATIC: patient denies easy bruising. PHYSICAL EXAMINATION: VITAL SIGNS: please see below General: NAD, comfortable HEENT: PERRLA, EOMI, sclerae clear Neck: supple, normal ROM, no JVD Respiratory: lungs CTAB, no wheeze, no rales, no crackles CVS: RRR, normal S1, S2, no murmurs Abdomen: soft, no masses, no hepatosplenomegaly, BS+, lower abdomen tender to palpation : suprapubic tenderness, R sided CVA tenderness Extremities: no edema, pulses 2+ lower MSK: no joint deformities, normal ROM, left CVA tenderness to percussion Neuro: no focal neuro deficits, moving all 4 extremities, CN2-12 intact. Strength 5/5 in all 4 extremities. No nystagmus. Psych: calm, cooperative, AAO x 3 LABORATORY DATA: See below MICROBIOLOGY: Pending urine cx from fernando and nephrostomy tube Assessment /Plan Assessment This is a 60-year-old female with a history of cervical cancer treated with radiation in 1991, atonic bladder, now with indwelling Fernando, CKD, stage IV, hypertension, secondary hyperparathyroidism and history of ureteral strictures who presents for R sided flank pain and dysuria since Tuesday. It's suspected that her recurrent UTIs and pyelonephritis and hydronephrosis are sequaele of the radiation from her cervical ca resulting in strictures of her ureters. She has a chronic indwelling fernando catheter due to complications resulting in atonic bladder. CT/pelvis CT from ER shows improved L sided hydronephrosis but had no mentions of R sided findings. On presentation, patient is afebrile, no leukocytosis, normotensive, COVID negative, AAOx3; however, with her significant genitourinary hx, she will be admitted for further workup and empiric abx will be started while we wait for urine cx's from both nephrostomy and fernando tube #UTI with suspected Pyelonephritis - complicated by ureteral stents and left sided nephrostomy tube - Afebrile and no leukocytosis - Pt has multiple positive urine cx with pseudomonas and has responded to cefepime as she is allergic to many abx drug classes - Pending urine cx from both nephrostomy tube and fernando - Will plan to place PICC line once cx's come back - Case discussed with IR, will c/w antibiotics at this time - Case discussed with Urology, outpt f/u for evaluation of the L ureteral stent. R stent will stay in place for total of 6 months - Continue cefepime 1g IV q24h (day 2) #CKD stage 4 -Continue home med sodium bicarb -Patient follow with Dr. Black -Avoid neprhotoxins #Secondary hyperparathyroidism -Continue w calcium-vitD #HTN -Continue with home meds # Hypothyroidism -Continue home meds #GERD -Continue with protonix DVT ppx: TEDs/SCDs GI ppx: protonix Fluids NS @80cc/h Diet: 2g Na Code status: Full Plan/VTE VTE Prophylaxis Ordered?: Yes VS, I&O, 24H, [facility] Vital Signs/I&O Vital Signs Date Time Temp Pulse Resp B/P (MAP) Pulse Ox O2 Delivery O2 Flow Rate FiO2 09/04/20 09:40 87 131/65 09/04/20 07:28 16 09/04/20 06:47 Room Air 09/04/20 06:00 97.8 96 I&O- Last 24 Hours up to 6 AM 09/04/20 05:59 Intake Total 770 ml Output Total 1100 ml Balance -330 ml Laboratory Data 24H LABS Laboratory Tests 2 09/03/20 11:48: Urine Color YELLOW, Urine Appearance CLOUDYH, Urine pH 6.0, Urine Specific [place] 1.005, Urine Protein 2+H, Urine Glucose (Auto)(UA) NEGATIVE, Urine Ketones (Auto) NEGATIVE, Urine Blood 2+H, Urine Nitrite NEGATIVE, Urine Bilirubin NEGATIVE, Urine Urobilinogen 0.2, Urine Leukocyte Esterase (Auto) 3+H, Urine WBC (Auto) 146H, Urine RBC (Auto) 29H, Urine Hyaline Casts (Auto) 0, Urine Bacteria (Auto) 2+H, Urine Squamous Epithelial Cells 0, Urine Mucus (Auto) SMALL, Urine Sperm (Auto) 09/03/20 13:33: Immature Granulocyte % (Auto) 0.5, Neutrophils (%) (Auto) 68.4H, Lymphocytes (%) (Auto) 23.0L, Monocytes (%) (Auto) 5.3H, Eosinophils (%) (Auto) 2.2, Basophils (%) (Auto) 0.6, Neutrophils # (Auto) 6.8, Lymphocytes # (Auto) 2.3, Monocytes # (Auto) 0.5, Eosinophils # (Auto) 0.2, Basophils # (Auto) 0.1, Nucleated Red Blood Cells % (auto) 0.0, Anion Gap 10, Glomerular Filtration Rate 22.2L, Calcium Level 9.6, Total Bilirubin 0.4, Direct Bilirubin < 0.1, Aspartate Amino Transf (AST/SGOT) 18, Alanine Aminotransferase (ALT/SGPT) 20, Alkaline Phosphatase 77, Total Protein 7.6, Albumin 3.4, Albumin/Globulin Ratio 0.8L, Amylase Level 95, Lipase 404H 09/03/20 15:17: Coronavirus (COVID-19)(PCR) NEGATIVE 09/03/20 15:55: Urine Color YELLOW, Urine Appearance TURBIDH, Urine pH 6.0, Urine Specific [place] 1.006, Urine Protein 2+H, Urine Blood 3+H, Urine Nitrite NEGATIVE, Urine Bilirubin NEGATIVE, Urine Urobilinogen 0.2, Urine WBC (Auto) 125H, Urine RBC (Auto) TNTCH, Urine Hyaline Casts (Auto) 0, Urine Bacteria (Auto) 2+H, Urine Squamous Epithelial Cells 0, Urine Mucus (Auto) SMALL, Urine Sperm (Auto) , Urine Glucose (UA) NEGATIVE, Urine Ketones NEGATIVE, Urine Leukocyte Esterase 3+H 09/04/20 08:01: Nucleated Red Blood Cells % (auto) 0.0, Anion Gap 9, Glomerular Filtration Rate 21.0L, Calcium Level 8.7 CBC/BMP Laboratory Tests 09/03/20 13:33 09/04/20 08:01 Microbiology Microbiology 09/03/20 Urine Culture, Received Pending 09/03/20 Blood Culture, Received Pending 09/03/20 Blood Culture, Received Pending GME ATTESTATION GME ATTESTATION My faculty preceptor for this patient encounter was physically present during the encounter and was fully available. All aspects of the patient interview, examination, medical decision making process, and medical care plan development were reviewed and approved by the faculty preceptor. The faculty preceptor is aware and concurs with the plan as stated in the body of this note and will att est to such by his/her cosignature. ATTENDING NOTE I, Massimo Montague, have independently examined this patient and performed my own physical exam, as well as reviewed the documentation and edited where necessary. I have discussed in detail with the resident / student the findings and plan of treatment as documented by the resident / student and edited their note. I agree with their findings and treatment plan and have edited their documentation. I will continue to follow the patient during this hospital stay. Sumi Pearson DO Sep 04, 2020 10:38 MASSIMO MONTAGUE MD Sep 04, 2020 14:02
[2020-09-04] MEDS: SODIUM BICARBONATE 325 MG TAB PO SCH ×3 (11:03→19:44)
[2020-09-04] MEDS ORDERED: NORCO, ANEXSIA 5/325MG TABLET (HYDROcodone/ACETAMINOPHEN) PO ONE (12:30)
[2020-09-04 14:00] VITALS: BP 110/69
[2020-09-04] MEDS ORDERED: LIDOCAINE 1% MDV 20ML VIAL As Ordered ONE (15:47)
--- NOTE | 2020-09-04 17:38 | REP ---
PROCEDURE NAME: PICC LINE INSERTION W/SITERITE CLINICAL INFORMATION: POOR ACCESS, PROLONGED IV ATBX. COMPARISON: None. PROCEDURE DESCRIPTION: The procedure was performed by DOE Benton, under the direct supervision of Dr. Hester. The risks and benefits of the procedure were explained to the patient and an informed consent was obtained both verbally and written. Directly prior to the start of the procedure a formal time-out was completed in the procedure room. The right basilic vein was localized using ultrasound guidance. The skin was prepped and draped in sterile fashion. Two mL of 1% lidocaine 10 mg/mL was used as a local anesthetic. Using ultrasound guidance the right basilic vein was cannulated, and a 0.018 guidewire was inserted and advanced to the level of SVC using fluoroscopic guidance. The needle was removed and a 4.5 Setswana dilator and peel-away sheath was inserted over the guidewire. A 4.5 Setswana single lumen catheter was cut to a length of 35 cm. The dilator was removed and the catheter was inserted over the guidewire with the tip ending at the level of the SVC. The peel-away sheath was removed and the catheter was flushed with heparinized saline as per hospital protocol. The catheter was affixed to the skin and a sterile dressing was applied. The patient tolerated the procedure well and there were no immediate complications. CONCLUSION: PICC line insertion into the right basilic vein. 0.1 minutes of fluoroscopy time was utilized for this procedure. Some fluoroscopic images are performed with last image hold technology. These images require no additional radiation. <Electronically signed by Zuleyma Pace > 09/04/20 1710 <Electronically signed by Emile Hester > 09/04/20 2064
[2020-09-04 20:00] VITALS: BP 127/78
[2020-09-05] MEDS: NORCO, ANEXSIA 5/325MG TABLET (HYDROcodone/ACETAMINOPHEN) PO PRN ×2 (02:21→11:06)
[2020-09-05] MEDS: LEVOTHYROXINE 150MCG TABLET (0.15MG) PO SCH (05:29)
[2020-09-05] MEDS: NS 1,000 ML IV SCH (05:29)
[2020-09-05] MEDS: CEFEPIME HCL 1 GM in D5W MINI-BAG PLUS 50 ML IV SCH (05:29)
[2020-09-05 06:00] VITALS: BP 129/79
[2020-09-05 07:00] LABS: BASO # 0.1 10^3/uL (0.0-0.2); BASO % 0.9 % (0.0-1.0); EOS # 0.3 10^3/uL (0.0-0.5); EOS % 3.9 % (0.0-3.0); HEMATOCRIT 37.1 % (36.0-47.0); LYMPH # 1.9 10^3/uL (1.5-5.0); LYMPH % 26.7 % (24.0-44.0); MEAN CORPUSCULAR HEMOGLOBIN 26.3 pg (27.0-33.0); MEAN CORPUSCULAR HGB CONC 29.6 g/dl (32.0-36.5); MEAN CORPUSCULAR VOLUME 88.5 fl (80.0-96.0); MONO # 0.5 10^3/uL (0.0-0.8); MONO % 6.8 % (0.0-5.0); NEUTROPHILS # 4.3 10^3/uL (1.5-8.5); NEUTROPHILS % 61.3 % (36.0-66.0); PLATELET COUNT, AUTOMATED 189 10^3/uL (150-450); RED BLOOD COUNT 4.19 10^6/uL (4.00-5.40); WHITE BLOOD COUNT 6.9 10^3/uL (4.0-10.0)
[2020-09-05 07:25] LABS: CALCIUM LEVEL 8.3 MG/DL (8.5-10.1); CREATININE FOR GFR 2.39 MG/DL (0.55-1.30); GLOMERULAR FILTRATION RATE 22.2 (>51); POTASSIUM SERUM 4.1 MEQ/L (3.5-5.1)
[2020-09-05] MEDS ORDERED: CEFE1INJ2 IV (08:06)
[2020-09-05] MEDS: SODIUM BICARBONATE 325 MG TAB PO SCH (08:38)
[2020-09-05 08:39] VITALS: BP 129/79
[2020-09-05] MEDS: METOPROLOL TART 25 MG TABLET PO SCH (08:39)
[2020-09-05] MEDS: PANTOPRAZOLE 40MG TAB (PROTONIX) PO SCH (08:39)
--- NOTE | 2020-09-05 10:07 | DS.PDOC ---
Discharge Summary General Date of Admission Sep 03, 2020 at 17:25 Date of Discharge 09/05/2020 Attending Physician: MASSIMO MONTAGUE MD Discharge Summary ADMITTING DIAGNOSES / DISCHARGE DIAGNOSES: UTI CKD Secondary hyperparathyroidism HTN Hypothyroidism GERD DVT ppx: TEDs/SCDs COMPLICATIONS/CHIEF COMPLAINT: HPI: This is a 60-year-old female with a history of cervical cancer treated with radiation in 1991, atonic bladder, now with indwelling Fernando, CKD, stage IV, hypertension, secondary hyperparathyroidism and history of ureteral strictures who presents for R sided flank pain and dysuria since Tuesday. It's suspected that her recurrent UTIs and pyelonephritis and hydronephrosis are sequaele of the radiation from her cervical ca resulting in strictures of her ureters. She has a chronic indwelling fernando catheter due to complications resulting in atonic bladder. CT/pelvis CT from ER shows improved L sided hydronephrosis but had no mentions of R sided findings. On presentation, patient is afebrile, no leukocytosis, normotensive, COVID negative, AAOx3; however, with her significant genitourinary hx, she will be admitted for further workup and empiric abx will be started. HOSPITAL COURSE: #UTI with suspected Pyelonephritis - complicated by ureteral stents and left sided nephrostomy tube - Afebrile and no leukocytosis - Pt has multiple positive urine cx with pseudomonas and has responded to cefepime as she is allergic to many abx drug classes - Pending urine cx from both nephrostomy tube and fernando; discussed with microbiology current growth reveals enterococcus faecalis and gram-negative species - Case discussed with IR, will c/w antibiotics at this time - Will continue with cefepime; will continue via PICC line for a total of 10 days (8 more days) and Augmentin - Case discussed with urology and recommends outpt follow up for potential L ureteral stent removal; R sided ureteral stent will stay in for 6 months and then exchanged - Patient will be discharged with PICC line and home infusion of cefepime. Will continue to follow with nephrology, urology and primary care as an outpatient #CKD stage 4 -Cr is at her baseline 2.39 -Continue home med sodium bicarb -Patient follow with Dr. Black follow outpt -Avoid nephrotoxins #Secondary Hyperparathyroidism -Continue w/ home med calcium-vitD #HTN -Continue with home meds # Hypothyroidism -Continue home meds #GERD -Continue with protonix DVT ppx: TEDs/SCDs DISCHARGE MEDICATIONS: Please see below. ALLERGIES: Please see below. IMAGING: CT abd/pelvis w/o ctx: Left-sided percutaneous nephroureterostomy and bilateral pigtailed ureteral stents in good position. Improved left-sided hydronephrosis. Left colonic diverticulosis. Small left ovarian cyst. Otherwise no acute abnormality. PICC line placement: CONCLUSION: PICC line insertion into the right basilic vein. PHYSICAL EXAMINATION ON DISCHARGE: VITAL SIGNS: Please see below. GENERAL: NAD, AAOX3 HEENT: PERRLA, EOMI CARDIOVASCULAR: RRR, +S1S2, No murmurs, rubs, or gallops LUNGS: Fair air entry bilaterally. No wheezing, fine crackles or rhonchi . Good respiratory effort ABDOMEN: Soft, nontender, nondistended. Normal active bowel sounds. No tenderness GENITOURINARY: slight suprapubic tenderness - much improved, no dysuria NEUROLOGICAL: Cranial nerves II through XII grossly intact. Sensation grossly intact. 5/5 strength throughout SKIN: No bruising or rashes or cyanosis Extremities: no edema appreciated in lower extr LABORATORY DATA: Please see below ACTIVITY: [As tolerated] DIET: 2g Na DISCHARGE PLAN: Please follow-up with primary care provider, nephrology and urology within the next 7 days Please remain compliant with treatment plan and medications Return to the ER if you experience any problems DISPOSITION: Home DISCHARGE CONDITION: Fair TIME SPENT ON DISCHARGE: 35 minutes Vital Signs/I&Os Vital Signs Date Time Temp Pulse Resp B/P (MAP) Pulse Ox O2 Delivery O2 Flow Rate FiO2 09/05/20 08:39 55 129/79 09/05/20 06:00 97.2 17 96 Room Air I&O- Last 24 Hours up to 6 AM 09/05/20 06:00 Intake Total 4412 ml Output Total 3100 ml Balance 1312 ml Laboratory Data Labs 24H Laboratory Tests 2 09/05/20 06:40: Immature Granulocyte % (Auto) 0.4, Neutrophils (%) (Auto) 61.3, Lymphocytes (%) (Auto) 26.7, Monocytes (%) (Auto) 6.8H, Eosinophils (%) (Auto) 3.9H, Basophils (%) (Auto) 0.9, Neutrophils # (Auto) 4.3, Lymphocytes # (Auto) 1.9, Monocytes # (Auto) 0.5, Eosinophils # (Auto) 0.3, Basophils # (Auto) 0.1, Nucleated Red Blood Cells % (auto) 0.0, Anion Gap 8, Glomerular Filtration Rate 22.2L, Calcium Level 8.3L, Magnesium Level 2.0 CBC/BMP Laboratory Tests 09/05/20 06:40 Microbiology Microbiology 09/03/20 Urine Culture, Received Pending 09/03/20 Blood Culture - Preliminary, Resulted No growth after 24 hours . All specim... 09/03/20 Blood Culture - Preliminary, Resulted No growth after 24 hours . All specim... Discharge Medications Scheduled Amoxicillin/Potassium Clav (Augmentin 875-125 Tablet) 1 Each Tablet, 1 TAB PO BID Calcium Carbonate/Vitamin D3 (Calcium 500-Vit D3 200 Tablet) 1 Each Tablet, 1 TAB PO DAILY, (Reported) Cefepime in Iso-Osm Dextrose (Cefepime 1 gm Injection) 1 Gm/50 Ml Froz.piggy, 1 GM IV Q12H Levothyroxine Sodium (Levothyroxine Sodium) 150 Mcg Tablet, 150 MCG PO DAILY, (Reported) Metoprolol Tartrate (Metoprolol Tartrate) 25 Mg Tablet, 25 MG PO BID, (Reported) Pantoprazole Sodium (Pantoprazole Sodium) 40 Mg Tablet.dr, 40 MG PO DAILY, (Reported) Sodium Bicarbonate (Sodium Bicarbonate) 325 Mg Tablet, 325 MG PO TID, (Reported) Vit B Comp No.3/Folic/C/Biotin (Helen-Layo Rx Tablet) 1 Each Tablet, 1 TAB PO DAILY, (Reported) Scheduled PRN Acetaminophen (Tylenol Extra Strength) 500 Mg Tablet, 1,000 MG PO TID PRN for PAIN, (Reported) Hydrocodone/Acetaminophen (Hydrocodone-Acetamin 5-325 mg) 1 Each Tablet, 1 TAB PO TID PRN for PAIN, (Reported) Allergies Coded Allergies: Quinolones (Verified Allergy, Intermediate, tequin - blisters on lips, 07/24/20) potassium (Verified Allergy, Intermediate, HIVES, POUNDING HEARTBEAT, 06/13/20) povidone-iodine (Verified Allergy, Intermediate, rash/burn, 06/13/20) soap (Verified Allergy, Intermediate, rash/burn, 06/13/20) Sulfa (Sulfonamide Antibiotics) (Verified Allergy, Unknown, 06/13/20) epoetin reina (Verified Allergy, Unknown, 06/13/20) ibuprofen (Verified Allergy, Unknown, 06/13/20) trimethoprim (Verified Allergy, Unknown, 06/13/20) GME ATTESTATION GME ATTESTATION My faculty preceptor for this patient encounter was physically present during the encounter and was fully available. All aspects of the patient interview, examination, medical decision making process, and medical care plan development were reviewed and approved by the faculty preceptor. The faculty preceptor is aware and concurs with the plan as stated in the body of this note and will attest to such by his/her cosignature. ATTENDING NOTE I, Massimo Montague, have independently examined this patient and performed my own physical exam, as well as reviewed the documentation and edited where necessary. I have discussed in detail with the resident / student the findings and plan of treatment as documented by the resident / student and edited their note. I agree with their findings and treatment plan and have edited their documentation. I will continue to follow the patient during this hospital stay. Time spent on discharge 37 minutes Sumi Pearson DO Sep 05, 2020 10:07 MASSIMO MONTAGUE MD Sep 05, 2020 14:13
[2020-09-05] MEDS ORDERED: SODIUM CHLORIDE 0.9% INJ 10 ML SYR IV PRN (11:15)
[2020-09-05] MEDS ORDERED: SODIUM CHLORIDE 0.9% INJ 10 ML SYR IV SCH (18:00)
[2020-09-06] MEDS ORDERED: LINE1TAB6 PO (06:55)
[2020-09-06] MEDS ORDERED: AUGM875T28 PO (09:42)
== END 2020-09-05 12:20 | disposition home health service (06) | DRG 699 ==
LOC: M ED 11:23 → M ED INP 17:25 → ENRESERV 19:44 → M MS5PR 20:45
PROVIDERS: ADMIT Internal Medicine; ATTEND Internal Medicine
PROC: 02HV33Z Insertion of Infusion Device into Superior Vena Cava, Percutaneous Approach (ICD-10-PCS; principal; 2020-09-04 16:46)
DX: N30.41 Irradiation cystitis with hematuria (principal); N18.4 Chronic kidney disease, stage 4 (severe); N25.81 Secondary hyperparathyroidism of renal origin; N10 Acute pyelonephritis; I12.9 Hypertensive chronic kidney disease with stage 1 through stage 4 chronic kidney disease, or unspecified chronic kidney disease; E03.9 Hypothyroidism, unspecified; K21.9 Gastro-esophageal reflux disease without esophagitis; D64.9 Anemia, unspecified; N39.0 Urinary tract infection, site not specified; N31.2 Flaccid neuropathic bladder, not elsewhere classified; Z92.3 Personal history of irradiation; Z87.891 Personal history of nicotine dependence; Z79.899 Other long term (current) drug therapy; Z88.1 Allergy status to other antibiotic agents; Z88.2 Allergy status to sulfonamides; Z85.41 Personal history of malignant neoplasm of cervix uteri; Z88.6 Allergy status to analgesic agent; Z88.8 Allergy status to other drugs, medicaments and biological substances; Z91.048 Other nonmedicinal substance allergy status; Z96.0 Presence of urogenital implants

== ENCOUNTER → 2020-10-13 | Outpatient (REF) | payer MEDICARE ==
[~2020-10-13] MED LIST changes: +CEFE1INJ2 IV; +LEVO250T12 PO; +LINE1TAB6 PO
== END ==
LOC: M SMT 17:21
PROVIDERS: ATTEND Urology
DX: Z01.818 Encounter for other preprocedural examination (principal); N13.30 Unspecified hydronephrosis; N39.0 Urinary tract infection, site not specified

== ENCOUNTER → 2020-10-15 | Outpatient (CLI) | payer MEDICARE | LOC: M LABSMTC 10:08 | PROVIDERS: ATTEND Anesthesiology | DX: Z01.812 Encounter for preprocedural laboratory examination (principal); Z20.822 Contact with and (suspected) exposure to COVID-19 ==

== ENCOUNTER → 2020-10-16 | Outpatient (REF) | payer MEDICARE ==
[2020-10-16 13:42] LABS: APPEARANCE, URINE TURBID (CLEAR); BACTERIA, URINE AUTO NEGATIVE (NEGATIVE); BILIRUBIN, URINE AUTO NEGATIVE (NEGATIVE); BLOOD, URINE BLOOD 2+ (NEGATIVE); COLOR, URINE YELLOW (YELLOW); GLUCOSE, URINE (UA) AUTO NEGATIVE (NEGATIVE); KETONE, URINE AUTO NEGATIVE (NEGATIVE); LEUKOCYTE ESTERASE, URINE AUTO 3+ (NEGATIVE); NITRITE, URINE AUTO NEGATIVE (NEGATIVE); PROTEIN, URINE AUTO 2+ mg/dL (NEGATIVE); RBC, URINE AUTO 59 /HPF (0-3); SPECIFIC GRAVITY URINE AUTO 1.011 (1.002-1.035); SQUAMOUS EPITHELIAL CELL UR AU 4 /HPF (0-6); UROBILINOGEN, URINE AUTO 0.2 mg/dL (0.0-2.0); WBC, URINE AUTO TNTC /HPF (0-3)
== END ==
LOC: M SMT 13:13
PROVIDERS: ATTEND Urology
DX: N39.0 Urinary tract infection, site not specified (principal)

== ENCOUNTER 2020-10-22 10:09 | Day surgery (SDC) | payer MEDICARE ==
[~2020-10-22] VITALS: Ht 162.6 cm; Wt 83.5 kg
[~2020-10-22 10:09] MED LIST changes: -LEVO250T12 PO; +LIDOCAINE 1% MDV 20ML VIAL SQ PRN; +LR 1,000 ML IV ONE
[2020-10-22] MEDS ORDERED: LEVO250T12 PO (10:32)
[2020-10-22] MEDS ORDERED: VANCOMYCIN 1000MG/20ML VIAL As Ordered ONE (11:07)
[2020-10-22] MEDS ORDERED: LIDOCAINE 2% 100MG/5ML SDV (FOR ANES.) As Ordered ONE (11:11)
[2020-10-22] MEDS ORDERED: dexameTHASONE 4 MG/ML 1ML VIAL (J1100 PER 1MG) As Ordered ONE (11:11)
[2020-10-22] MEDS ORDERED: propofoL 200 MG/20 ML VIAL As Ordered ONE ×2 (11:11→13:00)
[2020-10-22] MEDS ORDERED: ONDANSETRON 4MG/2ML VIAL As Ordered ONE (11:11)
[2020-10-22] MEDS ORDERED: KETOROLAC 60MG 2ML VIAL As Ordered ONE (11:11)
[2020-10-22] MEDS ORDERED: ACETAMINOPHEN 1000MG 100ML IV BTL (OFIRMEV) (J0131 PER 10MG) As Ordered ONE (11:11)
[2020-10-22] MEDS ORDERED: MIDAZOLAM INJ 2MG/2ML VIAL (J2250 PER 1MG) As Ordered ONE (11:12)
[2020-10-22] MEDS ORDERED: fentaNYL 100 MCG/2 ML INJECTION (J3010) As Ordered ONE (11:12)
[2020-10-22] MEDS ORDERED: GENTAMICIN 80 MG in IV 1 EA IV ONE (11:30)
[2020-10-22] MEDS ORDERED: VANCOMYCIN HCL 1,000 MG, VIAL MATE ADAPTER 1 EACH in D5W 250 ML IV ONE (11:30)
[2020-10-22] MEDS ORDERED: CONRAY-60 60% 50ML VIAL (Q9961) As Ordered ONE (11:46)
[2020-10-22] MEDS ORDERED: LIDOCAINE 2% 5ML JELLY UROJET As Ordered ONE (11:46)
--- NOTE | 2020-10-22 13:05 | REP ---
INDICATION: BILATERAL URETERAL STENT PLACEMENT. COMPARISON: None. TECHNIQUE: Intraoperative fluoroscopic imaging using C-arm technique. FINDINGS: Multiple images demonstrate bilateral ureteral stent in satisfactory position with evidence for moderate hydronephrosis. Total fluoroscopic time 54 seconds. IMPRESSION: Satisfactory bilateral ureteral stent placement. <Electronically signed by Thee Browne > 10/22/20 [id number]
[2020-10-22] MEDS ORDERED: oxyCODONE 5MG TAB As Ordered ONE (13:35)
--- NOTE | 2020-10-22 13:37 | ROOPDOC ---
[facility] Report Of Operation Report of Operation DATE OF PROCEDURE: 10/22/20 PREPROCEDURE DIAGNOSIS: Ureteral Obstruction. POSTPROCEDURE DIAGNOSIS: Ureteral Obstruction. PROCEDURE: Cystoscopy, bilateral retrograde pyelograms with intraoperative interpretation of images, bilateral ureteral stent exchange. SURGEON: Cecilia Lacey MD CORPORATE TRAINER: None. ANESTHESIA: Monitored anesthesia care (MAC). OPERATIVE INDICATIONS: This is a 60-year-old female with bilateral ureteral obstruction, managed with chronic ureteral stents, here today for routine stent exchange. DESCRIPTION OF PROCEDURE: The patient was brought to the operating room and MAC anesthesia was administered. Culture specific antibiotics were administered. She was then placed in the dorsal lithotomy position, then prepped and draped in the usual sterile fashion. Of note, the patient had a left percutaneous nephroureteral stent placed since her stents were last changed. This was removed prior to her procedure today. At this point, a rigid cystoscope was inserted into the urethral meatus and advanced to the bladder. Of note, the bladder had changes consistent with radiation cystitis. At this point, a guidewire was advanced up the left collecting system and the previously placed left ureteral stent was removed. The sheath for the Resonance stent was advanced up the left collecting system and then the wire was removed. Once that was done, a retrograde pyelogram was performed and was notable for mild to moderate left hydronephrosis. I then advanced a 6Fr by 22cm Resonance stent up the sheath and into the left collecting system. The sheath was then withdrawn and there were adequate curls of the stent in the left renal pelvis and in the bladder. At this point, a guidewire was advanced up the right collecting system and the previously placed right ureteral stent was removed. I then advanced the sheath over the wire and into the right collecting system. The wire was removed and I then shot a retrograde pyelogram. It was notable for mild to moderate right hydronephrosis with no extravasation. I then advanced a 6Fr by 22cm Resonance stent up the sheath and into the right collecting system. The sheath was withdrawn and there were adequate curls of the stent in the right renal pelvis and in the bladder. The patient's bladder was emptied of all fluid and this marked the conclusion of the procedure. The patient was then taken out of the dorsal lithotomy position, awakened from anesthesia and transported to the recovery room in stable condition. Estimated blood loss: 5 mL. Complications: None. Specimens: None. Plan: We will get a renal ultrasound in 3 months to determine if the stents are adequately draining both kidneys. She will follow up in office after her ultrasound CECILIA LACEY MD Oct 22, 2020 13:37
[2020-10-22] MEDS ORDERED: LR 1,000 ML IV SCH (13:45)
[2020-10-22] MEDS ORDERED: fentaNYL 100 MCG/2 ML INJECTION (J3010) IV PRN (13:45)
[2020-10-22] MEDS ORDERED: ONDANSETRON 4MG/2ML VIAL IV PRN (13:45)
[2020-10-22] MEDS ORDERED: oxyCODONE 5MG TAB PO PRN (13:45)
[2020-10-22 14:05] VITALS: BP 149/73
== END 2020-10-22 15:00 | disposition home or self-care (01) ==
LOC: M SDC 10:09
PROVIDERS: ATTEND Urology
DX: N13.5 Crossing vessel and stricture of ureter without hydronephrosis (principal); N13.30 Unspecified hydronephrosis; I12.9 Hypertensive chronic kidney disease with stage 1 through stage 4 chronic kidney disease, or unspecified chronic kidney disease; I49.9 Cardiac arrhythmia, unspecified; K21.9 Gastro-esophageal reflux disease without esophagitis; N18.4 Chronic kidney disease, stage 4 (severe); E03.9 Hypothyroidism, unspecified; E78.00 Pure hypercholesterolemia, unspecified; R33.9 Retention of urine, unspecified; N32.89 Other specified disorders of bladder; M12.9 Arthropathy, unspecified; M85.80 Other specified disorders of bone density and structure, unspecified site; Z78.0 Asymptomatic menopausal state; Z85.41 Personal history of malignant neoplasm of cervix uteri; Z86.2 Personal history of diseases of the blood and blood-forming organs and certain disorders involving the immune mechanism; Z87.440 Personal history of urinary (tract) infections; Z87.891 Personal history of nicotine dependence; Z88.2 Allergy status to sulfonamides; Z88.8 Allergy status to other drugs, medicaments and biological substances; Z91.09 Other allergy status, other than to drugs and biological substances; Z92.3 Personal history of irradiation
CPT/HCPCS: 52332; 74420; C1769; C2625; J0131; J1100; J1580; J1885; J2250; J2405; J3010; J3370; Q9961; U0002

== ENCOUNTER → 2020-10-31 | Outpatient (REF) | payer MEDICARE ==
[~2020-10-31] MED LIST changes: +LEVO250T12 PO; -LIDOCAINE 1% MDV 20ML VIAL SQ PRN; -LR 1,000 ML IV ONE
== END ==
LOC: M LAB REF 17:57
PROVIDERS: ATTEND Nurse Practitioner Family
DX: M10.9 Gout, unspecified (principal)

== ENCOUNTER 2020-12-23 03:06 | Inpatient (IN) | payer MEDICARE ==
[~2020-12-23] VITALS: Ht 165.1 cm; Wt 85.8 kg
[2020-12-23] VITALS (7 sets, daily range): BP systolic 96–152; BP diastolic 55–77
[2020-12-23 04:22] LABS: APPEARANCE, URINE TURBID (CLEAR); BACTERIA, URINE AUTO 1+ (NEGATIVE); BILIRUBIN, URINE AUTO NEGATIVE (NEGATIVE); BLOOD, URINE BLOOD 3+ (NEGATIVE); COLOR, URINE YELLOW (YELLOW); GLUCOSE, URINE (UA) AUTO NEGATIVE (NEGATIVE); KETONE, URINE AUTO NEGATIVE (NEGATIVE); LEUKOCYTE ESTERASE, URINE AUTO 3+ (NEGATIVE); MUCUS, URINE SMALL (NEGATIVE); NITRITE, URINE AUTO NEGATIVE (NEGATIVE); PROTEIN, URINE AUTO 2+ mg/dL (NEGATIVE); RBC, URINE AUTO 119 /HPF (0-3); SPECIFIC GRAVITY URINE AUTO 1.006 (1.002-1.035); SQUAMOUS EPITHELIAL CELL UR AU 3 /HPF (0-6); UROBILINOGEN, URINE AUTO 0.2 mg/dL (0.0-2.0); WBC, URINE AUTO TNTC /HPF (0-3)
[2020-12-23] MEDS ORDERED: CEFEPIME HCL 1 GM in D5W MINI-BAG PLUS 50 ML IV ONE (05:05)
[2020-12-23] MEDS ORDERED: ONDANSETRON 4MG/2ML VIAL IV ONE (05:05)
[2020-12-23] MEDS ORDERED: NS 1,000 ML IV ONE ×2 (05:05→22:05)
[2020-12-23 05:30] LABS: BASO % 0.2 % (0.0-1.0); EOS # 0.1 10^3/uL (0.0-0.5); EOS % 0.6 % (0.0-3.0); HEMOGLOBIN 12.6 g/dl (12.0-15.5); LYMPH # 0.9 10^3/uL (1.5-5.0); LYMPH % 8.6 % (24.0-44.0); MEAN CORPUSCULAR HEMOGLOBIN 26.4 pg (27.0-33.0); MEAN CORPUSCULAR HGB CONC 32.3 g/dl (32.0-36.5); MEAN CORPUSCULAR VOLUME 81.8 fl (80.0-96.0); MONO # 1.1 10^3/uL (0.0-0.8); MONO % 9.8 % (2.0-8.0); NEUTROPHILS # 8.7 10^3/uL (1.5-8.5); NEUTROPHILS % 80.2 % (36.0-66.0); PLATELET COUNT, AUTOMATED 193 10^3/uL (150-450); RED BLOOD COUNT 4.77 10^6/uL (4.00-5.40); WHITE BLOOD COUNT 10.9 10^3/uL (4.0-10.0)
[2020-12-23] MEDS: MORPHINE 4 MG/ML 1ML VIAL/SYRINGE (J2270) IV PRN ×2 (05:38→06:54)
[2020-12-23 05:53] LABS: ALBUMIN 2.9 GM/DL (3.2-5.2); BILIRUBIN,DIRECT 0.2 MG/DL (0.0-0.2); BILIRUBIN,TOTAL 0.4 MG/DL (0.2-1.0); CALCIUM LEVEL 8.3 MG/DL (8.5-10.1); CREATININE FOR GFR 5.23 MG/DL (0.55-1.30); POTASSIUM SERUM 3.9 MEQ/L (3.5-5.1)
--- NOTE | 2020-12-23 06:18 | REPVR ---
PROCEDURE INFORMATION: Exam: CT Abdomen And Pelvis Without Contrast Exam date and time: 12/23/2020 5:01 AM Age: 60 years old Clinical indication: Abdominal pain; Flank; Other: Bilat; Patient HX: Renal stents; Additional info: B/l flank pain, UTI, ckd TECHNIQUE: Imaging protocol: Computed tomography of the abdomen and pelvis without contrast. Radiation optimization: All CT scans at this facility use at least one of these dose optimization techniques: automated exposure control; mA and/or kV adjustment per patient size (includes targeted exams where dose is matched to clinical indication); or iterative reconstruction. COMPARISON: CT ABD PELVIS W/O CONTRAST 09/03/2020 1:49 PM FINDINGS: Lungs: There is bibasilar atelectasis. Liver: Normal. No mass. Gallbladder and bile ducts: No calcified stones. No ductal dilation. Pancreas: Normal. No ductal dilation. Spleen: There is a punctate splenic calcifications. Adrenal glands: Normal. No mass. Kidneys and ureters: There are bilateral renal stents in place. Proximally, there are pigtailed within the renal pelvis and distally are within the decompressed bladder. There is severe bilateral hydronephrosis, which has progressed. Stomach and bowel: There is diverticulosis of the left colon without focal inflammatory change. Appendix: No evidence of appendicitis. Intraperitoneal space: No free air. No significant fluid collection. Vasculature: No abdominal aortic aneurysm. Lymph nodes: There are bilateral nonenlarged retroperitoneal lymph nodes. Urinary bladder: Decompressed. Reproductive: There is a 2 5 cm left adnexal cyst. Bones/joints: No acute fracture. Soft tissues: There is a small hernia. IMPRESSION: 1. Bilateral ureteral stents in place. 2. Severe bilateral hydronephrosis. Stent dysfunction may be present. Stent revision and/or percutaneous drainage should be considered. 3. There are nonenlarged retroperitoneal lymph nodes, nonspecific findings. These could be reactive to a infection correlation urinalysis and clinical history recommended. 4. 2.5 adnexal cyst essentially. Electronically signed by: Nicholas Baer On 12/23/2020 06:18:38 AM
[2020-12-23] MEDS ORDERED: HYDR-3713 PO (06:35)
[2020-12-23 07:21] LABS: RSV AMPLIFICATION NEGATIVE (NEGATIVE)
[2020-12-23] MEDS ORDERED: NS 1,000 ML IV SCH ×2 (09:40→12:05)
[2020-12-23] MEDS ORDERED: MORPHINE 2 MG/ML 1ML VIAL (J2270) IV PRN (10:10)
[2020-12-23] MEDS: MORPHINE 2 MG/ML 1ML VIAL (J2270) IV PRN ×2 (11:36→18:47)
[2020-12-23] MEDS: ONDANSETRON 4MG/2ML VIAL IV PRN ×2 (11:36→18:47)
[2020-12-23] MEDS ORDERED: PANTOPRAZOLE 40MG VIAL (C9113 PER 1) IV SCH (13:00)
--- NOTE | 2020-12-23 13:00 | HPEPDOC ---
[facility] Medical History & Physical Date of Admission Dec 23, 2020 Date of Service: Dec 23, 2020 Attending Physician: Nimo Pat MD History and Physical CHIEF COMPLAINT: left side pain HISTORY OF PRESENT ILLNESS: Patient is a 60 y/o F with PMH of cervical cancer treated with radiation therapy in 1991, radiation cystitis, atonic bladder, secondary hyperparathyrodism, CKD Stage IV, HTN, chronic anemia, recurrent UTI and recurrent b/l hydronephrosis despite urethral stent placements who presented to [facility] emergency room with the chief complaint of increasing left flank pain, fevers, chills, nausea with one episode of vomiting over the past week for hours. The patient states she's had similar symptoms in the past when she's needed ureteral stents placed. She still describes the pain as sharp, sudden, nonradiating, 7/10 on pain scale. At home she had a documented fever of 102. other associated symptoms included lethargy, decreased appetite. She denied chest pain, abdominal pain, lightheadedness, dizziness, falls, joint pain, difficulty urinating. Due to persistent symptoms the patient came to the ER to be further evaluated. In the ER, vital signs showed some mild tachycardia, WBC mildly elevated at 10.9, lactic acid within normal limits, creatinine 5.23 (baseline creatinine 2. 39), UA positive with urine culture sent. She was given fluids, pain medication for severe pain. CT abd/pelvis: Bilateral ureteral stents in place, Severe bilateral hydronephrosis. Stent dysfunction may be present. Stent revision and/or percutaneous drainage should be considered- there are nonenlarged retroperitoneal lymph nodes, nonspecific findings. Urology, Dr. Howell, was contacted and suggested IR placement of nephrostomy tubes. Dr. Duenas (IR) was consulted and agreement was made to admit, IR consulted for nephrostomy tube placement. Patient was admitted under hospitalist for MINGO on CKD Stage IV likely 2/2 to severe b/l hydronephrosis, recurrent UTI, acute pyelonephritis. REVIEW OF SYSTEMS: Neg except mentioned above PAST MEDICAL HISTORY: 1. Cervical cancer treated with radiation therapy in 1991 2. Radiation cystitis 3. Atonic bladder 4. Secondary hyperparathyroism 5. CKD Stage IV 6. Hypertension 7. Chronic anemia 8. Recurrent UTI 9. Recurrent b/l hydronephrosis despite urethral stent placements PAST SURGICAL HISTORY: Appendectomy multiple bilateral ureteral stents placements/replacements, last 10/[address] Dumas SOCIAL HISTORY: [id number] history, quit smoking 2002 Drinks up to 5 beers daily last drink day before admission As illicit drug use Nephrology- Dr. Sparrow Urology-Dr. Dmuas FAMILY HISTORY: Family history of diabetes, hypertension, coronary artery disease Patient unable to specify relative specifically ALLERGIES: Please see below. HOME MEDICATIONS: Please see below. PHYSICAL EXAMINATION: VS: P 88 NSR, BP 131/70, 94% on RA, RR 16, temp 99.7 CONSTITUTIONAL: Appeared uncomfortable in pain, AAO x 3 EYES: PERRLA, EOM intact HENT, MOUTH: Normocephalic, atraumatic, moist mucous membranes NECK: SUPPLE, no JVD, no lymphadenopathy, no carotid bruit CV: Regular rate and rhythm, S1S2 normal, no murmurs/rubs/gallops RESPIRATORY: Clear to auscultation bilaterally, no rales/rhonchi/wheezes GI: BS positive in 4 quadrants, soft, nontender, nondistended, no rebound or guarding, no organomegaly BACK: tenderness on left flank/+CVA tenderness : Deferred MUSCULOSKELETAL: Normal ROM. No cyanosis, clubbing, swelling, joint deformity, extremity edema INTEGUMENTARY: Intact, no rashes, no lesions, no erythema NEUROLOGIC: Cranial Nerves II-XII are intact, no focal deficits PSYCHIATRIC: Mood and affect are normal LABORATORY DATA: Please see below IMAGING: CT abd/pelvis: 1. Bilateral ureteral stents in place. 2. Severe bilateral hydronephrosis. Stent dysfunction may be present. Stent revision and/or percutaneous drainage should be considered. 3. There are nonenlarged retroperitoneal lymph nodes, nonspecific findings. These could be reactive to a infection correlation urinalysis and clinical history recommended. 4. 2.5 adnexal cyst essentially. ASSESSMENT: 60 y/o F with PMH of cervical cancer treated with radiation therapy in 1991, radiation cystitis, atonic bladder, secondary hyperparathyrodism, CKD Stage IV, HTN, chronic anemia, recurrent UTI and recurrent b/l hydronephrosis despite urethral stent placements admitted under hospitalist for MINGO on CKD Stage IV likely 2/2 to severe b/l hydronephrosis, recurrent UTI, acute pyelonephritis, sepsis. PLAN: MINGO on CKD Stage IV likely 2/2 to severe b/l hydronephrosis, UTI -S/p multiple ureteral stent placements, revisions. -CT above. -Discussed case with urology: suggested consult IR for nephrostomy tube placement, consulted officially to see. -Dicussed case with IR: Failing ureteral stents multiple times, appear in place with imaging. May need custodial nephrostomy tube/s. To be placed today -Nephrology consulted as they follow patient closely o/p -Pain control, IVFs at 75 cc/hr -F/u daily labs -Monitor I&O's closely, holding off on fernando catheter per nephro Recurrent UTI / acute pyelonephritis / sepsis -Hx of radiation cystitis, atonic bladder -Improving tachycardia, WBC 10.9, LA wnl, + severe left flank pain -UA +, UCx and bcx pending -S/p cefepime dose in ER, c/w ceftriaxone -C/w treatment above under problem #1 HTN -Stable -Resume BB when taking PO Chronic anemia -Stable Secondary hyperparathyrodism -Stable -F/u o/p GERD -PPI Cervical cancer treated with radiation therapy in 1991 -F/u o/p DVT px -Holding off on heparin due to procedure today, TEDS/SCD for now- start heparin SC when able DISPOSITION: Admitted as acute inpatient. IR, nephrology and urology consulted. F/u recommendations. Vital Signs Vital Signs Date Time Temp Pulse Resp B/P (MAP) Pulse Ox O2 Delivery O2 Flow Rate FiO2 12/23/20 11:36 16 12/23/20 10:15 94 166/84 (111) 94 Room Air 12/23/20 03:07 99.7 Laboratory Data Labs 24H Laboratory Tests 2 12/23/20 04:09: Urine Color YELLOW, Urine Appearance TURBIDH, Urine pH 6.0, Urine Specific Warren 1.006, Urine Protein 2+H, Urine Glucose (Auto)(UA) NEGATIVE, Urine Ketones (Auto) NEGATIVE, Urine Blood 3+H, Urine Nitrite NEGATIVE, Urine Bilirubin NEGATIVE, Urine Urobilinogen 0.2, Urine Leukocyte Esterase (Auto) 3+H, Urine WBC (Auto) TNTCH, Urine RBC (Auto) 119H, Urine Hyaline Casts (Auto) 0, Urine Bacteria (Auto) 1+H, Urine Squamous Epithelial Cells 3, Urine Mucus (Auto) SMALL, Urine Sperm (Auto) 12/23/20 05:15: Immature Granulocyte % (Auto) 0.6, Neutrophils (%) (Auto) 80.2H, Lymphocytes (%) (Auto) 8.6L, Monocytes (%) (Auto) 9.8H, Eosinophils (%) (Auto) 0.6, Basophils (%) (Auto) 0.2, Neutrophils # (Auto) 8.7H, Lymphocytes # (Auto) 0.9L, Monocytes # (Auto) 1.1H, Eosinophils # (Auto) 0.1, Basophils # (Auto) 0.0, Nucleated Red Blood Cells % (auto) 0.0, Anion Gap 14, Glomerular Filtration Rate 9.0L, Lactic Acid Level 0.5, Calcium Level 8.3L, Total Bilirubin 0.4, Direct Bilirubin 0.2, Aspartate Amino Transf (AST/SGOT) 9, Alanine Aminotransferase (ALT/SGPT) 16, Alkaline Phosphatase 79, Total Protein 7.0, Albumin 2.9L, Albumin/Globulin Ratio 0.7L, Lipase 117 12/23/20 06:35: Coronavirus (COVID-19)(PCR) NEGATIVE, Influenza Type A (RT-PCR) NEGATIVE, Influenza Type B (RT-PCR) NEGATIVE, Respiratory Syncytial Virus (PCR) NEGATIVE CBC/BMP Laboratory Tests 12/23/20 05:15 Microbiology Microbiology 12/23/20 Blood Culture, Received Pending 12/23/20 Blood Culture, Received Pending Home Medications Scheduled Calcium Carbonate/Vitamin D3 (Calcium 500-Vit D3 200 Tablet) 1 Each Tablet, 1 TAB PO DAILY Levothyroxine Sodium (Levothyroxine Sodium) 150 Mcg Tablet, 150 MCG PO DAILY Metoprolol Tartrate (Metoprolol Tartrate) 25 Mg Tablet, 25 MG PO BID Pantoprazole Sodium (Pantoprazole Sodium) 40 Mg Tablet.dr, 40 MG PO DAILY Sodium Bicarbonate (Sodium Bicarbonate) 325 Mg Tablet, 325 MG PO TID Vit B Comp No.3/Folic/C/Biotin (Helen-Layo Rx Tablet) 1 Each Tablet, 1 TAB PO DAILY Scheduled PRN Acetaminophen (Tylenol Extra Strength) 500 Mg Tablet, 1,000 MG PO TID PRN for PAIN Hydrocodone/Acetaminophen (Hydrocodone-Acetamin 5-325 mg) 1 Each Tablet, 1 TAB PO TID PRN for PAIN MDD 4 Allergies Coded Allergies: Quinolones (Verified Allergy, Intermediate, tequin - blisters on lips, 07/24/20) potassium (Verified Allergy, Intermediate, HIVES, POUNDING HEARTBEAT, 06/13/20) povidone-iodine (Verified Allergy, Intermediate, rash/burn, 06/13/20) soap (Verified Allergy, Intermediate, rash/burn, 06/13/20) Sulfa (Sulfonamide Antibiotics) (Verified Allergy, Unknown, unknown reacti on , 12/23/20) epoetin reina (Verified Allergy, Unknown, 06/13/20) ibuprofen (Verified Allergy, Unknown, kidney problems, can't take, 12/23/20) trimethoprim (Verified Allergy, Unknown, 06/13/20) A-FIB/CHADSVASC A-FIB History Current/History of A-Fib/PAF?: No Current PO Anticoag Therapy: No Age/Risk Factor Scoring CHADSVASC: CHADSVASC Response (Comments) Value Age Risk Factor Age < 65 years old 0 Gender Risk Factor Female 1 Hx of CHF No 0 Hx of HTN Yes 1 Hx of Stroke/TIA/or VTE No 0 Hx of Diabetes No 0 Hx of Vascular Disease No 0 Total 2 Treatment Treatment ordered: Holding Other Nimo Pat MD Dec 23, 2020 13:00
[2020-12-23] MEDS: cefTRIAXone SOD 1 GM in D5W MINI-BAG PLUS 50 ML IV SCH (13:31)
[2020-12-23] MEDS ORDERED: KETOROLAC 30 MG/ML 1ML VIAL IV ONE (15:45)
[2020-12-23] MEDS ORDERED: KETOROLAC 30 MG/ML 1ML VIAL As Ordered ONE (15:52)
[2020-12-23] MEDS ORDERED: diphenhydrAMINE 50MG/ML VIAL (J1200) As Ordered ONE (16:10)
[2020-12-23] MEDS ORDERED: fentaNYL 100 MCG/2 ML INJECTION (J3010) As Ordered ONE (16:11)
[2020-12-23] MEDS ORDERED: MIDAZOLAM INJ 2MG/2ML VIAL (J2250 PER 1MG) As Ordered ONE (16:11)
[2020-12-23] MEDS ORDERED: ISOVUE-300 61% 50ML VIAL As Ordered ONE (16:11)
[2020-12-23] MEDS ORDERED: LIDOCAINE 1% MDV 20ML VIAL As Ordered ONE (16:11)
[2020-12-23] MEDS ORDERED: ceFAZolin 1GM VIAL (J0690 PER 500MG) As Ordered ONE (16:35)
--- NOTE | 2020-12-23 17:24 | CR.PDOC ---
General Date of Consultation: Dec 23, 2020 Referring Provider: Nimo Pat MD Consultation REASON FOR CONSULTATION/CHIEF COMPLAINT: Bilateral hydronephrosis now worsening with acute renal failure on top of chronic kidney disease and fever of 102 HISTORY OF PRESENT ILLNESS: The patient is a 60-year-old female well-known to Dr. Dumas with a history of cervical cancer that was treated with radiation therapy in 1991. Since then she has suffered with bilateral hydroureteronephrosis despite ureteral stent placements, radiation cystitis, atonic bladder, and stage IV chronic kidney disease. Her stents were last ch anged on 10/22/[address] Dumas. She came through the emergency room with increasing left flank pain, fever, chills, nausea, and one episode of vomiting. The pain was sharp and sudden and she had a fever at home at 102. She has also had lethargy and decreased appetite. She was admitted and consultation was requested. Her creatinine was much elevated from her baseline and was 5.23 today with a no rmal white blood count. Because the stents were exchanged within the last [address] scan showed significant Paicines nephrosis worse than last time with a definite infection I recommended bilateral nephrostomy tubes to be placed. ALLERGIES: Please see below. HOME MEDICATIONS: Please see below. PAST MEDICAL HISTORY: 1. Cervical cancer treated with radiation therapy in 1991 2. Radiation cystitis 3. Atonic bladder 4. Secondary hyperparathyroism 5. CKD Stage IV 6. Hypertension 7. Chronic anemia 8. Recurrent UTI 9. Recurrent b/l hydronephrosis despite ureteral stent placements last one by Dr. Dumas PAST SURGICAL HISTORY: -Appendectomy -Bilateral ureteral stent exchanges and occasional nephrostomy tube FAMILY HISTORY: No significant urologic history. There is a history of diabetes, high blood pressure, and coronary artery disease SOCIAL HISTORY: [id number] history, quit smoking 2003 Drinks up to 5 beers daily last drink day before admission Denies illicit drug use REVIEW OF SYSTEMS: A 12 system review was done and was essentially negative except for what was in the HPI Physical examination: VS: P 88 NSR, BP 131/70, 94% on RA, RR 16, temp 99.7 CONSTITUTIONAL: Appeared uncomfortable in pain, AAO x 3 EYES: PERRLA, EOM intact HENT, MOUTH: Normocephalic, atraumatic, moist mucous membranes NECK: SUPPLE, no JVD, no lymphadenopathy, no carotid bruit CV: Regular rate and rhythm, S1S2 normal, no murmurs/rubs/gallops appreciated RESPIRATORY: Clear to auscultation bilaterally, no rales/rhonchi/wheezes GI: Soft and nontender BACK: tenderness on left flank/+CVA tenderness : Deferred MUSCULOSKELETAL: Normal ROM. No cyanosis, clubbing, swelling, or extremity edema INTEGUMENTARY: Intact, no rashes, no lesions, no erythema NEUROLOGIC: Cranial Nerves II-XII are intact, no focal deficits PSYCHIATRIC: Mood and affect are normal LABORATORY DATA: Please see below. ASSESSMENT/PLAN: -Severe bilateral ureteral nephrosis despite bilateral ureteral stents last placed 10/[address] Dumas for long-standing bilateral hydroureteronephrosis status post radiation therapy for cervical cancer -Atonic bladder -Presumed pyelonephritis with a temperature of 102 -Acute renal failure on top of chronic stage IV renal disease Plan: -Continue CIC or place a Weeks catheter for her atonic bladder -Recommend placement of bilateral nephrostomy tubes in sending urine cultures from this and treating infections accordingly -Recommend nephrology consultation -Continue follow-up with urology upon discharge but no acute intervention is necessary on our part at this time Thank you for this consultation Vital Signs/I&O Vital Signs Date Time Temp Pulse Resp B/P (MAP) Pulse Ox O2 Delivery O2 Flow Rate FiO2 12/23/20 16:54 102 16 100 Nasal Cannula 2 12/23/20 16:05 101.2 12/23/20 15:00 152/77 (102) Laboratory Data Labs 24H Laboratory Tests 2 12/23/20 04:09: Urine Color YELLOW, Urine Appearance TURBIDH, Urine pH 6.0, Urine Specific Holton 1.006, Urine Protein 2+H, Urine Glucose (Auto)(UA) NEGATIVE, Urine Ketones (Auto) NEGATIVE, Urine Blood 3+H, Urine Nitrite NEGATIVE, Urine Bilirubin NEGATIVE, Urine Urobilinogen 0.2, Urine Leukocyte Esterase (Auto) 3+H, Urine WBC (Auto) TNTCH, Urine RBC (Auto) 119H, Urine Hyaline Casts (Auto) 0, Urine Bacteria (Auto) 1+H, Urine Squamous Epithelial Cells 3, Urine Mucus (Auto) SMALL, Urine Sperm (Auto) 12/23/20 05:15: Immature Granulocyte % (Auto) 0.6, Neutrophils (%) (Auto) 80.2H, Lymphocytes (%) (Auto) 8.6L, Monocytes (%) (Auto) 9.8H, Eosinophils (%) (Auto) 0.6, Basophils (%) (Auto) 0.2, Neutrophils # (Auto) 8.7H, Lymphocytes # (Auto) 0.9L, Monocytes # (Auto) 1.1H, Eosinophils # (Auto) 0.1, Basophils # (Auto) 0.0, Nucleated Red Blood Cells % (auto) 0.0, Anion Gap 14, Glomerular Filtration Rate 9.0L, Lactic Acid Level 0.5, Calcium Level 8.3L, Total Bilirubin 0.4, Direct Bilirubin 0.2, Aspartate Amino Transf (AST/SGOT) 9, Alanine Aminotransferase (ALT/SGPT) 16, Alkaline Phosphatase 79, Total Protein 7.0, Albumin 2.9L, Albumin/Globulin Ratio 0.7L, Lipase 117 12/23/20 06:35: Coronavirus (COVID-19)(PCR) NEGATIVE, Influenza Type A (RT-PCR) NEGATIVE, I nfluenza Type B (RT-PCR) NEGATIVE, Respiratory Syncytial Virus (PCR) NEGATIVE CBC/BMP Laboratory Tests 12/23/20 05:15 Microbiology Microbiology 12/23/20 Blood Culture, Received Pending 12/23/20 Blood Culture, Received Pending 12/23/20 Urine Culture, Received Pending Allergies Coded Allergies: potassium (Verified Allergy, Intermediate, HIVES, POUNDING HEARTBEAT, 06/13/20) povidone-iodine (Verified Allergy, Mild, rash/burn, 12/23/20) soap (Verified Allergy, Mild, rash/burn, 12/23/20) Sulfa (Sulfonamide Antibiotics) (Unverified Allergy, Unknown, unknown reaction , 12/23/20) epoetin reina (Verified Allergy, Unknown, 06/13/20) trimethoprim (Unverified Allergy, Unknown, 12/23/20) Quinolones (Verified Adverse Reaction, Intermediate, tequin - blisters on lips, 12/23/20) ibuprofen (Verified Adverse Reaction, Intermediate, kidney problems, can't take, 12/23/20) Home Medications Scheduled Calcium Carbonate/Vitamin D3 (Calcium 500-Vit D3 200 Tablet) 1 Each Tablet, 1 TAB PO DAILY, (Reported) Levothyroxine Sodium (Levothyroxine Sodium) 150 Mcg Tablet, 150 MCG PO DAILY, (Reported) Metoprolol Tartrate (Metoprolol Tartrate) 25 Mg Tablet, 25 MG PO BID, (Reported) Pantoprazole Sodium (Pantoprazole Sodium) 40 Mg Tablet.dr, 40 MG PO DAILY, (Reported) Sodium Bicarbonate (Sodium Bicarbonate) 325 Mg Tablet, 325 MG PO TID, (Reported) Vit B Comp No.3/Folic/C/Biotin (Helen-Layo Rx Tablet) 1 Each Tablet, 1 TAB PO DAILY, (Reported) Scheduled PRN Acetaminophen (Tylenol Extra Strength) 500 Mg Tablet, 1,000 MG PO TID PRN for PAIN, (Reported) Hydrocodone/Acetaminophen (Hydrocodone-Acetamin 5-325 mg) 1 Each Tablet, 1 TAB PO TID PRN for PAIN, (Reported) MDD 4 RANDALL PASCUAL MD Dec 23, 2020 17:24
[2020-12-23 21:39] LABS: ALBUMIN 2.4 GM/DL (3.2-5.2); CALCIUM LEVEL 8.3 MG/DL (8.5-10.1); CREATININE FOR GFR 5.6 MG/DL (0.55-1.30); GLOMERULAR FILTRATION RATE 8.3 (>51); PHOSPHORUS LEVEL 4.5 MG/DL (2.5-4.9); POTASSIUM SERUM 3.9 MEQ/L (3.5-5.1)
[2020-12-23] MEDS: SODIUM BICARBONATE 325 MG TAB PO SCH (21:49)
[2020-12-23] MEDS: ACETAMINOPHEN TAB 650MG DOSE (2X325MG) PO PRN (21:50)
[2020-12-24] MEDS: SODIUM BICARBONATE 75 MEQ in NS 0.45% 1,000 ML IV SCH ×2 (00:13→08:49)
--- NOTE | 2020-12-24 00:17 | CR ---
INITIAL INPATIENT CONSULTATION DATE: 12/23/2020 REQUESTING PHYSICIAN: Nimo Pat MD REASON FOR CONSULTATION: Management of acute renal failure superimposed on chronic kidney disease. CHIEF COMPLAINT: Patient presented to the hospital with oliguria and left-sided renal colic. HISTORY OF PRESENT ILLNESS: Shayla Cole is a 60-year-old female with a past medical history of chronic kidney disease stage 4, baseline creatinine of around 2.2, chronic bilateral hydroureteronephrosis requiring bilateral ureteral stents, atonic bladder, radiation cystitis and history of cervical cancer in the past. Multiple other comorbidities as mentioned below. She follows up with Dr. Sparrow as an outpatient. She presented to the hospital today with progressively worsening left-sided flank pain that starts from the renal area and comes in the groin. She had fevers, chills, nausea and decreased urine output. She felt like her pain was similar to the previous pains when she has ureteral obstructions and needs stents placed or exchanged. She had a temperature of 102 degrees Fahrenheit. She had leukocytosis with a WBC of 10.9. She was found to have acute renal failure with a creatinine of 5.2. Nephrology service was called for further help in the management of this patient. Patient needed my immediate attention. I saw and evaluated the patient in the Emergency Room. She had already gotten the CT scan of the abdomen and pelvis done, which had shown worsening bilateral hydroureteronephrosis despite bilateral ureteral stents. Patient had received 1 liter of normal saline bolus in the Emergency Room by the time I saw her. PAST MEDICAL HISTORY: Chronic kidney disease stage 4, history of bilateral hydroureteronephrosis in the past, atonic bladder requiring intermittent catheterizations, history of radiation cystitis, cervical cancer treated with radiation therapy back in 1991, secondary hyperparathyroidism, hypertension, anemia and chronic kidney disease, recurrent UTIs in the past. PAST SURGICAL HISTORY: Status post appendectomy in the past, status post bilateral ureteral stent replacements and exchanges; latest one was done in October 2020. ALLERGIES: She is allergic to quinolones, sulfa, Epoetin, Ibuprofen, Povidone-iodine, soap and Trimethoprim. FAMILY HISTORY: No significant family history of end-stage renal disease requiring hemodialysis. SOCIAL HISTORY: Patient is an ex-smoker; she quit in 2002. She drinks about five beers every day; last drink was yesterday. REVIEW OF SYSTEMS: CONSTITUTIONAL: She reports feeling weak and tired. She does report chills as well. EYES: She denies any blurry vision or double vision. ENT: She denies any dysphagia or odynophagia. CARDIOVASCULAR: She denies any chest pain or palpitations. RESPIRATORY: She denies any shortness of breath. GI: She reports nausea, decreased urine output and flank pain. GENITOURINARY: She reports decreased urine output. MUSCULOSKELETAL: She denies any muscle aches and pain. SKIN: She denies any rashes or ulcers. HEMATOLOGIC/ONCOLOGIC: She denies any easy bleeding or bruising. ENDOCRINE: She denies any polyphagia or polyuria. She actually reports decreased urine output. BACK SEWER: She denies any strokes, seizures or weakness. All other review of systems is negative. PHYSICAL EXAMINATION: GENERAL: Patient is awake, alert and oriented x3, lying in bed. VITAL SIGNS: T-max 102 degrees Fahrenheit, T-current 98 degrees Fahrenheit, blood pressure 137/64, pulse 108, respiratory rate 20, saturating 96% on room air. HEAD AND NECK: Extraocular muscles intact. Pupils equally round and reactive to light. Mucous membranes are moist. Neck is supple. There is no JVD. CARDIOVASCULAR: S1, S2, tachycardia was noted. RESPIRATORY: Chest is clear to auscultation bilaterally. Bilateral equal air entry. No rales or rhonchi. ABDOMEN: Soft, positive bowel sounds, moderate amount of tenderness in the left side of the abdomen. There is severe left CVA tenderness and moderate right CVA tenderness. GENITOURINARY: Bladder is not palpable. MUSCULOSKELETAL: No clubbing or cyanosis. Pulses are 2+. BACK SEWER: No focal deficit. Power is 5/5 in all extremities. LABORATORY REVIEW: CBC showed WBC 10.9, hemoglobin 12.6, platelets 193,000. Urinalysis showed it was turbid with 2+ protein, 3+ blood, 3+ leukocyte esterase, too numerous to count wbc's. BMP showed sodium 132, potassium 3.9, chloride 102, bicarb 16, BUN 60, creatinine 5.2. Lactic acid 0.5. Calcium 8.3. MICROBIOLOGY: Blood cultures and urine cultures are pending. IMAGING: A CAT scan of the abdomen and pelvis was done, which showed bilateral ureteral stents in place and severe bilateral hydronephrosis. Stent dysfunction maybe present. Non-enlarged retroperitoneal lymph nodes. A 2.5 cm left adnexal cyst. CURRENT INPATIENT MEDICATIONS: Patient's medications were all reviewed by myself. She was given a dose of I.V. Cefepime in the Emergency Room and she has been started on Ceftriaxone 1 gram I.V. daily. She has been started on normal saline at 75 cc an hour. She was also given normal saline 1 liter bolus in the morning. There is an order for I.V. Ketorolac. I would avoid giving the Ketorolac to the patient because of renal failure. She is on Lopressor 25 mg p.o. twice a day, morphine p.r.n., Zofran p.r.n., Protonix 40 mg p.o. daily, sodium bicarbonate 325 mg p.o. three times a day. ASSESSMENT AND PLAN: 1. Acute oliguric renal failure: It is secondary to obstruction of bilateral ureteral stents and bilateral hydronephrosis. Patient has been given I.V. fluid hydration, but at this time, she needs bilateral percutaneous nephrostomies to relieve the obstruction. There is no urgent need of hemodialysis at this time. 2. Sepsis secondary to bilateral hydroureteronephrosis and possible left-sided pyelonephritis: Patient came in with fevers, she has tachycardia, leukocytosis, evidence of ureteral obstruction and clinically evident left-sided pyelonephritis with turbid urine and too numerous to count wbc's. Continue gentle I.V. fluid hydration. Continue I.V. Ceftriaxone. Lactic acid level was within the acceptable range on arrival. 3. History of hypertension: Okay to continue beta-blockers at this time. Avoid KEVIN inhibitors or angiotensin receptor blockers. Place holding parameters on beta-blockers because of risk of severe sepsis in this patient with left-sided pyelonephritis. 4. Metabolic acidosis: Patient is currently getting sodium bicarbonate 325 mg p.o. three times a day. Acidosis hopefully should resolve with improvement in the renal function. 5. Left renal colic: It is secondary to hydronephrosis and pyelonephritis. Okay to give morphine to the patient. Avoid Ketorolac in this patient who is in acute renal failure. Thank you for involving me in the care of this patient. I shall be happy to follow the patient along with you tomorrow morning.
[2020-12-24] MEDS ORDERED: METOPROLOL TART 25 MG TABLET As Ordered ONE (00:27)
[2020-12-24] MEDS: METOPROLOL TART 25 MG TABLET PO SCH ×3 (00:28→21:41)
[2020-12-24 02:00] VITALS: BP 110/59
[2020-12-24 05:50] LABS: HEMATOCRIT 37.1 % (36.0-47.0); HEMOGLOBIN 11.9 g/dl (12.0-15.5); MEAN CORPUSCULAR HEMOGLOBIN 26.3 pg (27.0-33.0); MEAN CORPUSCULAR HGB CONC 32.1 g/dl (32.0-36.5); MEAN CORPUSCULAR VOLUME 82.1 fl (80.0-96.0); PLATELET COUNT, AUTOMATED 172 10^3/uL (150-450); RED BLOOD COUNT 4.52 10^6/uL (4.00-5.40); WHITE BLOOD COUNT 11.7 10^3/uL (4.0-10.0)
[2020-12-24 06:00] VITALS: BP 123/65
[2020-12-24] MEDS: LEVOTHYROXINE 150MCG TABLET (0.15MG) PO SCH (06:01)
[2020-12-24] MEDS: MORPHINE 2 MG/ML 1ML VIAL (J2270) IV PRN ×4 (06:02→21:57)
[2020-12-24 06:18] LABS: ALBUMIN 2.4 GM/DL (3.2-5.2); BILIRUBIN,TOTAL 0.5 MG/DL (0.2-1.0); CREATININE FOR GFR 5.17 MG/DL (0.55-1.30); GLOMERULAR FILTRATION RATE 9.1 (>51); POTASSIUM SERUM 4.3 MEQ/L (3.5-5.1); TOTAL PROTEIN 6.9 GM/DL (6.4-8.2)
[2020-12-24] MEDS: PANTOPRAZOLE 40MG TAB (PROTONIX) PO SCH (08:58)
[2020-12-24] MEDS: SODIUM BICARBONATE 325 MG TAB PO SCH ×3 (08:58→21:33)
[2020-12-24 14:00] VITALS: BP 130/75
[2020-12-24] MEDS: cefTRIAXone SOD 1 GM in D5W MINI-BAG PLUS 50 ML IV SCH (15:08)
[2020-12-24] MEDS: ACETAMINOPHEN TAB 650MG DOSE (2X325MG) PO PRN (16:46)
--- NOTE | 2020-12-24 17:01 | IPNPDOC ---
Date Seen The patient was seen on 12/24/20. Progress Note SUBJECTIVE: Bilateral nephrostomy tubes placed 12/23/20, draining well, some improvement of Cr today. Nephrology consulted, started bicarb gtt due to acidosis and showing some improvement in acidosis. Denies abdominal pain but complains of back pain b/l. OBJECTIVE: PHYSICAL EXAMINATION: VS: Please see below CONSTITUTIONAL: Appeared uncomfortable in pain, AAO x 3 EYES: PERRLA, EOM intact HENT, MOUTH: Normocephalic, atraumatic, moist mucous membranes NECK: SUPPLE, no JVD, no lymphadenopathy, no carotid bruit CV: Regular rate and rhythm, S1S2 normal, no murmurs/rubs/gallops BACK : B/L nephrostomy tubes in place in left and right lower back RESPIRATORY: Clear to auscultation bilaterally, no rales/rhonchi/wheezes GI: BS positive in 4 quadrants, soft, nontender, nondistended, no rebound or guarding, no organomegaly BACK: tenderness on left flank/+CVA tenderness : Deferred MUSCULOSKELETAL: Normal ROM. No cyanosis, clubbing, swelling, joint deformity, extremity edema INTEGUMENTARY: Intact, no rashes, no lesions, no erythema NEUROLOGIC: Cranial Nerves II-XII are intact, no focal deficits PSYCHIATRIC: Mood and affect are normal LABORATORY DATA: Please see below IMAGING: CT abd/pelvis: 1. Bilateral ureteral stents in place. 2. Severe bilateral hydronephrosis. Stent dysfunction may be present. Stent revision and/or percutaneous drainage should be considered. 3. There are nonenlarged retroperitoneal lymph nodes, nonspecific findings. These could be reactive to a infection correlation urinalysis and clinical history recommended. 4. 2.5 adnexal cyst essentially. ASSESSMENT: 60 y/o F with PMH of cervical cancer treated with radiation therapy in 1991, radiation cystitis, atonic bladder, secondary hyperparathyrodism, CKD Stage IV, HTN, chronic anemia, recurrent UTI and recurrent b/l hydronephrosis despite urethral stent placements admitted under hospitalist for MINGO on CKD Stage IV likely 2/2 to severe b/l hydronephrosis, recurrent UTI, acute pyelonephritis, sepsis. PLAN: MINGO on CKD Stage IV likely 2/2 to severe b/l hydronephrosis, UTI -POD 1 of b/l nephrostomy tube placement by IR -Cr improved some to 5.17, fernando removed -Hx of multiple ureteral stent placements, revisions. -Nephrology consulted as they follow patient closely o/p -Pain control, bicarb gtt, encouraging fluids -F/u daily labs -Monitor I&O's closely -Tx of UTI below Recurrent UTI / acute pyelonephritis / sepsis -Hx of radiation cystitis, atonic bladder -Improving tachycardia, WBC 11.7, LA wnl, left flank pain much improved -BCx NG at 24 hr -UA +, UCx pending -C/w ceftriaxone -C/w treatment above under problem #1 Metabolic acidosis 2/2 to MINGO -Improving slowly with bicarb gtt, tabs -Nephrology managing HTN -Stable -C/w BB Chronic anemia -Stable Secondary hyperparathyrodism -Stable -C/w tx GERD -PPI Cervical cancer treated with radiation therapy in 1991 -F/u o/p DVT px -heparin sc started , TEDS/SCD DISPOSITION: Admitted as acute inpatient. IR, nephrology and urology consulted. PT/OT ordered today to start in AM. F/u recommendations. VS, I&O, 24H, Ignaciobonkimberly Vital Signs/I&O Vital Signs Date Time Temp Pulse Resp B/P (MAP) Pulse Ox O2 Delivery O2 Flow Rate FiO2 12/24/20 15:36 18 12/24/20 14:00 99.2 104 130/75 (93) 97 Room Air 12/23/20 17:19 2 I&O- Last 24 Hours up to 6 AM 12/24/20 05:59 Intake Total 1970 ml Output Total 785 ml Balance 1185 ml Laboratory Data 24H LABS Laboratory Tests 2 12/23/20 21:07: Anion Gap 14, Glomerular Filtration Rate 8.3L, Calcium Level 8.3L, Phosphorus Level 4.5, Albumin 2.4L 12/24/20 05:38: Anion Gap 10, Glomerular Filtration Rate 9.1L, Calcium Level 8.0L, Albumin 2.4L, Nucleated Red Blood Cells % (auto) 0.0, Total Bilirubin 0.5, Aspartate Amino Transf (AST/SGOT) 84H, Alanine Aminotransferase (ALT/SGPT) 66, Alkaline Phosphatase 225H, Total Protein 6.9, Albumin/Globulin Ratio 0.5L CBC/BMP Laboratory Tests 12/23/20 21:07 12/24/20 05:38 Microbiology Microbiology 12/23/20 Blood Culture - Preliminary, Resulted No growth after 24 hours . All specim... 12/23/20 Blood Culture - Preliminary, Resulted No growth after 24 hours . All specim... 12/23/20 Urine Culture, Received Pending Current Medications Current Medications Medications (Trade) Dose Ordered Sig/Jahaira Route PRN Reason Start Time Stop Time Status Last Admin Dose Admin Acetaminophen (Tylenol Tab) 650 mg Q4HP PRN PO PAIN OR FEVER 12/23/20 16:50 12/24/20 16:46 Ceftriaxone Sodium 1 gm/ Dextrose 50 ml @ 100 mls/hr Q24H IV 12/23/20 14:00 12/24/20 15:08 Home Med (Med Rec Complete!) ASDIRECTED XX 12/23/20 06:40 12/23/20 06:37 DC Levothyroxine Sodium (Synthroid) 150 mcg DAILY@0600 PO 12/24/20 06:00 12/24/20 06:01 Metoprolol Tartrate (Lopressor) 25 mg BID PO 12/23/20 21:00 12/24/20 08:59 Morphine Sulfate (Morphine Sulfate Inj) 1 mg Q6H PRN IV MODERATE PAIN (PS 5-7) 12/23/20 10:10 Morphine Sulfate (Morphine Sulfate Inj) 2 mg Q4H PRN IV SEVERE PAIN (PS 8-10) 12/23/20 10:10 12/24/20 15:23 Morphine Sulfate (Morphine Sulfate Inj) 4 mg Q30M PRN IV SEVERE PAIN (PS 8-10) 12/23/20 05:15 12/23/20 06:54 DC 12/23/20 06:54 Ondansetron HCl (ZOFRAN INJection) 4 mg Q4HP PRN IV NAUSEA OR VOMITING 12/23/20 10:10 12/23/20 18:47 Pantoprazole Sodium (Protonix) 40 mg DAILY PO 12/24/20 09:00 12/24/20 08:58 Pantoprazole Sodium (Protonix) 40 mg Q24H IV 12/23/20 13:00 12/23/20 16:52 DC 12/23/20 13:30 Sodium Bicarbonate 75 meq/Sodium Chloride 1,075 ml @ 125 mls/hr Q8H36M IV 12/23/20 22:25 12/24/20 14:24 DC 12/24/20 08:49 Sodium Bicarbonate (Sodium Bicarbonate) 325 mg TID PO 12/23/20 21:00 12/24/20 15:08 Sodium Chloride 1,000 ml @ 75 mls/hr [id number] IV 12/23/20 12:05 12/23/20 22:03 DC 12/23/20 13:31 Sodium Chloride 1,000 ml @ 125 mls/hr Q8H IV 12/23/20 09:40 12/23/20 09:51 DC Allergies Coded Allergies: potassium (Verified Allergy, Intermediate, HIVES, POUNDING HEARTBEAT, 06/13/20) povidone-iodine (Verified Allergy, Mild, rash/burn, 12/23/20) soap (Verified Allergy, Mild, rash/burn, 12/23/20) Sulfa (Sulfonamide Antibiotics) (Unverified Allergy, Unknown, unknown reaction , 12/23/20) epoetin reina (Verified Allergy, Unknown, 06/13/20) trimethoprim (Unverified Allergy, Unknown, 12/23/20) Quinolones (Verified Adverse Reaction, Intermediate, tequin - blisters on lips, 12/23/20) ibuprofen (Verified Adverse Reaction, Intermediate, kidney problems, can't take, 12/23/20) Nimo Pat MD Dec 24, 2020 17:01
[2020-12-24 22:00] VITALS: BP 102/60
[2020-12-24 23:31] LABS: ALBUMIN 2.3 GM/DL (3.2-5.2); CALCIUM LEVEL 7.7 MG/DL (8.5-10.1); CREATININE FOR GFR 4.34 MG/DL (0.55-1.30); GLOMERULAR FILTRATION RATE 11.1 (>51); PHOSPHORUS LEVEL 3.1 MG/DL (2.5-4.9); POTASSIUM SERUM 3.5 MEQ/L (3.5-5.1)
[2020-12-25] MEDS: ACETAMINOPHEN TAB 650MG DOSE (2X325MG) PO PRN ×2 (00:04→05:20)
--- NOTE | 2020-12-25 00:16 | IPN ---
NEPHROLOGY PROGRESS NOTE DATE: 12/24/2020 SUBJECTIVE: Patient was seen and examined at the bedside today morning. She got bilateral percutaneous nephrostomy tubes placed yesterday. She has started to make urine, it is more on the left side as compared with the right side. She does report that there is hematuria also in the left-sided percutaneous nephrostomy. Renal function is stable. She was started on I.V. bicarb containing fluids. Bicarb level is improving now. OBJECTIVE: VITAL SIGNS: Temperature 100.6 degrees Fahrenheit, blood pressure 102/60, pulse 87, respiratory rate 18, saturating 96% on room air. INTAKE AND OUTPUT: Urine output recorded as 3.3 liters from the left nephrostomy and 1.5 liters from the right side. Weight in the bed scale is not available. PHYSICAL EXAMINATION: GENERAL: Patient is awake, alert, oriented x3, lying in bed, in no apparent distress. HEAD/NECK: Extraocular muscles intact. Pupils equally round and reactive to light. Mucous membranes are moist. Neck is supple. There is no JVD. RESPIRATORY: Chest is clear to auscultation bilaterally. Bilateral equal air entry. No rales or rhonchi. CARDIOVASCULAR: S1, S2, regular rate. No edema of bilateral lower extremities. ABDOMEN: Soft, positive bowel sounds. Bilateral percutaneous nephrostomies were noted. Moderate amount of left-sided CVA tenderness is still noted. MUSCULOSKELETAL: No clubbing or cyanosis. Pulses are 2+. 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 Power is 5/5 in all extremities. LAB REVIEW: CBC showed WBC 11.7, hemoglobin 11.9, platelets 172,000. BMP done in the morning showed sodium 137, potassium 4.3, chloride 110, bicarb 17, BUN 61, creatinine 5.1. Calcium 8. Albumin 2.4. CURRENT INPATIENT MEDICATIONS: Patient's medications were all reviewed by myself. She continues to be on I.V. Ceftriaxone. I.V. bicarb drip two bags were given; second bag is running. She continues to be on oral sodium bicarbonate 300 mg p.o. three times a day. ASSESSMENT AND PLAN: 1. Acute renal failure: Patient had bilateral hydroureteronephrosis, she has bilateral percutaneous nephrostomies. She is making good amount of urine. She is supposed to make renal recovery back to her baseline. 2. Sepsis secondary to bilateral hydroureteronephrosis and left-sided pyelonephritis: Patient is still getting I.V. fluid hydration. She continues to be on I.V. antibiotics. Urine culture is pending. She is still having low-grade temperatures at this time. 3. History of hypertension: Patient has soft blood pressures. Continue the beta-blockers only. No other antihypertensive is noted at this time. 4. Metabolic acidosis: She is getting bicarb containing fluids and oral bicarbonate as well. Bicarb level is improving.
[2020-12-25] MEDS: MORPHINE 2 MG/ML 1ML VIAL (J2270) IV PRN ×3 (04:35→14:32)
[2020-12-25] MEDS: LEVOTHYROXINE 150MCG TABLET (0.15MG) PO SCH (05:55)
[2020-12-25 06:00] VITALS: BP 123/64
[2020-12-25 06:20] LABS: HEMOGLOBIN 10.8 g/dl (12.0-15.5); MEAN CORPUSCULAR HEMOGLOBIN 26.5 pg (27.0-33.0); MEAN CORPUSCULAR HGB CONC 32.7 g/dl (32.0-36.5); MEAN CORPUSCULAR VOLUME 81.1 fl (80.0-96.0); PLATELET COUNT, AUTOMATED 198 10^3/uL (150-450); RED BLOOD COUNT 4.07 10^6/uL (4.00-5.40); WHITE BLOOD COUNT 10.5 10^3/uL (4.0-10.0)
[2020-12-25 06:44] LABS: ALBUMIN 2.2 GM/DL (3.2-5.2); BILIRUBIN,TOTAL 0.2 MG/DL (0.2-1.0); CALCIUM LEVEL 8.1 MG/DL (8.5-10.1); CREATININE FOR GFR 3.95 MG/DL (0.55-1.30); GLOMERULAR FILTRATION RATE 12.4 (>51); POTASSIUM SERUM 3.7 MEQ/L (3.5-5.1); TOTAL PROTEIN 6.2 GM/DL (6.4-8.2)
--- NOTE | 2020-12-25 09:18 | ECGEPIP ---
[facility] - ED Test Date: 2020-12-23 Pat Name: AFSANEH DOUGHERTY Department: Room: [place] [address] Gender: Female Insulation Installer: pipo : [id number] Requested By: Lindsey Cevallos Order Number: [id number] Reading MD: David Vigil Measurements Intervals [place] Rate: 95 P: 38 CO: 154 QRS: 4 QRSD: 82 T: 18 QT: 346 QTc: 434 Interpretive Statements Sinus rhythm with supraventricular premature complexes POOR R WAVE PROGRESSION NO PRIORS FOR COMPARISON Electronically Signed on 12-25-2020 9:18:01 EDT by David Vigil
[2020-12-25] MEDS: SODIUM BICARBONATE 75 MEQ in NS 0.45% 1,000 ML IV SCH ×2 (09:54→23:43)
[2020-12-25] MEDS: SODIUM BICARBONATE 325 MG TAB PO SCH ×3 (09:55→20:36)
[2020-12-25] MEDS: PANTOPRAZOLE 40MG TAB (PROTONIX) PO SCH (09:55)
[2020-12-25] MEDS: HEPARIN SOD (PORCINE) 5000UNITS/ML 1ML VIAL/SYRINGE SQ SCH ×2 (09:55→20:36)
[2020-12-25] MEDS: METOPROLOL TART 25 MG TABLET PO SCH ×2 (09:57→20:38)
[2020-12-25 14:00] VITALS: BP 112/67
[2020-12-25] MEDS ORDERED: PERCOCET 5MG/325MG TAB PO PRN (14:40)
[2020-12-25] MEDS ORDERED: LIDOCAINE 1% MDV 20ML VIAL As Ordered ONE (15:52)
[2020-12-25] MEDS ORDERED: traMADol 50 MG TAB PO PRN (16:15)
--- NOTE | 2020-12-25 16:58 | IPNPDOC ---
Date Seen The patient was seen on 12/25/20. Progress Note SUBJECTIVE: Sent for mid-line today due to losing access. Pain regimen adjusted to tramadol and oxy/acetaminophen. Remains on sodium bicarb gtt. Nephrostomy tubes continue to drain well. Still has some lower suprapubic tenderness, back pain but denies shortness of breath, n/v/d. OBJECTIVE: PHYSICAL EXAMINATION: VS: Please see below CONSTITUTIONAL: resting in bed, AAO x 3 EYES: PERRLA, EOM intact HENT, MOUTH: Normocephalic, atraumatic, moist mucous membranes NECK: SUPPLE, no JVD, no lymphadenopathy, no carotid bruit CV: Regular rate and rhythm, S1S2 normal, no murmurs/rubs/gallops BACK : B/L nephrostomy tubes in place in left and right lower back RESPIRATORY: Clear to auscultation bilaterally, no rales/rhonchi/wheezes GI: BS positive in 4 quadrants, soft, nontender, nondistended, no rebound or guarding, no organomegaly BACK: tender b/l where nephrostomy tubes are in place in the lower back : Deferred MUSCULOSKELETAL: Normal ROM. No cyanosis, clubbing, swelling, joint deformity, extremity edema INTEGUMENTARY: Intact, no rashes, no lesions, no erythema NEUROLOGIC: Cranial Nerves II-XII are intact, no focal deficits PSYCHIATRIC: Mood and affect are normal LABORATORY DATA: Please see below MICRO: UCx: E. coli BCx: NG IMAGING: CT abd/pelvis: 1. Bilateral ureteral stents in place. 2. Severe bilateral hydronephrosis. Stent dysfunction may be present. Stent revision and/or percutaneous drainage should be considered. 3. There are nonenlarged retroperitoneal lymph nodes, nonspecific findings. These could be reactive to a infection correlation urinalysis and clinical history recommended. 4. 2.5 adnexal cyst essentially. ASSESSMENT: 60 y/o F with PMH of cervical cancer treated with radiation therapy in 1991, radiation cystitis, atonic bladder, secondary hyperparathyrodism, CKD Stage IV, HTN, chronic anemia, recurrent UTI and recurrent b/l hydronephrosis despite urethral stent placements admitted under hospitalist for MINGO on CKD Stage IV likely 2/2 to severe b/l hydronephrosis, recurrent UTI, acute pyelonephritis, sepsis. PLAN: MINGO on CKD Stage IV likely 2/2 to severe b/l hydronephrosis, UTI -POD 2 of b/l nephrostomy tube placement by IR. Will need to keep tubes in at discharge. -Cr improved further 3.95 -Hx of multiple ureteral stent placements, revisions. -Pain control for back pain associated with new nephrostomy tubes, bicarb gtt, encouraging fluids -F/u daily labs, monitor I&O's closely -Tx of UTI below -Nephrology following E. coli UTI / acute pyelonephritis, resolved sepsis -Hx of radiation cystitis, atonic bladder -Last fever 12/24/20 at 17:00, currently afebrile, WBC 10.5, LA wnl, left flank pain much improved -BCx NG at 24 hr -UA +, UCx pending -On ceftriaxone (Day 4), needs to complete 7-10 days Metabolic acidosis 2/2 to MINGO -Improving slowly with bicarb gtt, tabs -Nephrology managing Physical deconditioning, weakness likely 2/2 to acute illness above -PT: Patient would benefit from skilled PT to improve ambulation and endurance -C/w PT/OT here HTN -Stable -C/w BB Chronic anemia -Stable Secondary hyperparathyrodism -Stable -C/w tx GERD -PPI Cervical cancer treated with radiation therapy in 1991 -F/u o/p DVT px -heparin sc, TEDS/SCD DISPOSITION: Nephrology following. PT/OT. Plan is discharge home when medically improved. VS, I&O, 24H, Fishbone Vital Signs/I&O Vital Signs Date Time Temp Pulse Resp B/P (MAP) Pulse Ox O2 Delivery O2 Flow Rate FiO2 12/25/20 15:09 18 12/25/20 14:00 98.6 91 112/67 (82) 94 Room Air 12/23/20 17:19 2 I&O- Last 24 Hours up to 6 AM 12/25/20 06:00 Intake Total 1596 ml Output Total 5900 ml Balance -4304 ml Laboratory Data 24H LABS Laboratory Tests 2 12/24/20 22:38: Anion Gap 9, Glomerular Filtration Rate 11.1L, Calcium Level 7.7L, Phosphorus Level 3.1#, Albumin 2.3L 12/25/20 06:09: Anion Gap 11, Glomerular Filtration Rate 12.4L, Calcium Level 8.1L, Albumin 2.2L, Nucleated Red Blood Cells % (auto) 0.0, Total Bilirubin 0.2#, Aspartate Amino Transf (AST/SGOT) 30, Alanine Aminotransferase (ALT/SGPT) 42, Alkaline Phosphatase 210H, Total Protein 6.2L, Albumin/Globulin Ratio 0.6L CBC/BMP Laboratory Tests 12/24/20 22:38 12/25/20 06:09 Microbiology Microbiology 12/23/20 Blood Culture - Preliminary, Resulted No Growth after 48 hours. All Specime... 12/23/20 Blood Culture - Preliminary, Resulted No Growth after 48 hours. All Specime... 12/23/20 Urine Culture - Final, Complete Escherichia Coli Current Medications Current Medications Medications (Trade) Dose Ordered Sig/Jahaira Route PRN Reason Start Time Stop Time Status Last Admin Dose Admin Acetaminophen (Tylenol Tab) 650 mg Q4HP PRN PO PAIN OR FEVER 12/23/20 16:50 12/25/20 05:20 Ceftriaxone Sodium 1 gm/ Dextrose 50 ml @ 100 mls/hr Q24H IV 12/23/20 14:00 12/24/20 15:08 Heparin Sodium (Porcine) (Heparin) 5,000 units Q12H SQ 12/25/20 09:00 12/25/20 09:55 Home Med (Med Rec Complete!) ASDIRECTED XX 12/23/20 06:40 12/23/20 06:37 DC Levothyroxine Sodium (Synthroid) 150 mcg DAILY@0600 PO 12/24/20 06:00 12/25/20 05:55 Metoprolol Tartrate (Lopressor) 25 mg BID PO 12/23/20 21:00 12/25/20 09:57 Morphine Sulfate (Morphine Sulfate Inj) 1 mg Q6H PRN IV MODERATE PAIN (PS 5-7) 12/23/20 10:10 12/25/20 14:39 DC Morphine Sulfate (Morphine Sulfate Inj) 2 mg Q4H PRN IV SEVERE PAIN (PS 8-10) 12/23/20 10:10 12/25/20 14:39 DC 12/25/20 14:32 Morphine Sulfate (Morphine Sulfate Inj) 4 mg Q30M PRN IV SEVERE PAIN (PS 8-10) 12/23/20 05:15 12/23/20 06:54 DC 12/23/20 06:54 Ondansetron HCl (ZOFRAN INJection) 4 mg Q4HP PRN IV NAUSEA OR VOMITING 12/23/20 10:10 12/23/20 18:47 Oxycodone/ Acetaminophen (Percocet 5mg/ 325mg Tablet) 1 tab Q4HP PRN PO SEVERE PAIN (PS 8-10) 12/25/20 14:40 Oxycodone/ Acetaminophen (Percocet 5mg/ 325mg Tablet) 2 tab Q6HP PRN PO SEVERE PAIN (PS 8-10) 12/25/20 14:40 12/25/20 16:16 DC 12/25/20 15:09 Pantoprazole Sodium (Protonix) 40 mg DAILY PO 12/24/20 09:00 12/25/20 09:55 Pantoprazole Sodium (Protonix) 40 mg Q24H IV 12/23/20 13:00 12/23/20 16:52 DC 12/23/20 13:30 Sodium Bicarbonate 75 meq/Sodium Chloride 1,075 ml @ 125 mls/hr Q8H36M IV 12/23/20 22:25 12/24/20 14:24 DC 12/24/20 08:49 Sodium Bicarbonate 75 meq/Sodium Chloride 1,075 ml @ 125 mls/hr Q8H36M IV 12/25/20 09:00 12/26/20 08:59 12/25/20 09:54 Sodium Bicarbonate (Sodium Bicarbonate) 325 mg TID PO 12/23/20 21:00 12/25/20 15:10 Sodium Chloride 1,000 ml @ 75 mls/hr [id number] IV 12/23/20 12:05 12/23/20 22:03 DC 12/23/20 13:31 Sodium Chloride 1,000 ml @ 125 mls/hr Q8H IV 12/23/20 09:40 12/23/20 09:51 DC Tramadol HCl (Ultram) 50 mg Q6HP PRN PO MODERATE PAIN (PS 5-7) 12/25/20 16:15 Allergies Coded Allergies: potassium (Verified Allergy, Intermediate, HIVES, POUNDING HEARTBEAT, 06/13/20) povidone-iodine (Verified Allergy, Mild, rash/burn, 12/23/20) soap (Verified Allergy, Mild, rash/burn, 12/23/20) Sulfa (Sulfonamide Antibiotics) (Unverified Allergy, Unknown, unknown reaction , 12/23/20) epoetin reina (Verified Allergy, Unknown, 06/13/20) trimethoprim (Unverified Allergy, Unknown, 12/23/20) Quinolones (Verified Adverse Reaction, Intermediate, tequin - blisters on lips, 12/23/20) ibuprofen (Verified Adverse Reaction, Intermediate, kidney problems, can't take, 12/23/20) Nimo Pat MD Dec 25, 2020 16:58
--- NOTE | 2020-12-25 17:20 | REP ---
INDICATION: poor venous access. COMPARISON: None. TECHNIQUE: The procedure was performed under the direct supervision of . The risks and benefits of the procedure were explained to the patient and informed consent was obtained. The right basilic vein was localized using ultrasound guidance. The skin was prepped and draped in a sterile fashion. 2% lidocaine was used as a local anesthetic. Using ultrasound guidance the basilic vein was cannulated and a 0.018 guidewire was inserted. The needle was removed and a 5.5 Vietnamese dilator and peel-away sheath was inserted over the guidewire. A 5.5 Vietnamese dual lumen catheter was left a length of 16.5 cm. The dilator was removed and the catheter was inserted over the guidewire. The peel-away sheath was removed and the catheter was flushed with heparinized saline as per Hospital protocol. The catheter was affixed to the skin and a sterile dressing was applied. The patient tolerated the procedure well and there were no immediate complications. . FINDINGS: None IMPRESSION: Midline catheter insertion right basilic vein. <Electronically signed by Dhiraj Dyer > 12/25/20 1702 <Electronically signed by Santhosh Hanna > 12/25/20 1712
[2020-12-25] MEDS: cefTRIAXone SOD 1 GM in D5W MINI-BAG PLUS 50 ML IV SCH (17:27)
[2020-12-25 18:00] VITALS: BP 146/80
[2020-12-25] MEDS: PERCOCET 5MG/325MG TAB PO PRN (20:37)
--- NOTE | 2020-12-25 21:56 | IPN ---
NEPHROLOGY PROGRESS NOTE DATE: 12/25/2020 SUBJECTIVE: Patient was seen and examined at the bedside today morning. She is afebrile, hemodynamically stable. She is making very good amount of urine from bilateral percutaneous nephrostomy tubes. Creatinine is slowly trending down. Urine culture grew E. coli. She is already on I.V. antibiotics. Bicarb level was found to be low early in the morning on the labs. I have already started her on I.V. bicarb containing fluids and she is able to hydrate herself orally as well and she is drinking a lot of liquids. OBJECTIVE: VITAL SIGNS: Temperature 98.1 degrees Fahrenheit, blood pressure 146/80, pulse 85, respiratory rate 20, saturating 94% on room air. INTAKE AND OUTPUT: Urine output recorded as 5.7 liters yesterday and 2 liters so far today since overnight. Weight in the bed scale is not available. PHYSICAL EXAMINATION: GENERAL: Patient is awake, alert, oriented x3, lying in bed, in mild painful distress. HEAD/NECK: Extraocular muscles intact. Pupils equally round and reactive to light. Mucous membranes are moist. Neck is supple. There is no JVD. RESPIRATORY: Chest is clear to auscultation bilaterally. Bilateral equal air entry. No rales or rhonchi. CARDIOVASCULAR: S1, S2, regular rate. No edema of bilateral lower extremities. ABDOMEN: Soft. Mildly tender in bilateral percutaneous nephrostomy sites. Left-sided nephrostomy tube drainage is slightly bloody, but is more clear today as compared with yesterday. MUSCULOSKELETAL: No clubbing or cyanosis. Pulses are 2+. CHILD STUDY TEAM DIRECTOR: No focal deficit. Power is 5/5 in all extremities. LAB REVIEW: CBC showed WBC 10.5, hemoglobin 10.8, platelets 198,000. BMP showed sodium 139, potassium 3.7, chloride 108, bicarb 20, BUN 53, creatinine 3.9; it was 4.3 yesterday. Calcium 8.1. AST 30, ALT 42, alkaline phos 210. Albumin 2.2. MICROBIOLOGY: Urine culture is growing E. coli which is clark sensitivity. CURRENT INPATIENT MEDICATIONS: Patient's medications were all reviewed by myself. She is currently on I.V. Ceftriaxone. I have started the patient on sodium bicarb drip at 125 cc an hour for a total of 3 liters. No other significant change in the medications today as compared with yesterday. ASSESSMENT AND PLAN: 1. Acute renal failure: Patient is nonoliguric at this time. Bilateral percutaneous nephrostomies have been placed. Creatinine is slowly trending down. No urgent need of hemodialysis at this time. 2. Sepsis secondary to E. coli pyelonephritis: Patient is currently on I.V. Ceftriaxone. Leukocytosis is getting better. She is fever free now. I.V. fluids are running as mentioned above. 3. Metabolic acidosis: Continue bicarb containing fluids, continue oral bicarb as well. 4. History of hypertension: Continue current dose of Metoprolol. 5. Anemia and chronic kidney disease: Patient's hemoglobin is 10.8. She is having mild hematuria as well. I am going to check the iron levels. If iron levels are low, she will be given I.V. iron infusion.
[2020-12-25 22:00] VITALS: BP 164/73
[2020-12-26] MEDS: PERCOCET 5MG/325MG TAB PO PRN ×4 (02:29→20:44)
[2020-12-26] MEDS: LEVOTHYROXINE 150MCG TABLET (0.15MG) PO SCH (05:29)
[2020-12-26 06:00] VITALS: BP 144/74
[2020-12-26] MEDS ORDERED: AMOXICILLIN 500 MG CAP PO SCH ×2 (06:00→14:00)
[2020-12-26 06:09] LABS: HEMATOCRIT 31.5 % (36.0-47.0); HEMOGLOBIN 10.3 g/dl (12.0-15.5); MEAN CORPUSCULAR HEMOGLOBIN 26.2 pg (27.0-33.0); MEAN CORPUSCULAR HGB CONC 32.7 g/dl (32.0-36.5); MEAN CORPUSCULAR VOLUME 80.2 fl (80.0-96.0); PLATELET COUNT, AUTOMATED 236 10^3/uL (150-450); RED BLOOD COUNT 3.93 10^6/uL (4.00-5.40); WHITE BLOOD COUNT 9.6 10^3/uL (4.0-10.0)
[2020-12-26 06:26] LABS: BILIRUBIN,TOTAL 0.2 MG/DL (0.2-1.0); CALCIUM LEVEL 8.2 MG/DL (8.5-10.1); CREATININE FOR GFR 3.24 MG/DL (0.55-1.30); GLOMERULAR FILTRATION RATE 15.6 (>51); POTASSIUM SERUM 3.4 MEQ/L (3.5-5.1); TOTAL PROTEIN 6.7 GM/DL (6.4-8.2)
[2020-12-26 06:30] LABS: PERCENT SATURATION 11.5 % (13.2-45.0)
[2020-12-26] MEDS: SODIUM BICARBONATE 325 MG TAB PO SCH ×3 (08:06→20:41)
[2020-12-26] MEDS: PANTOPRAZOLE 40MG TAB (PROTONIX) PO SCH (08:07)
[2020-12-26] MEDS: SODIUM BICARBONATE 75 MEQ in NS 0.45% 1,000 ML IV SCH (08:10)
[2020-12-26] MEDS: METOPROLOL TART 25 MG TABLET PO SCH ×2 (08:10→21:00)
[2020-12-26] MEDS: HEPARIN SOD (PORCINE) 5000UNITS/ML 1ML VIAL/SYRINGE SQ SCH ×2 (08:11→20:42)
[2020-12-26 10:00] VITALS: BP 126/82
--- NOTE | 2020-12-26 10:08 | IRPON ---
IR Postoperative Note Date Of Procedure: Dec 23, 2020 Time Of Procedure: 16:00 IR Postoperative Note IR Percutaneous bilateral nephrostomy catheter placement using fluoroscopic and ultrasound guidance. IR Bilateral Nephrostogram and Ureterogram. IR Ultrasound of bilateral kidneys. IR Moderate sedation. Clinical Information:Bilateral ureteral obstruction managed by urology with internal ureteral stents. Recurrent stent failure and obstruction with hydronephrosis. Patient presents with bilateral hydronephrosis, pain and renal failure. Physician: Dr. Duenas. Procedure: The patient was advised of the benefits, risks, and alternatives of the procedure and informed consent was obtained. A time out was performed with verification of the patient's name, MRN, site of procedure, and type of procedure to be performed. The patient was positioned in the prone position on the angiographic table. The site was prepped and draped in the usual sterile fashion. Moderate sedation was performed by the physician including the presence of an independent trained RN who, assisted in monitoring the patient's level of consciousness and physiological status. Following the administration of fentanyl and Versed, the physician spent 60 minutes of continuous [id number] time with the patient. A youth probation officer radiograph reveals bilateral ureteral stents in appropriate location. Left side: Ultrasound left kidney demonstrates hydronephrosis. The anticipated puncture site on the flank was anesthetized with lidocaine. Using ultrasound guidance, a posterior lower pole calyx was accessed with a 21 Gauge Chiba needle. A nephrostogram and ureterogram were performed demonstrating massive hydronephrosis and occluded ureter and stent. A [place] wire was then advanced into the collecting system, under fluoroscopy guidance. The needle was then exchanged for a nonvascular introducer set. An Amplatz wire was then advanced into the ureter, under fluoroscopy guidance. A 10 [place] nephrostomy catheter was then advanced, over the wire under fluoroscopy guidance into the renal collecting system. The pigtail was formed and locked in position. A final nephrostogram and ureterogram were performed confirming positioning of the pigtail within the renal pelvis with hydronephrosis. Ureterogram demonstratesoccluded ureter and stent. The catheter was sutured in position with 2-0 Prolene and a sterile dressing applied. The catheter was placed to gravity drainage. Right-sided: Ultrasound right kidney demonstrates hydronephrosis. The anticipated puncture site on the flank was anesthetized with lidocaine. Using ultrasound guidance, a posterior lower pole calyx was accessed with a 21 Gauge Chiba needle. A nephrostogram and ureterogram were performed demonstrating massive hydronephrosis and occluded ureter and stent. A [place] wire was then advanced into the collecting system, under fluoroscopy guidance. The needle was then exchanged for a nonvascular introducer set. An Amplatz wire was then advanced into the ureter, under fluoroscopy guidance. A 10 [place] nephrostomy catheter was then advanced, over the wire under fluoroscopy guidance into the renal collecting system. The pigtail was formed and locked in position. A final nephrostogram and ureterogram were performed confirming positioning of the pigtail within the renal pelvis with hydronephrosis. Ureterogram demonstratesoccluded ureter and stent. The catheter was sutured in position with 2-0 Prolene and a sterile dressing applied. The catheter was placed to gravity drainage. The patient tolerated the procedure well and was returned to the PRU in stable condition. EBL:< 5 mL. Complications:None. Conclusion: 1. Bilateral Nephrostogram and Ureterogram demonstratemassive bilateral hydronephrosis and occluded ureter and stent. 2. Successful bilateral nephrostomy catheter placement. Patient to return in 6 weeks for conversion to antegrade internal/external stent catheter. Given recurrent internal ureteral stent failure, it may be better to manage this patient with internal/external nephroureteral stents in IR, which allow for daily flushing to prevent blockage and the option to cap or drain to a bag if blocked internally. Thank you for this referral DAVID Hamilton Dr., MD Dec 26, 2020 10:08
[2020-12-26] MEDS: IRON SUCROSE 200 MG in NS 100 ML IV SCH (10:47)
[2020-12-26] MEDS ORDERED: MOM 30ML SUSPENSION UDC PO PRN (11:25)
[2020-12-26] MEDS: KCL 10MEQ/100ML SWI (KRUN) 10 MEQ in IV 1 EA IV SCH ×4 (12:01→14:30)
[2020-12-26] MEDS: DOCUSATE SODIUM 100MG CAPSULE PO SCH ×2 (12:01→20:41)
[2020-12-26] MEDS ORDERED: SODIUM CHLORIDE 0.9% INJ 10 ML SYR IV SCH (13:40)
[2020-12-26 14:00] VITALS: BP 129/72
[2020-12-26] MEDS: cefTRIAXone SOD 1 GM in D5W MINI-BAG PLUS 50 ML IV SCH (14:26)
--- NOTE | 2020-12-26 15:47 | IPNPDOC ---
Date Seen The patient was seen on 12/26/20. Progress Note SUBJECTIVE: Stopping bicarb gtt today. Premedicating before activity with PT/OT, cleared by them today for home. No acute complaints overnight. She denies shortness of breath, n/v/d. OBJECTIVE: PHYSICAL EXAMINATION: VS: Please see below CONSTITUTIONAL: resting in bed, AAO x 3 EYES: PERRLA, EOM intact HENT, MOUTH: Normocephalic, atraumatic, moist mucous membranes NECK: SUPPLE, no JVD, no lymphadenopathy, no carotid bruit CV: Regular rate and rhythm, S1S2 normal, no murmurs/rubs/gallops BACK : B/L nephrostomy tubes in place in left and right lower back, mildly tender to touch RESPIRATORY: Clear to auscultation bilaterally, no rales/rhonchi/wheezes GI: BS positive in 4 quadrants, soft, nontender, nondistended, no rebound or guarding, no organomegaly : Deferred MUSCULOSKELETAL: Normal ROM. No cyanosis, clubbing, swelling, joint deformity, extremity edema INTEGUMENTARY: Intact, no rashes, no lesions, no erythema NEUROLOGIC: Cranial Nerves II-XII are intact, no focal deficits PSYCHIATRIC: Mood and affect are normal LABORATORY DATA: Please see below MICRO: UCx: E. coli BCx: NG IMAGING: CT abd/pelvis: 1. Bilateral ureteral stents in place. 2. Severe bilateral hydronephrosis. Stent dysfunction may be present. Stent revision and/or percutaneous drainage should be considered. 3. There are nonenlarged retroperitoneal lymph nodes, nonspecific findings. These could be reactive to a infection correlation urinalysis and clinical history recommended. 4. 2.5 adnexal cyst essentially. ASSESSMENT: 60 y/o F with PMH of cervical cancer treated with radiation therapy in 1991, radiation cystitis, atonic bladder, secondary hyperparathyrodism, CKD Stage IV, HTN, chronic anemia, recurrent UTI and recurrent b/l hydronephrosis despite urethral stent placements admitted under hospitalist for MINGO on CKD Stage IV likely 2/2 to severe b/l hydronephrosis, recurrent UTI, acute pyelonephritis, sepsis. PLAN: MINGO on CKD Stage IV likely 2/2 to severe b/l hydronephrosis, UTI -POD 3 of b/l nephrostomy tube placement by IR. Will need to keep tubes in at discharge. Hx of multiple ureteral stent placements, revisions. -Cr improved further 3.24 -Pain control for back pain associated with new nephrostomy tubes, bicarb gtt, encouraging fluids -F/u daily labs, monitor I&O's closely -Tx of UTI below -Nephrology following E. coli UTI / acute pyelonephritis, resolved sepsis -Hx of radiation cystitis, atonic bladder -Last fever 12/24/20 at 17:00, currently afebrile, WBC wnl, LA wnl, left flank pain much improved -BCx NG at 24 hr -UA +, UCx above -On ceftriaxone (Day 5). To stop after today's dose, starting amoxicillin 500 mg PO Q8H per ID to complete 5 additional days (total of 10 days of treatment) Physical deconditioning, weakness likely 2/2 to acute illness above -PT: Patient would benefit from skilled PT to improve ambulation and endurance -C/w PT/OT here HTN -Stable -C/w BB Chronic anemia -Stable Secondary hyperparathyrodism -Stable -C/w tx GERD -PPI Cervical cancer treated with radiation therapy in 1991 -F/u o/p DVT px -heparin sc, TEDS/SCD Resolved issues: Metabolic acidosis 2/2 to MINGO DISPOSITION: Nephrology following. PT/OT. Plan is discharge home when medically improved VS, I&O, 24H, Ignaciobonkimberly Vital Signs/I&O Vital Signs Date Time Temp Pulse Resp B/P (MAP) Pulse Ox O2 Delivery O2 Flow Rate FiO2 12/26/20 14:28 18 Room Air 12/26/20 10:00 97.9 89 126/82 (97) 94 12/23/20 17:19 2 I&O- Last 24 Hours up to 6 AM 12/26/20 06:00 Intake Total 1860 ml Output Total 3500 ml Balance -1640 ml Laboratory Data 24H LABS Laboratory Tests 2 12/26/20 05:32: Nucleated Red Blood Cells % (auto) 0.0, Anion Gap 6L, Glomerular Filtration Rate 15.6L, Calcium Level 8.2L, Iron Level 18L, Total Iron Binding Capacity 157L, Transferrin % Saturation 11.5L, Ferritin 324H, Total Bilirubin 0.2, Aspartate Amino Transf (AST/SGOT) 19, Alanine Aminotransferase (ALT/SGPT) 32, Alkaline Phosphatase 177H, Total Protein 6.7, Albumin 2.0L, Albumin/Globulin Ratio 0.4L CBC/BMP Laboratory Tests 12/26/20 05:32 Microbiology Microbiology 12/23/20 Blood Culture - Preliminary, Resulted No Growth after 72 hours. All specime... 12/23/20 Blood Culture - Preliminary, Resulted No Growth after 72 hours. All specime... 12/23/20 Urine Culture - Final, Complete Escherichia Coli Current Medications Current Medications Medications (Trade) Dose Ordered Sig/Jahaira Route PRN Reason Start Time Stop Time Status Last Admin Dose Admin Acetaminophen (Tylenol Tab) 650 mg Q4HP PRN PO PAIN OR FEVER 12/23/20 16:50 12/25/20 05:20 Amoxicillin (Amoxicillin) 500 mg Q8H PO 12/26/20 06:00 12/26/20 15:17 DC Amoxicillin (Amoxicillin) 500 mg Q8H PO 12/26/20 14:00 Ceftriaxone Sodium 1 gm/ Dextrose 50 ml @ 100 mls/hr Q24H IV 12/23/20 14:00 12/26/20 23:59 12/26/20 14:26 Docusate Sodium (Colace) 100 mg BID PO 12/26/20 09:00 12/26/20 12:01 Heparin Sodium (Heparin (Flush)) 100 units ASDIRECTED PRN IV SEE LABEL COMMENTS 12/26/20 13:40 Heparin Sodium (Heparin (Flush)) 100 units Q24H IV 12/26/20 13:40 Heparin Sodium (Porcine) (Heparin) 5,000 units Q12H SQ 12/25/20 09:00 12/26/20 08:11 Home Med (Med Rec Complete!) ASDIRECTED XX 12/23/20 06:40 12/23/20 06:37 DC Iron 200 mg/ Sodium Chloride 110 ml @ 110 mls/hr Q24H IV 12/26/20 10:00 12/29/20 10:59 12/26/20 10:47 Levothyroxine Sodium (Synthroid) 150 mcg DAILY@0600 PO 12/24/20 06:00 12/26/20 05:29 Magnesium Hydroxide (Milk Of Magnesia) 30 ml DAILYPRN PRN PO CONSTIPATION 12/26/20 11:25 Metoprolol Tartrate (Lopressor) 25 mg BID PO 12/23/20 21:00 12/26/20 08:10 Morphine Sulfate (Morphine Sulfate Inj) 1 mg Q6H PRN IV MODERATE PAIN (PS 5-7) 12/23/20 10:10 12/25/20 14:39 DC Morphine Sulfate (Morphine Sulfate Inj) 2 mg Q4H PRN IV SEVERE PAIN (PS 8-10) 12/23/20 10:10 12/25/20 14:39 DC 12/25/20 14:32 Morphine Sulfate (Morphine Sulfate Inj) 4 mg Q30M PRN IV SEVERE PAIN (PS 8-10) 12/23/20 05:15 12/23/20 06:54 DC 12/23/20 06:54 Ondansetron HCl (ZOFRAN INJection) 4 mg Q4HP PRN IV NAUSEA OR VOMITING 12/23/20 10:10 12/23/20 18:47 Oxycodone/ Acetaminophen (Percocet 5mg/ 325mg Tablet) 1 tab Q4HP PRN PO SEVERE PAIN (PS 8-10) 12/25/20 14:40 12/26/20 14:28 Oxycodone/ Acetaminophen (Percocet 5mg/ 325mg Tablet) 2 tab Q6HP PRN PO SEVERE PAIN (PS 8-10) 12/25/20 14:40 12/25/20 16:16 DC 12/25/20 15:09 Pantoprazole Sodium (Protonix) 40 mg DAILY PO 12/24/20 09:00 12/26/20 08:07 Pantoprazole Sodium (Protonix) 40 mg Q24H IV 12/23/20 13:00 12/23/20 16:52 DC 12/23/20 13:30 Potassium Chloride 10 meq/ IV Miscellaneous Supplies 100 ml @ 100 mls/hr Q1H IV 12/26/20 12:00 12/26/20 14:59 DC 12/26/20 14:30 Senna (Senokot) 2 tab QHS PO 12/26/20 21:00 Sodium Bicarbonate 75 meq/Sodium Chloride 1,075 ml @ 125 mls/hr Q8H36M IV 12/23/20 22:25 12/24/20 14:24 DC 12/24/20 08:49 Sodium Bicarbonate 75 meq/Sodium Chloride 1,075 ml @ 125 mls/hr Q8H36M IV 12/25/20 09:00 12/26/20 08:59 DC 12/26/20 08:10 Sodium Bicarbonate (Sodium Bicarbonate) 325 mg TID PO 12/23/20 21:00 12/26/20 08:06 Sodium Chloride 1,000 ml @ 75 mls/hr [id number] IV 12/23/20 12:05 12/23/20 22:03 DC 12/23/20 13:31 Sodium Chloride 1,000 ml @ 125 mls/hr Q8H IV 12/23/20 09:40 12/23/20 09:51 DC Sodium Chloride (Saline Lock Flush) 10 ml ASDIRECTED PRN IV SEE LABEL COMMENTS 12/26/20 13:40 Sodium Chloride (Saline Lock Flush) 10 ml Q24H IV 12/26/20 13:40 Tramadol HCl (Ultram) 50 mg Q6HP PRN PO MODERATE PAIN (PS 5-7) 12/25/20 16:15 Allergies Coded Allergies: potassium (Verified Allergy, Intermediate, HIVES, POUNDING HEARTBEAT, 06/13/20) povidone-iodine (Verified Allergy, Mild, rash/burn, 12/23/20) soap (Verified Allergy, Mild, rash/burn, 12/23/20) Sulfa (Sulfonamide Antibiotics) (Unverified Allergy, Unknown, unknown reaction , 12/23/20) epoetin reina (Verified Allergy, Unknown, 06/13/20) trimethoprim (Unverified Allergy, Unknown, 12/23/20) Quinolones (Verified Adverse Reaction, Intermediate, tequin - blisters on lips, 12/23/20) ibuprofen (Verified Adverse Reaction, Intermediate, kidney problems, can't take, 12/23/20) Nimo Pat MD Dec 26, 2020 15:47
[2020-12-26] MEDS: SODIUM CHLORIDE 0.9% INJ 10 ML SYR IV PRN ×2 (16:39→17:44)
[2020-12-26] MEDS: AMOXICILLIN 500 MG CAP PO SCH (20:41)
[2020-12-26] MEDS ORDERED: SENNA 8.6 MG TAB (SENOKOT) PO SCH (21:00)
[2020-12-26 22:00] VITALS: BP 149/93
--- NOTE | 2020-12-26 22:04 | IPN ---
NEPHROLOGY PROGRESS NOTE DATE: 12/26/2020 SUBJECTIVE: Patient was seen and examined at the bedside today morning. She continues to have good urine output from bilateral percutaneous nephrostomy tubes. Renal function is stable and gradually improving. Creatinine has improved from 3.9 to 3.2. OBJECTIVE: VITAL SIGNS: Temperature 98 degrees Fahrenheit, blood pressure 129/72, pulse 83, respiratory rate 18, saturating 97% on room air. INTAKE AND OUTPUT: Urine output recorded as 3 liters yesterday and 2.8 liters so far today since overnight. Weight in the bed scale is not available. PHYSICAL EXAMINATION: GENERAL: Patient is awake, alert, oriented x3, lying in bed, in no apparent distress. HEAD/NECK: Extraocular muscles intact. Pupils equally round and reactive to light. Mucous membranes are moist. Neck is supple. There is no JVD. RESPIRATORY: Chest is clear to auscultation bilaterally. Bilateral equal air entry. No rales or rhonchi. CARDIOVASCULAR: S1, S2, regular rate. No edema of bilateral lower extremities. ABDOMEN: Soft, positive bowel sounds. Bilateral percutaneous nephrostomy tubes are noted. Left-sided nephrostomy drainage is getting more clear now. MUSCULOSKELETAL: No clubbing or cyanosis. Pulses are 2+. 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 Power is 5/5 in all extremities. LAB REVIEW: CBC showed WBC 9.6, hemoglobin 10.3, platelets 236,000. BMP showed sodium 140, potassium 3.4, chloride 107, bicarb 27, BUN 45, creatinine 3.2; it was 3.9 yesterday. Iron levels are low at 18. Transferrin saturation 11.5. Ferritin 324. CURRENT INPATIENT MEDICATIONS: Patient's medications were all reviewed by myself. She continues to be on I.V. Ceftriaxone. She is getting third bag of I.V. bicarb containing fluid. She was started on Venofer 200 mg I.V. daily; first bag is being given today. ASSESSMENT AND PLAN: 1. Acute nonoliguric renal failure: Renal function continues to gradually improve after relief of obstruction with bilateral percutaneous nephrostomy. I.V. fluid will be stopped today. Continue to encourage oral hydration. 2. E. coli pyelonephritis: Patient is on I.V. Ceftriaxone. Antibiotic can be changed to oral. Leukocytosis has improved now. 3. Metabolic acidosis: Bicarb level has gotten better with oral and I.V. bicarb. I.V. bicarb fluid will be stopped. Continue the oral bicarb at this time. 4. History of hypertension: Continue current dose of Metoprolol. 5. Iron deficiency anemia: Patient has been started on I.V. Venofer. 6. Hypokalemia: Patient is allergic to oral potassium. She will be given I.V. potassium chloride today.
[2020-12-27] MEDS: PERCOCET 5MG/325MG TAB PO PRN ×3 (01:17→11:08)
[2020-12-27] MEDS: LEVOTHYROXINE 150MCG TABLET (0.15MG) PO SCH (05:30)
[2020-12-27 06:00] VITALS: BP 151/73
[2020-12-27 06:15] LABS: HEMATOCRIT 34.9 % (36.0-47.0); HEMOGLOBIN 11.2 g/dl (12.0-15.5); MEAN CORPUSCULAR HEMOGLOBIN 26.2 pg (27.0-33.0); MEAN CORPUSCULAR HGB CONC 32.1 g/dl (32.0-36.5); MEAN CORPUSCULAR VOLUME 81.7 fl (80.0-96.0); PLATELET COUNT, AUTOMATED 262 10^3/uL (150-450); RED BLOOD COUNT 4.27 10^6/uL (4.00-5.40); WHITE BLOOD COUNT 9.7 10^3/uL (4.0-10.0)
[2020-12-27 06:39] LABS: ALBUMIN 2.2 GM/DL (3.2-5.2); BILIRUBIN,TOTAL 0.1 MG/DL (0.2-1.0); CALCIUM LEVEL 8.7 MG/DL (8.5-10.1); CREATININE FOR GFR 2.59 MG/DL (0.55-1.30); GLOMERULAR FILTRATION RATE 20.2 (>51); POTASSIUM SERUM 3.9 MEQ/L (3.5-5.1); TOTAL PROTEIN 7.2 GM/DL (6.4-8.2)
[2020-12-27] MEDS: DOCUSATE SODIUM 100MG CAPSULE PO SCH (08:26)
[2020-12-27] MEDS: SODIUM BICARBONATE 325 MG TAB PO SCH (08:27)
[2020-12-27] MEDS: AMOXICILLIN 500 MG CAP PO SCH (08:27)
[2020-12-27] MEDS: HEPARIN SOD (PORCINE) 5000UNITS/ML 1ML VIAL/SYRINGE SQ SCH (08:27)
[2020-12-27] MEDS ORDERED: SENN18TA PO (08:46)
[2020-12-27] MEDS ORDERED: DOK1CAP7 PO (08:46)
[2020-12-27] MEDS ORDERED: AMOX500C PO (08:46)
[2020-12-27 09:00] VITALS: BP 148/98
[2020-12-27] MEDS: METOPROLOL TART 25 MG TABLET PO SCH (09:00)
[2020-12-27] MEDS ORDERED: FERROUS GLUCONATE 324 MG TAB PO SCH (09:00)
[2020-12-27] MEDS: PANTOPRAZOLE 40MG TAB (PROTONIX) PO SCH (09:28)
[2020-12-27] MEDS ORDERED: FERR325T3 PO (09:30)
[2020-12-27] MEDS: IRON SUCROSE 200 MG in NS 100 ML IV SCH (10:34)
--- NOTE | 2020-12-27 11:59 | IPN ---
PROGRESS NOTE DATE: 12/27/2020 SUBJECTIVE: Patient was seen and examined at the bedside today morning. She is afebrile, hemodynamically stable. Renal function continues to improve. She has a good urine output from both sides of percutaneous nephrostomy. Left-sided nephrostomy drainage is getting better, and patient is getting ready to be discharged home today. OBJECTIVE: Vital signs: Temperature is 97.9 degrees Fahrenheit, blood pressure 151/73, pulse is 51, respiratory rate of 17, saturating 96% on room air. Intake and output: Urine output recorded is 3.8 liters yesterday, 875 mL so far today since overnight. Weight in the bed scale is not available. PHYSICAL EXAMINATION: GENERAL: Patient is awake, alert, oriented times three. No apparent distress. HEAD AND NECK: Extraocular muscles are intact. Pupils equally round and reactive to light. Mucous membranes are moist. Neck is supple. There is no jugular venous distention (JVD). CARDIOVASCULAR: S1, S2, regular rate. No edema of the bilateral lower extremities. RESPIRATORY: Chest is clear to auscultation bilaterally. Bilateral equal air entry. No rales or rhonchi. ABDOMEN: Soft. Positive bowel sounds. Bilateral percutaneous nephrostomy tubes were noted. MUSCULOSKELETAL: No clubbing or cyanosis. Pulses are 2+. CENTRAL NERVOUS SYSTEM: No focal neurologic deficit. Power is 5/5 in all extremities. LABORATORY REVIEW: CBC showed a WBC 9.7, hemoglobin 11.2, platelets 262. BMP showed sodium 139, potassium 3.9, chloride 107, bicarbonate 27, BUN 38. Creatinine is 2.5; it was 3.2 yesterday. Albumin is 2.2. CURRENT INPATIENT MEDICATIONS: Patient's medications were all reviewed by myself. She was started on oral amoxicillin. Dose has been changed to 500 mg by mouth every 12 hours. She continues to be on intravenous (IV) Venofer infusions. No other significant change in the medications today. ASSESSMENT AND PLAN: 1. Acute renal failure superimposed on chronic kidney disease. It was secondary to bilateral hydronephrosis. Renal function is significantly getting better. She will be discharged home with percutaneous nephrostomies. 2. Escherichia (E) coli pyelonephritis. Patient was given IV ceftriaxone. Now she has been switched to oral amoxicillin as per recommendations by infectious disease (ID). 3. Hypertension. Continue current dose of metoprolol. Avoid angiotensin-converting enzyme (KEVIN) or angiotensin-receptor marcia (ARB) at this time. 4. Iron deficiency anemia. Patient is getting IV Venofer. She is also on oral iron. Discharge home on oral iron. Hemoglobin level is getting better. 5. Hypokalemia. Potassium level is improving with administration of IV potassium now. DISPOSITION: Patient is okay to be discharged home. She will need to followup with nephrology office within 2 weeks after discharge from the hospital.
--- NOTE | 2020-12-27 15:25 | DS.PDOC ---
Discharge Summary General Date of Admission Dec 23, 2020 at 09:39 Date of Discharge 12/27/20 Attending Physician: Nimo Pat MD Discharge Summary HISTORY OF PRESENT ILLNESS: Patient is a 60 y/o F with PMH of cervical cancer treated with radiation therapy in 1991, radiation cystitis, atonic bladder, secondary hyperparathyrodism, CKD Stage IV, HTN, chronic anemia, recurrent UTI and recurrent b/l hydronephrosis despite urethral stent placements who presented to [facility] emergency room with the chief complaint of increasing left flank pain, fevers, chills, nausea with one episode of vomiting over the past week for hours. The patient states she's had similar symptoms in the past when she's needed ureteral stents placed. She still describes the pain as sharp, sudden, nonradiating, 7/10 on pain scale. At home she had a documented fever of 102. other associated symptoms included lethargy, decreased appetite. She denied chest pain, abdominal pain, lightheadedness, dizziness, falls, joint pain, difficulty urinating. Due to persistent symptoms the patient came to the ER to be further evaluated. In the ER, vital signs showed some mild tachycardia, WBC mildly elevated at 10.9, lactic acid within normal limits, creatinine 5.23 (baseline creatinine 2.39), UA positive with urine culture sent. She was given fluids, pain medication for severe pain. CT abd/pelvis: Bilateral ureteral stents in place, Severe bilateral hydronephrosis. Stent dysfunction may be present. Stent revision and/or percutaneous drainage should be considered- there are nonenlarged retroperitoneal lymph nodes, nonspecific findings. Urology, Dr. Howell, was contacted and suggested IR placement of nephrostomy tubes. Dr. Duenas (IR) was consulted and agreement was made to admit, IR consulted for nephrostomy tube placement. Patient was admitted under hospitalist for MINGO on CKD Stage IV likely 2/2 to severe b/l hydronephrosis, recurrent UTI, acute pyelonephritis. HOSPITAL COURSE: On 12/23/20 patient has R Percutaneous bilateral nephrostomy catheter placement using fluoroscopic and ultrasound guidance, bilateral nephrostogram and ureterogram, ultrasound of bilateral kidneys under moderate sedation in IR. Urine output from tubes were adequate. MINGO on CKD Stage IV likely 2/2 to severe b/l hydronephrosis and UTI gradually improved with treatment. Cr improved over the course of her hospitalization to 2/59 on 12/27/20. Pain was controlled on oral narcotics, tylenol. E. coli UTI and acute pyelonephritis was treated initially with IV ceftriaxone and later was transitioned to PO amoxicillin BID. She remained afebrile, WBC wnl with improvement of flank pain. She underwent evaluation of weakness s/p procedure and will be sent home with home services. Metabolic acidosis 2/2 to MINGO markedly improved with bicarb gtt and pills. Other chronic issues remained stable. On 12/27/20 patient was sent home to f/u with nephrology and urology as o/p within 2 weeks. Since IR placed nephrostomy tubes, these will likely need to be changed and suggest patient to follow up with them as well. At time of discharge, patient had no acute complaints. PAST MEDICAL HISTORY: 1. Cervical cancer treated with radiation therapy in 1991 2. Radiation cystitis 3. Atonic bladder 4. Secondary hyperparathyroidism 5. CKD Stage IV 6. Hypertension 7. Chronic anemia 8. Recurrent UTI 9. Recurrent b/l hydronephrosis despite urethral stent placements PAST SURGICAL HISTORY: Appendectomy multiple bilateral ureteral stents placements/replacements, last 10/[address] Dumas SOCIAL HISTORY: [id number] history, quit smoking 2002 Drinks up to 5 beers daily last drink day before admission As illicit drug use Nephrology- Dr. Sparrow Urology-Dr. Dumas FAMILY HISTORY: Family history of diabetes, hypertension, coronary artery disease Patient unable to specify relative specifically DISCHARGE MEDS: Please see below PHYSICAL EXAMINATION: VS: Please see below CONSTITUTIONAL: resting in bed, AAO x 3 EYES: PERRLA, EOM intact HENT, MOUTH: Normocephalic, atraumatic, moist mucous membranes NECK: SUPPLE, no JVD, no lymphadenopathy, no carotid bruit CV: Regular rate and rhythm, S1S2 normal, no murmurs/rubs/gallops BACK : B/L nephrostomy tubes in place in left and right lower back, mildly tender to touch RESPIRATORY: Clear to auscultation bilaterally, no rales/rhonchi/wheezes GI: BS positive in 4 quadrants, soft, nontender, nondistended, no rebound or guarding, no organomegaly : Deferred MUSCULOSKELETAL: Normal ROM. No cyanosis, clubbing, swelling, joint deformity, extremity edema INTEGUMENTARY: Intact, no rashes, no lesions, no erythema NEUROLOGIC: Cranial Nerves II-XII are intact, no focal deficits PSYCHIATRIC: Mood and affect are normal LABORATORY DATA: Please see below MICRO: UCx: E. coli BCx: NG IMAGING: CT abd/pelvis: 1. Bilateral ureteral stents in place. 2. Severe bilateral hydronephrosis. Stent dysfunction may be present. Stent revision and/or percutaneous drainage should be considered. 3. There are nonenlarged retroperitoneal lymph nodes, nonspecific findings. These could be reactive to a infection correlation urinalysis and clinical history recommended. 4. 2.5 adnexal cyst essentially. ASSESSMENT: 60 y/o F with PMH of cervical cancer treated with radiation therapy in 1991, radiation cystitis, atonic bladder, secondary hyperparathyrodism, CKD Stage IV, HTN, chronic anemia, recurrent UTI and recurrent b/l hydronephrosis despite urethral stent placements admitted under hospitalist for MINGO on CKD Stage IV likely 2/2 to severe b/l hydronephrosis, recurrent UTI, acute pyelonephritis, sepsis. PLAN: MINGO on CKD Stage IV likely 2/2 to severe b/l hydronephrosis, UTI -POD 4 of b/l nephrostomy tube placement by IR. Hx of multiple ureteral stent placements, revisions. -Cr improved further 2.59 -Pain control with Po narcotics, tylenol, encouraging PO fluids. Will need to keep tubes in at discharge : need f/u with urology in 2-3 weeks after discharge, nephrology in 2 weeks after discharge. Can confirm if patient will need 2 or 3 month follow up with interventional radiology (Dr. Duenas placed nephrostomy tubes) after weekend by calling their office. -Tx of UTI below E. coli UTI / acute pyelonephritis, resolved sepsis -Hx of radiation cystitis, atonic bladder -Afebrile, WBC wnl, LA wnl, left flank pain resolved -BCx NG at 24 hr -UA +, UCx above -C/w amoxicillin 500 mg PO BID x 7 days at discharge. Physical deconditioning, weakness likely 2/2 to acute illness above -PT: Patient would benefit from skilled PT to improve ambulation and endurance -Home health referral SEAN -Stable -s/p iron replacement IV -C/w ferrous sulfate BID, bowel regimen -No s/s of bleeding HTN -Stable -C/w BB Secondary hyperparathyrodism -Stable -C/w tx GERD -PPI Cervical cancer treated with radiation therapy in 1991 -F/u o/p Resolved issues: Metabolic acidosis 2/2 to MINGO DISPOSITION: F/u with nephrology, urology and IR after discharge. TIME SPENT ON DISCHARGE: 35 minutes. Vital Signs/I&Os Vital Signs Date Time Temp Pulse Resp B/P (MAP) Pulse Ox O2 Delivery O2 Flow Rate FiO2 12/27/20 11:38 12 12/27/20 09:00 48 148/98 (115) 12/27/20 06:00 97.9 96 Room Air 12/23/20 17:19 2 I&O- Last 24 Hours up to 6 AM 12/27/20 06:00 Intake Total 1150 ml Output Total 3750 ml Balance -2600 ml Laboratory Data Labs 24H Laboratory Tests 2 12/27/20 06:08: Nucleated Red Blood Cells % (auto) 0.0, Anion Gap 5L, Glomerular Filtration Rate 20.2L, Calcium Level 8.7, Total Bilirubin 0.1L, Aspartate Amino Transf (AST/SGOT) 22, Alanine Aminotransferase (ALT/SGPT) 29, Alkaline Phosphatase 169H, Total Protein 7.2, Albumin 2.2L, Albumin/Globulin Ratio 0.4L CBC/BMP Laboratory Tests 12/27/20 06:08 Microbiology Microbiology 12/23/20 Blood Culture - Preliminary, Resulted No Growth after 72 hours. All specime... 12/23/20 Blood Culture - Preliminary, Resulted No Growth after 72 hours. All specime... 12/23/20 Urine Culture - Final, Complete Escherichia Coli Discharge Medications Scheduled Amoxicillin (Amoxicillin) 500 Mg Capsule, 500 MG PO Q12H Calcium Carbonate/Vitamin D3 (Calcium 500-Vit D3 200 Tablet) 1 Each Tablet, 1 TAB PO DAILY, (Reported) Docusate Sodium (Dok) 100 Mg Capsule, 100 MG PO BID Ferrous Sulfate (Ferrous Sulfate) 325 Mg Tablet.dr, 325 MG PO BID Levothyroxine Sodium (Levothyroxine Sodium) 150 Mcg Tablet, 150 MCG PO DAILY, (Reported) Metoprolol Tartrate (Metoprolol Tartrate) 25 Mg Tablet, 25 MG PO BID, (Reported) Pantoprazole Sodium (Pantoprazole Sodium) 40 Mg Tablet.dr, 40 MG PO DAILY, (Reported) Senna (Senna Lax) 8.6 Mg Tablet, 2 TAB PO QHS Sodium Bicarbonate (Sodium Bicarbonate) 325 Mg Tablet, 325 MG PO TID, (Reported) Vit B Comp No.3/Folic/C/Biotin (Helen-Layo Rx Tablet) 1 Each Tablet, 1 TAB PO DAILY, (Reported) Scheduled PRN Acetaminophen (Tylenol Extra Strength) 500 Mg Tablet, 1,000 MG PO TID PRN for PAIN, (Reported) Hydrocodone/Acetaminophen (Hydrocodone-Acetamin 5-325 mg) 1 Each Tablet, 1 TAB PO TID PRN for PAIN, (Reported) MDD 4 Allergies Coded Allergies: potassium (Verified Allergy, Intermediate, HIVES, POUNDING HEARTBEAT, 06/13/20) povidone-iodine (Verified Allergy, Mild, rash/burn, 12/23/20) soap (Verified Allergy, Mild, rash/burn, 12/23/20) Sulfa (Sulfonamide Antibiotics) (Unverified Allergy, Unknown, unknown reaction , 12/23/20) epoetin reina (Verified Allergy, Unknown, 06/13/20) trimethoprim (Unverified Allergy, Unknown, 12/23/20) Quinolones (Verified Adverse Reaction, Intermediate, tequin - blisters on lips, 12/23/20) ibuprofen (Verified Adverse Reaction, Intermediate, kidney problems, can't take, 12/23/20) Nimo Pat MD Dec 27, 2020 15:25
== END 2020-12-27 12:52 | disposition home or self-care (01) | DRG 872 ==
LOC: M ED 03:06 → M ED INP 09:39 → ENRESERV 13:40 → M MSPAV 14:51
PROVIDERS: ADMIT Internal Medicine; ATTEND Internal Medicine
PROC: 0T9430Z Drainage of Left Kidney Pelvis with Drainage Device, Percutaneous Approach (ICD-10-PCS; 2020-12-23)
PROC: BW11ZZZ Fluoroscopy of Abdomen and Pelvis (ICD-10-PCS; 2020-12-23)
PROC: 0T9130Z Drainage of Left Kidney with Drainage Device, Percutaneous Approach (ICD-10-PCS; principal; 2020-12-23 16:30)
PROC: 05HB33Z Insertion of Infusion Device into Right Basilic Vein, Percutaneous Approach (ICD-10-PCS; 2020-12-25)
DX: A41.9 Sepsis, unspecified organism (principal); N17.9 Acute kidney failure, unspecified; N39.0 Urinary tract infection, site not specified; N34.0 Urethral abscess; N18.4 Chronic kidney disease, stage 4 (severe); N13.6 Pyonephrosis; N25.81 Secondary hyperparathyroidism of renal origin; E87.2 Acidosis; E87.6 Hypokalemia; B96.20 Unspecified Escherichia coli [E. coli] as the cause of diseases classified elsewhere; N31.2 Flaccid neuropathic bladder, not elsewhere classified; I12.9 Hypertensive chronic kidney disease with stage 1 through stage 4 chronic kidney disease, or unspecified chronic kidney disease; K21.9 Gastro-esophageal reflux disease without esophagitis; D50.9 Iron deficiency anemia, unspecified; Z85.41 Personal history of malignant neoplasm of cervix uteri; Z92.3 Personal history of irradiation; Z87.891 Personal history of nicotine dependence; Z20.822 Contact with and (suspected) exposure to COVID-19; Z79.899 Other long term (current) drug therapy; Z88.1 Allergy status to other antibiotic agents; Z88.2 Allergy status to sulfonamides; Z88.6 Allergy status to analgesic agent; Z88.8 Allergy status to other drugs, medicaments and biological substances; Z91.048 Other nonmedicinal substance allergy status; Z90.49 Acquired absence of other specified parts of digestive tract

== ENCOUNTER → 2021-01-01 | Outpatient (REF) | payer MEDICARE ==
[~2021-01-01] MED LIST changes: +AMOX500C PO; -CALC500T44 PO; +DOK1CAP7 PO; +FERR325T3 PO; +OYST500T92 PO; +SENN18TA PO
== END ==
LOC: M LAB REF 16:36
PROVIDERS: ATTEND Nurse Practitioner Family
DX: N10 Acute pyelonephritis (principal)

== ENCOUNTER → 2021-01-06 | Outpatient (POV) | payer MEDICARE ==
[~2021-01-06] VITALS: Ht 162.6 cm; Wt 84.1 kg
[2021-01-06 14:20] VITALS: BP 158/76
--- NOTE | 2021-01-09 09:32 | IRPN ---
[facility] IR Progress Note IR Progress Note FOLLOW-UP: 60-year-old female status post recent bilateral nephrostomy placement for internal stent failure, sepsis and renal failure. Patient has been discharged from the hospital. She states she is doing well. No further fevers, chills or pain. Nephrostomy drainage described as clear yellow. No hematuria. She is mentating well. She reports both nephrostomy catheters are draining well and she flushes them daily. Urology is scheduled to take the internal stents out on February 02. ON EXAMINATION: Patient appears well. Bilateral nephrostomies in place and draining. Labs: 12/27/2020 hemoglobin 11.2 hematocrit 34.9 WBC 9.7 (decreased from 11.7 on 12/24/2020) platelets 262 sodium 139 potassium 3.9 BUN 38 creatinine 2.59 GFR 20.2 (improved from 8.3 on 12/23/2020). 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 The internal stents will be removed by urology. Patient will be scheduled for nephrostomy to nephroureteral catheter conversion and managed with bilateral antegrade internal/external stents with daily flushing. Thank you for this referral Cc Dr. Dumas Cc Dr. Fadi Sparrow Allergies Coded Allergies: potassium (Verified Allergy, Intermediate, HIVES, POUNDING HEARTBEAT, 06/13/20) povidone-iodine (Verified Allergy, Mild, rash/burn, 12/23/20) soap (Verified Allergy, Mild, rash/burn, 12/23/20) Sulfa (Sulfonamide Antibiotics) (Unverified Allergy, Unknown, unknown sho ction , 12/23/20) epoetin reina (Verified Allergy, Unknown, 06/13/20) trimethoprim (Unverified Allergy, Unknown, 12/23/20) Quinolones (Verified Adverse Reaction, Intermediate, tequin - blisters on lips, 12/23/20) ibuprofen (Verified Adverse Reaction, Intermediate, kidney problems, can't take, 12/23/20) VS,Fishbone, I+O VS, Fishbone, I+O Vital Signs Date Time Temp Pulse Resp B/P (MAP) Pulse Ox O2 Delivery O2 Flow Rate FiO2 01/06/21 14:20 97.6 61 20 158/76 (103) 97 Room Air DAVID JAMES MD Jan 09, 2021 09:32
== END ==
LOC: M IRPOV 13:51
PROVIDERS: ATTEND Radiology Diagnostic Radiology
DX: Z48.816 Encounter for surgical aftercare following surgery on the genitourinary system (principal); Z96.0 Presence of urogenital implants; Z85.41 Personal history of malignant neoplasm of cervix uteri; Z88.2 Allergy status to sulfonamides; Z88.6 Allergy status to analgesic agent; Z88.8 Allergy status to other drugs, medicaments and biological substances; Z91.09 Other allergy status, other than to drugs and biological substances

== ENCOUNTER → 2021-02-03 | Outpatient (CLI) | payer MEDICARE ==
[~2021-02-03] MED LIST changes: +HYDR-4514; +NITR100C2
--- NOTE | 2021-02-03 16:31 | REP ---
INDICATION: PRESENCE OF UROGENITAL IMPLANTS. COMPARISON: None. FINDINGS: KUB shows the intestinal gas pattern to be nonspecific. The organ silhouettes insofar as delineated are unremarkable. There is no evidence of free intraperitoneal air. There are bilateral double-J renal collecting system stents proximal portion of each appears to be in the respective renal pelvis with the distal portion on the right in the region of the urinary bladder and the distal portion on the left somewhat distal to the urinary bladder floor possibly within the proximal urethra. There are bilateral nephrostomy tubes the distal end of each being in the respective renal pelvic region. IMPRESSION: As above <Electronically signed by Ryne Meléndez > 02/03/21 [id number]
== END ==
LOC: M RAD 15:30
PROVIDERS: ATTEND Urology
DX: Z01.818 Encounter for other preprocedural examination (principal); Z96.0 Presence of urogenital implants; Z11.52 Encounter for screening for COVID-19
CPT/HCPCS: 74018; U0003

== ENCOUNTER → 2021-02-03 | Outpatient (CLI) | payer MEDICARE | LOC: M LABSMTC 12:47 | PROVIDERS: ATTEND Anesthesiology | DX: Z01.818 Encounter for other preprocedural examination (principal); Z11.52 Encounter for screening for COVID-19 ==

== ENCOUNTER 2021-02-05 07:50 | Day surgery (SDC) | payer MEDICARE ==
[~2021-02-05] VITALS: Ht 162.6 cm; Wt 81.6 kg
[~2021-02-05 07:50] MED LIST changes: +ceFAZolin SOD 2 GM in IV 1 EA IV ONE
[2021-02-05] MEDS ORDERED: LIDOCAINE 2% 5ML JELLY UROJET As Ordered ONE (09:39)
[2021-02-05] MEDS ORDERED: fentaNYL 100 MCG/2 ML INJECTION (J3010) As Ordered ONE (09:53)
[2021-02-05] MEDS ORDERED: REMIFENTANIL 1MG 3ML VIAL As Ordered ONE (09:53)
[2021-02-05] MEDS ORDERED: MIDAZOLAM INJ 2MG/2ML VIAL (J2250 PER 1MG) As Ordered ONE (09:53)
[2021-02-05] MEDS ORDERED: propofoL 200 MG/20 ML VIAL As Ordered ONE (09:53)
[2021-02-05] MEDS ORDERED: ONDANSETRON 4MG/2ML VIAL As Ordered ONE (09:53)
[2021-02-05] MEDS ORDERED: dexameTHASONE 4 MG/ML 1ML VIAL (J1100 PER 1MG) As Ordered ONE (09:53)
[2021-02-05] MEDS ORDERED: METOCLOPRAMIDE INJ 10MG/2ML VIAL (J2765 PER 1) As Ordered ONE (09:53)
[2021-02-05] MEDS ORDERED: ePHEDrine SULFATE 25 MG/5 ML(5MG/ML) SYRINGE As Ordered ONE (10:15)
[2021-02-05] MEDS ORDERED: PERCOCET 5MG/325MG TAB PO PRN (10:55)
[2021-02-05] MEDS ORDERED: LR 1,000 ML IV SCH (10:55)
[2021-02-05] MEDS ORDERED: ONDANSETRON 4MG/2ML VIAL IV PRN (10:55)
[2021-02-05 11:30] VITALS: BP 139/68
--- NOTE | 2021-02-05 12:06 | RO ---
OPERATIVE NOTE DATE OF OPERATION: 02/05/2021 PREOPERATIVE DIAGNOSIS: Retained ureteral stents, ureteral strictures. POSTOPERATIVE DIAGNOSIS: Retained ureteral stents, ureteral strictures. PROCEDURE: Left extracorporeal shock wave lithotripsy, cystoscopy with bilateral ureteral stent removal. SURGEON: Merlin Dumas MD TOLL PATROLMAN: None. ANESTHESIA: MAC. OPERATIVE INDICATIONS: This is a 60-year-old female with known bilateral ureteral strictures related to previous history of pelvic radiation. This has been managed with chronic stenting. She most recently had metallic stents placed bilaterally approximately 3 months ago and subsequently these stents failed resulting in hydronephrosis. She then had bilateral nephrostomy tubes placed. I attempted to remove her ureteral stents in the office a few days ago and of note the left side stent could not be removed presumably due to encrusted stent. She was brought to the operating room today to perform extracorporeal shock wave lithotripsy on the left and possibly the right stent and remove the stents. DESCRIPTION OF PROCEDURE: The patient was brought to the operating room and MAC anesthesia was administered. Prophylactic antibiotics were infused. She was placed in supine position in preparation for first left-sided extracorporeal shock wave lithotripsy. At this point shock waves were delivered to the proximal aspect of the left ureteral stent. Cystoscopy was performed at the same time. The distal end of the left ureteral stent was grasped. I gradually pulled on the stent while shock waves were being performed until ultimately the stent released and I was able to withdraw it completely from the left collecting system intact. Once that was done I located the right ureteral stent. I grasped the right ureteral stent and pulled on it and fortunately the right ureteral stent was able to be removed intact without need for shock wave lithotripsy. Of note, approximately 1500 shocks were delivered to the proximal aspect of the left ureteral stent. They were delivered ungated and there were no arrhythmias. Once both stents were completely removed this marked the conclusion of the procedure. The patient was awakened from anesthesia and transferred to the recovery room in stable condition. ESTIMATED BLOOD LOSS: 10 mL. COMPLICATIONS: None. SPECIMEN: None. PLAN: The patient's ureteral strictures will continue to be managed with bilateral nephrostomy tube placement in interventional radiology. She will follow up in urology clinic in a few weeks for a postoperative visit. RON
== END 2021-02-05 12:00 | disposition home or self-care (01) ==
LOC: M SDC 07:50
PROVIDERS: ATTEND Urology
DX: N13.5 Crossing vessel and stricture of ureter without hydronephrosis (principal); T83.192A Other mechanical complication of indwelling ureteral stent, initial encounter; Y73.2 Prosthetic and other implants, materials and accessory gastroenterology and urology devices associated with adverse incidents; I12.9 Hypertensive chronic kidney disease with stage 1 through stage 4 chronic kidney disease, or unspecified chronic kidney disease; I49.9 Cardiac arrhythmia, unspecified; E78.5 Hyperlipidemia, unspecified; E03.9 Hypothyroidism, unspecified; I21.9 Acute myocardial infarction, unspecified; E21.3 Hyperparathyroidism, unspecified; M17.0 Bilateral primary osteoarthritis of knee; M19.011 Primary osteoarthritis, right shoulder; M19.012 Primary osteoarthritis, left shoulder; N18.9 Chronic kidney disease, unspecified; Z92.3 Personal history of irradiation; M10.9 Gout, unspecified; R32 Unspecified urinary incontinence; Z85.41 Personal history of malignant neoplasm of cervix uteri; Z87.891 Personal history of nicotine dependence; Z88.8 Allergy status to other drugs, medicaments and biological substances; Z91.048 Other nonmedicinal substance allergy status; Z88.2 Allergy status to sulfonamides; Z88.4 Allergy status to anesthetic agent; Z79.899 Other long term (current) drug therapy
CPT/HCPCS: 50590; 52310; J0690; J1100; J2250; J2405; J2765; J3010

== ENCOUNTER → 2021-02-09 | Outpatient (CLI) | payer MEDICARE ==
[~2021-02-09] MED LIST changes: +ISOVUE-300 61% 50ML VIAL As Ordered ONE; +LIDOCAINE 1% MDV 20ML VIAL As Ordered ONE; +MIDAZOLAM INJ 2MG/2ML VIAL (J2250 PER 1MG) As Ordered ONE; +PERCOCET 5MG/325MG TAB As Ordered ONE; +PERCOCET 5MG/325MG TAB PO PRN; +PROMETHAZINE INJ 25 MG/ML VIAL (J2550) As Ordered ONE; +ceFAZolin 1GM VIAL (J0690 PER 500MG) As Ordered ONE; -ceFAZolin SOD 2 GM in IV 1 EA IV ONE; +diphenhydrAMINE 50MG/ML VIAL (J1200) As Ordered ONE; +fentaNYL 100 MCG/2 ML INJECTION (J3010) As Ordered ONE
--- NOTE | 2021-02-09 08:34 | IRHP ---
[facility] IR Pre-Procedure H & P General Date of Service: February 09, 2021 Procedure: Same Day Surgery Interval History and Physical I have seen the patient and reviewed last H & P performed within 30 days. There is no significant interval change. History of Present Illness Chief Complaint The patient is a 60-year-old female admitted with a reason for visit of Ureteral Strictures. PRE-PROCEDURE DIAGNOSIS: Ureteral strictures HEART: Normal rate. LUNGS: Normal breathing at rest. ASA Classification ASA Classification: III-Severe systemic dis. Mallampati Score: II NPO: Yes Problems with prior sedation: No Obstructive Sleep Apnea: No Plan moderate sedation Allergies Coded Allergies: potassium (Verified Allergy, Intermediate, HIVES, POUNDING HEARTBEAT, 02/04/21) povidone-iodine (Verified Allergy, Mild, rash/burn, 02/04/21) soap (Verified Allergy, Mild, rash/burn, 02/04/21) Sulfa (Sulfonamide Antibiotics) (Unverified Allergy, Unknown, unknown reaction , 02/04/21) epoetin reina (Verified Allergy, Unknown, 02/04/21) trimethoprim (Unverified Allergy, Unknown, 02/04/21) Quinolones (Verified Adverse Reaction, Intermediate, tequin - blisters on lips, 12/23/20) ibuprofen (Verified Adverse Reaction, Intermediate, kidney problems, can't take, 02/04/21) Home Medications Scheduled Calcium Carbonate/Vitamin D3 (Calcium 500-Vit D3 200 Tablet), 1 TAB PO DAILY, (Reported) Hydrocodone/Acetaminophen (Hydrocodone-Acetamin 7.5-325), PRN, (Reported) Levothyroxine Sodium (Levothyroxine Sodium), 150 MCG PO DAILY, (Reported) Metoprolol Tartrate (Metoprolol Tartrate), 25 MG PO BID, (Reported) Nitrofurantoin Monohyd/M-Cryst (Nitrofurantoin Oxford-Mcr 100 mg), BID, (Reported) Pantoprazole Sodium (Pantoprazole Sodium), 40 MG PO DAILY, (Reported) Sodium Bicarbonate (Sodium Bicarbonate), 325 MG PO TID, (Reported) Vit B Comp No.3/Folic/C/Biotin (Helen-Layo Rx Tablet), 1 TAB PO DAILY, (Reported) Scheduled PRN Acetaminophen (Tylenol Extra Strength), 1,000 MG PO TID PRN for PAIN, (Reported) Discontinued Medications Amoxicillin (Amoxicillin), 500 MG PO Q12H Discontinued Reason: Pt states not taking Docusate Sodium (Dok), 100 MG PO BID Discontinued Reason: Pt states not taking Ferrous Sulfate (Ferrous Sulfate), 325 MG PO BID Discontinued Reason: Pt states not taking Hydrocodone/Acetaminophen (Hydrocodone-Acetamin 5-325 mg), 1 TAB PO TID PRN for PAIN, (Reported) Discontinued Reason: Pt states not taking Senna (Senna Lax), 2 TAB PO QHS Discontinued Reason: Pt states not taking VS, I&O, 24H, Fishbone Vital Signs/I&O Vital Signs Date Time Temp Pulse Resp B/P (MAP) Pulse Ox O2 Delivery O2 Flow Rate FiO2 02/09/21 08:01 97.5 62 18 98 Room Air DAVID JAMES MD February 09, 2021 08:34
[2021-02-09 11:30] VITALS: BP 145/67
--- NOTE | 2021-02-10 09:41 | IRPON ---
IR Postoperative Note Date Of Procedure: February 09, 2021 Time Of Procedure: 16:00 IR Postoperative Note IR Bilateral antegrade internal/external nephroureteral stent placement. IR Bilateral nephrostomy to nephroureteral stent/catheter conversion. IR Bilateral nephrostogram and ureterogram. IR Moderate sedation. Clinical Information:Bilateral ureteral strictures. Failed metal stenting by urology. Presents for nephrostomy to antegrade internal/external stent conversion. Physician: Dr. Duenas. Procedure: The patient was advised of the benefits, risks, and alternatives of the procedure and informed consent was obtained. A time out was performed with verification of the patient's name, MRN, site of procedure, and type of procedure to be performed. The patient was positioned in the prone position on the angiographic table. The site was prepped and draped in the usual sterile fashion. Moderate sedation was performed by the physician including the presence of an independent trained RN, who assisted in monitoring the patient's level of c onsciousness and physiological status. Following the administration of fentanyl and Versed, the physician spent 60 minutes of continuous [id number] time with the patient. A managed care nurse radiograph reveals bilateral nephrostomy catheters. Left side: The soft tissues of the left nephrostomy catheter were anesthetized with lidocaine. An antegrade nephrostogram and ureterogram was performed and this demonstrates, hydronephrosis and hydroureter. There is distal ureteral obstruction. The suture securing the catheter and the external portion of the catheter were cut. A glidewire was advanced through the catheter, under fluoroscopic g uidance, into the renal pelvis. The catheter was removed over the wire.A glide cath was advanced over the wire, under fluoroscopy guidance and used to catheterize the ureter. The catheter in conjunction with a wire was used to cannulate the distal urete ral obstruction, and catheterize into the bladder. Intermittent injection of contrast confirmed location within the ureter and then within the bladder. The Glidewire was exchanged for an Amplatz wire, which was coiled under fluoroscopy guidance in the bladder.. The catheter was removed over the wire. A 10 [place] 28 cm Cook nephroureteral catheter was then advanced over the wire, under fluoroscopy guidance, through the renal collecting system, down the ureter, through the obstruction and into the bladder. The catheter was formed in the usual manner. Injection of contrast confirmed location of the catheter when the renal collecting system, ureter and bladder. No extravasation. The catheter was secured to the skin, capped and a sterile dressing was applied to the site. Right-sided: The soft tissues of the right nephrostomy catheter were anesthetized with lidocaine. An antegrade nephrostogram and ureterogram was performed and this demonstrates, hydronephrosis and hydroureter. There is distal ureteral obstru ction. The suture securing the catheter and the external portion of the catheter were cut. A glidewire was advanced through the catheter, under fluoroscopic guidance, into the renal pelvis. The catheter was removed over the wire.A glide cath was advanced over the wire and used under fluoroscopy guidance, to catheterize the ureter. The catheter in conjunction with a wire, was used under fluoroscopy guidance, to cannulate the distal ureteral obstruction and catheterize the bladder. Intermittent injection of contrast confirmed location within the ureter and then within the bladder. The Glidewire was exchanged for an Amplatz wire which was coiled under fluoroscopic guidance, in the bladder. The catheter was removed over the wire. A 10 [place] 28 cm Cook nephroureteral catheter was then advanced over the wire, under fluoroscopy guidance, through the renal collecting system, down the ureter, through the obstruction and into the bladder. The catheter was formed in the usual manner. Injection of contrast confirmed location of the catheter within the renal collecting system, ureter and bladder. No extravasation. The catheter was capped, secured to the skin and a sterile dressing was applied to the site. The patient tolerated the procedure well and was returned to the PRU in stable condition. EBL: < 5 mL. Complications:None. Conclusion: 1. Antegrade bilateral nephrostogram and ureterogram demonstrating distal ureteral obstruction. 2. Successful bilateral conversion of nephrostomy to antegrade internal/external nephroureteral stent. 3. Patient to flush stents daily with normal saline and to follow-up every 3 months for stent exchanges. Thank you for this referral. Cc DAVID Monahan MD February 10, 2021 09:41
== END ==
LOC: M IRPRO 07:54
PROVIDERS: ATTEND Radiology Diagnostic Radiology
DX: N13.1 Hydronephrosis with ureteral stricture, not elsewhere classified (principal); Z79.890 Hormone replacement therapy; Z79.899 Other long term (current) drug therapy; Z88.2 Allergy status to sulfonamides; Z88.6 Allergy status to analgesic agent; Z88.8 Allergy status to other drugs, medicaments and biological substances; Z91.048 Other nonmedicinal substance allergy status; Z91.09 Other allergy status, other than to drugs and biological substances
CPT/HCPCS: 50434; 99152; 99153; C1769; C1887; C2625; J0690; J1200; J2250; J3010; Q9967

== ENCOUNTER → 2021-02-24 | Outpatient (POV) | payer MEDICARE ==
[~2021-02-24] VITALS: Ht 162.6 cm; Wt 82.7 kg
[~2021-02-24] MED LIST changes: -ISOVUE-300 61% 50ML VIAL As Ordered ONE; -LIDOCAINE 1% MDV 20ML VIAL As Ordered ONE; -MIDAZOLAM INJ 2MG/2ML VIAL (J2250 PER 1MG) As Ordered ONE; -PERCOCET 5MG/325MG TAB As Ordered ONE; -PERCOCET 5MG/325MG TAB PO PRN; -PROMETHAZINE INJ 25 MG/ML VIAL (J2550) As Ordered ONE; -ceFAZolin 1GM VIAL (J0690 PER 500MG) As Ordered ONE; -diphenhydrAMINE 50MG/ML VIAL (J1200) As Ordered ONE; -fentaNYL 100 MCG/2 ML INJECTION (J3010) As Ordered ONE
[2021-02-24 09:40] VITALS: BP 170/77
--- NOTE | 2021-02-25 13:01 | IRPN ---
[facility] IR Progress Note IR Progress Note DATE: Feb 24, 2021 FOLLOW-UP: Patient status post bilateral nephrostomy to nephroureteral stent conversion. Patient has both nephroureteral catheters capped and is flushing them daily. No fevers, no chills, no dysuria, bladder spasms or flank pain. Patient is tolerating the stents well. Patient is not a candidate for complete internalization due to prior internal stent blockage. ON EXAMINATION: Bilateral nephroureteral sites with clean dressing. No flank tenderness. IMPRESSION: Doing well status post bilateral nephrostomy to percutaneous antegrade nephroureteral stent conversion. Continue with percutaneous antegrade nephroureteral stents, which will need to be exchanged every 12 weeks. Patient's next exchange appointment was given. Thank you for this referral. Cc Dr. Dumas Allergies Coded Allergies: potassium (Verified Allergy, Intermediate, HIVES, POUNDING HEARTBEAT, 02/04/21) povidone-iodine (Verified Allergy, Mild, rash/burn, 02/04/21) soap (Verified Allergy, Mild, rash/burn, 02/04/21) Sulfa (Sulfonamide Antibiotics) (Unverified Allergy, Unknown, unknown reaction , 02/04/21) epoetin reina (Verified Allergy, Unknown, 02/04/21) trimethoprim (Unverified Allergy, Unknown, 02/04/21) Quinolones (Verified Adverse Reaction, Intermediate, tequin - blisters on lips, 12/23/20) ibuprofen (Verified Adverse Reaction, Intermediate, kidney problems, can't take, 02/04/21) VS,Fishbone, I+O VS, Fishbone, I+O Vital Signs Date Time Temp Pulse Resp B/P (MAP) Pulse Ox O2 Delivery O2 Flow Rate FiO2 02/24/21 09:40 97.0 56 20 170/77 (108) 98 Room Air DAVID JAMES MD Feb 25, 2021 13:01
== END ==
LOC: M IRPOV 08:47
PROVIDERS: ATTEND Radiology Diagnostic Radiology
DX: Z48.816 Encounter for surgical aftercare following surgery on the genitourinary system (principal); Z96.0 Presence of urogenital implants; Z88.2 Allergy status to sulfonamides; Z88.8 Allergy status to other drugs, medicaments and biological substances

== ENCOUNTER 2021-03-11 18:59 | Observation (INO) | payer MEDICARE ==
[~2021-03-11] VITALS: Ht 162.6 cm; Wt 82.1 kg
[2021-03-11] MEDS ORDERED: ONDANSETRON 4MG/2ML VIAL IV ONE (20:10)
[2021-03-11] MEDS ORDERED: MORPHINE 2 MG/ML 1ML VIAL (J2270) IV PRN (20:25)
[2021-03-11 20:54] LABS: BASO # 0.1 10^3/uL (0.0-0.2); BASO % 0.3 % (0.0-1.0); EOS # 0.2 10^3/uL (0.0-0.5); EOS % 1.3 % (0.0-3.0); HEMATOCRIT 45.8 % (36.0-47.0); HEMOGLOBIN 14.5 g/dl (12.0-15.5); LYMPH # 1.2 10^3/uL (1.5-5.0); LYMPH % 7.8 % (24.0-44.0); MEAN CORPUSCULAR HEMOGLOBIN 27.5 pg (27.0-33.0); MEAN CORPUSCULAR HGB CONC 31.7 g/dl (32.0-36.5); MEAN CORPUSCULAR VOLUME 86.9 fl (80.0-96.0); MONO # 0.8 10^3/uL (0.0-0.8); MONO % 5.5 % (2.0-8.0); NEUTROPHILS # 12.8 10^3/uL (1.5-8.5); NEUTROPHILS % 84.4 % (36.0-66.0); RED BLOOD COUNT 5.27 10^6/uL (4.00-5.40); WHITE BLOOD COUNT 15.1 10^3/uL (4.0-10.0)
[2021-03-11 21:29] LABS: ALBUMIN 3.7 GM/DL (3.2-5.2); ALT/SGPT 20 U/L (12-78); BILIRUBIN,DIRECT 0.1 MG/DL (0.0-0.2); BILIRUBIN,TOTAL 0.6 MG/DL (0.2-1.0); BLOOD UREA NITROGEN 53 MG/DL (7-18); CALCIUM LEVEL 9.4 MG/DL (8.5-10.1); CARBON DIOXIDE LEVEL 21 MEQ/L (21-32); CHLORIDE LEVEL 108 MEQ/L (98-107); CK-MB VALUE MASS < 1.0 NG/ML (<3.6); CPK CREATINE PHOSPHOKINASE 70 U/L (26-192); CREATININE FOR GFR 3.22 MG/DL (0.55-1.30); GLOMERULAR FILTRATION RATE 15.7 (>51); GLUCOSE, FASTING 110 MG/DL (70-100); LIPASE 221 U/L (73-393); MB/CK RELATIVE INDEX 1.43 (< OR =4); POTASSIUM SERUM 3.8 MEQ/L (3.5-5.1); SODIUM LEVEL 140 MEQ/L (136-145); TOTAL PROTEIN 7.9 GM/DL (6.4-8.2); TROPONIN I < 0.02 NG/ML (< 0.10)
--- NOTE | 2021-03-11 21:38 | REPVR ---
PROCEDURE INFORMATION: Exam: XR Chest Exam date and time: 03/11/2021 8:07 PM Age: 60 years old Clinical indication: Pain; Other: Abdominal; Additional info: Abdominal pain TECHNIQUE: Imaging protocol: XR of the chest. Views: 1 view. COMPARISON: 1. CT ABD PELVIS W/O CONTRAST 12/23/2020 5:[address] ABD PELVIS W/O CONTRAST 09/03/2020 1:[address] ABD PELVIS W/O CONTRAST 07/19/2020 9:56 AM 4. AK Abdomen,Flat Plate KUB 02/03/2021 4:03 PM FINDINGS: Lungs: Lungs are diffusely hypoexpanded. No evidence of pulmonary edema. No focal consolidation or parenchymal lung mass. Pleural spaces: No pleural effusion. No pneumothorax. Heart/Mediastinum: Heart and mediastinal contours are normal, given the degree of inflation. Bones/joints: Osseous structures show no concerning abnormality. Soft tissues: No asymmetry of the extrathoracic soft tissues. IMPRESSION: Hypoexpanded lungs, without evidence of active cardiopulmonary disease Electronically signed by: Rajiv Jose On 03/11/2021 21:37:42 PM
[2021-03-11 21:42] LABS: RSV AMPLIFICATION NEGATIVE (NEGATIVE)
--- NOTE | 2021-03-11 21:46 | REPVR ---
PROCEDURE INFORMATION: Exam: CT Abdomen And Pelvis Without Contrast Exam date and time: 03/11/2021 8:46 PM Age: 60 years old Clinical indication: Other: Decreased urine output, possible urostomy TECHNIQUE: Imaging protocol: Computed tomography of the abdomen and pelvis without contrast. Radiation optimization: All CT scans at this facility use at least one of these dose optimization techniques: automated exposure control; mA and/or kV adjustment per patient size (includes targeted exams where dose is matched to clinical indication); or iterative reconstruction. COMPARISON: 1. CT ABD PELVIS W/O CONTRAST 12/23/2020 5:[address] ABD PELVIS W/O CONTRAST 09/03/2020 1:49 PM FINDINGS: Lungs: No suspicious mass or airspace process in the visualized lung bases. Atelectasis is present in the dependent portions of the lungs. Liver: Noncontrast liver shows no obvious lesion. Gallbladder and bile ducts: Gallbladder is present and shows no evidence of gallstone. Pancreas: Noncontrast pancreas shows no obvious mass or adjacent fluid. Spleen: Noncontrast spleen shows no obvious focal deformity. Adrenal glands: Adrenal glands are normal in appearance. Kidneys and ureters: Bilateral posterior external renal pelvis drains are present and bilateral pigtail ureter stents are present extending from the renal pelvis bilaterally into the bladder. Residual hydroureteronephrosis, right worse than left, with significant decompression of the left kidney since the prior exam in December. The right kidney remains dilated. Stomach and bowel: No evidence of small bowel obstruction. Diverticular changes are present within the colon without inflammation. Appendix: No evidence of acute appendicitis. Intraperitoneal space: No pneumoperitoneum. Vasculature: No aortic aneurysm. Lymph nodes: No enlarged lymph nodes. Urinary bladder: Bladder is decompressed with the pigtail catheters. Reproductive: Atrophic uterus and ovaries. Bones/joints: Bony structures show no acute fracture or destructive process. Soft tissues: No concerning focal abnormality of the extra-abdominal and pelvic soft tissues. Other findings: Limited evaluation without enteric or IV contrast. IMPRESSION: Complete decompression of the bladder, with double-J ureter stents extending from the bladder into the renal pelvis bilaterally. Left kidney collecting system is decompressed. Right kidney and renal pelvis demonstrates significant residual dilatation despite the presence of the internal and external urinary drains suggesting that the right-sided drains may not be functioning well. Electronically signed by: Rajiv Jose On 03/11/2021 21:46:28 PM
[2021-03-11] MEDS ORDERED: cefTRIAXone SOD 1 GM in D5W MINI-BAG PLUS 50 ML IV ONE (22:10)
[2021-03-11] MEDS ORDERED: CLAR10CA3 PO (23:22)
[2021-03-11] MEDS ORDERED: HYDR-4514 PO (23:22)
--- NOTE | 2021-03-12 02:09 | HPEPDOC ---
[facility] Medical History & Physical Date of Admission Mar 12, 2021 Date of Service: Mar 12, 2021 History and Physical CHIEF COMPLAINT: flank pain HISTORY OF PRESENT ILLNESS: 60 yo F with PMHx of CKD IV, cervical cancer s/p ra diation therapy 1991, radiation cystitis, secondary hyperparathyroidism, recurrent UTI, ureteral strictures, recurrently b/l hydronephrosis and recent bilateral nephrostomy to nephroureteral stent conversion. Patient presented to ER, c/o R sided flank pain pain, fevers, chills and malaise. She was found to have leukocytosis of 15.1. Cr 3.22. LA 1.4. Ct abdomen pelvis showing R sided hydronephrosis, concerning for malfunction of R nephroureteral stent. Dr. Duenas was called from ER, plan to re-eval on 03/12/21. PAST MEDICAL HISTORY: 1. Cervical cancer treated with radiation therapy in 1991 2. Radiation cystitis 3. Atonic bladder 4. Secondary hyperparathyroism 5. CKD Stage IV 6. Hypertension 7. Chronic anemia 8. Recurrent UTI 9. Recurrent b/l hydronephrosis despite urethral stent placements PAST SURGICAL HISTORY: Appendectomy multiple bilateral ureteral stents placements/replacement SOCIAL HISTORY: 20-oepn-ncmt history, quit smoking 2002 Drinks up to 5 beers daily last drink day before admission As illicit drug use Nephrology- Dr. Sparrow Urology-Dr. Dumas FAMILY HISTORY: Family history of diabetes, hypertension, coronary artery disease Patient unable to specify relative specifically ALLERGIES: Please see below. REVIEW OF SYSTEMS: 10 point ROS was completed, relevant findings are noted in HPI HOME MEDICATIONS: Please see below. PHYSICAL EXAMINATION: VITAL SIGNS: please see below General: NAD, comfortable HEENT: PERRLA, EOMI, sclerae clear Neck: supple, normal ROM, no JVD Respiratory: lungs CTAB, no wheeze, no rales, no crackles CVS: RRR, normal S1, S2, no murmurs Abdo: soft, no masses, no hepatosplenomegaly, BS+, no rebound tenderness Back: Positive CVA tenderness on R Extremities: no edema, pulses 2+ MSK: no joint deformities, normal ROM Neuro: no focal neuro deficits, moving all 4 extremities, CN2-12 intact. Strength 5/5 in all 4 extremities. No nystagmus. Psych: calm, cooperative, AAO x 3 LABORATORY DATA: See below. IMAGING: CT abdo pelvis wo contrast (03/11/21): IMPRESSION: Complete decompression of the bladder, with double-J ureter stents extending from the bladder into the renal pelvis bilaterally. Left kidney collecting system is decompressed. Right kidney and renal pelvis demonstrates significant residual dilatation despite the presence of the internal and external urinary drains suggesting that the right-sided drains may not be functioning well. CXR (03/11/21): Hypoexpanded lungs, without evidence of active cardiopulmonary disease MICROBIOLOGY: Please see below. ASSESSMENT: 60 yo F with PMHx of CKD IV, cervical cancer s/p radiation therapy 1991, radiation cystitis, secondary hyperparathyroidism, recurrent UTI, ureteral strictures, recurrently b/l hydronephrosis and recent bilateral nephrostomy to nephroureteral stent conversion. Patient presented to ER, c/o R sided flank pain pain, fevers, chills and malaise. She was found to have leukocytosis of 15.1. Cr 3.22. LA 1.4. Ct abdomen pelvis showing R sided hydronephrosis, concerning for malfunction of R nephroureteral stent. Dr. Duenas was called from ER, plan to re-eval on 03/12/21. . PLAN: Hx of ureteral strictures/ suspected obstruction of nephroureteral stents - Patient was seen in IR clinic by Dr. Duenas on 02/24/21 - s/p bilateral nephrostomy to nephroureteral stent conversion - both nephroureteral cathers in place, capped. - patient concerned about R catheter malfunction, blockage, as has happened previously - per ER, Dr. Quarles to assess patient tomorrow for possible exchange Recurrent UTI / acute pyelonephritis -Hx of radiation cystitis, atonic bladder - per prior cultures (12/23/20), clark sensitive e coli - WBC 15. LA 1.4. - s/p dose of ceftriaxone in ER, will order UA with culture regardless - continue ceftriaxone MINGO on CKD - Cr 3.22, (baseline 2.5) - follows with Dr. Sparrow - in context of possible R nephroureteral drain blockage, planned for IR re-eval - CT abdo pelvis showing dilatation of R kidney and renal pelvis HTN -Stable -Resume BB when taking PO Chronic anemia -Stable Secondary hyperparathyrodism -Stable -F/u o/p GERD -PPI Cervical cancer treated with radiation therapy in 1991 -F/u o/p DVT px -Holding off on heparin due to possible procedure by IR on 03/12/21, TEDS/SCD for now- start heparin SC when able Vital Signs Vital Signs Date Time Temp Pulse Resp B/P (MAP) Pulse Ox O2 Delivery O2 Flow Rate FiO2 03/11/21 23:15 98.0 94 17 124/64 (84) 95 Room Air Laboratory Data Labs 24H Laboratory Tests 2 03/11/21 19:41: Immature Granulocyte % (Auto) 0.7, Neutrophils (%) (Auto) 84.4H, Lymphocytes (%) (Auto) 7.8L, Monocytes (%) (Auto) 5.5, Eosinophils (%) (Auto) 1.3, Basophils (%) (Auto) 0.3, Neutrophils # (Auto) 12.8H, Lymphocytes # (Auto) 1.2L, Monocytes # (Auto) 0.8, Eosinophils # (Auto) 0.2, Basophils # (Auto) 0.1, Nucleated Red Blood Cells % (auto) 0.0, Anion Gap 11, Glomerular Filtration Rate 15.7L, Lactic Acid Level 1.4, Calcium Level 9.4, Total Bilirubin 0.6, Direct Bilirubin 0.1, Aspartate Amino Transf (AST/SGOT) 10, Alanine Aminotransferase (ALT/SGPT) 20, Alkaline Phosphatase 81, Total Creatine Kinase 70, Creatine Kinase MB < 1.0, Creatine Kinase MB Relative Index 1.43, Troponin I < 0.02, Total Protein 7.9, Albumin 3.7, Albumin/Globulin Ratio 0.9L, Lipase 221 03/11/21 20:19: Coronavirus (COVID-19)(PCR) NEGATIVE, Influenza Type A (RT-PCR) NEGATIVE, Influenza Type B (RT-PCR) NEGATIVE, Respiratory Syncytial Virus (PCR) NEGATIVE CBC/BMP Laboratory Tests 03/11/21 19:41 Microbiology Microbiology 03/11/21 Blood Culture, Received Pending Home Medications Scheduled Calcium Carbonate/Vitamin D3 (Calcium 500-Vit D3 200 Tablet) 1 Each Tablet, 1 TAB PO DAILY Cephalexin (Cephalexin) 500 Mg Capsule, 500 MG PO Q12H Levothyroxine Sodium (Levothyroxine Sodium) 150 Mcg Tablet, 150 MCG PO DAILY Metoprolol Tartrate (Metoprolol Tartrate) 25 Mg Tablet, 25 MG PO BID Pantoprazole Sodium (Pantoprazole Sodium) 40 Mg Tablet.dr, 40 MG PO DAILY Prednisone (Prednisone) 20 Mg Tablet, 20 MG PO Q12H Sodium Bicarbonate (Sodium Bicarbonate) 325 Mg Tablet, 325 MG PO TID Vit B Comp No.3/Folic/C/Biotin (Helen-Layo Rx Tablet) 1 Each Tablet, 1 TAB PO DAILY Scheduled PRN Hydrocodone/Acetaminophen (Hydrocodone-Acetamin 7.5-325) 1 Each Tablet, 1 TAB PO Q8H PRN for PAIN LEVEL 1-6 Loratadine (Claritin) 10 Mg Capsule, 10 MG PO DAILY PRN for ALLERGIES Allergies Coded Allergies: potassium (Verified Allergy, Intermediate, HIVES, POUNDING HEARTBEAT, 02/04/21) povidone-iodine (Verified Allergy, Mild, rash/burn, 02/04/21) soap (Verified Allergy, Mild, rash/burn, 02/04/21) Sulfa (Sulfonamide Antibiotics) (Unverified Allergy, Unknown, unknown reaction , 02/04/21) epoetin reina (Verified Allergy, Unknown, 02/04/21) trimethoprim (Unverified Allergy, Unknown, 02/04/21) Quinolones (Verified Adverse Reaction, Intermediate, tequin - blisters on lips, 12/23/20) ibuprofen (Verified Adverse Reaction, Intermediate, kidney problems, can't take, 02/04/21) A-FIB/CHADSVASC A-FIB History Current/History of A-Fib/PAF?: No PATRICA COLLINS MD Mar 12, 2021 02:09
[2021-03-12] MEDS ORDERED: MAALOX 30 ML SUSP *UDC PO PRN (02:10)
[2021-03-12] MEDS ORDERED: ACETAMINOPHEN TAB 650MG DOSE (2X325MG) PO PRN (02:10)
[2021-03-12] MEDS ORDERED: LORATADINE 10 MG TAB PO PRN (02:15)
[2021-03-12] MEDS ORDERED: ANEXSIA, NORCO 7.5MG/325MG TABLET(HYDROCODONE/APAP) PO PRN ×2 (02:15→08:35)
[2021-03-12 04:26] VITALS: BP 166/90
[2021-03-12] MEDS: LEVOTHYROXINE 150MCG TABLET (0.15MG) PO SCH (05:50)
[2021-03-12] MEDS: METOPROLOL TART 25 MG TABLET PO SCH ×2 (08:29→20:41)
[2021-03-12] MEDS: PANTOPRAZOLE 40MG TAB (PROTONIX) PO SCH (08:29)
[2021-03-12] MEDS: CALCIUM/VITAMIN D 500 MG TAB PO SCH (08:29)
[2021-03-12] MEDS: DOCUSATE SODIUM 100MG CAPSULE PO SCH ×2 (08:29→20:41)
[2021-03-12] MEDS: SODIUM BICARBONATE 325 MG TAB PO SCH ×3 (08:30→20:41)
[2021-03-12 08:50] VITALS: BP 157/87
[2021-03-12] MEDS ORDERED: NS 1,000 ML IV SCH (08:50)
[2021-03-12] MEDS ORDERED: LR 1,000 ML IV ONE (08:55)
[2021-03-12] MEDS: MULTIVITAMINS/MINERALS THERAP 1 TAB PO SCH (09:00)
[2021-03-12] MEDS: FOLIC ACID 1 MG TAB PO SCH (09:00)
[2021-03-12] MEDS: THIAMINE 100 MG TAB PO SCH ×2 (09:00→20:41)
[2021-03-12] MEDS: LORazepam 2 MG TAB PO PRN ×2 (09:03→19:03)
[2021-03-12] MEDS ORDERED: ONDANSETRON 4MG/2ML VIAL IV PRN (09:15)
[2021-03-12] MEDS ORDERED: NS 1,000 ML IV ONE (09:20)
[2021-03-12] MEDS: ANEXSIA, NORCO 7.5MG/325MG TABLET(HYDROCODONE/APAP) PO PRN ×3 (09:57→17:57)
--- NOTE | 2021-03-12 12:38 | CR ---
CONSULTATION DATE: 03/12/2021 REFERRING PHYSICIAN: PATRICA COLLINS MD REASON FOR CONSULTATION: Pyelonephritis in this lady with a history of hydronephrosis and bilateral nephrostomies with ureteral stents. HISTORY OF PRESENT ILLNESS: Ms. Cole is a 52-year-old female with a known history of advanced Stage IV chronic kidney disease with bilateral hydronephrosis. She had cervical cancer and received radiation in 1991. She has developed radiation cystitis and also developed bilateral hydronephrosis. She currently has bilateral nephrostomy tubes with ureteral stents and her nephrostomies have been capped off. She came to the Emergency Room last evening with right flank pain and was felt to have complicated UTI in the kidney which already has a nephrostomy and ureteral stent in place. She was admitted for intravenous antibiotics and IV fluids. Nephrology consultation is requested and the patient is seen this morning. PAST MEDICAL HISTORY: Significant for: 1. Cervical cancer treated with radiation therapy in 1991. 2. History of radiation cystitis. 3. History of atonic bladder requiring self-catheterization. 4. Stage IV chronic kidney disease. 5. Hypertension. 6. Secondary hyperparathyroidism. 7. History of recurrent urinary tract infection. 8. History of anemia. 9. History of bilateral hydronephrosis, status post bilateral nephrostomies and ureteral stents. PAST SURGICAL HISTORY: Significant for: 1. Appendectomy. 2. Bilateral nephrostomies and ureteral stents. PERSONAL AND SOCIAL HISTORY: Patient has a history of smoking in the past and quit in 2002. She drinks up to five beers a day. Denies any other drug use. FAMILY HISTORY: Significant for hypertension, diabetes and coronary artery disease. MEDICATIONS: Her home medications include: 1. Calcium carbonate with vitamin D 500 mg one tablet daily. 2. Levothyroxine 150 mcg daily. 3. Metoprolol 25 mg b.i.d. 4. Pantoprazole 40 mg daily. 5. Sodium bicarbonate 325 mg t.i.d. 6. Multivitamin one tablet daily. 7. Hydrocodone 7.5/325 mg every 8 hours p.r.n. for severe pain. 8. Loratadine p.r.n. for allergies. ALLERGIES: Patient has multiple drug allergies including iodine, sulfa, potassium, Epogen, quinolones and Ibuprofen. REVIEW OF SYSTEMS: Patient denies any fever or chills. Ears, nose, and throat are unremarkable. Cardiovascular system is significant for hypertension. She denies any leg edema or dyspnea. Respiratory system is negative for cough or hemoptysis. GI system is significant for nausea and decreased appetite. Denies any vomiting or diarrhea. system is as per history of present illness. Endocrine system: Significant for hypothyroidism and secondary hyperparathyroidism. Hematological system is significant for anemia of chronic kidney disease. She is not on any long-term anticoagulation. Musculoskeletal system is negative for leg edema. She does have chronic back pain and requires hydrocodone for pain control. Skin is negative for rash or ulcers. Neurological system is negative for seizures or stroke. PHYSICAL EXAMINATION: GENERAL APPEARANCE: Patient is laying in bed in some discomfort and holding her right flank area. VITAL SIGNS: Temperature is 99 degrees Fahrenheit, heart rate 58 per minute and respiratory rate is 18 per minute, blood pressure is 166/90 mmHg and oxygen saturation 98% on room air. HEAD AND NECK: Head is atraumatic. Neck is supple without JVD or thyroid enlargement. HEART: Heart sounds are regular. LUNGS: Clear to auscultation. ABDOMEN: Soft and right flank area tenderness is present. Bowel sounds are normal. EXTREMITIES: Without any cyanosis or clubbing. NEUROLOGIC: She is awake, alert and at her baseline mentation. LABORATORY DATA: WBC count is 15.1, hemoglobin is 14.5 and hematocrit 45.8, sodium is 140, potassium is 3.8, CO2 21, BUN 53 and creatinine 3.22. Glucose is 110 and lactic acid is 1.4. Total protein 7.9 and albumin is 3.7. A urine culture is still pending and urinalysis is also not performed as of yet. PROBLEMS: 1. Right flank pain, most likely she has pyelonephritis in the kidney where she already has a nephrostomy tube and ureteral stent. CT scan of the abdomen and pelvis was reviewed which did show persistent hydronephrosis on the right side and improved hydronephrosis on the left. It is possible that she has a blockage of her ureteral stent. This can be flushed and most likely be opened up with a guidewire if needed. I would recommend to continue with intravenous Ceftriaxone for now. 2. Acute kidney injury superimposed on chronic kidney disease, only mild change in her kidney function. She has a know history of Stage IV chronic kidney disease at baseline. She is receiving IV fluid at 100 ml per hour at present which is appropriate. 3. Metabolic acidosis, her acidosis has been corrected with oral sodium bicarbonate supplement and I recommend to continue with the same. 4. Hypertension, her blood pressure has been very well-controlled with only small dose of beta marcia. 5. Right sided hydronephrosis most likely malfunction of her ureteral stent which may be clogged. Interventional Radiology is going to see her and anticipate fixing of the problem later this afternoon. Thank you for involving me in the care of Ms. Cole. I will follow her along with you.
--- NOTE | 2021-03-12 13:36 | IPNPDOC ---
Date Seen The patient was seen on 03/12/21. Progress Note SUBJECTIVE: Patient reports that she is feeling a lot better. She states that her back pain is down to 5 out of 10 from 10 out of 10 on admission. She is resting comfortably and reports that when she first was admitted she could not find a comfortable position. Interventional radiology staff has attached bags to bilateral nephrostomy placements. 325 mL was drained from the right and was of a blood-tinged character. The left nephrostomy bag drained approximately 5 cc of yellow substance. Patient reports that she is still able to urinate at this time. Patient reports feeling hungry and was on ice chips due to possible interventional radiology stent exchange. Interventional radiology reports that there is no need for exchange at this time and the bilateral nephrostomy tubes should be flushed daily. Interventional radiology staff has informed nursing staff how to do this. Patient's nurse reported that she gave the patient the Ativan from the CIWA protocol because the patient was nervous during the nephrostomy tube bag placement. Patient admits to drinking 5 Mejía light beers daily. OBJECTIVE PHYSICAL EXAMINATION: VITAL SIGNS: Please see below. GENERAL: Patient is lying back in bed comfortably and in no acute distress, she is cooperative and conversational on medical interview. HEENT: Normocephalic, atraumatic, no scleral icterus, oropharyngeal mucosa moist, nares patent. CARDIOVASCULAR: Irregularly irregular heart rhythm, no murmurs rubs or gallops appreciated.. RESPIRATORY: Clear to auscultation bilaterally, no wheezes rales or rhonchi. ABDOMINAL: Soft, nontender, nondistended, some suprapubic pressure appreciated, bowel sounds present. EXTREMITIES: Mild pitting edema of bilateral lower extremities appreciated from feet to patella. NEUROLOGICAL: Upper and lower extremities strength grossly 5 out of 5 PSYCHOLOGICAL: Affect full and open LABORATORY DATA, IMAGING STUDIES, MICROBIOLOGY: Please see below. ASSESSMENT AND PLAN: This is a 60-year-old female with a past medical history of recent nephroureteral stent conversion from bilateral nephrostomies on February 24, 2021. She presented to the ER with right-sided flank pain, fevers, chills, and malaise and was admitted after possible malpositioning of the stent was hypothesized given CT abdomen pelvis findings of right sided residual dilatation. Dr. Duenas, patient's interventional radiologist, was contacted and does not believe the patient has right-sided hydronephrosis and will be well managed on daily flushes of bilateral nephrostomies. Today is day #2 of ceftriaxone treatment. #History of ureteral strictures/suspected obstruction of nephroureteral stents Dr. Duenas was contacted about the case and she stated due to no hydronephrosis being present (the dilatation seen on CT was likely at baseline from procedure) IR staff has informed patient's nursing staff how to do daily saline flushes of bilateral nephrostomies Nephrostomy bags have been placed 325 mL blood-tinged fluid resulted from the right nephrostomy bag Left-sided nephrostomy bag had minimal output with yellow fluid Inpatient team appreciates interventional radiology continued input. #Leukocytosis Etiology likely UTI (complicated by recurrent UTI and pyelonephritis history) versus infection from nephroureteral stent placement. Ceftriaxone 1 g daily ordered, day #2 of antibiotic use UA with reflex to culture has been ordered #Pain secondary to nephroureteral stent malfunction Continue hydrocodone/acetaminophen 1 tab p.o. every 4 hours for pain #Vomiting Patient had one episode of vomiting upon admission to the ER secondary to pain ondansetron 4 mg every 6 hours as needed #Hypertension Continue home medication beta-marcia, metoprolol 25 mg p.o. twice daily #MINGO on chronic kidney disease stage IV with history of bilateral hydronephrosis. Patient's creatinine was 2.59 in December 2020, on admission patient's creatinine was 3.22. Likely secondary to nephroureteral stent malfunction Continue with daily flushes of bilateral nephrostomies According to Dr. Duenas there is no hydronephrosis of the right kidney at this time Continue daily monitoring of BMP to track renal function Continue to encourage oral hydration. Nephrology has been consulted, inpatient service team appreciates nephrology input. 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 #History of alcohol use Patient reports drinking 5 Mejía light beers daily CIWA protocol in place #Hypothyroidism, stable Continue home medication 150 mcg daily #History of allergies Continue home loratadine 10 mg daily #GERD, stable Continue home pantoprazole dose of 40 mg #History of cervical cancer treated with radiation therapy in 1991 Consider follow-up in the outpatient setting #History of secondary hyperparathyroidism No hypercalcemia present during this visit Consider follow-up in the outpatient setting #Chronic anemia, stable Hemoglobin upon admission was 14.5 Consider follow-up in the outpatient setting Bowel regimen continue Mylanta and milk of magnesium daily as needed for constip ation. DVT prophylaxis ordered: Continue teds and sequentials at this time. Ordered EDTA free platelet to consider starting patient on heparin for DVT prophylaxis. DISPOSITION: MedSurg, continue daily flushes of bilateral nephrostomies at this time. VS, I&O, 24H, Fishbone Vital Signs/I&O Vital Signs Date Time Temp Pulse Resp B/P (MAP) Pulse Ox O2 Delivery O2 Flow Rate FiO2 03/12/21 10:27 18 Room Air 03/12/21 08:50 96 157/87 03/12/21 04:26 97.7 99 I&O- Last 24 Hours up to 6 AM 03/12/21 05:59 Intake Total 50 ml Balance 50 ml Laboratory Data 24H LABS Laboratory Tests 2 03/11/21 19:41: Immature Granulocyte % (Auto) 0.7, Neutrophils (%) (Auto) 84.4H, Lymphocytes (%) (Auto) 7.8L, Monocytes (%) (Auto) 5.5, Eosinophils (%) (Auto) 1.3, Basophils (%) (Auto) 0.3, Neutrophils # (Auto) 12.8H, Lymphocytes # (Auto) 1.2L, Monocytes # (Auto) 0.8, Eosinophils # (Auto) 0.2, Basophils # (Auto) 0.1, Nucleated Red Blood Cells % (auto) 0.0, Anion Gap 11, Glomerular Filtration Rate 15.7L, Lactic Acid Level 1.4, Calcium Level 9.4, Total Bilirubin 0.6, Direct Bilirubin 0.1, Aspartate Amino Transf (AST/SGOT) 10, Alanine Aminotransferase (ALT/SGPT) 20, Alkaline Phosphatase 81, Total Creatine Kinase 70, Creatine Kinase MB < 1.0, C reatine Kinase MB Relative Index 1.43, Troponin I < 0.02, Total Protein 7.9, Albumin 3.7, Albumin/Globulin Ratio 0.9L, Lipase 221 03/11/21 20:19: Coronavirus (COVID-19)(PCR) NEGATIVE, Influenza Type A (RT-PCR) NEGATIVE, Influenza Type B (RT-PCR) NEGATIVE, Respiratory Syncytial Virus (PCR) NEGATIVE CBC/BMP Laboratory Tests 03/11/21 19:41 Microbiology Microbiology 03/11/21 Blood Culture, Received Pending GME ATTESTATION GME ATTESTATION My faculty preceptor for this patient encounter was physically present during the encounter and was fully available. All aspects of the patient interview, examination, medical decision making process, and medical care plan development were reviewed and approved by the faculty preceptor. The faculty preceptor is aware and concurs with the plan as stated in the body of this note and will attest to such by his/her cosignature. ATTENDING NOTE I personally examined the patient and discussed her findings and plan with the resident team and noted above. Per IR her hydro is stable, does not need new stenting and recommended flushing and draining the nephrostomy at this time with medical treatment of the ongoing UTI. John Arellano DO Mar 12, 2021 13:36 MILO LEDESMA MD Mar 13, 2021 08:01
[2021-03-12 14:00] VITALS: BP 148/86
[2021-03-12 14:03] LABS: PLTBLUE- EDTA FREE CALC 129 K/mm3 (172-450)
[2021-03-12 14:48] LABS: PLTBLUE- EDTA FREE MACHINE 117 10^3/uL (172-450)
--- NOTE | 2021-03-12 20:39 | ECGEPIP ---
[facility] - ED Test Date: 2021-03-11 Pat Name: AFSANEH DOUGHERTY Department: Room: [place] [address] Gender: Female Manager Delivery: ED : 1960 Requested By: TITUS Perkins Order Number: [id number] Reading MD: David Vigil Measurements Intervals [place] Rate: 97 P: [place]: QRS: -3 QRSD: 76 T: 25 QT: 344 QTc: 436 Interpretive Statements Undetermined rhythm POOR R WAVE PROGRESSION SIMILAR TO 12/23/20 Electronically Signed on 03-12-2021 20:39:43 EDT by David Vigil
[2021-03-12] MEDS: HEPARIN SOD (PORCINE) 5000UNITS/ML 1ML VIAL/SYRINGE SQ SCH (20:40)
[2021-03-12] MEDS: cefTRIAXone SOD 1 GM in D5W MINI-BAG PLUS 50 ML IV SCH (20:41)
[2021-03-12] MEDS ORDERED: MORPHINE 4 MG/ML 1ML VIAL/SYRINGE (J2270) IV PRN (21:55)
[2021-03-12 22:00] VITALS: BP 127/73
[2021-03-13] MEDS: ANEXSIA, NORCO 7.5MG/325MG TABLET(HYDROCODONE/APAP) PO PRN ×5 (00:13→23:36)
[2021-03-13 06:00] VITALS: BP 128/78
[2021-03-13] MEDS: LEVOTHYROXINE 150MCG TABLET (0.15MG) PO SCH (06:17)
[2021-03-13 07:51] LABS: BASO # 0.1 10^3/uL (0.0-0.2); BASO % 0.7 % (0.0-1.0); EOS # 0.3 10^3/uL (0.0-0.5); EOS % 3.1 % (0.0-3.0); HEMATOCRIT 47.1 % (36.0-47.0); HEMOGLOBIN 14.6 g/dl (12.0-15.5); LYMPH # 2.1 10^3/uL (1.5-5.0); LYMPH % 24.8 % (24.0-44.0); MEAN CORPUSCULAR HEMOGLOBIN 27.7 pg (27.0-33.0); MEAN CORPUSCULAR VOLUME 89.2 fl (80.0-96.0); MONO # 0.6 10^3/uL (0.0-0.8); MONO % 6.7 % (2.0-8.0); NEUTROPHILS # 5.5 10^3/uL (1.5-8.5); NEUTROPHILS % 64.1 % (36.0-66.0); PLATELET COUNT, AUTOMATED 224 10^3/uL (150-450); RED BLOOD COUNT 5.28 10^6/uL (4.00-5.40); WHITE BLOOD COUNT 8.5 10^3/uL (4.0-10.0)
[2021-03-13 08:02] LABS: CALCIUM LEVEL 9.1 MG/DL (8.5-10.1); CREATININE FOR GFR 3.13 MG/DL (0.55-1.30); GLOMERULAR FILTRATION RATE 16.2 (>51); POTASSIUM SERUM 4.6 MEQ/L (3.5-5.1)
[2021-03-13] MEDS ORDERED: predniSONE 10 MG TAB PO SCH (09:00)
[2021-03-13] MEDS: DOCUSATE SODIUM 100MG CAPSULE PO SCH ×2 (09:04→21:59)
[2021-03-13] MEDS: SODIUM BICARBONATE 325 MG TAB PO SCH ×3 (09:04→21:58)
[2021-03-13] MEDS: FOLIC ACID 1 MG TAB PO SCH (09:04)
[2021-03-13] MEDS: MULTIVITAMINS/MINERALS THERAP 1 TAB PO SCH (09:05)
[2021-03-13] MEDS: METOPROLOL TART 25 MG TABLET PO SCH ×2 (09:05→22:00)
[2021-03-13] MEDS: HEPARIN SOD (PORCINE) 5000UNITS/ML 1ML VIAL/SYRINGE SQ SCH ×2 (09:05→21:59)
[2021-03-13] MEDS: CALCIUM/VITAMIN D 500 MG TAB PO SCH (09:05)
[2021-03-13] MEDS: PANTOPRAZOLE 40MG TAB (PROTONIX) PO SCH (09:07)
[2021-03-13] MEDS: THIAMINE 100 MG TAB PO SCH ×2 (09:07→21:59)
[2021-03-13] MEDS: MOM 30ML SUSPENSION UDC PO PRN (09:16)
--- NOTE | 2021-03-13 11:00 | IPNPDOC ---
Date Seen The patient was seen on 03/13/21. Progress Note SUBJECTIVE: Patient reports that she is feeling a lot better. She states that her back pain has significantly decreased. Nephrostomy bags are still in place from placement yesterday. Patient reports that she received Ativan yesterday due to anxiety. 600 mL drained from the left nephrostomy bag and 825 mL drained from the right. Patient reports that she is still able to urinate at this time. Patient reports that her right great toe feels inflamed and she has a history of gout. OBJECTIVE PHYSICAL EXAMINATION: VITAL SIGNS: Please see below. GENERAL: Patient is sitting up on bedside couch comfortably and in no acute distress, she is cooperative and conversational on medical interview. HEENT: Normocephalic, atraumatic, no scleral icterus, oropharyngeal mucosa moist, nares patent. CARDIOVASCULAR: Irregularly irregular heart rhythm, no murmurs rubs or gallops appreciated.. RESPIRATORY: Clear to auscultation bilaterally, no wheezes rales or rhonchi. ABDOMINAL: Soft, nontender, nondistended, some suprapubic pressure appreciated, bowel sounds present. EXTREMITIES: Mild pitting edema of bilateral lower extremities appreciated from feet to patella, erythematous and tender right great toe. NEUROLOGICAL: Upper and lower extremities strength grossly 5 out of 5 PSYCHOLOGICAL: Affect full and open Nephrostomy output: Bilateral tubes show white precipitates and yellow fluid. LABORATORY DATA, IMAGING STUDIES, MICROBIOLOGY: Please see below. ASSESSMENT AND PLAN: This is a 60-year-old female with a past medical history of recent nephroureteral stent conversion from bilateral nephrostomies on February 24, 2021. She presented to the ER with right-sided flank pain, fevers, chills, and malaise and was admitted after possible malpositioning of the stent was hypothesized given CT abdomen pelvis findings of right sided residual dilatation. Dr. Duenas, patient's interventional radiologist, was contacted and does not believe the patient has right-sided hydronephrosis and will be we ll-managed on daily flushes of bilateral nephrostomies. Today is day #3 of ceftriaxone treatment. #History of ureteral strictures/suspected obstruction of nephroureteral stents Dr. Duenas was contacted about the case and she stated due to no hydronephrosis being present (the dilatation seen on CT was likely at baseline from procedure) IR staff has informed patient's nursing staff how to do daily saline flushes of bilateral nephrostomies Nephrostomy bags have been placed 825 mL blood-tinged fluid resulted from the right nephrostomy bag Left-sided nephrostomy bag had 600 mL with yellow fluid Inpatient team appreciates interventional radiology continued input. #Leukocytosis Urinalysis of nephrostomy tubes showed proteinuria, hematuria, pyuria, positive leukocyte esterase, and urine bacteria. Urine culture showed no growth however this urine was after antibiotics had already started. Ceftriaxone 1 g daily ordered, day #3 of antibiotic use #Pain secondary to nephroureteral stent malfunction Continue hydrocodone/acetaminophen 1 tab p.o. every 4 hours for pain #Vomiting Patient had one episode of vomiting upon admission to the ER secondary to pain ondansetron 4 mg every 6 hours as needed #Hypertension Continue home medication beta-marcia, metoprolol 25 mg p.o. twice daily #MINGO on chronic kidney disease stage IV with history of bilateral hydronephrosis. Patient's creatinine was 2.59 in December 2020, on admission patient's creatinine was 3.22. Today patient's creatinine has improved to 3.13. Likely secondary to nephroureteral stent malfunction Continue with daily flushes of bilateral nephrostomies According to Dr. Duenas there is no hydronephrosis of the right kidney at this time Continue daily monitoring of BMP to track renal function Continue to encourage oral hydration. Nephrology has been consulted, inpatient service team appreciates nephrology input. #Acute flare of chronic gout Start prednisone 30mg daily for 3 days, today is day #1. 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 #History of alcohol use Patient reports drinking 5 Mejía light beers daily CIWA protocol in place #Hypothyroidism, stable Continue home medication 150 mcg daily #History of allergies Continue home loratadine 10 mg daily #GERD, stable Continue home pantoprazole dose of 40 mg #History of cervical cancer treated with radiation therapy in 1991 Consider follow-up in the outpatient setting #History of secondary hyperparathyroidism No hypercalcemia present during this visit Consider follow-up in the outpatient setting #Chronic anemia, stable Hemoglobin upon admission was 14.5 Consider follow-up in the outpatient setting Bowel regimen continue Mylanta and milk of magnesium daily as needed for constipation. DVT prophylaxis ordered: Heparin 5000 Q8H. DISPOSITION: MedSurg, continue daily flushes of bilateral nephrostomies at this time. VS, I&O, 24H, Fishbone Vital Signs/I&O Vital Signs Date Time Temp Pulse Resp B/P (MAP) Pulse Ox O2 Delivery O2 Flow Rate FiO2 03/13/21 09:06 18 Room Air 03/13/21 09:05 68 128/78 03/13/21 06:00 97.9 97 I&O- Last 24 Hours up to 6 AM 03/13/21 06:00 Intake Total 2280 ml Output Total 1175 ml Balance 1105 ml Laboratory Data 24H LABS Laboratory Tests 2 03/12/21 13:40: Platelet Count, EDTA Free 129L 03/12/21 14:37: Urine Color REDH, Urine Appearance TURBIDH, Urine pH 7.0, Urine Specific [place] 1.007, Urine Protein 3+H, Urine Glucose (UA) NEGATIVE, Urine Ketones NEGATIVE, Urine Blood 3+H, Urine Nitrite NEGATIVE, Urine Bilirubin NEGATIVE, Urine Urobilinogen 0.2, Urine Leukocyte Esterase 3+H, Urine WBC (Auto) TNTCH, Urine RBC (Auto) TNTCH, Urine Hyaline Casts (Auto) 0, Urine Bacteria (Auto) 1+H, Urine Squamous Epithelial Cells 0, Urine Sperm (Auto) 03/13/21 07:22: Immature Granulocyte % (Auto) 0.6, Neutrophils (%) (Auto) 64.1, Lymphocytes (%) (Auto) 24.8, Monocytes (%) (Auto) 6.7, Eosinophils (%) (Auto) 3.1H, Basophils (%) (Auto) 0.7, Neutrophils # (Auto) 5.5, Lymphocytes # (Auto) 2.1, Monocytes # (Auto) 0.6, Eosinophils # (Auto) 0.3, Basophils # (Auto) 0.1, Nucleated Red Blood Cells % (auto) 0.0, Anion Gap 7L, Glomerular Filtration Rate 16.2L, Calcium Level 9.1 CBC/BMP Laboratory Tests 03/13/21 07:22 Microbiology Microbiology 03/12/21 Urine Culture - Final, Complete 03/11/21 Blood Culture - Preliminary, Resulted No growth after 24 hours . All specim... GME ATTESTATION GME ATTESTATION My faculty preceptor for this patient encounter was physically present during the encounter and was fully available. All aspects of the patient interview, examination, medical decision making process, and medical care plan development were reviewed and approved by the faculty preceptor. The faculty preceptor is aware and concurs with the plan as stated in the body of this note and will attest to such by his/her cosignature. ATTENDING NOTE I personally examined the patient and discussed her findings and management as detailed by the resident physician above. John Arellano DO Mar 13, 2021 11:00 MILO LEDESMA MD Mar 14, 2021 07:31
[2021-03-13 14:00] VITALS: BP 127/56
--- NOTE | 2021-03-13 16:47 | IPN ---
NEPHROLOGY PROGRESS NOTE DATE: 03/13/2021 SUBJECTIVE: Ms. Cole is seen this morning on her bedside. She is feeling much better today and her right flank pain is almost completely resolved. She denies any nausea, vomiting, fever or chills. She is currently being treated for right pyelonephritis with intravenous ceftriaxone. Intravenous (IV) fluid has been stopped this morning as she is now tolerating oral intake very well. She also reports an episode of acute gout in her right big toe. PHYSICAL EXAMINATION: Temperature 97.4 degrees Fahrenheit, heart rate 68 per minute, respiratory rate 20 per minute, blood pressure 127/56 mmHg, oxygen saturation 96% on room air. HEAD: Atraumatic. NECK: Supple and jugular venous distention (JVD) mildly elevated. HEART SOUNDS: Mildly elevated. LUNGS: Clear to auscultation. ABDOMEN: Soft and nontender. Right flank area tenderness has completely resolved. Bowel sounds are normal. EXTREMITIES: Without any cyanosis or clubbing. Right big toe is mildly tender, but I do not see any swelling or redness at present. LABORATORY DATA: Today's labs show WBC down to 8.5, hemoglobin 14.6, hematocrit 47.1. Sodium 138, potassium 4.6, CO2 21, BUN 44, creatinine 3.13, calcium level is 9.1. PROBLEMS: 1. Acute kidney injury superimposed on chronic kidney disease. She had mild worsening left kidney function due to acute pyelonephritis and seems to be close to her baseline. She does not have any uremic symptoms. At this point, her oral intake is adequate and I feel that IV fluid is not needed anymore. 2. Acute pyelonephritis in the setting of right nephrostomy and ureteral stent placement. Patient has history of chronic infection and hydronephrosis, particularly on the right side. She is improving with intravenous ceftriaxone and I would recommend to continue for at least a few more days until she gets switched to oral antibiotic. 3. Acute gout. Patient is feeling better with prednisone. I agree with prednisone therapy, although dose could be switched to 20 mg twice a day. I will check her uric acid level also. 4. Hypertension. Blood pressure seems well-controlled on current medication.
[2021-03-13 18:32] LABS: URIC ACID 8.5 MG/DL (2.6-6.0)
[2021-03-13 20:00] VITALS: BP_SYST 137; BP_SYST 173; BP_DIAS 73; BP_DIAS 91
[2021-03-13 21:00] VITALS: BP 137/73
[2021-03-13] MEDS: cefTRIAXone SOD 1 GM in D5W MINI-BAG PLUS 50 ML IV SCH (21:59)
[2021-03-14] MEDS: ANEXSIA, NORCO 7.5MG/325MG TABLET(HYDROCODONE/APAP) PO PRN ×3 (05:29→21:35)
[2021-03-14] MEDS: LEVOTHYROXINE 150MCG TABLET (0.15MG) PO SCH (05:29)
[2021-03-14 06:00] VITALS: BP 136/79
[2021-03-14] MEDS: FOLIC ACID 1 MG TAB PO SCH (08:36)
[2021-03-14] MEDS: predniSONE 20 MG TAB PO SCH ×2 (08:36→21:34)
[2021-03-14] MEDS: DOCUSATE SODIUM 100MG CAPSULE PO SCH ×2 (08:36→21:33)
[2021-03-14] MEDS: CALCIUM/VITAMIN D 500 MG TAB PO SCH (08:37)
[2021-03-14] MEDS: MULTIVITAMINS/MINERALS THERAP 1 TAB PO SCH (08:37)
[2021-03-14] MEDS: SODIUM BICARBONATE 325 MG TAB PO SCH ×3 (08:37→21:34)
[2021-03-14] MEDS: THIAMINE 100 MG TAB PO SCH ×2 (08:37→21:34)
[2021-03-14] MEDS: PANTOPRAZOLE 40MG TAB (PROTONIX) PO SCH (08:37)
[2021-03-14] MEDS: HEPARIN SOD (PORCINE) 5000UNITS/ML 1ML VIAL/SYRINGE SQ SCH ×2 (08:49→21:35)
[2021-03-14] MEDS ORDERED: allopurinoL 100 MG TAB PO SCH (09:00)
[2021-03-14] MEDS: METOPROLOL TART 25 MG TABLET PO SCH ×2 (09:00→21:00)
--- NOTE | 2021-03-14 10:40 | IPNPDOC ---
Date Seen The patient was seen on 03/14/21. Progress Note SUBJECTIVE: This is hospital day 2. Patient reports that she is doing well at this time and reports no pain. She states that overnight her IV line blew and she required another IV placement now at her right shoulder. She reports a small bowel movement yesterday with 1 dose of milk of magnesia. She denies any heart palpitations, shortness of breath, chest pain, nausea, vomiting, diarrhea, headaches at this time. OBJECTIVE PHYSICAL EXAMINATION: VITAL SIGNS: Please see below. GENERAL: Patient is sitting up in bed comfortably and in no acute distress, she is cooperative and conversational on medical interview. HEENT: Normocephalic, atraumatic, no scleral icterus, oropharyngeal mucosa moist, nares patent. CARDIOVASCULAR: Irregularly irregular heart rhythm, no murmurs rubs or gallops appreciated. RESPIRATORY: Clear to auscultation bilaterally, no wheezes rales or rhonchi. ABDOMINAL: Soft, nontender, nondistended, some suprapubic pressure appreciated, bowel sounds present. EXTREMITIES: Mild pitting edema of bilateral lower extremities appreciated from feet to patella, the erythema and tenderness of the right great toe has decreased from yesterday. NEUROLOGICAL: Upper and lower extremities strength grossly 5 out of 5 PSYCHOLOGICAL: Affect full and open Nephrostomy output: Less turbid on right side, bilaterally yellow fluid. Outputleft, 900 mL. Right, 1200 mL. LABORATORY DATA, IMAGING STUDIES, MICROBIOLOGY: Please see below. ASSESSMENT AND PLAN: This is a 60-year-old female with a past medical history of recent nephroureteral stent conversion from bilateral nephrostomies on February 24, 2021. She presented to the ER with right-sided flank pain, fevers, chills, and malaise and was admitted after possible malpositioning of the stent was hypothesized given CT abdomen pelvis findings of right sided residual dilatation. Dr. Duenas, patient's interventional radiologist, was contacted and does not believe the patient has right-sided hydronephrosis and will be well-managed on daily flushes of bilateral nephrostomies. Today is day #4 of antibiotic treatment. #History of ureteral strictures/suspected obstruction of nephroureteral stents Dr. Duenas was contacted about the case and she stated due to no hydronephrosis being present (the dilatation seen on CT was likely at baseline from procedure) IR staff has informed patient's nursing staff how to do daily saline flushes of bilateral nephrostomies Nephrostomy bags have been placed Bilateral nephrostomy bags continue to drain and there is an improvement in clearness of the yellow fluid. Inpatient team appreciates interventional radiology continued input. #Leukocytosis Urinalysis of nephrostomy tubes showed proteinuria, hematuria, pyuria, positive leukocyte esterase, and urine bacteria. Urine culture showed no growth however this urine was after antibiotics had already started. Patient's IV ceftriaxone has been switched to oral Keflex today 500 mg every 6 hours for the next 5 to 7 days, this is day #4 of antibiotic use since admission. #Pain secondary to nephroureteral stent malfunction Continue hydrocodone/acetaminophen 1 tab p.o. every 4 hours for pain #Vomiting Patient had one episode of vomiting upon admission to the ER secondary to pain ondansetron 4 mg every 6 hours as needed #Hypertension Continue home medication beta-marcia, metoprolol 25 mg p.o. twice daily #MINGO on chronic kidney disease stage IV with history of bilateral hydronephrosis. Patient's creatinine was 2.59 in December 2020, on admission patient's creatinine was 3.22. Likely secondary to nephroureteral stent malfunction Continue with daily flushes of bilateral nephrostomies According to Dr. Duenas there is no hydronephrosis of the right kidney at this time Continue daily monitoring of BMP to track renal function Continue to encourage oral hydration. Nephrology has been consulted, inpatient service team appreciates nephrology input. #Acute flare of chronic gout Continue prednisone however prednisone dosing has been changed from 30 mg daily daily to 20 mg twice daily, upon nephrology input. Today is prednisone day 2. There is significant improvement of erythema of the right great toe. 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 #History of alcohol use Patient reports drinking 5 Mejía light beers daily CIWA protocol in place #Hypothyroidism, stable Continue home medication 150 mcg daily #History of allergies Continue home loratadine 10 mg daily #GERD, stable Continue home pantoprazole dose of 40 mg #History of cervical cancer treated with radiation therapy in 1991 Consider follow-up in the outpatient setting #History of secondary hyperparathyroidism No hypercalcemia present during this visit Consider follow-up in the outpatient setting #Chronic anemia, stable Hemoglobin upon admission was 14.5 Consider follow-up in the outpatient setting Bowel regimen continue Mylanta and milk of magnesium daily as needed for constipation. DVT prophylaxis ordered: Heparin 5000 Q8H. DISPOSITION: Continue MedSurg, likely discharge tomorrow on oral antibiotics. VS, I&O, 24H, Fishbone Vital Signs/I&O Vital Signs Date Time Temp Pulse Resp B/P (MAP) Pulse Ox O2 Delivery O2 Flow Rate FiO2 03/14/21 09:00 46 137/71 03/14/21 06:09 18 03/14/21 06:00 97.1 95 Room Air I&O- Last 24 Hours up to 6 AM 03/14/21 06:00 Intake Total 2210 ml Output Total 2700 ml Balance -490 ml Laboratory Data Microbiology Microbiology 03/12/21 Urine Culture - Final, Complete 03/11/21 Blood Culture - Preliminary, Resulted No Growth after 48 hours. All Specime... GME ATTESTATION GME ATTESTATION My faculty preceptor for this patient encounter was physically present during the encounter and was fully available. All aspects of the patient interview, examination, medical decision making process, and medical care plan development were reviewed and approved by the faculty preceptor. The faculty preceptor is aware and concurs with the plan as stated in the body of this note and will attest to such by his/her cosignature. ATTENDING NOTE Ms Cole is doing much better today. Her urostomy bag urine has cleared of the cloudiness and rust color bilaterally and is now draining clear yellow. Pain is much better controlled and gouty pain is starting to improve. We are transitioning her from ceftriaxone to keflex with the tentative plan to discharge her home tomorrow. John Arellano DO Mar 14, 2021 10:40 MILO LEDESMA MD Mar 14, 2021 12:31
[2021-03-14] MEDS: MOM 30ML SUSPENSION UDC PO PRN (11:11)
[2021-03-14 12:00] VITALS: BP 155/92
[2021-03-14] MEDS ORDERED: CEPHALEXIN 500 MG CAP PO SCH (12:00)
[2021-03-14 12:01] LABS: BASO % 0.2 % (0.0-1.0); EOS % 0.1 % (0.0-3.0); HEMATOCRIT 42.9 % (36.0-47.0); HEMOGLOBIN 13.6 g/dl (12.0-15.5); LYMPH # 1.1 10^3/uL (1.5-5.0); LYMPH % 7.4 % (24.0-44.0); MEAN CORPUSCULAR HEMOGLOBIN 27.9 pg (27.0-33.0); MEAN CORPUSCULAR HGB CONC 31.7 g/dl (32.0-36.5); MEAN CORPUSCULAR VOLUME 88.1 fl (80.0-96.0); MONO # 0.6 10^3/uL (0.0-0.8); MONO % 4.1 % (2.0-8.0); NEUTROPHILS # 12.4 10^3/uL (1.5-8.5); NEUTROPHILS % 87.4 % (36.0-66.0); PLATELET COUNT, AUTOMATED 232 10^3/uL (150-450); RED BLOOD COUNT 4.87 10^6/uL (4.00-5.40); WHITE BLOOD COUNT 14.2 10^3/uL (4.0-10.0)
[2021-03-14 13:20] LABS: ALBUMIN 3.4 GM/DL (3.2-5.2); CALCIUM LEVEL 9.2 MG/DL (8.5-10.1); CREATININE FOR GFR 2.72 MG/DL (0.55-1.30); GLOMERULAR FILTRATION RATE 19.1 (>51); PHOSPHORUS LEVEL 2.3 MG/DL (2.5-4.9); POTASSIUM SERUM 4.4 MEQ/L (3.5-5.1)
[2021-03-14 14:00] VITALS: BP 145/73
--- NOTE | 2021-03-14 15:27 | IPN ---
NEPHROLOGY PROGRESS NOTE DATE: 03/14/2021 SUBJECTIVE: Patient was seen and examined at the bedside today morning. She is afebrile, hemodynamically stable. She reports the gout attack in the feet is getting better now. She has a good urine output. She continues to be on intravenous (IV) antibiotics for pyelonephritis. Renal function is improving with a creatinine of 2.71 today. OBJECTIVE: VITAL SIGNS: Temperature 97.1 degrees Fahrenheit, blood pressure 55/92, pulse 43, respiratory rate 18, saturating 95% on room air. INTAKE AND OUTPUT: Urine output recorded as 2.1 liters yesterday, 600 mL so far today since overnight. PHYSICAL EXAMINATION: GENERAL: Patient is awake, alert, oriented times three, laying in bed, no apparent distress. HEAD AND NECK EXAM: Extraocular muscles intact. Pupils equally round and reactive to light. Mucous membranes are moist. Neck is supple. There is no jugular venous distention (JVD). CARDIOVASCULAR: S1, S2. Regular rate. No edema of the bilateral lower extremities. RESPIRATORY: Chest is clear to auscultation bilaterally. Bilateral equal air entry. No rales or rhonchi. ABDOMEN: Soft. Positive bowel sounds. Nontender. No organomegaly. She has a bilateral percutaneous nephrostomy. MUSCULOSKELETAL: No clubbing or cyanosis. Pulses are 2+. CENTRAL NERVOUS SYSTEM (SENIOR CORPORATE ACCOUNTANT): No focal deficit. Power is 5/5 in all extremities. LABORATORY STUDIES: CBC showed WBC 14.2, hemoglobin 13.6, platelets 232. BMP showed sodium 136, potassium 4.4, chloride 108, bicarbonate 21, BUN 49, creatinine 2.7, it was 3.1 yesterday. CURRENT INPATIENT MEDICATIONS: Patient's medications were all reviewed by myself. Her prednisone dose has been decreased to 20 mg by mouth every 12 hours. IV ceftriaxone has been stopped and she has been started on Keflex. ASSESSMENT AND PLAN: 1. Acute renal failure superimposed on chronic kidney disease. It is secondary to pyelonephritis and urinary obstruction. Patient has a good urine output now. Percutaneous nephrostomy tubes have been opened up again. Renal function is improving. Continue to monitor for now. 2. Acute pyelonephritis and presence of bilateral percutaneous nephrostomy. Patient has indwelling ureteral stents as well, but probably they are clogged. Nephrostomy tubes had to be reopened. Continue the antibiotic. She has been switched to oral antibiotic now. 3. Acute gout attack. Patient is not willing to take Uloric or allopurinol because of previous allergies. She is currently on prednisone and prednisone dose is being tapered down. She is not a candidate for probenecid because of low GFR. 4. Metabolic acidosis. Patient continues to be on sodium bicarbonate. Bicarbonate level is within the acceptable range. MTDD
[2021-03-14 20:00] VITALS: BP 137/86
[2021-03-14] MEDS: CEPHALEXIN 500 MG CAP PO SCH (21:34)
[2021-03-14 22:00] VITALS: BP 137/86
[2021-03-15 05:57] VITALS: BP 145/82
[2021-03-15] MEDS: LEVOTHYROXINE 150MCG TABLET (0.15MG) PO SCH (05:57)
[2021-03-15] MEDS: ANEXSIA, NORCO 7.5MG/325MG TABLET(HYDROCODONE/APAP) PO PRN (05:57)
[2021-03-15 06:49] LABS: BASO % 0.3 % (0.0-1.0); EOS % 0.1 % (0.0-3.0); HEMATOCRIT 43.6 % (36.0-47.0); HEMOGLOBIN 13.7 g/dl (12.0-15.5); LYMPH # 1.2 10^3/uL (1.5-5.0); LYMPH % 10.4 % (24.0-44.0); MEAN CORPUSCULAR HEMOGLOBIN 27.6 pg (27.0-33.0); MEAN CORPUSCULAR HGB CONC 31.4 g/dl (32.0-36.5); MEAN CORPUSCULAR VOLUME 87.7 fl (80.0-96.0); MONO # 0.3 10^3/uL (0.0-0.8); MONO % 2.3 % (2.0-8.0); NEUTROPHILS # 9.8 10^3/uL (1.5-8.5); PLATELET COUNT, AUTOMATED 237 10^3/uL (150-450); RED BLOOD COUNT 4.97 10^6/uL (4.00-5.40); WHITE BLOOD COUNT 11.4 10^3/uL (4.0-10.0)
[2021-03-15 07:20] LABS: CALCIUM LEVEL 9.3 MG/DL (8.5-10.1); CREATININE FOR GFR 2.74 MG/DL (0.55-1.30); GLOMERULAR FILTRATION RATE 18.9 (>51); POTASSIUM SERUM 4.5 MEQ/L (3.5-5.1)
[2021-03-15 09:00] VITALS: BP 145/82
[2021-03-15] MEDS: HEPARIN SOD (PORCINE) 5000UNITS/ML 1ML VIAL/SYRINGE SQ SCH (09:00)
[2021-03-15] MEDS: METOPROLOL TART 25 MG TABLET PO SCH (09:00)
[2021-03-15] MEDS: DOCUSATE SODIUM 100MG CAPSULE PO SCH (09:02)
[2021-03-15] MEDS: CALCIUM/VITAMIN D 500 MG TAB PO SCH (09:02)
[2021-03-15] MEDS: CEPHALEXIN 500 MG CAP PO SCH (09:02)
[2021-03-15] MEDS: SODIUM BICARBONATE 325 MG TAB PO SCH (09:02)
[2021-03-15] MEDS: FOLIC ACID 1 MG TAB PO SCH (09:03)
[2021-03-15] MEDS: predniSONE 20 MG TAB PO SCH (09:03)
[2021-03-15] MEDS: PANTOPRAZOLE 40MG TAB (PROTONIX) PO SCH (09:03)
[2021-03-15] MEDS: MULTIVITAMINS/MINERALS THERAP 1 TAB PO SCH (09:03)
[2021-03-15] MEDS ORDERED: CEPH500C PO (09:26)
[2021-03-15] MEDS ORDERED: PRED20TA PO (09:26)
--- NOTE | 2021-03-15 09:34 | DS.PDOC ---
Discharge Summary General Date of Admission Mar 12, 2021 at 02:09 Date of Discharge 03/15/2021 Attending Physician: MILO LEDESMA MD Discharge Summary PROCEDURES PERFORMED DURING STAY: None ADMITTING DIAGNOSES: Pyelonephritis DISCHARGE DIAGNOSES: Pyelonephritis Recurrent b/l hydronephrosis despite urethral stent placements, with bilateral nephrostomies Acute gout attack, with a history of chronic gout History of Cervical cancer treated with radiation therapy in 1991 Radiation cystitis Atonic bladder Secondary hyperparathyroism CKD Stage IV Hypertension Chronic anemia Recurrent b/l hydronephrosis despite urethral stent placements COMPLICATIONS/CHIEF COMPLAINT: UTI. HISTORY OF PRESENT ILLNESS: 60 yo F with a history of CKD IV, cervical cancer s/p radiation therapy 1991, radiation cystitis, secondary hyperparathyroidism, recurrent UTI, ureteral strictures, recurrently b/l hydronephrosis and recent bilateral nephrostomy to nephroureteral stent conversion who presented to ER, c/o R sided flank pain pain, fevers, chills and malaise. HOSPITAL COURSE: She was found to have leukocytosis of 15.1. Cr 3.22. LA 1.4. Ct abdomen pelvis showing R sided hydronephrosis, concerning for malfunction of R nephroureteral stent. Dr. Duenas was called from ER, and planned to re-evaluate but on looking at the imaging, the hydro was stable from prior and she actually r ecommended flusing and draining the nephrostomies and treating her for the luis eduardo pyelonephritis. Unfortunately despite orders, the urine was not collected until days after IV antibiotics and expectedly grew no organisms despite being turbid and antibiotic therapy was directed by recent prior urinary cultures that grew pansensitive E.coli, thankfully with good effect. She was switched from ceftriax one to keflex and continued to improve and is now being discharged home with plan for 7 more days for a total 10 day course of antibiotics for a complicated pyelonephritis. Of note, she also had an acute R foot gout attack for which she received some prednisone with good effect. She will complete the steroids today. DISCHARGE MEDICATIONS: Please see below. ALLERGIES: Please see below. PHYSICAL EXAMINATION ON DISCHARGE: VITAL SIGNS: Please see below. GENERAL: Patient is sitting up in bed comfortably and in no acute distress, she is cooperative and conversational and looking forward to going home today. HEENT: Normocephalic, atraumatic, no scleral icterus, oropharyngeal mucosa moist, nares patent. CARDIOVASCULAR: Irregularly irregular heart rhythm, no murmurs rubs or gallops appreciated. RESPIRATORY: Clear to auscultation bilaterally, no wheezes rales or rhonchi. ABDOMINAL: Soft, nontender, nondistended, some suprapubic pressure appreciated, bowel sounds present. EXTREMITIES: Mild pitting edema of bilateral lower extremities appreciated and now resolved right great toe gouty pain with reduced erythema. NEUROLOGICAL: Upper and lower extremities strength grossly 5 out of 5 PSYCHOLOGICAL: Affect full and open LABORATORY DATA: Please see below. IMAGING: CT A/P: Lungs: No suspicious mass or airspace process in the visualized lung bases. Atelectasis is present in the dependent portions of the lungs. Liver: Noncontrast liver shows no obvious lesion. Gallbladder and bile ducts: Gallbladder is present and shows no evidence of gallstone. Pancreas: Noncontrast pancreas shows no obvious mass or adjacent fluid. Spleen: Noncontrast spleen shows no obvious focal deformity. Adrenal glands: Adrenal glands are normal in appearance. Kidneys and ureters: Bilateral posterior external renal pelvis drains are present and bilateral pigtail ureter stents are present extending from the renal pelvis bilaterally into the bladder. Residual hydroureteronephrosis, right worse than left, with significant decompression of the left kidney since the prior exam in December. The right kidney remains dilated. Stomach and bowel: No evidence of small bowel obstruction. Diverticular changes are present within the colon without inflammation. Appendix: No evidence of acute appendicitis. Intraperitoneal space: No pneumoperitoneum. Vasculature: No aortic aneurysm. Lymph nodes: No enlarged lymph nodes. Urinary bladder: Bladder is decompressed with the pigtail catheters. Reproductive: Atrophic uterus and ovaries. Bones/joints: Bony structures show no acute fracture or destructive process. Soft tissues: No concerning focal abnormality of the extra-abdominal and pelvic soft tissues. Other findings: Limited evaluation without enteric or IV contrast. IMPRESSION: Complete decompression of the bladder, with double-J ureter stents extending from the bladder into the renal pelvis bilaterally. Left kidney collecting system is decompressed. Right kidney and renal pelvis demonstrates significant residual dilatation despite the presence of the internal and external urinary drains suggesting that the right-sided drains may not be functioning well. CXR: Lungs: Lungs are diffusely hypoexpanded. No evidence of pulmonary edema. No focal consolidation or parenchymal lung mass. Pleural spaces: No pleural effusion. No pneumothorax. Heart/Mediastinum: Heart and mediastinal contours are normal, given the degree of inflation. Bones/joints: Osseous structures show no concerning abnormality. Soft tissues: No asymmetry of the extrathoracic soft tissues. IMPRESSION: Hypoexpanded lungs, without evidence of active cardiopulmonary disease PROGNOSIS: Good ACTIVITY: As tolerated DIET: Regular DISCHARGE PLAN: Home with keflex course, and close PCP, nephrology and IR follow up. DISPOSITION: Home DISCHARGE INSTRUCTIONS: Home with keflex course, and close PCP, nephrology and IR follow up. ITEMS TO FOLLOWUP ON ON OUTPATIENT: Pyelonephritis resolution Obstructive uropathy s/p stents and urostomies, f/u with IR CKD follow up DISCHARGE CONDITION: Stable TIME SPENT ON DISCHARGE: 50 minutes. Vital Signs/I&Os Vital Signs Date Time Temp Pulse Resp B/P (MAP) Pulse Ox O2 Delivery O2 Flow Rate FiO2 03/15/21 09:00 58 145/82 03/15/21 06:32 18 03/15/21 05:57 97.5 97 Room Air I&O- Last 24 Hours up to 6 AM 03/15/21 05:59 Intake Total 1860 ml Output Total 2050 ml Balance -190 ml Laboratory Data Labs 24H Laboratory Tests 2 03/14/21 11:39: Immature Granulocyte % (Auto) 0.8, Neutrophils (%) (Auto) 87.4H, Lymphocytes (%) (Auto) 7.4L, Monocytes (%) (Auto) 4.1, Eosinophils (%) (Auto) 0.1, Basophils (%) (Auto) 0.2, Neutrophils # (Auto) 12.4H, Lymphocytes # (Auto) 1.1L, Monocytes # (Auto) 0.6, Eosinophils # (Auto) 0.0, Basophils # (Auto) 0.0, Nucleated Red Blood Cells % (auto) 0.0, Anion Gap 7L, Glomerular Filtration Rate 19.1L, Calcium Level 9.2, Phosphorus Level 2.3L, Albumin 3.4 03/15/21 06:06: Immature Granulocyte % (Auto) 0.9, Neutrophils (%) (Auto) 86.0H, Lymphocytes (%) (Auto) 10.4L, Monocytes (%) (Auto) 2.3, Eosinophils (%) (Auto) 0.1, Basophils (%) (Auto) 0.3, Neutrophils # (Auto) 9.8H, Lymphocytes # (Auto) 1.2L, Monocytes # (Auto) 0.3, Eosinophils # (Auto) 0.0, Basophils # (Auto) 0.0, Nucleated Red Blood Cells % (auto) 0.0, Anion Gap 6L, Glomerular Filtration Rate 18.9L, Calcium Level 9.3 CBC/BMP Laboratory Tests 03/14/21 11:39 03/15/21 06:06 Microbiology Microbiology 03/12/21 Urine Culture - Final, Complete 03/11/21 Blood Culture - Preliminary, Resulted No Growth after 72 hours. All specime... Discharge Medications Scheduled Calcium Carbonate/Vitamin D3 (Calcium 500-Vit D3 200 Tablet) 1 Each Tablet, 1 TAB PO DAILY, (Reported) Levothyroxine Sodium (Levothyroxine Sodium) 150 Mcg Tablet, 150 MCG PO DAILY, (Reported) Metoprolol Tartrate (Metoprolol Tartrate) 25 Mg Tablet, 25 MG PO BID, (Reported) Pantoprazole Sodium (Pantoprazole Sodium) 40 Mg Tablet.dr, 40 MG PO DAILY, (Reported) Sodium Bicarbonate (Sodium Bicarbonate) 325 Mg Tablet, 325 MG PO TID, (Reported) Vit B Comp No.3/Folic/C/Biotin (Helen-Layo Rx Tablet) 1 Each Tablet, 1 TAB PO DAILY, (Reported) Scheduled PRN Hydrocodone/Acetaminophen (Hydrocodone-Acetamin 7.5-325) 1 Each Tablet, 1 TAB PO Q8H PRN for PAIN LEVEL 1-6, (Reported) Loratadine (Claritin) 10 Mg Capsule, 10 MG PO DAILY PRN for ALLERGIES, (Reported) Allergies Coded Allergies: potassium (Verified Allergy, Intermediate, HIVES, POUNDING HEARTBEAT, 02/04/21) povidone-iodine (Verified Allergy, Mild, rash/burn, 02/04/21) soap (Verified Allergy, Mild, rash/burn, 02/04/21) Sulfa (Sulfonamide Antibiotics) (Unverified Allergy, Unknown, unknown reaction , 02/04/21) epoetin reina (Verified Allergy, Unknown, 02/04/21) trimethoprim (Unverified Allergy, Unknown, 02/04/21) Quinolones (Verified Adverse Reaction, Intermediate, tequin - blisters on lips, 12/23/20) ibuprofen (Verified Adverse Reaction, Intermediate, kidney problems, can't take, 02/04/21) MILO LEDESMA MD Mar 15, 2021 09:34
== END 2021-03-15 11:10 | disposition home or self-care (01) ==
LOC: M ED 18:59 → M ED INP 03-12 02:09 → ENRESERV 03-12 03:18 → M MS5PR 03-12 04:38
PROVIDERS: ADMIT Family Medicine; ATTEND Internal Medicine
DX: N10 Acute pyelonephritis (principal); N13.39 Other hydronephrosis; Z93.6 Other artificial openings of urinary tract status; N13.9 Obstructive and reflux uropathy, unspecified; N17.8 Other acute kidney failure; E87.2 Acidosis; R10.9 Unspecified abdominal pain; T83.192A Other mechanical complication of indwelling ureteral stent, initial encounter; Y73.2 Prosthetic and other implants, materials and accessory gastroenterology and urology devices associated with adverse incidents; D72.829 Elevated white blood cell count, unspecified; M10.071 Idiopathic gout, right ankle and foot; Z85.41 Personal history of malignant neoplasm of cervix uteri; Z92.3 Personal history of irradiation; N30.40 Irradiation cystitis without hematuria; N31.2 Flaccid neuropathic bladder, not elsewhere classified; N25.81 Secondary hyperparathyroidism of renal origin; N18.4 Chronic kidney disease, stage 4 (severe); I12.9 Hypertensive chronic kidney disease with stage 1 through stage 4 chronic kidney disease, or unspecified chronic kidney disease; D64.9 Anemia, unspecified; K21.9 Gastro-esophageal reflux disease without esophagitis; J30.9 Allergic rhinitis, unspecified; E03.9 Hypothyroidism, unspecified; Z79.899 Other long term (current) drug therapy; Z88.8 Allergy status to other drugs, medicaments and biological substances; Z88.2 Allergy status to sulfonamides; Z88.1 Allergy status to other antibiotic agents; Z88.6 Allergy status to analgesic agent; Z91.048 Other nonmedicinal substance allergy status
CPT/HCPCS: 36415; 71045; 74176; 80048; 80069; 80076; 81001; 82550; 82553; 83605; 83690; 84484; 84550; 85025; 85049; 87040; 87086; 87631; 93005; 96365; 96366; 96372; 96375; 96376; 99285; G0378; J0696; J1644; J2270; J2405; J7512

== ENCOUNTER → 2021-04-28 | Outpatient (REF) | payer MEDICARE ==
[~2021-04-28] MED LIST changes: +CEPH500C PO; +CLAR10CA3 PO; +DOK1CAP4 PO; -DOK1CAP7 PO; +HYDR-4514 PO; +MACR100C43 PO; +PRED20TA PO
== END ==
LOC: M LAB REF 17:12
PROVIDERS: ATTEND Nurse Practitioner Family
DX: E83.42 Hypomagnesemia (principal); N39.0 Urinary tract infection, site not specified

== ENCOUNTER → 2021-05-04 | Outpatient (CLI) | payer MEDICARE ==
[~2021-05-04] MED LIST changes: +ISOVUE-300 61% 50ML VIAL As Ordered ONE; +LIDOCAINE 1% MDV 20ML VIAL As Ordered ONE; +MIDAZOLAM INJ 2MG/2ML VIAL (J2250 PER 1MG) As Ordered ONE; +NS 1,000 ML IV SCH; +PERCOCET 5MG/325MG TAB As Ordered ONE; +PERCOCET 5MG/325MG TAB PO PRN; +ceFAZolin 1GM VIAL (J0690 PER 500MG) As Ordered ONE; +ceFAZolin 2 GM/D5W 50 ML IV BAG (J0690 PER 500MG) As Ordered ONE; +ceFAZolin SOD 1 GM in D5W MINI-BAG PLUS 50 ML IV ONE; +ceFAZolin SOD 2 GM in IV 1 EA IV ONE; +diphenhydrAMINE 50MG/ML VIAL (J1200) As Ordered ONE; +fentaNYL 100 MCG/2 ML INJECTION (J3010) As Ordered ONE
[2021-05-04 14:00] VITALS: BP 115/59
--- NOTE | 2021-05-04 14:25 | IRHP ---
[facility] IR Pre-Procedure H & P General Date of Service: May 04, 2021 Procedure: Same Day Surgery Interval History and Physical I have seen the patient and reviewed last H & P performed within 30 days. There is no significant interval change. History of Present Illness Chief Complaint The patient is a 61-year-old female admitted with a reason for visit of Ureteral Occlusion. PRE-PROCEDURE DIAGNOSIS: ureteral occlusion HEART: normal rate. LUNGS: normal breathing at rest. ASA Classification ASA Classification: III-Severe systemic dis. Mallampati Score: II NPO: Yes Problems with prior sedation: No Obstructive Sleep Apnea: No Plan moderate sedation Allergies Coded Allergies: potassium (Verified Allergy, Intermediate, HIVES, POUNDING HEARTBEAT, 02/04/21) povidone-iodine (Verified Allergy, Mild, rash/burn, 02/04/21) soap (Verified Allergy, Mild, rash/burn, 02/04/21) Sulfa (Sulfonamide Antibiotics) (Unverified Allergy, Unknown, unknown reaction , 02/04/21) epoetin reina (Verified Allergy, Unknown, 02/04/21) trimethoprim (Unverified Allergy, Unknown, 02/04/21) Quinolones (Verified Adverse Reaction, Intermediate, tequin - blisters on lips, 12/23/20) ibuprofen (Verified Adverse Reaction, Intermediate, kidney problems, can't take, 02/04/21) Home Medications Scheduled Calcium Carbonate/Vitamin D3 (Calcium 500-Vit D3 200 Tablet), 1 TAB PO DAILY, (Reported) Levothyroxine Sodium (Levothyroxine Sodium), 150 MCG PO DAILY, (Reported) Metoprolol Tartrate (Metoprolol Tartrate), 25 MG PO BID, (Reported) Nitrofurantoin Monohyd/M-Cryst (Macrobid 100 mg Capsule), 100 MG PO BID, (Reported) Pantoprazole Sodium (Pantoprazole Sodium), 40 MG PO DAILY, (Reported) Sodium Bicarbonate (Sodium Bicarbonate), 325 MG PO TID, (Reported) Vit B Comp No.3/Folic/C/Biotin (Helen-Layo Rx Tablet), 1 TAB PO DAILY, (Reported) Scheduled PRN Hydrocodone/Acetaminophen (Hydrocodone-Acetamin 7.5-325), 1 TAB PO Q8H PRN for PAIN LEVEL 1-6, (Reported) Discontinued Medications Cephalexin (Cephalexin), 500 MG PO Q12H Discontinued Reason: Pt states not taking Loratadine (Claritin), 10 MG PO DAILY PRN for ALLERGIES, (Reported) Discontinued Reason: Pt states not taking Prednisone (Prednisone), 20 MG PO Q12H Discontinued Reason: Pt states not taking VS, I&O, 24H, Fishbone Vital Signs/I&O Vital Signs Date Time Temp Pulse Resp B/P (MAP) Pulse Ox O2 Delivery O2 Flow Rate FiO2 05/04/21 12:00 80 18 100 Nasal Cannula 2.0 05/04/21 11:06 96.7 DAVID JAMES MD May 04, 2021 14:25
--- NOTE | 2021-05-04 16:18 | IRPON ---
IR Postoperative Note Date Of Procedure: May 04, 2021 Time Of Procedure: 16:12 IR Postoperative Note IR Bilateral nephroureteral internal/external stent exchange. IR Nephrostogram and ureterogram. IR moderate sedation. Clinical information: Bilateral ureteral obstruction. Failed internal stents. Physician: Dr. Duenas. Procedure: The patient was advised of the benefits, risks and alternatives of the procedure and informed consent was obtained. The time-out was performed with verification of the patient's name, MRN, site of procedure and type of procedure to be performed. The patient was positioned in the prone position on the angiographic table. The site was prepped and draped in the usual sterile fashion. Moderate sedation was performed by the physician including the presence of an independent trained RN who assisted and monitored the patient's level of consciousness and physiologic status. Following the administration of fentanyl and Versed , the physician spent 45 minutes of continuous face to face time with the patient. A equipment mechanic radiograph reveals bilateral internal/external nephroureteral stents. Left side: An initial nephrostogram and ureterogram was performed through the preexisting catheter confirming stent position in the renal collecting system. The catheter was cut, an Amplatz wire was passed through the pre-existing stent, under fluoroscopic guidance, into the bladder. The nephroureteral stent was removed over the wire. A new 10-Maltese internal/external nephroureteral stent was advanced, over the wire, under fluoroscopy guidance, and positioned with the distal pigtail in the bladder. A final nephrostogram and ureterogram was performed confirming position of the stent, with the proximal pigtail in the renal collecting system in the distal pigtail in the bladder. The catheter was formed and secured in position with 2-0 Prolene. A sterile dressing was applied to the site. The catheter was capped to drain internally. Right-sided: An initial nephrostogram and ureterogram was performed through the preexisting catheter confirming stent position in the renal collecting system. The catheter was cut, an Amplatz wire was passed through the pre-existing stent, under fluoroscopic guidance, into the bladder. The nephroureteral stent was removed over the wire. A new 10-Maltese internal/external nephroureteral stent was advanced, over the wire, under fluoroscopy guidance, and positioned with the distal pigtail in the bladder. A final nephrostogram and ureterogram was performed confirming position of the stent, with the proximal pigtail in the renal collecting system in the distal pigtail in the bladder. The catheter was formed and secured in position with 2-0 Prolene. A sterile dressing was applied to the site. The catheter was capped to drain internally. The patient tolerated the procedure well and was returned to the PRU in stable condition. EBL: Less than 5 ml. Complications: None. Conclusion: 1. Nephrostogram and ureterogram demonstrate patent bilateral internal/external nephroureteral stents. 2. Successful bilateral internal/external nephroureteral stent exchange. Patient to return in 12 weeks for routine exchange. Thank you this referral. DAVID DUENAS MD May 04, 2021 16:18
== END ==
LOC: M IRPRO 10:47
PROVIDERS: ATTEND Radiology Diagnostic Radiology
DX: N13.9 Obstructive and reflux uropathy, unspecified (principal); Z88.2 Allergy status to sulfonamides; Z88.8 Allergy status to other drugs, medicaments and biological substances; Z91.09 Other allergy status, other than to drugs and biological substances
CPT/HCPCS: 50387; 99152; 99153; C1769; C2625; J0690; J1200; J2250; J3010; Q9967

== ENCOUNTER → 2021-07-22 | Outpatient (CLI) | payer MEDICARE ==
[~2021-07-22] MED LIST changes: +NITR50CA34 PO; -ceFAZolin 1GM VIAL (J0690 PER 500MG) As Ordered ONE; -ceFAZolin SOD 1 GM in D5W MINI-BAG PLUS 50 ML IV ONE; +ceFAZolin SOD 2 GM in D5W MINI-BAG PLUS 50 ML IV ONE
[2021-07-22 15:30] VITALS: BP 128/57
--- NOTE | 2021-07-23 14:42 | IRPON ---
IR Postoperative Note Date Of Procedure: Jul 22, 2021 Time Of Procedure: 16:00 IR Postoperative Note IR Bilateral nephroureteral internal/external stent exchange. IR Nephrostogram and ureterogram. IR Moderate sedation. Clinical information: Bilateral ureteral obstruction. Failed internal stents. Physician: Dr. Duenas. Procedure: The patient was advised of the benefits, risks and alternatives of the procedure and informed consent was obtained. The time-out was performed with verification of the patient's name, MRN, site of procedure and type of procedure to be performed. The patient was positioned in the prone position on the angiographic table. The site was prepped and draped in the usual sterile fashion. Moderate sedation was performed by the physician including the presence of an independent trained RN who assisted and monitored the patient's level of consciousness and physiologic status. Following the administration of fentanyl and Versed , the physician spent 45 minutes of continuous face to face time with the patient. A air hammer stripper radiograph reveals bilateral internal/external nephroureteral stents. Left side: An initial nephrostogram and ureterogram was performed through the preexisting catheter confirming stent position in the renal collecting system. The catheter was cut, an Amplatz wire was passed through the pre-existing stent, under fluoroscopic guidance, into the bladder. The nephroureteral stent was removed over the wire. A new 10-[place] internal/external nephroureteral stent was advanced, over the wire, under fluoroscopy guidance, and positioned with the distal pigtail in the bladder. A final nephrostogram and ureterogram was performed confirming position of the stent, with the proximal pigtail in the renal collecting system in the distal pigtail in the bladder. The catheter was formed and secured in position with 2-0 Prolene. A sterile dressing was applied to the site. The catheter was capped to drain internally. Right-sided: An initial nephrostogram and ureterogram was performed through the preexisting catheter confirming stent position in the renal collecting system. The catheter was cut, an Amplatz wire was passed through the pre-existing stent, under fluoroscopic guidance, into the bladder. The nephroureteral stent was removed over the wire. A new 10-[place] internal/external nephroureteral stent was advanced, over the wire, under fluoroscopy guidance, and positioned with the distal pigtail in the bladder. A final nephrostogram and ureterogram was performed confirming position of the stent, with the proximal pigtail in the renal collecting system in the distal pigtail in the bladder. The catheter was formed and secured in position with 2-0 Prolene. A sterile dressing was applied to the site. The catheter was capped to drain internally. The patient tolerated the procedure well and was returned to the PRU in stable condition. EBL: Less than 5 ml. Complications: None. Conclusion: 1. Nephrostogram and ureterogram demonstrate patent bilateral internal/external nephroureteral stents. 2. Successful bilateral internal/external nephroureteral stent exchange; 10.2 [place]ian 26 cm nephU. Patient to return in 12 weeks for routine exchange. Thank you this referral. DAVID DUENAS MD Jul 23, 2021 14:42
== END ==
LOC: M IRPRO 11:38
PROVIDERS: ATTEND Radiology Diagnostic Radiology
DX: N13.9 Obstructive and reflux uropathy, unspecified (principal)
CPT/HCPCS: 50387; 99152; 99153; C1769; C2625; J0690; J1200; J2250; J3010; Q9967

== ENCOUNTER → 2021-10-19 | Outpatient (CLI) | payer MEDICARE ==
[~2021-10-19] MED LIST changes: +CEFD300C41; -LEVO250T12 PO; +LEVO250T3 PO; -PERCOCET 5MG/325MG TAB As Ordered ONE; -PERCOCET 5MG/325MG TAB PO PRN; +ceFAZolin SOD 1 GM in D5W MINI-BAG PLUS 50 ML IV ONE; -ceFAZolin SOD 2 GM in D5W MINI-BAG PLUS 50 ML IV ONE; -fentaNYL 100 MCG/2 ML INJECTION (J3010) As Ordered ONE; +fentaNYL 100 MCG/2 ML INJECTION As Ordered ONE
[2021-10-19 14:15] VITALS: BP 136/83
== END ==
LOC: M IRPRO 09:46
PROVIDERS: ATTEND Radiology Diagnostic Radiology
DX: N13.9 Obstructive and reflux uropathy, unspecified (principal)
CPT/HCPCS: 50384; 50432; 99152; 99153; C1729; C1769; J0690; J1200; J2250; J3010; Q9967

== ENCOUNTER → 2021-10-21 | Outpatient (REF) | payer MEDICARE ==
[~2021-10-21] MED LIST changes: -ISOVUE-300 61% 50ML VIAL As Ordered ONE; -LIDOCAINE 1% MDV 20ML VIAL As Ordered ONE; -MIDAZOLAM INJ 2MG/2ML VIAL (J2250 PER 1MG) As Ordered ONE; -NS 1,000 ML IV SCH; -ceFAZolin 2 GM/D5W 50 ML IV BAG (J0690 PER 500MG) As Ordered ONE; -ceFAZolin SOD 1 GM in D5W MINI-BAG PLUS 50 ML IV ONE; -ceFAZolin SOD 2 GM in IV 1 EA IV ONE; -diphenhydrAMINE 50MG/ML VIAL (J1200) As Ordered ONE; -fentaNYL 100 MCG/2 ML INJECTION As Ordered ONE
== END ==
LOC: M LAB REF 13:24
PROVIDERS: ATTEND Nurse Practitioner Family
DX: Z79.891 Long term (current) use of opiate analgesic (principal)

== ENCOUNTER → 2021-12-22 | Outpatient (REF) | payer MEDICARE ==
[~2021-12-22] MED LIST changes: +BD P0.9I2 IV; +LOPE2CA PO; +RISATAB3 PO; +VITMTA PO
== END ==
LOC: M LAB REF 16:52
PROVIDERS: ATTEND Nurse Practitioner Family
DX: N11.1 Chronic obstructive pyelonephritis (principal)

== ENCOUNTER → 2022-01-04 | Outpatient (CLI) | payer MEDICARE ==
[~2022-01-04] MED LIST changes: +ISOVUE-300 61% 50ML VIAL As Ordered ONE; +LIDOCAINE 1% MDV 20ML VIAL As Ordered ONE; +MIDAZOLAM INJ 2MG/2ML VIAL (J2250 PER 1MG) As Ordered ONE; +NS 1,000 ML IV SCH; +ceFAZolin 2 GM/D5W 50 ML IV BAG (J0690 PER 500MG) As Ordered ONE; +ceFAZolin SOD 1 GM in D5W MINI-BAG PLUS 50 ML IV ONE; +ceFAZolin SOD 2 GM in IV 1 EA IV ONE; +diphenhydrAMINE 50MG/ML VIAL (J1200) As Ordered ONE; +fentaNYL 100 MCG/2 ML INJECTION As Ordered ONE
[2022-01-04 15:00] VITALS: BP 135/55
== END ==
LOC: M IRPRO 11:32
PROVIDERS: ATTEND Radiology Diagnostic Radiology
DX: N13.9 Obstructive and reflux uropathy, unspecified (principal)
CPT/HCPCS: 50435; 99152; 99153; C1729; C1769; J0690; J1200; J2250; J3010; Q9967

== ENCOUNTER → 2022-03-29 | Outpatient (CLI) | payer MEDICARE ==
[~2022-03-29] MED LIST changes: -ceFAZolin SOD 1 GM in D5W MINI-BAG PLUS 50 ML IV ONE; +ceFAZolin SOD 2 GM in D5W MINI-BAG PLUS 50 ML IV ONE
[2022-03-29 15:00] VITALS: BP 164/86
== END ==
LOC: M IRPRO 10:56
PROVIDERS: ATTEND Radiology Diagnostic Radiology
DX: N13.9 Obstructive and reflux uropathy, unspecified (principal)
CPT/HCPCS: 50435; 99152; 99153; C1729; C1769; J0690; J1200; J2250; J3010; Q9967

== ENCOUNTER → 2022-06-16 | Outpatient (CLI) | payer MEDICARE ==
[~2022-06-16] MED LIST changes: -ISOVUE-300 61% 50ML VIAL As Ordered ONE; +LEVO1TAB38 PO; -LEVO250T3 PO; -LIDOCAINE 1% MDV 20ML VIAL As Ordered ONE; -MIDAZOLAM INJ 2MG/2ML VIAL (J2250 PER 1MG) As Ordered ONE; -NS 1,000 ML IV SCH; -ceFAZolin 2 GM/D5W 50 ML IV BAG (J0690 PER 500MG) As Ordered ONE; -ceFAZolin SOD 2 GM in D5W MINI-BAG PLUS 50 ML IV ONE; -ceFAZolin SOD 2 GM in IV 1 EA IV ONE; -diphenhydrAMINE 50MG/ML VIAL (J1200) As Ordered ONE; -fentaNYL 100 MCG/2 ML INJECTION As Ordered ONE
== END ==
LOC: M LABSMTC 10:10
PROVIDERS: ATTEND Anesthesiology
DX: Z11.52 Encounter for screening for COVID-19 (principal)

== ENCOUNTER → 2022-06-21 | Outpatient (CLI) | payer MEDICARE ==
[~2022-06-21] MED LIST changes: +ISOVUE-300 61% 50ML VIAL As Ordered ONE; +LIDOCAINE 1% MDV 20ML VIAL As Ordered ONE; +MIDAZOLAM INJ 2MG/2ML VIAL (J2250 PER 1MG) As Ordered ONE; +NS 1,000 ML IV SCH; +ceFAZolin 2 GM/D5W 50 ML IV BAG (J0690 PER 500MG) As Ordered ONE; +ceFAZolin SOD 2 GM in D5W MINI-BAG PLUS 50 ML IV ONE; +diphenhydrAMINE 50MG/ML VIAL (J1200) As Ordered ONE; +fentaNYL 100 MCG/2 ML INJECTION As Ordered ONE
[2022-06-21 15:00] VITALS: BP 141/73
== END ==
LOC: M IRPRO 11:04
PROVIDERS: ATTEND Radiology Diagnostic Radiology
DX: N13.8 Other obstructive and reflux uropathy (principal)
CPT/HCPCS: 50435; 99152; C1729; C1769; J0690; J1200; J2250; J3010; Q9967

== ENCOUNTER → 2022-09-22 | Outpatient (CLI) | payer MEDICARE ==
[~2022-09-22] MED LIST changes: -MIDAZOLAM INJ 2MG/2ML VIAL (J2250 PER 1MG) As Ordered ONE; +MIDAZOLAM INJ 2MG/2ML VIAL As Ordered ONE; +ceFAZolin 1GM VIAL As Ordered ONE; -ceFAZolin 2 GM/D5W 50 ML IV BAG (J0690 PER 500MG) As Ordered ONE; -diphenhydrAMINE 50MG/ML VIAL (J1200) As Ordered ONE; +diphenhydrAMINE 50MG/ML VIAL As Ordered ONE
[2022-09-22 15:30] VITALS: BP 172/84
== END ==
LOC: M IRPRO 11:53
PROVIDERS: ATTEND Radiology Diagnostic Radiology
DX: N13.5 Crossing vessel and stricture of ureter without hydronephrosis (principal); N36.0 Urethral fistula
CPT/HCPCS: 50435; 87635; 99152; C1729; C1769; Q9967

== ENCOUNTER 2022-10-01 01:50 | Inpatient (IN) | payer MEDICARE ==
[~2022-10-01] VITALS: Ht 160 cm; Wt 98.5 kg
[~2022-10-01 01:50] MED LIST changes: -BD P0.9I2 IV; +BD P0.9I2 XX; -ISOVUE-300 61% 50ML VIAL As Ordered ONE; -LIDOCAINE 1% MDV 20ML VIAL As Ordered ONE; -MIDAZOLAM INJ 2MG/2ML VIAL As Ordered ONE; -NS 1,000 ML IV SCH; -ceFAZolin 1GM VIAL As Ordered ONE; -ceFAZolin SOD 2 GM in D5W MINI-BAG PLUS 50 ML IV ONE; -diphenhydrAMINE 50MG/ML VIAL As Ordered ONE; -fentaNYL 100 MCG/2 ML INJECTION As Ordered ONE
[2022-10-01] MEDS ORDERED: ONDANSETRON 4MG 2ML VIAL IV ONE (02:25)
[2022-10-01] MEDS ORDERED: MORPHINE 4 MG/ML 1ML VIAL IV ONE (03:05)
[2022-10-01 03:33] LABS: BASO % 0.4 % (0.0-1.0); EOS # 0.1 10^3/uL (0.0-0.5); EOS % 0.9 % (0.0-3.0); HEMATOCRIT 44.4 % (36.0-47.0); HEMOGLOBIN 14.2 g/dl (12.0-15.5); LYMPH # 0.7 10^3/uL (1.5-5.0); LYMPH % 10.4 % (24.0-44.0); MEAN CORPUSCULAR HEMOGLOBIN 27.9 pg (27.0-33.0); MEAN CORPUSCULAR VOLUME 87.2 fl (80.0-96.0); MONO # 0.1 10^3/uL (0.0-0.8); MONO % 0.7 % (2.0-8.0); NEUTROPHILS # 5.8 10^3/uL (1.5-8.5); NEUTROPHILS % 86.7 % (36.0-66.0); PLATELET COUNT, AUTOMATED 177 10^3/uL (150-450); RED BLOOD COUNT 5.09 10^6/uL (4.00-5.40); WHITE BLOOD COUNT 6.7 10^3/uL (4.0-10.0)
[2022-10-01 04:03] LABS: ALBUMIN 3.5 G/DL (3.2-5.2); BILIRUBIN,TOTAL 0.7 MG/DL (0.3-1.2); CALCIUM LEVEL 8.9 MG/DL (8.3-10.6); CREATININE FOR GFR 2.89 MG/DL (0.55-1.30); GLOMERULAR FILTRATION RATE 17.7 (>45); POTASSIUM SERUM 3.8 MMOL/L (3.5-5.1); TOTAL PROTEIN 7.1 G/DL (5.7-8.2)
[2022-10-01] MEDS ORDERED: cefTRIAXone SOD 1 GM in D5W MINI-BAG PLUS 50 ML IV ONE (05:20)
[2022-10-01] MEDS ORDERED: HOME MED LIST COMPLETE! XX SCH (06:25)
[2022-10-01] MEDS ORDERED: NS 2,840 ML in IV 1 EA IV ONE (08:05)
[2022-10-01] MEDS: ACETAMINOPHEN TAB 650MG DOSE (2X325MG) PO PRN ×3 (08:24→21:30)
[2022-10-01] MEDS ORDERED: PIPERACILLIN/TAZOBACTAM SOD 3.375 GM in D5W MINI-BAG PLUS 50 ML IV SCH (09:00)
[2022-10-01] MEDS: PANTOPRAZOLE 40MG TAB (PROTONIX) PO SCH (09:48)
[2022-10-01] MEDS: METOPROLOL TART 25 MG TABLET PO SCH ×2 (09:50→20:19)
[2022-10-01] MEDS: CALCIUM/VITAMIN D 500 MG TAB PO SCH (09:51)
[2022-10-01] MEDS: HEPARIN SOD (PORCINE) 5000UNITS/ML 1ML VIAL/SYRINGE SQ SCH ×3 (09:59→20:19)
[2022-10-01] MEDS: THIAMINE 100 MG TAB PO SCH ×2 (10:24→20:18)
[2022-10-01] MEDS: FOLIC ACID 1MG TAB PO SCH (10:24)
[2022-10-01 10:40] VITALS: BP 135/74
[2022-10-01] MEDS: LEVOTHYROXINE 150MCG TABLET (0.15MG) PO SCH (11:02)
[2022-10-01 11:08] LABS: RSV AMPLIFICATION NEGATIVE (NEGATIVE)
[2022-10-01] MEDS: NS 1,000 ML IV SCH ×2 (11:57→23:28)
[2022-10-01] MEDS: LACTOBACILLUS ACIDOPHILUS CAP (BACID) PO SCH (11:57)
[2022-10-01] MEDS: PIPERACILLIN/TAZOBACTAM SOD 2.25 GM in D5W MINI-BAG PLUS 50 ML IV SCH ×3 (11:58→23:25)
[2022-10-01] MEDS: SODIUM BICARBONATE 325 MG TAB PO SCH ×3 (11:58→20:18)
[2022-10-01 12:00] VITALS: BP 136/77
[2022-10-01 16:00] VITALS: BP 156/77
[2022-10-01] MEDS: ANEXSIA, NORCO 7.5MG/325MG TABLET(HYDROCODONE/APAP) PO PRN ×2 (16:15→23:26)
[2022-10-01] MEDS: ONDANSETRON 4MG 2ML VIAL IV PRN (18:33)
[2022-10-01 20:09] VITALS: BP 167/87
[2022-10-02] VITALS: BP 136/71
[2022-10-02 04:00] VITALS: BP 136/81
[2022-10-02 04:36] LABS: BASO % 0.4 % (0.0-1.0); EOS # 0.1 10^3/uL (0.0-0.5); HEMATOCRIT 42.1 % (36.0-47.0); LYMPH # 1.1 10^3/uL (1.5-5.0); LYMPH % 12.8 % (24.0-44.0); MEAN CORPUSCULAR HEMOGLOBIN 27.7 pg (27.0-33.0); MEAN CORPUSCULAR HGB CONC 30.9 g/dl (32.0-36.5); MEAN CORPUSCULAR VOLUME 89.6 fl (80.0-96.0); MONO # 0.5 10^3/uL (0.0-0.8); MONO % 6.3 % (2.0-8.0); NEUTROPHILS # 6.6 10^3/uL (1.5-8.5); NEUTROPHILS % 79.3 % (36.0-66.0); PLATELET COUNT, AUTOMATED 128 10^3/uL (150-450); WHITE BLOOD COUNT 8.4 10^3/uL (4.0-10.0)
[2022-10-02 05:03] LABS: CALCIUM LEVEL 8.1 MG/DL (8.3-10.6); CREATININE FOR GFR 2.47 MG/DL (0.55-1.30); GLOMERULAR FILTRATION RATE 21.2 (>45); MAGNESIUM LEVEL 1.7 MG/DL (1.8-2.4); PHOSPHORUS LEVEL 3.4 MG/DL (2.4-5.1)
[2022-10-02] MEDS: PIPERACILLIN/TAZOBACTAM SOD 2.25 GM in D5W MINI-BAG PLUS 50 ML IV SCH ×4 (05:27→23:31)
[2022-10-02] MEDS: LEVOTHYROXINE 150MCG TABLET (0.15MG) PO SCH (05:27)
[2022-10-02] MEDS: ANEXSIA, NORCO 7.5MG/325MG TABLET(HYDROCODONE/APAP) PO PRN ×2 (05:29→11:50)
[2022-10-02] MEDS: HEPARIN SOD (PORCINE) 5000UNITS/ML 1ML VIAL/SYRINGE SQ SCH ×4 (05:31→21:36)
[2022-10-02 08:50] VITALS: BP 171/90
[2022-10-02] MEDS: SODIUM BICARBONATE 325 MG TAB PO SCH ×3 (08:58→21:29)
[2022-10-02] MEDS: FOLIC ACID 1MG TAB PO SCH (08:58)
[2022-10-02] MEDS: MAG SULF 1GM/100ML (MAG RUN) 1 GM in IV 1 EA IV SCH ×2 (08:58→11:38)
[2022-10-02] MEDS: CALCIUM/VITAMIN D 500 MG TAB PO SCH (08:58)
[2022-10-02] MEDS: PANTOPRAZOLE 40MG TAB (PROTONIX) PO SCH (08:58)
[2022-10-02] MEDS: LACTOBACILLUS ACIDOPHILUS CAP (BACID) PO SCH (08:58)
[2022-10-02] MEDS: THIAMINE 100 MG TAB PO SCH ×2 (08:59→21:30)
[2022-10-02] MEDS: METOPROLOL TART 25 MG TABLET PO SCH ×2 (08:59→21:29)
[2022-10-02 11:16] VITALS: BP 145/79
[2022-10-02] MEDS: ONDANSETRON 4MG 2ML VIAL IV PRN (11:43)
[2022-10-02 16:45] VITALS: BP 124/74
[2022-10-02 20:00] VITALS: BP 140/89
[2022-10-03] VITALS: BP 139/78
[2022-10-03 04:00] VITALS: BP 130/90
[2022-10-03] MEDS: PIPERACILLIN/TAZOBACTAM SOD 2.25 GM in D5W MINI-BAG PLUS 50 ML IV SCH (05:02)
[2022-10-03] MEDS: HEPARIN SOD (PORCINE) 5000UNITS/ML 1ML VIAL/SYRINGE SQ SCH ×3 (05:53→21:22)
[2022-10-03] MEDS: LEVOTHYROXINE 150MCG TABLET (0.15MG) PO SCH (05:54)
[2022-10-03 06:18] LABS: BASO % 0.6 % (0.0-1.0); EOS # 0.2 10^3/uL (0.0-0.5); EOS % 2.4 % (0.0-3.0); HEMATOCRIT 39.4 % (36.0-47.0); HEMOGLOBIN 12.5 g/dl (12.0-15.5); LYMPH # 1.5 10^3/uL (1.5-5.0); MEAN CORPUSCULAR HEMOGLOBIN 27.7 pg (27.0-33.0); MEAN CORPUSCULAR HGB CONC 31.7 g/dl (32.0-36.5); MEAN CORPUSCULAR VOLUME 87.4 fl (80.0-96.0); MONO # 0.7 10^3/uL (0.0-0.8); MONO % 10.5 % (2.0-8.0); NEUTROPHILS # 4.2 10^3/uL (1.5-8.5); PLATELET COUNT, AUTOMATED 148 10^3/uL (150-450); RED BLOOD COUNT 4.51 10^6/uL (4.00-5.40); WHITE BLOOD COUNT 6.6 10^3/uL (4.0-10.0)
[2022-10-03 06:52] LABS: MAGNESIUM LEVEL 2.3 MG/DL (1.8-2.4)
[2022-10-03 06:57] LABS: CALCIUM LEVEL 8.6 MG/DL (8.3-10.6); CREATININE FOR GFR 2.79 MG/DL (0.55-1.30); GLOMERULAR FILTRATION RATE 18.4 (>45); POTASSIUM SERUM 4.2 MMOL/L (3.5-5.1)
[2022-10-03 08:15] VITALS: BP 150/90
[2022-10-03] MEDS: LACTOBACILLUS ACIDOPHILUS CAP (BACID) PO SCH ×2 (09:35→21:21)
[2022-10-03] MEDS: SODIUM BICARBONATE 325 MG TAB PO SCH ×3 (09:35→21:20)
[2022-10-03] MEDS: PANTOPRAZOLE 40MG TAB (PROTONIX) PO SCH (09:35)
[2022-10-03] MEDS: CALCIUM/VITAMIN D 500 MG TAB PO SCH (09:35)
[2022-10-03] MEDS: THIAMINE 100 MG TAB PO SCH ×2 (09:35→21:21)
[2022-10-03] MEDS: METOPROLOL TART 25 MG TABLET PO SCH ×2 (09:35→21:20)
[2022-10-03] MEDS: FOLIC ACID 1MG TAB PO SCH (09:35)
[2022-10-03] MEDS ORDERED: CEFEPIME HCL 2 GM in D5W MINI-BAG PLUS 50 ML IV SCH (10:50)
[2022-10-03] MEDS: CEFEPIME HCL 1 GM in D5W MINI-BAG PLUS 50 ML IV SCH (12:05)
[2022-10-03 12:25] VITALS: BP 154/94
[2022-10-03 15:51] VITALS: BP 145/85
[2022-10-04 05:08] LABS: BASO # 0.1 10^3/uL (0.0-0.2); BASO % 0.8 % (0.0-1.0); EOS # 0.2 10^3/uL (0.0-0.5); EOS % 2.6 % (0.0-3.0); HEMATOCRIT 42.1 % (36.0-47.0); HEMOGLOBIN 13.1 g/dl (12.0-15.5); LYMPH # 2.2 10^3/uL (1.5-5.0); LYMPH % 24.4 % (24.0-44.0); MEAN CORPUSCULAR HEMOGLOBIN 27.4 pg (27.0-33.0); MEAN CORPUSCULAR HGB CONC 31.1 g/dl (32.0-36.5); MEAN CORPUSCULAR VOLUME 88.1 fl (80.0-96.0); MONO # 0.9 10^3/uL (0.0-0.8); MONO % 10.1 % (2.0-8.0); NEUTROPHILS # 5.4 10^3/uL (1.5-8.5); NEUTROPHILS % 61.5 % (36.0-66.0); PLATELET COUNT, AUTOMATED 174 10^3/uL (150-450); RED BLOOD COUNT 4.78 10^6/uL (4.00-5.40); WHITE BLOOD COUNT 8.8 10^3/uL (4.0-10.0)
[2022-10-04 05:36] LABS: MAGNESIUM LEVEL 2.1 MG/DL (1.8-2.4)
[2022-10-04 05:37] LABS: CALCIUM LEVEL 8.6 MG/DL (8.3-10.6); CREATININE FOR GFR 2.75 MG/DL (0.55-1.30); GLOMERULAR FILTRATION RATE 18.7 (>45); PHOSPHORUS LEVEL 3.3 MG/DL (2.4-5.1); POTASSIUM SERUM 4.3 MMOL/L (3.5-5.1)
[2022-10-04] MEDS: LEVOTHYROXINE 150MCG TABLET (0.15MG) PO SCH (05:51)
[2022-10-04] MEDS: HEPARIN SOD (PORCINE) 5000UNITS/ML 1ML VIAL/SYRINGE SQ SCH ×3 (05:56→21:20)
[2022-10-04 08:00] VITALS: BP 177/97
[2022-10-04] MEDS: SODIUM BICARBONATE 325 MG TAB PO SCH ×3 (10:00→21:18)
[2022-10-04] MEDS: PANTOPRAZOLE 40MG TAB (PROTONIX) PO SCH (10:01)
[2022-10-04] MEDS: METOPROLOL TART 25 MG TABLET PO SCH ×2 (10:01→21:17)
[2022-10-04] MEDS: LACTOBACILLUS ACIDOPHILUS CAP (BACID) PO SCH ×2 (10:01→21:16)
[2022-10-04] MEDS: CALCIUM/VITAMIN D 500 MG TAB PO SCH (10:01)
[2022-10-04] MEDS: THIAMINE 100 MG TAB PO SCH ×2 (10:02→21:16)
[2022-10-04] MEDS: FOLIC ACID 1MG TAB PO SCH (10:02)
[2022-10-04] MEDS ORDERED: LOPERAMIDE 2 MG CAPLET PO ONE (10:55)
[2022-10-04] MEDS: CEFEPIME HCL 1 GM in D5W MINI-BAG PLUS 50 ML IV SCH (11:42)
[2022-10-04] MEDS ORDERED: amLODIPine 5 MG TAB PO ONE (15:20)
[2022-10-04 16:00] VITALS: BP 164/81
[2022-10-04 20:00] VITALS: BP 152/89
[2022-10-05] MEDS: CEFEPIME HCL 1 GM in D5W MINI-BAG PLUS 50 ML IV SCH ×3 (00:09→23:02)
[2022-10-05 04:00] VITALS: BP 167/89
[2022-10-05 05:50] LABS: BASO # 0.1 10^3/uL (0.0-0.2); BASO % 0.9 % (0.0-1.0); EOS # 0.3 10^3/uL (0.0-0.5); EOS % 2.9 % (0.0-3.0); HEMATOCRIT 43.2 % (36.0-47.0); HEMOGLOBIN 13.7 g/dl (12.0-15.5); LYMPH # 3.1 10^3/uL (1.5-5.0); LYMPH % 33.8 % (24.0-44.0); MEAN CORPUSCULAR HEMOGLOBIN 27.9 pg (27.0-33.0); MEAN CORPUSCULAR HGB CONC 31.7 g/dl (32.0-36.5); MONO # 0.8 10^3/uL (0.0-0.8); MONO % 8.1 % (2.0-8.0); NEUTROPHILS # 4.9 10^3/uL (1.5-8.5); PLATELET COUNT, AUTOMATED 192 10^3/uL (150-450); RED BLOOD COUNT 4.91 10^6/uL (4.00-5.40); WHITE BLOOD COUNT 9.3 10^3/uL (4.0-10.0)
[2022-10-05] MEDS: HEPARIN SOD (PORCINE) 5000UNITS/ML 1ML VIAL/SYRINGE SQ SCH ×3 (06:00→21:10)
[2022-10-05 06:18] LABS: MAGNESIUM LEVEL 1.8 MG/DL (1.8-2.4)
[2022-10-05 06:19] LABS: CREATININE FOR GFR 2.54 MG/DL (0.55-1.30); GLOMERULAR FILTRATION RATE 20.5 (>45); PHOSPHORUS LEVEL 3.7 MG/DL (2.4-5.1); POTASSIUM SERUM 4.1 MMOL/L (3.5-5.1)
[2022-10-05] MEDS: LEVOTHYROXINE 150MCG TABLET (0.15MG) PO SCH (06:28)
[2022-10-05 07:46] VITALS: BP 150/96
[2022-10-05] MEDS ORDERED: amLODIPine 5 MG TAB PO SCH (09:00)
[2022-10-05] MEDS: LACTOBACILLUS ACIDOPHILUS CAP (BACID) PO SCH ×2 (09:07→21:01)
[2022-10-05] MEDS: PANTOPRAZOLE 40MG TAB (PROTONIX) PO SCH (09:07)
[2022-10-05] MEDS: SODIUM BICARBONATE 325 MG TAB PO SCH ×3 (09:07→21:02)
[2022-10-05] MEDS: METOPROLOL TART 25 MG TABLET PO SCH ×2 (09:07→21:01)
[2022-10-05] MEDS: CALCIUM/VITAMIN D 500 MG TAB PO SCH (09:07)
[2022-10-05] MEDS: FOLIC ACID 1MG TAB PO SCH (09:08)
[2022-10-05] MEDS: THIAMINE 100 MG TAB PO SCH ×2 (09:08→21:01)
[2022-10-05] MEDS ORDERED: SODIUM CHLORIDE NASAL 0.65% SPRAY BTL (OCEAN) PRN (13:15)
[2022-10-05 16:19] VITALS: BP 155/88
[2022-10-05 20:46] VITALS: BP 140/82
[2022-10-05] MEDS: NS 1,000 ML IV SCH (21:05)
[2022-10-05 22:05] VITALS: BP 157/94
[2022-10-06] MEDS: HEPARIN SOD (PORCINE) 5000UNITS/ML 1ML VIAL/SYRINGE SQ SCH ×2 (05:05→13:00)
[2022-10-06 05:09] VITALS: BP 126/81
[2022-10-06] MEDS: LEVOTHYROXINE 150MCG TABLET (0.15MG) PO SCH (05:11)
[2022-10-06 06:16] LABS: BASO # 0.1 10^3/uL (0.0-0.2); BASO % 0.8 % (0.0-1.0); EOS # 0.2 10^3/uL (0.0-0.5); EOS % 2.3 % (0.0-3.0); HEMATOCRIT 42.9 % (36.0-47.0); HEMOGLOBIN 13.8 g/dl (12.0-15.5); LYMPH # 3.2 10^3/uL (1.5-5.0); LYMPH % 29.8 % (24.0-44.0); MEAN CORPUSCULAR HGB CONC 32.2 g/dl (32.0-36.5); MONO # 0.7 10^3/uL (0.0-0.8); MONO % 6.5 % (2.0-8.0); NEUTROPHILS # 6.2 10^3/uL (1.5-8.5); NEUTROPHILS % 58.9 % (36.0-66.0); PLATELET COUNT, AUTOMATED 206 10^3/uL (150-450); RED BLOOD COUNT 4.93 10^6/uL (4.00-5.40); WHITE BLOOD COUNT 10.6 10^3/uL (4.0-10.0)
[2022-10-06 06:31] LABS: CALCIUM LEVEL 8.7 MG/DL (8.3-10.6); CREATININE FOR GFR 2.44 MG/DL (0.55-1.30); GLOMERULAR FILTRATION RATE 21.5 (>45)
[2022-10-06] MEDS: NS 1,000 ML IV SCH (08:00)
[2022-10-06] MEDS ORDERED: LIDOCAINE 1% MDV 20ML VIAL As Ordered ONE (08:08)
[2022-10-06] MEDS ORDERED: CEFE1INJ2 IV (09:27)
[2022-10-06] MEDS: LACTOBACILLUS ACIDOPHILUS CAP (BACID) PO SCH (09:28)
[2022-10-06] MEDS: CALCIUM/VITAMIN D 500 MG TAB PO SCH (09:29)
[2022-10-06] MEDS: FOLIC ACID 1MG TAB PO SCH (09:29)
[2022-10-06] MEDS: THIAMINE 100 MG TAB PO SCH (09:29)
[2022-10-06] MEDS: PANTOPRAZOLE 40MG TAB (PROTONIX) PO SCH (09:29)
[2022-10-06] MEDS: SODIUM BICARBONATE 325 MG TAB PO SCH (09:29)
[2022-10-06 09:33] VITALS: BP 168/90
[2022-10-06] MEDS: METOPROLOL TART 25 MG TABLET PO SCH (09:33)
[2022-10-06] MEDS: ANEXSIA, NORCO 7.5MG/325MG TABLET(HYDROCODONE/APAP) PO PRN (09:38)
[2022-10-06] MEDS: CEFEPIME HCL 1 GM in D5W MINI-BAG PLUS 50 ML IV SCH (10:41)
[2022-10-06] MEDS ORDERED: AMLO1TAB24 PO (13:23)
[2022-10-06 13:25] VITALS: BP 147/96
[2022-10-06 14:00] VITALS: BP 149/96
== END 2022-10-06 14:41 | disposition home health service (06) | DRG 699 ==
LOC: M ED 01:50 → M ED INP 07:57 → ENRESERV 09:51 → M PCU 10:41 → M MSPAV 10-05 22:10
PROVIDERS: ADMIT Internal Medicine; ATTEND Internal Medicine
PROC: 05H933Z Insertion of Infusion Device into Right Brachial Vein, Percutaneous Approach (ICD-10-PCS; principal; 2022-10-06 10:00)
DX: N99.531 Infection of continent stoma of urinary tract (principal); N30.40 Irradiation cystitis without hematuria; N18.4 Chronic kidney disease, stage 4 (severe); R78.81 Bacteremia; E87.20 Acidosis, unspecified; K52.1 Toxic gastroenteritis and colitis; E21.1 Secondary hyperparathyroidism, not elsewhere classified; I12.9 Hypertensive chronic kidney disease with stage 1 through stage 4 chronic kidney disease, or unspecified chronic kidney disease; E03.9 Hypothyroidism, unspecified; K21.9 Gastro-esophageal reflux disease without esophagitis; T36.0X5A Adverse effect of penicillins, initial encounter; M10.9 Gout, unspecified; N99.53 Complication of continent stoma of urinary tract; B96.89 Other specified bacterial agents as the cause of diseases classified elsewhere; F10.20 Alcohol dependence, uncomplicated; Z79.890 Hormone replacement therapy; Z79.899 Other long term (current) drug therapy; Z88.1 Allergy status to other antibiotic agents; Z88.2 Allergy status to sulfonamides; Z88.6 Allergy status to analgesic agent; Z88.8 Allergy status to other drugs, medicaments and biological substances; Z91.048 Other nonmedicinal substance allergy status; Z85.41 Personal history of malignant neoplasm of cervix uteri; Z92.3 Personal history of irradiation; Z87.891 Personal history of nicotine dependence

== ENCOUNTER → 2022-12-20 | Outpatient (CLI) | payer MEDICARE ==
[~2022-12-20] VITALS: Ht 162.6 cm; Wt 92.0 kg
[~2022-12-20] MED LIST changes: +AMLO1TAB24 PO; +ISOVUE-300 61% 100ML VIAL As Ordered ONE; +LIDOCAINE 1% MDV 20ML VIAL As Ordered ONE; +MIDAZOLAM INJ 2MG/2ML VIAL As Ordered ONE; +NS 1,000 ML IV SCH; +ceFAZolin 2 GM/D5W 50 ML IV BAG As Ordered ONE; +ceFAZolin SOD 2 GM in D5W MINI-BAG PLUS 50 ML IV ONE; +ceFAZolin SOD 2 GM in IV 1 EA IV ONE; +diphenhydrAMINE 50MG/ML VIAL As Ordered ONE; +fentaNYL 100 MCG/2 ML INJECTION As Ordered ONE
[2022-12-20 13:40] VITALS: BP 125/65
== END ==
LOC: M IRPRO 08:40
PROVIDERS: ATTEND Radiology Diagnostic Radiology
DX: N13.9 Obstructive and reflux uropathy, unspecified (principal); N36.0 Urethral fistula
CPT/HCPCS: 50435; 99152; 99153; C1729; C1769; J0690; J1200; J2250; J3010; Q9967

== ENCOUNTER 2023-01-25 10:33 | Day surgery (SDC) | payer MEDICARE ==
[~2023-01-25] VITALS: Ht 162.6 cm; Wt 94.8 kg
[~2023-01-25 10:33] MED LIST changes: +BUPIVACAINE HCL 0.25% 30ML VIAL As Ordered ONE; +HEPARIN 1,000UNITS/ML 10ML VIAL (FOR RADIOLOGY & DIALYSIS ONLY) As Ordered ONE; -ISOVUE-300 61% 100ML VIAL As Ordered ONE; -LIDOCAINE 1% MDV 20ML VIAL As Ordered ONE; +LIDOCAINE 1% SDV 30ML VIAL As Ordered ONE; +LIDOCAINE 2% 100MG/5ML SDV (FOR ANES.) As Ordered ONE; +METO50TA7 PO; -NS 1,000 ML IV SCH; -ceFAZolin 2 GM/D5W 50 ML IV BAG As Ordered ONE; -ceFAZolin SOD 2 GM in D5W MINI-BAG PLUS 50 ML IV ONE; -diphenhydrAMINE 50MG/ML VIAL As Ordered ONE; +propofoL 200 MG/20 ML VIAL As Ordered ONE
[2023-01-25] MEDS ORDERED: LR 1,000 ML IV SCH (10:55)
[2023-01-25] MEDS ORDERED: propofoL 200 MG/20 ML VIAL As Ordered ONE (11:45)
[2023-01-25 12:55] VITALS: BP 128/77
== END 2023-01-25 13:01 | disposition home or self-care (01) ==
LOC: M SDC 10:33
PROVIDERS: ATTEND Surgery
DX: N28.89 Other specified disorders of kidney and ureter (principal); Z96.0 Presence of urogenital implants; Z87.440 Personal history of urinary (tract) infections; E03.9 Hypothyroidism, unspecified; I10 Essential (primary) hypertension; I49.9 Cardiac arrhythmia, unspecified; E78.00 Pure hypercholesterolemia, unspecified; M10.9 Gout, unspecified; K21.9 Gastro-esophageal reflux disease without esophagitis; R32 Unspecified urinary incontinence; Z92.3 Personal history of irradiation; Z88.1 Allergy status to other antibiotic agents; Z88.2 Allergy status to sulfonamides; Z88.8 Allergy status to other drugs, medicaments and biological substances; Z79.899 Other long term (current) drug therapy; Z79.891 Long term (current) use of opiate analgesic; Z79.890 Hormone replacement therapy
CPT/HCPCS: 36561; 71045; 76000; J0690; J2250; J3010

== ENCOUNTER 2023-02-22 10:19 | Outpatient (CLI) | payer MEDICARE ==
[~2023-02-22] VITALS: Ht 162.6 cm; Wt 88.0 kg
[~2023-02-22 10:19] MED LIST changes: -BUPIVACAINE HCL 0.25% 30ML VIAL As Ordered ONE; -HEPARIN 1,000UNITS/ML 10ML VIAL (FOR RADIOLOGY & DIALYSIS ONLY) As Ordered ONE; -LIDOCAINE 1% SDV 30ML VIAL As Ordered ONE; -LIDOCAINE 2% 100MG/5ML SDV (FOR ANES.) As Ordered ONE; -MIDAZOLAM INJ 2MG/2ML VIAL As Ordered ONE; +SODIUM CHLORIDE 0.9% INJ 10 ML SYR IV PRN; -ceFAZolin SOD 2 GM in IV 1 EA IV ONE; -fentaNYL 100 MCG/2 ML INJECTION As Ordered ONE; -propofoL 200 MG/20 ML VIAL As Ordered ONE
[2023-02-22 10:39] VITALS: BP 140/92
[2023-02-23] MEDS ORDERED: SODIUM CHLORIDE 0.9% INJ 10 ML SYR IV SCH (09:00)
== END 2023-02-22 10:40 | disposition home or self-care (01) ==
LOC: M INFU 10:19
PROVIDERS: ATTEND Internal Medicine Nephrology
DX: N28.89 Other specified disorders of kidney and ureter (principal); Z88.1 Allergy status to other antibiotic agents; Z88.2 Allergy status to sulfonamides; Z88.8 Allergy status to other drugs, medicaments and biological substances

== ENCOUNTER → 2023-03-25 | Outpatient (CLI) | payer MEDICARE ==
[~2023-03-25] MED LIST changes: +CEPHALEXIN 500 MG CAP PO ONE; +ISOVUE-300 61% 100ML VIAL As Ordered ONE; +LIDOCAINE 1% MDV 20ML VIAL As Ordered ONE; +SENN-111 PO; -SENN18TA PO; +SODIUM CHLORIDE 0.9% INJ 10 ML SYR IV SCH; +ceFAZolin 2 GM/D5W 50 ML IV BAG As Ordered ONE; +ceFAZolin SOD 2 GM in IV 1 EA IV ONE
[2023-03-25 10:40] VITALS: TEMP 96.7
[2023-03-25 11:08] LABS: HEMATOCRIT 43.6 % (36.0-47.0); HEMOGLOBIN 14.1 g/dl (12.0-15.5); MEAN CORPUSCULAR HGB CONC 32.3 g/dl (32.0-36.5); MEAN CORPUSCULAR VOLUME 86.7 fl (80.0-96.0); PLATELET COUNT, AUTOMATED 214 10^3/uL (150-450); RED BLOOD COUNT 5.03 10^6/uL (4.00-5.40); WHITE BLOOD COUNT 8.7 10^3/uL (4.0-10.0)
[2023-03-25 12:00] VITALS: BP 176/80; O2SAT 98
== END ==
LOC: M IRPRO 10:18
PROVIDERS: ATTEND Internal Medicine Nephrology
DX: N13.39 Other hydronephrosis (principal)
CPT/HCPCS: 50435; 76000; 85027; C1729; C1769; J0690; Q9967

== ENCOUNTER 2023-05-02 05:51 | Outpatient (CLI) | payer MEDICARE ==
[~2023-05-02] VITALS: Ht 162.6 cm; Wt 93.6 kg
[~2023-05-02 05:51] MED LIST changes: -CEPHALEXIN 500 MG CAP PO ONE; -ISOVUE-300 61% 100ML VIAL As Ordered ONE; -LIDOCAINE 1% MDV 20ML VIAL As Ordered ONE; -SODIUM CHLORIDE 0.9% INJ 10 ML SYR IV PRN; -SODIUM CHLORIDE 0.9% INJ 10 ML SYR IV SCH; -ceFAZolin 2 GM/D5W 50 ML IV BAG As Ordered ONE; -ceFAZolin SOD 2 GM in IV 1 EA IV ONE
[2023-05-02] MEDS ORDERED: SODIUM CHLORIDE 0.9% INJ 10 ML SYR IV SCH (09:00)
[2023-05-02 16:10] VITALS: BP 143/84; O2SAT 97
== END 2023-05-02 16:20 ==
LOC: M INFU 05:51
PROVIDERS: ATTEND Nurse Practitioner Family
DX: N28.89 Other specified disorders of kidney and ureter (principal); Z88.1 Allergy status to other antibiotic agents; Z88.2 Allergy status to sulfonamides; Z88.8 Allergy status to other drugs, medicaments and biological substances

== ENCOUNTER 2023-06-02 16:30 | Outpatient (CLI) | payer MEDICARE ==
[~2023-06-02] VITALS: Ht 162.6 cm; Wt 93.6 kg
[2023-06-02 16:21] VITALS: BP 140/80; O2SAT 96
[~2023-06-02 16:30] MED LIST changes: +SODIUM CHLORIDE 0.9% INJ 10 ML SYR IV SCH
== END 2023-06-02 16:45 | disposition home or self-care (01) ==
LOC: M INFU 16:30
PROVIDERS: ATTEND Nurse Practitioner Family
DX: N10 Acute pyelonephritis (principal); Z88.1 Allergy status to other antibiotic agents; Z88.2 Allergy status to sulfonamides; Z88.6 Allergy status to analgesic agent; Z88.8 Allergy status to other drugs, medicaments and biological substances

== ENCOUNTER 2023-07-01 13:40 | Outpatient (CLI) | payer MEDICARE ==
[~2023-07-01] VITALS: Ht 162.6 cm; Wt 94.0 kg
[2023-07-01 13:35] VITALS: BP 157/67; O2SAT 97
[~2023-07-01 13:40] MED LIST changes: +CEFD1CAP9; -CEFD300C41
== END 2023-07-01 13:55 | disposition home or self-care (01) ==
LOC: M INFU 13:40
PROVIDERS: ATTEND Nurse Practitioner Family
DX: Z45.2 Encounter for adjustment and management of vascular access device (principal); Z88.2 Allergy status to sulfonamides; Z88.1 Allergy status to other antibiotic agents; Z88.6 Allergy status to analgesic agent; Z88.3 Allergy status to other anti-infective agents; Z88.8 Allergy status to other drugs, medicaments and biological substances

== ENCOUNTER → 2023-07-13 | Outpatient (CLI) | payer MEDICARE ==
[~2023-07-13] VITALS: Ht 162.6 cm; Wt 91.0 kg
[~2023-07-13] MED LIST changes: -CEFD1CAP9; +CEFD300C42; +ISOVUE-300 61% 100ML VIAL As Ordered ONE; +LIDOCAINE 1% MDV 20ML VIAL As Ordered ONE; +MIDAZOLAM INJ 2MG/2ML VIAL As Ordered ONE; +SODIUM CHLORIDE 0.9% INJ 10 ML SYR IV ONE; +SODIUM CHLORIDE 0.9% INJ 10 ML SYR IV PRN; -SODIUM CHLORIDE 0.9% INJ 10 ML SYR IV SCH; +ceFAZolin 2 GM/D5W 50 ML IV BAG As Ordered ONE; +ceFAZolin SOD 2 GM in IV 1 EA IV ONE; +fentaNYL 100 MCG/2 ML INJECTION As Ordered ONE
[2023-07-13 12:40] VITALS: TEMP 97.5
[2023-07-13 15:15] VITALS: BP 153/84; O2SAT 95
== END ==
LOC: M IRPRO 12:26
PROVIDERS: ATTEND Nurse Practitioner Family
DX: N13.1 Hydronephrosis with ureteral stricture, not elsewhere classified (principal); N13.9 Obstructive and reflux uropathy, unspecified
CPT/HCPCS: 50435; 99152; C1729; J0690; J2250; J3010; Q9967

== ENCOUNTER 2023-08-02 16:00 | Outpatient (CLI) | payer MEDICARE ==
[~2023-08-02] VITALS: Ht 162.6 cm; Wt 94.0 kg
[2023-08-02] MEDS: SODIUM CHLORIDE 0.9% INJ 10 ML SYR IV SCH ×2 (09:00→16:12)
[2023-08-02 16:00] VITALS: BP 161/87; O2SAT 100
[~2023-08-02 16:00] MED LIST changes: -ISOVUE-300 61% 100ML VIAL As Ordered ONE; -LIDOCAINE 1% MDV 20ML VIAL As Ordered ONE; -MIDAZOLAM INJ 2MG/2ML VIAL As Ordered ONE; -SODIUM CHLORIDE 0.9% INJ 10 ML SYR IV ONE; -SODIUM CHLORIDE 0.9% INJ 10 ML SYR IV PRN; -ceFAZolin 2 GM/D5W 50 ML IV BAG As Ordered ONE; -ceFAZolin SOD 2 GM in IV 1 EA IV ONE; -fentaNYL 100 MCG/2 ML INJECTION As Ordered ONE
== END 2023-08-02 16:20 ==
LOC: M INFU 16:00
PROVIDERS: ATTEND Nurse Practitioner Family
DX: N10 Acute pyelonephritis (principal); Z88.1 Allergy status to other antibiotic agents; Z88.2 Allergy status to sulfonamides; Z88.6 Allergy status to analgesic agent; Z88.8 Allergy status to other drugs, medicaments and biological substances

== ENCOUNTER 2023-09-01 15:20 | Outpatient (CLI) | payer MEDICARE ==
[~2023-09-01] VITALS: Ht 162.6 cm; Wt 94.0 kg
[~2023-09-01 15:20] MED LIST changes: +CEFD1CAP9; -CEFD300C42; +SODIUM CHLORIDE 0.9% INJ 10 ML SYR IV SCH
[2023-09-01 15:21] VITALS: BP 140/87; O2SAT 94
== END 2023-09-01 15:40 | disposition home or self-care (01) ==
LOC: M INFU 15:20
PROVIDERS: ATTEND Nurse Practitioner Family
DX: Z45.2 Encounter for adjustment and management of vascular access device (principal); Z88.1 Allergy status to other antibiotic agents; Z88.2 Allergy status to sulfonamides; Z88.6 Allergy status to analgesic agent; Z88.3 Allergy status to other anti-infective agents; Z88.8 Allergy status to other drugs, medicaments and biological substances

== ENCOUNTER → 2023-10-04 | Outpatient (CLI) | payer MEDICARE ==
[~2023-10-04] VITALS: Ht 162.6 cm; Wt 94.5 kg
[~2023-10-04] MED LIST changes: +ISOVUE-300 61% 100ML VIAL As Ordered ONE; +LIDOCAINE 1% MDV 20ML VIAL As Ordered ONE; +MIDAZOLAM INJ 2MG/2ML VIAL As Ordered ONE; -SODIUM CHLORIDE 0.9% INJ 10 ML SYR IV SCH; +ceFAZolin 2 GM/D5W 50 ML IV BAG As Ordered ONE; +ceFAZolin SOD 2 GM in IV 1 EA IV ONE; +fentaNYL 100 MCG/2 ML INJECTION As Ordered ONE
[2023-10-04 15:05] VITALS: TEMP 98
[2023-10-04 15:28] LABS: HEMATOCRIT 45.6 % (36.0-47.0); HEMOGLOBIN 14.8 g/dl (12.0-15.5); MEAN CORPUSCULAR HEMOGLOBIN 28.1 pg (27.0-33.0); MEAN CORPUSCULAR HGB CONC 32.5 g/dl (32.0-36.5); MEAN CORPUSCULAR VOLUME 86.7 fl (80.0-96.0); PLATELET COUNT, AUTOMATED 205 10^3/uL (150-450); RED BLOOD COUNT 5.26 10^6/uL (4.00-5.40); WHITE BLOOD COUNT 8.2 10^3/uL (4.0-10.0)
[2023-10-04 15:40] LABS: INR 0.95; PROTHROMBIN TIME 12.4 SECONDS (12.5-14.5)
[2023-10-04 17:44] VITALS: BP 185/95; O2SAT 98
== END ==
LOC: M IRPRO 14:38
PROVIDERS: ATTEND Nurse Practitioner Family
DX: N13.1 Hydronephrosis with ureteral stricture, not elsewhere classified (principal); Z79.890 Hormone replacement therapy
CPT/HCPCS: 50435; 85027; 85610; 99152; C1729; J0690; J2250; J3010; Q9967

== ENCOUNTER → 2023-10-25 | Outpatient (CLI) | payer MEDICARE ==
[~2023-10-25] MED LIST changes: -ISOVUE-300 61% 100ML VIAL As Ordered ONE; -LIDOCAINE 1% MDV 20ML VIAL As Ordered ONE; -MIDAZOLAM INJ 2MG/2ML VIAL As Ordered ONE; -ceFAZolin 2 GM/D5W 50 ML IV BAG As Ordered ONE; -ceFAZolin SOD 2 GM in IV 1 EA IV ONE; -fentaNYL 100 MCG/2 ML INJECTION As Ordered ONE
== END ==
LOC: M RAD 11:50
PROVIDERS: ATTEND Nurse Practitioner Family
DX: N18.4 Chronic kidney disease, stage 4 (severe) (principal); Z93.6 Other artificial openings of urinary tract status; N13.9 Obstructive and reflux uropathy, unspecified

== ENCOUNTER 2023-11-02 16:15 | Outpatient (CLI) | payer MEDICARE ==
[~2023-11-02] VITALS: Ht 162.6 cm; Wt 98.0 kg
[2023-11-02 16:18] VITALS: BP 138/82; O2SAT 96
[2023-11-02] MEDS: SODIUM CHLORIDE 0.9% INJ 10 ML SYR IV SCH (16:18)
== END 2023-11-02 16:30 ==
LOC: M INFU 16:15
PROVIDERS: ATTEND Nurse Practitioner Family
DX: Z45.2 Encounter for adjustment and management of vascular access device (principal); Z88.2 Allergy status to sulfonamides; Z88.1 Allergy status to other antibiotic agents; Z88.6 Allergy status to analgesic agent; Z88.3 Allergy status to other anti-infective agents; Z88.8 Allergy status to other drugs, medicaments and biological substances

== ENCOUNTER 2023-12-01 16:00 | Outpatient (CLI) | payer MEDICARE ==
[2023-12-01 16:10] VITALS: BP 165/76; O2SAT 97
[2023-12-01] MEDS ORDERED: SODIUM CHLORIDE 0.9% INJ 10 ML SYR IV PRN (16:10)
[2023-12-01] MEDS: SODIUM CHLORIDE 0.9% INJ 10 ML SYR IV SCH (16:14)
== END 2023-12-01 16:20 ==
LOC: M INFU 16:00
PROVIDERS: ATTEND Nurse Practitioner Family
DX: Z45.2 Encounter for adjustment and management of vascular access device (principal); Z88.2 Allergy status to sulfonamides; Z88.1 Allergy status to other antibiotic agents; Z88.6 Allergy status to analgesic agent; Z88.3 Allergy status to other anti-infective agents; Z88.8 Allergy status to other drugs, medicaments and biological substances

== ENCOUNTER → 2023-12-27 | Outpatient (CLI) | payer MEDICARE ==
[~2023-12-27] MED LIST changes: +ISOVUE-300 61% 100ML VIAL As Ordered ONE; +LIDOCAINE 1% MDV 20ML VIAL As Ordered ONE; +MIDAZOLAM INJ 2MG/2ML VIAL As Ordered ONE; +ceFAZolin 2 GM/D5W 50 ML IV BAG As Ordered ONE; +ceFAZolin SOD 2 GM in IV 1 EA IV ONE; +fentaNYL 100 MCG/2 ML INJECTION As Ordered ONE
[2023-12-27 10:00] VITALS: TEMP 98.3
[2023-12-27 10:56] LABS: HEMATOCRIT 42.5 % (36.0-47.0); HEMOGLOBIN 13.5 g/dl (12.0-15.5); MEAN CORPUSCULAR HEMOGLOBIN 28.3 pg (27.0-33.0); MEAN CORPUSCULAR HGB CONC 31.8 g/dl (32.0-36.5); MEAN CORPUSCULAR VOLUME 89.1 fl (80.0-96.0); PLATELET COUNT, AUTOMATED 179 10^3/uL (150-450); RED BLOOD COUNT 4.77 10^6/uL (4.00-5.40)
[2023-12-27 10:58] LABS: INR 0.95; PROTHROMBIN TIME 12.4 SECONDS (12.5-14.5)
[2023-12-27 12:35] VITALS: BP 204/93; O2SAT 94
== END ==
LOC: M IRPRO 09:41
PROVIDERS: ATTEND Nurse Practitioner Family
DX: N13.30 Unspecified hydronephrosis (principal)
CPT/HCPCS: 50435; 75984; 85027; 85610; 99152; C1729; J0690; J2250; J3010; Q9967

== ENCOUNTER → 2024-01-04 | Outpatient (REF) | payer MEDICARE ==
[~2024-01-04] MED LIST changes: -ISOVUE-300 61% 100ML VIAL As Ordered ONE; -LIDOCAINE 1% MDV 20ML VIAL As Ordered ONE; -MIDAZOLAM INJ 2MG/2ML VIAL As Ordered ONE; -ceFAZolin 2 GM/D5W 50 ML IV BAG As Ordered ONE; -ceFAZolin SOD 2 GM in IV 1 EA IV ONE; -fentaNYL 100 MCG/2 ML INJECTION As Ordered ONE
== END ==
LOC: M LAB REF 17:07
PROVIDERS: ATTEND Nurse Practitioner Family
DX: Z79.899 Other long term (current) drug therapy (principal)

== ENCOUNTER 2024-01-31 16:09 | Outpatient (CLI) | payer MEDICARE ==
[2024-01-31] MEDS: SODIUM CHLORIDE 0.9% INJ 10 ML SYR IV SCH (16:20)
[2024-01-31 16:21] VITALS: BP 149/96; O2SAT 94
== END 2024-01-31 16:25 ==
LOC: M INFU 16:09
PROVIDERS: ATTEND Nurse Practitioner Family
DX: Z45.2 Encounter for adjustment and management of vascular access device (principal); Z88.1 Allergy status to other antibiotic agents; Z88.6 Allergy status to analgesic agent; Z88.8 Allergy status to other drugs, medicaments and biological substances; Z91.048 Other nonmedicinal substance allergy status

== ENCOUNTER 2024-03-02 15:59 | Outpatient (CLI) | payer MEDICARE ==
[2024-03-02 16:00] VITALS: BP 157/94; O2SAT 95
[2024-03-02] MEDS: SODIUM CHLORIDE 0.9% INJ 10 ML SYR IV SCH (16:08)
== END 2024-03-02 16:15 ==
LOC: M INFU 15:59
PROVIDERS: ATTEND Nurse Practitioner Family
DX: Z45.2 Encounter for adjustment and management of vascular access device (principal); Z88.2 Allergy status to sulfonamides; Z88.8 Allergy status to other drugs, medicaments and biological substances

== ENCOUNTER 2024-04-02 16:00 | Outpatient (CLI) | payer MEDICARE ==
[~2024-04-02] VITALS: Ht 162.6 cm; Wt 90.9 kg
[2024-04-02 16:19] VITALS: BP 150/90; O2SAT 95
[2024-04-02] MEDS: SODIUM CHLORIDE 0.9% INJ 10 ML SYR IV SCH (16:26)
== END 2024-04-02 16:34 ==
LOC: M INFU 16:00
PROVIDERS: ATTEND Nurse Practitioner Family
DX: Z45.2 Encounter for adjustment and management of vascular access device (principal)

== ENCOUNTER → 2024-04-11 | Outpatient (CLI) | payer MEDICARE ==
[~2024-04-11] VITALS: Ht 165.1 cm; Wt 100.0 kg
[~2024-04-11] MED LIST changes: +ISOVUE-300 61% 100ML VIAL As Ordered ONE; +LIDOCAINE 1% MDV 20ML VIAL As Ordered ONE; +MIDAZOLAM INJ 2MG/2ML VIAL As Ordered ONE; +ceFAZolin 2 GM/D5W 50 ML IV BAG As Ordered ONE; +ceFAZolin SOD 2 GM in IV 1 EA IV ONE; +fentaNYL 100 MCG/2 ML INJECTION As Ordered ONE
[2024-04-11 13:55] VITALS: TEMP 97.4
[2024-04-11] MEDS: ceFAZolin SOD 2 GM in IV 1 EA IV ONE (14:18)
[2024-04-11 15:20] VITALS: BP 130/89; O2SAT 96
== END ==
LOC: M IRPRO 13:42
PROVIDERS: ATTEND Nurse Practitioner Family
DX: N13.30 Unspecified hydronephrosis (principal)
CPT/HCPCS: 50435; 99152; C1729; J0690; J2250; J3010; Q9967

== ENCOUNTER 2024-05-02 15:55 | Outpatient (CLI) | payer MEDICARE ==
[~2024-05-02 15:55] MED LIST changes: -ISOVUE-300 61% 100ML VIAL As Ordered ONE; -LIDOCAINE 1% MDV 20ML VIAL As Ordered ONE; -MIDAZOLAM INJ 2MG/2ML VIAL As Ordered ONE; -ceFAZolin 2 GM/D5W 50 ML IV BAG As Ordered ONE; -ceFAZolin SOD 2 GM in IV 1 EA IV ONE; -fentaNYL 100 MCG/2 ML INJECTION As Ordered ONE
[2024-05-02] MEDS ORDERED: SODIUM CHLORIDE 0.9% INJ 10 ML SYR IV PRN (16:00)
[2024-05-02] MEDS: SODIUM CHLORIDE 0.9% INJ 10 ML SYR IV SCH (16:03)
[2024-05-02 16:10] VITALS: BP 164/77; O2SAT 94
== END 2024-05-02 16:10 ==
LOC: M INFU 15:55
PROVIDERS: ATTEND Nurse Practitioner Family
DX: Z45.2 Encounter for adjustment and management of vascular access device (principal)

== ENCOUNTER 2024-05-30 15:31 | Outpatient (CLI) | payer MEDICARE ==
[2024-05-30 15:40] VITALS: BP 173/84; O2SAT 95
[2024-05-30] MEDS: SODIUM CHLORIDE 0.9% INJ 10 ML SYR IV PRN (15:49)
== END 2024-05-30 16:00 ==
LOC: M INFU 15:31
PROVIDERS: ATTEND Nurse Practitioner Family
DX: Z45.2 Encounter for adjustment and management of vascular access device (principal)
CPT/HCPCS: 96523; J1642

== ENCOUNTER 2024-06-27 15:10 | Outpatient (CLI) | payer MEDICARE ==
[~2024-06-27] VITALS: Ht 162.6 cm; Wt 100.0 kg
[~2024-06-27 15:10] MED LIST changes: -SENN-111 PO; +SENN-165 PO
[2024-06-27] MEDS: SODIUM CHLORIDE 0.9% INJ 10 ML SYR IV SCH (15:16)
[2024-06-27 15:26] VITALS: BP 127/84; O2SAT 95
== END 2024-06-27 15:25 ==
LOC: M INFU 15:10
PROVIDERS: ATTEND Nurse Practitioner Family
DX: Z45.2 Encounter for adjustment and management of vascular access device (principal); Z88.1 Allergy status to other antibiotic agents; Z88.2 Allergy status to sulfonamides; Z88.8 Allergy status to other drugs, medicaments and biological substances
CPT/HCPCS: 96523; J1642

== ENCOUNTER → 2024-07-10 | Outpatient (CLI) | payer MEDICARE ==
[~2024-07-10] MED LIST changes: +ISOVUE-300 61% 100ML VIAL As Ordered ONE; +LIDOCAINE 1% MDV 20ML VIAL As Ordered ONE; +MIDAZOLAM INJ 2MG/2ML VIAL As Ordered ONE; +ceFAZolin 2 GM/D5W 50 ML IV BAG As Ordered ONE; +fentaNYL 100 MCG/2 ML INJECTION As Ordered ONE
[2024-07-10 09:45] VITALS: TEMP 97.7
[2024-07-10] MEDS: NS 1,000 ML IV SCH (10:35)
[2024-07-10] MEDS: ceFAZolin SOD 2 GM in IV 1 EA IV ONE (10:35)
[2024-07-10 10:47] LABS: HEMATOCRIT 43.4 % (36.0-47.0); HEMOGLOBIN 14.1 g/dl (12.0-15.5); MEAN CORPUSCULAR HEMOGLOBIN 28.1 pg (27.0-33.0); MEAN CORPUSCULAR HGB CONC 32.5 g/dl (32.0-36.5); MEAN CORPUSCULAR VOLUME 86.6 fl (80.0-96.0); PLATELET COUNT, AUTOMATED 175 10^3/uL (150-450); RED BLOOD COUNT 5.01 10^6/uL (4.00-5.40); WHITE BLOOD COUNT 7.7 10^3/uL (4.0-10.0)
[2024-07-10 12:15] VITALS: BP 131/71; O2SAT 95
== END ==
LOC: M IRPRO 09:36
PROVIDERS: ATTEND Nurse Practitioner Family
DX: N13.9 Obstructive and reflux uropathy, unspecified (principal)
CPT/HCPCS: 50435; 85027; 99152; C1729; J0690; J1642; J2250; J3010; Q9967

== ENCOUNTER 2024-07-25 14:50 | Outpatient (CLI) | payer MEDICARE ==
[~2024-07-25] VITALS: Ht 165.1 cm; Wt 99.5 kg
[2024-07-25 14:50] VITALS: BP 160/78; O2SAT 95
[~2024-07-25 14:50] MED LIST changes: -ISOVUE-300 61% 100ML VIAL As Ordered ONE; -LIDOCAINE 1% MDV 20ML VIAL As Ordered ONE; -MIDAZOLAM INJ 2MG/2ML VIAL As Ordered ONE; -ceFAZolin 2 GM/D5W 50 ML IV BAG As Ordered ONE; -fentaNYL 100 MCG/2 ML INJECTION As Ordered ONE
[2024-07-25] MEDS: SODIUM CHLORIDE 0.9% INJ 10 ML SYR IV PRN (15:07)
== END 2024-07-25 15:15 ==
LOC: M INFU 14:50
PROVIDERS: ATTEND Nurse Practitioner Family
DX: Z45.2 Encounter for adjustment and management of vascular access device (principal); Z88.2 Allergy status to sulfonamides; Z88.8 Allergy status to other drugs, medicaments and biological substances
CPT/HCPCS: 96523; J1642

== ENCOUNTER 2024-08-22 15:25 | Outpatient (CLI) | payer MEDICARE ==
[2024-08-22 15:25] VITALS: BP 150/77; O2SAT 96
[2024-08-22] MEDS: SODIUM CHLORIDE 0.9% INJ 10 ML SYR IV PRN (15:32)
== END 2024-08-22 15:50 ==
LOC: M INFU 15:25
PROVIDERS: ATTEND Nurse Practitioner Family
DX: Z45.2 Encounter for adjustment and management of vascular access device (principal)
CPT/HCPCS: 96523; J1642

== ENCOUNTER → 2024-08-22 | Outpatient (CLI) | payer MEDICARE ==
[2024-08-22 15:50] LABS: BASO % 0.5 % (0.0-1.0); EOS # 0.1 10^3/uL (0.0-0.5); EOS % 1.3 % (0.0-3.0); HEMATOCRIT 43.5 % (36.0-47.0); LYMPH # 2.2 10^3/uL (1.5-5.0); LYMPH % 25.7 % (24.0-44.0); MEAN CORPUSCULAR HEMOGLOBIN 28.1 pg (27.0-33.0); MEAN CORPUSCULAR HGB CONC 32.2 g/dl (32.0-36.5); MEAN CORPUSCULAR VOLUME 87.2 fl (80.0-96.0); MONO # 0.7 10^3/uL (0.0-0.8); MONO % 8.4 % (2.0-8.0); NEUTROPHILS # 5.4 10^3/uL (1.5-8.5); NEUTROPHILS % 63.5 % (36.0-66.0); PLATELET COUNT, AUTOMATED 187 10^3/uL (150-450); RED BLOOD COUNT 4.99 10^6/uL (4.00-5.40); WHITE BLOOD COUNT 8.5 10^3/uL (4.0-10.0)
[2024-08-22 16:48] LABS: CALCIUM LEVEL 9.2 MG/DL (8.3-10.6); CREATININE FOR GFR 2.87 MG/DL (0.55-1.30); GLOMERULAR FILTRATION RATE 17.7 (>45); POTASSIUM SERUM 3.8 MMOL/L (3.5-5.1)
[2024-08-22 16:50] LABS: THYROXINE (T4) 10.1 UG/DL (4.5-10.9)
[2024-08-22 16:51] LABS: THYROID STIMULATING HORMONE 0.557 uIU/ML (0.55-4.78)
== END ==
LOC: M LAB 15:13
PROVIDERS: ATTEND Internal Medicine
DX: M10.9 Gout, unspecified (principal); E03.9 Hypothyroidism, unspecified

== ENCOUNTER 2024-09-20 15:14 | Outpatient (CLI) | payer MEDICARE, OTHER, SELFPAY ==
[2024-09-20] MEDS: SODIUM CHLORIDE 0.9% INJ 10 ML SYR IV SCH (15:36)
== END 2024-09-20 15:40 ==
LOC: M INFU 15:14
PROVIDERS: ATTEND Nurse Practitioner Family
DX: Z45.2 Encounter for adjustment and management of vascular access device (principal); Z88.2 Allergy status to sulfonamides; Z88.1 Allergy status to other antibiotic agents; Z88.8 Allergy status to other drugs, medicaments and biological substances
CPT/HCPCS: 96374; J1642

== ENCOUNTER 2024-10-18 15:00 | Outpatient (CLI) | payer MEDICARE ==
[2024-10-18] MEDS: SODIUM CHLORIDE 0.9% INJ 10 ML SYR IV SCH (15:03)
[2024-10-18 15:15] VITALS: BP 165/97; O2SAT 96
== END 2024-10-18 15:15 ==
LOC: M INFU 15:00
PROVIDERS: ATTEND Nurse Practitioner Family
DX: Z45.2 Encounter for adjustment and management of vascular access device (principal); Z88.2 Allergy status to sulfonamides; Z88.8 Allergy status to other drugs, medicaments and biological substances
CPT/HCPCS: 96523; J1642

== ENCOUNTER → 2024-11-05 | Outpatient (CLI) | payer MEDICARE ==
[~2024-11-05] MED LIST changes: +ACETAMINOPHEN 325 MG TAB PO PRN; +LIDOCAINE 1% MDV 20ML VIAL As Ordered ONE; +MORPHINE 2 MG/ML 1ML VIAL IV PRN; +NALOXONE INJ 0.4MG/1ML VIAL IV PRN; +NS (Normal Saline) 0.9% 1,000 ML IV SCH; +ONDANSETRON 4MG 2ML VIAL IV PRN; +PERCOCET 5MG/325MG TAB PO PRN; +SODIUM CHLORIDE 0.9% INJ 10 ML SYR IV PRN; +SODIUM CHLORIDE 0.9% INJ 10 ML SYR IV SCH; +cefTRIAXone SOD 1GM VIAL As Ordered ONE
[2024-11-05] MEDS: NS (Normal Saline) 0.9% 1,000 ML IV SCH (07:35)
[2024-11-05 08:03] VITALS: TEMP 98.3
[2024-11-05 08:14] LABS: HEMATOCRIT 43.2 % (36.0-47.0); HEMOGLOBIN 13.8 g/dl (12.0-15.5); MEAN CORPUSCULAR HEMOGLOBIN 28.1 pg (27.0-33.0); MEAN CORPUSCULAR HGB CONC 31.9 g/dl (32.0-36.5); PLATELET COUNT, AUTOMATED 200 10^3/uL (150-450); RED BLOOD COUNT 4.91 10^6/uL (4.00-5.40); WHITE BLOOD COUNT 10.1 10^3/uL (4.0-10.0)
[2024-11-05] MEDS: cefTRIAXone SOD 1 GM in DEXTROSE 5% (D5W) ADV/MINI-BAG 50 ML IV ONE (08:28)
[2024-11-05] MEDS: MIDAZOLAM INJ 2MG/2ML VIAL IV PRN (08:53)
[2024-11-05] MEDS: fentaNYL 100 MCG/2 ML INJECTION IV PRN (08:53)
[2024-11-05] MEDS: ISOVUE-300 61% 100ML VIAL IV ONE (09:00)
[2024-11-05 09:50] VITALS: BP 158/90; O2SAT 98
== END ==
LOC: M IRPRO 07:07
PROVIDERS: ATTEND Nurse Practitioner Family
DX: N13.1 Hydronephrosis with ureteral stricture, not elsewhere classified (principal)
CPT/HCPCS: 50435; 85027; 99152; C1729; J0696; J1642; J2250; J3010; Q9967

== ENCOUNTER 2024-12-01 09:32 | Inpatient (IN) | payer MEDICARE ==
[~2024-12-01] VITALS: Ht 165.1 cm; Wt 100.4 kg
[~2024-12-01 09:32] MED LIST changes: -ACETAMINOPHEN 325 MG TAB PO PRN; -LIDOCAINE 1% MDV 20ML VIAL As Ordered ONE; -MORPHINE 2 MG/ML 1ML VIAL IV PRN; -NALOXONE INJ 0.4MG/1ML VIAL IV PRN; -NS (Normal Saline) 0.9% 1,000 ML IV SCH; -ONDANSETRON 4MG 2ML VIAL IV PRN; -PERCOCET 5MG/325MG TAB PO PRN; -SODIUM CHLORIDE 0.9% INJ 10 ML SYR IV PRN; -SODIUM CHLORIDE 0.9% INJ 10 ML SYR IV SCH; -cefTRIAXone SOD 1GM VIAL As Ordered ONE
[2024-12-01] MEDS ORDERED: SODI650T PO (09:54)
[2024-12-01] MEDS ORDERED: PRED20TA PO (09:54)
[2024-12-01] MEDS ORDERED: COLC0.6T47 (09:54)
[2024-12-01] MEDS ORDERED: SODIUM CHLORIDE 0.9% INJ 10 ML SYR IV PRN (10:05)
[2024-12-01] MEDS: ONDANSETRON 4MG 2ML VIAL IV ONE ×2 (10:20→10:40)
[2024-12-01] MEDS: SODIUM CHLORIDE 0.9% INJ 10 ML SYR IV SCH (10:50)
[2024-12-01 11:14] LABS: BASO # 0.1 10^3/uL (0.0-0.2); BASO % 0.5 % (0.0-1.0); EOS % 0.3 % (0.0-3.0); HEMATOCRIT 41.3 % (36.0-47.0); HEMOGLOBIN 13.2 g/dl (12.0-15.5); LYMPH % 6.9 % (24.0-44.0); MEAN CORPUSCULAR HEMOGLOBIN 27.7 pg (27.0-33.0); MEAN CORPUSCULAR VOLUME 86.6 fl (80.0-96.0); MONO % 6.9 % (2.0-8.0); NEUTROPHILS # 12.7 10^3/uL (1.5-8.5); NEUTROPHILS % 84.1 % (36.0-66.0); PLATELET COUNT, AUTOMATED 262 10^3/uL (150-450); RED BLOOD COUNT 4.77 10^6/uL (4.00-5.40)
[2024-12-01] MEDS ORDERED: NS (Normal Saline) 0.9% 1,000 ML IV ONE (11:20)
[2024-12-01] MEDS: NS (Normal Saline) 0.9% 1,000 ML IV ONE ×2 (11:20→13:31)
[2024-12-01] MEDS: MORPHINE 2 MG/ML 1ML VIAL IV PRN ×2 (11:21→18:47)
[2024-12-01] MEDS ORDERED: PIPERACILLIN/TAZOBACTAM SOD 4.5 GM in DEXTROSE 5% (D5W) ADV/MINI-BAG 50 ML IV ONE (11:25)
[2024-12-01 11:27] LABS: INR 1.06; PARTIAL THROMBOPLASTIN TIME 35.4 SECONDS (24.8-34.2); PROTHROMBIN TIME 14.1 SECONDS (12.5-14.5)
[2024-12-01] MEDS ORDERED: NS (Normal Saline) 0.9% 1,990 ML in IV 1 EA IV ONE (11:30)
[2024-12-01 11:44] LABS: ALBUMIN 3.2 G/DL (3.2-5.2); BILIRUBIN,DIRECT 0.2 MG/DL (<0.4); BILIRUBIN,TOTAL 0.7 MG/DL (0.3-1.2); CALCIUM LEVEL 9.3 MG/DL (8.3-10.6); CREATININE FOR GFR 2.82 MG/DL (0.55-1.30); GLOMERULAR FILTRATION RATE 18.1 (>45); MAGNESIUM LEVEL 1.8 MG/DL (1.8-2.4); POTASSIUM SERUM 4.3 MMOL/L (3.5-5.1); TOTAL PROTEIN 7.3 G/DL (5.7-8.2)
[2024-12-01 11:51] LABS: ABG BASE EXCESS -4.1 (-2.0-2.0); ABG HCO3 19.8 MMOL/L (22.0-26.0); ABG O2 SATURATION 96.2 % (95.0-99.0); ABG PARTIAL PRESSURE CO2 32.8 mmHg (35.0-45.0); ABG PARTIAL PRESSURE O2 85.2 mmHg (75.0-100.0); ABG STANDARD HCO3 21.1 MMOL/L. (22.0-26.0); ABG TOTAL CO2 20.8 MMOL/L (23.0-31.0); ABG pH (ARTERIAL) 7.399 UNITS (7.350-7.450)
[2024-12-01 11:55] LABS: PROCALCITONIN 0.49 ng/ml
[2024-12-01] MEDS ORDERED: ACET-683 PO (12:23)
[2024-12-01] MEDS ORDERED: MULTTAB61 PO (12:23)
[2024-12-01] MEDS ORDERED: HOME MED LIST COMPLETE! XX SCH (12:25)
[2024-12-01 12:38] LABS: KETONE, URINE AUTO RFX NEGATIVE (NEGATIVE); MUCUS, URINE RFX SMALL (NEGATIVE); NITRITE, URINE AUTO RFX NEGATIVE (NEGATIVE); RBC, URINE AUTO RFX 11 /HPF (0-3); SQUAM EPITHELIAL CELL UR AURFX 0 /HPF (0-6)
[2024-12-01 12:39] LABS: KETONE, URINE AUTO RFX NEGATIVE (NEGATIVE); NITRITE, URINE AUTO RFX NEGATIVE (NEGATIVE); RBC, URINE AUTO RFX 5 /HPF (0-3); SQUAM EPITHELIAL CELL UR AURFX 0 /HPF (0-6)
[2024-12-01 12:39] LABS: LEUKOCYTE ESTERASE UR AUTO RFX 3+ (NEGATIVE); WBC, URINE AUTO RFX TNTC /HPF (0-3)
[2024-12-01 12:40] LABS: LEUKOCYTE ESTERASE UR AUTO RFX 3+ (NEGATIVE); WBC, URINE AUTO RFX 70 /HPF (0-3)
[2024-12-01] MEDS: cefTRIAXone SOD 2 GM in DEXTROSE 5% (D5W) ADV/MINI-BAG 50 ML IV ONE (12:44)
[2024-12-01 12:48] LABS: CK-MB VALUE MASS < 1.0 NG/ML (<3.6); CPK CREATINE PHOSPHOKINASE 45 U/L (34-145); MB/CK RELATIVE INDEX 2.22 (< OR =4)
[2024-12-01 13:15] LABS: FREE T4 1.65 NG/DL (0.89-1.76); THYROID STIMULATING HORMONE 1.094 uIU/ML (0.55-4.78)
[2024-12-01] MEDS ORDERED: DOCUSATE SODIUM 100MG CAPSULE PO PRN (13:50)
[2024-12-01] MEDS ORDERED: MAALOX 30 ML SUSP *UDC PO PRN (13:50)
[2024-12-01] MEDS ORDERED: MOM 30ML SUSPENSION UDC PO PRN (13:50)
[2024-12-01] MEDS: ACETAMINOPHEN 325 MG TAB PO PRN (14:06)
[2024-12-01 14:28] VITALS: BP 147/76; TEMP 100.4; O2SAT 97
[2024-12-01] MEDS: SODIUM BICARBONATE 325 MG TAB PO SCH (15:25)
[2024-12-01 15:45] VITALS: TEMP 100.5
[2024-12-01 16:50] VITALS: TEMP 99.6
[2024-12-01] MEDS: ONDANSETRON 4MG TAB PO PRN (18:51)
[2024-12-01 20:03] VITALS: BP 147/77; TEMP 102; O2SAT 92
[2024-12-01] MEDS: CEFEPIME HCL 1 GM in DEXTROSE 5% (D5W) ADV/MINI-BAG 50 ML IV SCH (20:06)
[2024-12-01] MEDS: METOPROLOL TART 50 MG TAB PO SCH (20:07)
[2024-12-01] MEDS: HEPARIN SOD (PORCINE) 5000UNITS/ML 1ML VIAL/SYRINGE SC SCH (21:19)
[2024-12-01 21:20] VITALS: TEMP 101
[2024-12-02] VITALS (7 sets, daily range): BP systolic 113–145; BP diastolic 65–81; TEMP 98.2–100; O2SAT 94–97
[2024-12-02] MEDS: ANEXSIA, NORCO 7.5MG/325MG TABLET(HYDROCODONE/APAP) PO PRN (00:05)
[2024-12-02] MEDS: LEVOTHYROXINE 150MCG TABLET (0.15MG) PO SCH (05:09)
[2024-12-02 05:54] LABS: HEMATOCRIT 39.7 % (36.0-47.0); HEMOGLOBIN 12.6 g/dl (12.0-15.5); MEAN CORPUSCULAR HEMOGLOBIN 27.9 pg (27.0-33.0); MEAN CORPUSCULAR HGB CONC 31.7 g/dl (32.0-36.5); PLATELET COUNT, AUTOMATED 252 10^3/uL (150-450); RED BLOOD COUNT 4.51 10^6/uL (4.00-5.40); WHITE BLOOD COUNT 13.7 10^3/uL (4.0-10.0)
[2024-12-02 06:20] LABS: CALCIUM LEVEL 8.9 MG/DL (8.3-10.6); CREATININE FOR GFR 2.84 MG/DL (0.55-1.30); GLOMERULAR FILTRATION RATE 17.9 (>45); MAGNESIUM LEVEL 1.9 MG/DL (1.8-2.4)
[2024-12-02] MEDS: MULTIVITAMINS/MINERALS THERAP 1 TAB PO ONE (07:56)
[2024-12-02] MEDS: PANTOPRAZOLE 40MG TAB (PROTONIX) PO SCH (07:56)
[2024-12-02] MEDS: SODIUM BICARBONATE 325 MG TAB PO SCH (07:56)
[2024-12-02] MEDS: SODIUM BICARBONATE 50 MEQ in NS 0.45% 1,000 ML IV SCH (14:11)
[2024-12-03] VITALS (8 sets, daily range): BP systolic 121–147; BP diastolic 70–89; TEMP 97.3–99.1; O2SAT 92–97
[2024-12-03 05:41] LABS: BASO % 0.4 % (0.0-1.0); EOS # 0.1 10^3/uL (0.0-0.5); EOS % 1.5 % (0.0-3.0); HEMATOCRIT 36.5 % (36.0-47.0); HEMOGLOBIN 11.7 g/dl (12.0-15.5); LYMPH # 2.1 10^3/uL (1.5-5.0); LYMPH % 21.4 % (24.0-44.0); MEAN CORPUSCULAR HGB CONC 32.1 g/dl (32.0-36.5); MEAN CORPUSCULAR VOLUME 87.3 fl (80.0-96.0); MONO # 0.8 10^3/uL (0.0-0.8); MONO % 8.7 % (2.0-8.0); NEUTROPHILS # 6.4 10^3/uL (1.5-8.5); NEUTROPHILS % 66.6 % (36.0-66.0); PLATELET COUNT, AUTOMATED 233 10^3/uL (150-450); RED BLOOD COUNT 4.18 10^6/uL (4.00-5.40); WHITE BLOOD COUNT 9.6 10^3/uL (4.0-10.0)
[2024-12-03 05:52] LABS: CALCIUM LEVEL 8.2 MG/DL (8.3-10.6); CREATININE FOR GFR 3.19 MG/DL (0.55-1.30); GLOMERULAR FILTRATION RATE 15.7 (>45)
[2024-12-03 06:35] LABS: MAGNESIUM LEVEL 1.7 MG/DL (1.8-2.4)
[2024-12-03] MEDS: MAGNESIUM OXIDE 400MG TAB (MAG-OX) PO SCH (09:06)
[2024-12-03] MEDS ORDERED: fentaNYL 100 MCG/2 ML INJECTION As Ordered ONE (09:38)
[2024-12-03] MEDS ORDERED: ISOVUE-300 61% 100ML VIAL As Ordered ONE (09:38)
[2024-12-03] MEDS ORDERED: LIDOCAINE 1% MDV 20ML VIAL As Ordered ONE (09:39)
[2024-12-03] MEDS ORDERED: MIDAZOLAM INJ 2MG/2ML VIAL As Ordered ONE (09:39)
[2024-12-03] MEDS: LIDOCAINE 1% MDV 20ML VIAL SC ONE (10:25)
[2024-12-03] MEDS: NS (Normal Saline) 0.9% 1,000 ML IV SCH ×2 (10:28→10:50)
[2024-12-03] MEDS: fentaNYL 100 MCG/2 ML INJECTION IV ONE (10:38)
[2024-12-03] MEDS: MIDAZOLAM INJ 2MG/2ML VIAL IV ONE (10:38)
[2024-12-03] MEDS: ISOVUE-300 61% 100ML VIAL IV ONE (10:51)
[2024-12-03] MEDS: PIPERACILLIN/TAZOBACTAM SOD 2.25 GM in DEXTROSE 5% (D5W) ADV/MINI-BAG 50 ML IV SCH (12:25)
[2024-12-03] MEDS: LACTOBACILLUS ACIDOPHILUS CAP (BACID) PO SCH (17:26)
[2024-12-03] MEDS: predniSONE 20 MG TAB PO SCH (17:26)
[2024-12-03] MEDS: HEPARIN SOD (PORCINE) 5000UNITS/ML 1ML VIAL/SYRINGE SQ SCH (21:34)
[2024-12-04 00:11] VITALS: BP 126/72; TEMP 97.5; O2SAT 93
[2024-12-04 03:40] VITALS: BP 130/74; TEMP 97.2; O2SAT 96
[2024-12-04 05:22] LABS: BASO % 0.3 % (0.0-1.0); EOS % 0.1 % (0.0-3.0); HEMATOCRIT 35.9 % (36.0-47.0); HEMOGLOBIN 11.4 g/dl (12.0-15.5); LYMPH % 8.2 % (24.0-44.0); MEAN CORPUSCULAR HEMOGLOBIN 27.5 pg (27.0-33.0); MEAN CORPUSCULAR HGB CONC 31.8 g/dl (32.0-36.5); MEAN CORPUSCULAR VOLUME 86.7 fl (80.0-96.0); MONO # 0.5 10^3/uL (0.0-0.8); MONO % 3.8 % (2.0-8.0); NEUTROPHILS # 10.4 10^3/uL (1.5-8.5); NEUTROPHILS % 86.4 % (36.0-66.0); PLATELET COUNT, AUTOMATED 244 10^3/uL (150-450); RED BLOOD COUNT 4.14 10^6/uL (4.00-5.40)
[2024-12-04 05:43] LABS: CALCIUM LEVEL 8.6 MG/DL (8.3-10.6); CREATININE FOR GFR 2.73 MG/DL (0.55-1.30); GLOMERULAR FILTRATION RATE 18.8 (>45); POTASSIUM SERUM 4.8 MMOL/L (3.5-5.1)
[2024-12-04 08:22] VITALS: BP 133/75; TEMP 97.5; O2SAT 95
[2024-12-04 08:47] VITALS: BP 152/92
[2024-12-04] MEDS ORDERED: RISATAB3 PO (09:25)
[2024-12-04] MEDS ORDERED: MAGN400T2 PO (09:25)
[2024-12-04] MEDS ORDERED: CEFD300CAP PO (09:25)
[2024-12-04] MEDS: SODIUM CHLORIDE 0.9% INJ 10 ML SYR IV PRN (11:27)
[2024-12-05] MEDS ORDERED: SODIUM CHLORIDE 0.9% INJ 10 ML SYR IV SCH (09:00)
== END 2024-12-04 11:57 | disposition home or self-care (01) | DRG 698 ==
LOC: M ED 09:32 → M ED INP 13:28 → M MSPAV 14:28
PROVIDERS: ADMIT Internal Medicine; ATTEND Internal Medicine
PROC: 0T25X0Z Change Drainage Device in Kidney, External Approach (ICD-10-PCS; principal; 2024-12-03 11:30)
DX: T83.518A Infection and inflammatory reaction due to other urinary catheter, initial encounter (principal); A41.9 Sepsis, unspecified organism; N18.4 Chronic kidney disease, stage 4 (severe); E87.4 Mixed disorder of acid-base balance; N10 Acute pyelonephritis; N13.8 Other obstructive and reflux uropathy; I12.9 Hypertensive chronic kidney disease with stage 1 through stage 4 chronic kidney disease, or unspecified chronic kidney disease; T83.028A Displacement of other urinary catheter, initial encounter; D64.9 Anemia, unspecified; K21.9 Gastro-esophageal reflux disease without esophagitis; E21.1 Secondary hyperparathyroidism, not elsewhere classified; M10.9 Gout, unspecified; E03.9 Hypothyroidism, unspecified; Y84.8 Other medical procedures as the cause of abnormal reaction of the patient, or of later complication, without mention of misadventure at the time of the procedure; Z79.890 Hormone replacement therapy; Z79.899 Other long term (current) drug therapy; Z88.1 Allergy status to other antibiotic agents; Z88.2 Allergy status to sulfonamides; Z88.6 Allergy status to analgesic agent; Z88.8 Allergy status to other drugs, medicaments and biological substances; Z91.048 Other nonmedicinal substance allergy status; Z85.41 Personal history of malignant neoplasm of cervix uteri; Z92.3 Personal history of irradiation; Z87.891 Personal history of nicotine dependence

== ENCOUNTER 2025-01-08 16:00 | Outpatient (CLI) | payer MEDICARE ==
[2025-01-08] MEDS: SODIUM CHLORIDE 0.9% INJ 10 ML SYR IV SCH (09:00)
[2025-01-08 14:00] VITALS: BP 154/87; O2SAT 98
[~2025-01-08 16:00] MED LIST changes: +ACET-683 PO; +CEFD300CAP PO; +COLC0.6T47; +MAGN400T2 PO; +MULTTAB61 PO; +SODI650T PO; +SODIUM CHLORIDE 0.9% INJ 10 ML SYR IV PRN
== END 2025-01-08 16:15 | disposition home or self-care (01) ==
LOC: M INFU 16:00
PROVIDERS: ATTEND Nurse Practitioner Family
DX: Z45.2 Encounter for adjustment and management of vascular access device (principal)
CPT/HCPCS: 96523; J1642

== ENCOUNTER → 2025-03-19 | Outpatient (CLI) | payer MEDICARE ==
[~2025-03-19] MED LIST changes: -SODIUM CHLORIDE 0.9% INJ 10 ML SYR IV PRN
[2025-03-19 11:17] LABS: APPEARANCE, URINE TURBID (CLEAR); BACTERIA, URINE AUTO 2+ (NEGATIVE); BILIRUBIN, URINE AUTO NEGATIVE (NEGATIVE); BLOOD, URINE BLOOD 2+ (NEGATIVE); GLUCOSE, URINE (UA) AUTO NEGATIVE (NEGATIVE); KETONE, URINE AUTO NEGATIVE (NEGATIVE); LEUKOCYTE ESTERASE, URINE AUTO 3+ (NEGATIVE); NITRITE, URINE AUTO NEGATIVE (NEGATIVE); PROTEIN, URINE AUTO 2+ mg/dL (NEGATIVE); RBC, URINE AUTO 40 /HPF (0-3); SPECIFIC GRAVITY URINE AUTO 1.009 (1.002-1.035); SQUAMOUS EPITHELIAL CELL UR AU 0 /HPF (0-6); UROBILINOGEN, URINE AUTO 0.2 mg/dL (0.0-2.0); WBC, URINE AUTO TNTC /HPF (0-3)
== END ==
LOC: M LAB 10:04
PROVIDERS: ATTEND Internal Medicine Infectious Disease
DX: R31.0 Gross hematuria (principal)

== ENCOUNTER → 2025-03-28 | Outpatient (POV) | payer MEDICARE | LOC: M IRPOV 14:00 | PROVIDERS: ATTEND Registered Nurse School | DX: Z43.6 Encounter for attention to other artificial openings of urinary tract (principal); Z88.1 Allergy status to other antibiotic agents; Z88.2 Allergy status to sulfonamides; Z88.6 Allergy status to analgesic agent; Z88.8 Allergy status to other drugs, medicaments and biological substances; Z91.048 Other nonmedicinal substance allergy status; Z91.09 Other allergy status, other than to drugs and biological substances ==

== ENCOUNTER 2025-04-08 15:43 | Outpatient (CLI) | payer MEDICARE ==
[2025-04-08] MEDS: SODIUM CHLORIDE 0.9% INJ 10 ML SYR IV PRN (16:05)
[2025-04-08] MEDS: HEPARIN LOCK FLUSH 100 UNITS/ML 3 ML SYRINGE IV PRN (16:05)
[2025-04-08 16:11] VITALS: BP 152/81; O2SAT 96
== END 2025-04-08 16:15 | disposition home or self-care (01) ==
LOC: M INFU 15:43
PROVIDERS: ATTEND Nurse Practitioner Family
DX: Z45.2 Encounter for adjustment and management of vascular access device (principal)
CPT/HCPCS: 96523; J1642

== ENCOUNTER → 2025-05-17 | Outpatient (CLI) | payer MEDICARE ==
[~2025-05-17] MED LIST changes: +HEPARIN LOCK FLUSH 100 UNITS/ML 3 ML SYRINGE IV PRN; +SODIUM CHLORIDE 0.9% INJ 10 ML SYR IV PRN
[2025-05-17] MEDS: SODIUM CHLORIDE 0.9% INJ 10 ML SYR IV SCH (15:57)
[2025-05-17] MEDS: HEPARIN LOCK FLUSH 100 UNITS/ML 3 ML SYRINGE IV SCH (15:57)
[2025-05-17 16:00] VITALS: BP 128/71; O2SAT 99
== END ==
LOC: M INFU 15:34
PROVIDERS: ATTEND Nurse Practitioner Family
DX: Z45.2 Encounter for adjustment and management of vascular access device (principal); Z88.1 Allergy status to other antibiotic agents; Z88.2 Allergy status to sulfonamides; Z88.6 Allergy status to analgesic agent; Z88.5 Allergy status to narcotic agent; Z88.8 Allergy status to other drugs, medicaments and biological substances; Z91.09 Other allergy status, other than to drugs and biological substances
CPT/HCPCS: 96523; J1642

== ENCOUNTER → 2025-05-28 | Outpatient (CLI) | payer MEDICARE ==
[~2025-05-28] MED LIST changes: +CEPHALEXIN 500 MG CAP PO ONE; -HEPARIN LOCK FLUSH 100 UNITS/ML 3 ML SYRINGE IV PRN; -SODIUM CHLORIDE 0.9% INJ 10 ML SYR IV PRN
[2025-05-28 08:24] VITALS: TEMP 98
[2025-05-28] MEDS: ceFAZolin SODIUM 2 GM in DEXTROSE 5% (D5W) ADV/MINI-BAG 50 ML IV ONE (09:16)
[2025-05-28] MEDS: NS (Normal Saline) 0.9% 1,000 ML IV SCH (09:16)
[2025-05-28 09:22] LABS: PLATELET COUNT, AUTOMATED 194 10^3/uL (150-450)
[2025-05-28] MEDS: MIDAZOLAM INJ 2 MG/2 ML VIAL IV PRN (09:49)
[2025-05-28] MEDS: LIDOCAINE 1% MDV 20 ML VIAL SC SCH (10:08)
[2025-05-28] MEDS: ISOVUE-300 61% 100 ML VIAL IV SCH (10:08)
[2025-05-28] MEDS: SODIUM CHLORIDE 0.9% 1000 ML XX SCH (10:10)
[2025-05-28 10:45] VITALS: BP 154/79; O2SAT 96
== END ==
LOC: M IRPRO 08:11
PROVIDERS: ATTEND Nurse Practitioner Family
DX: N13.30 Unspecified hydronephrosis (principal)
CPT/HCPCS: 50435; 85027; 99152; 99153; C1729; J0690; J2250; J3010; Q9967

== ENCOUNTER 2025-06-17 15:26 | Outpatient (CLI) | payer MEDICARE ==
[~2025-06-17] VITALS: Ht 162.6 cm; Wt 97.5 kg
[~2025-06-17 15:26] MED LIST changes: -CEPHALEXIN 500 MG CAP PO ONE; -COLC0.6T47; +COLC0.6T53
[2025-06-17 15:55] VITALS: BP 128/78; O2SAT 95
[2025-06-17] MEDS: HEPARIN LOCK FLUSH 100 UNITS/ML 3 ML SYRINGE IV SCH (16:07)
[2025-06-17] MEDS: SODIUM CHLORIDE 0.9% INJ 10 ML SYR IV SCH (16:07)
== END 2025-06-17 16:04 ==
LOC: M INFU 15:26
PROVIDERS: ATTEND Nurse Practitioner Family
DX: Z45.2 Encounter for adjustment and management of vascular access device (principal); Z88.1 Allergy status to other antibiotic agents; Z88.2 Allergy status to sulfonamides; Z88.8 Allergy status to other drugs, medicaments and biological substances
CPT/HCPCS: 96523; J1642

== ENCOUNTER 2025-07-17 15:20 | Outpatient (CLI) | payer MEDICARE ==
[~2025-07-17] VITALS: Ht 165.1 cm; Wt 97.7 kg
[2025-07-17] MEDS: SODIUM CHLORIDE 0.9% INJ 10 ML SYR IV SCH (15:28)
[2025-07-17] MEDS: HEPARIN LOCK FLUSH 100 UNITS/ML 3 ML SYRINGE IV SCH (15:28)
[2025-07-17 15:30] VITALS: BP 152/67; O2SAT 96
== END 2025-07-17 15:30 | disposition home or self-care (01) ==
LOC: M INFU 15:20
PROVIDERS: ATTEND Nurse Practitioner Family
DX: Z45.2 Encounter for adjustment and management of vascular access device (principal); Z88.1 Allergy status to other antibiotic agents; Z88.2 Allergy status to sulfonamides; Z88.8 Allergy status to other drugs, medicaments and biological substances
CPT/HCPCS: 96523; J1642

== ENCOUNTER 2025-08-19 14:52 | Outpatient (CLI) | payer MEDICARE ==
[2025-08-19] MEDS: SODIUM CHLORIDE 0.9% INJ 10 ML SYR IV SCH (14:45)
[2025-08-19] MEDS: HEPARIN LOCK FLUSH 100 UNITS/ML 3 ML SYRINGE IV SCH (14:45)
[2025-08-19 14:51] VITALS: BP 148/81; O2SAT 98
[2025-08-19] MEDS ORDERED: SODIUM CHLORIDE 0.9% INJ 10 ML SYR IV PRN (15:00)
[2025-08-19] MEDS ORDERED: HEPARIN LOCK FLUSH 100 UNITS/ML 3 ML SYRINGE IV PRN (15:00)
== END 2025-08-19 14:54 | disposition home or self-care (01) ==
LOC: M INFU 14:52
PROVIDERS: ATTEND Nurse Practitioner Family
DX: Z45.2 Encounter for adjustment and management of vascular access device (principal); Z88.1 Allergy status to other antibiotic agents; Z88.2 Allergy status to sulfonamides; Z88.8 Allergy status to other drugs, medicaments and biological substances; Z91.040 Latex allergy status
CPT/HCPCS: 96523; J1642

== ENCOUNTER → 2025-08-27 | Outpatient (CLI) | payer MEDICARE ==
[~2025-08-27] VITALS: Ht 165.1 cm; Wt 99.1 kg
[~2025-08-27] MED LIST changes: +CARDIAC STRESS TEST RESCUE BOX 1 KIT EA XX ONE; +HEPARIN LOCK FLUSH 100 UNITS/ML 3 ML SYRINGE IV SCH
[2025-08-27 07:25] VITALS: TEMP 97.3
[2025-08-27] MEDS: ceFAZolin SODIUM 2 GM in DEXTROSE 5% (D5W) ADV/MINI-BAG 50 ML IV ONE (08:32)
[2025-08-27] MEDS: NS (Normal Saline) 0.9% 1,000 ML IV SCH (08:32)
[2025-08-27] MEDS: MIDAZOLAM INJ 2 MG/2 ML VIAL IV PRN (08:32)
[2025-08-27] MEDS: SODIUM CHLORIDE 0.9% 1000 ML XX SCH (08:33)
[2025-08-27] MEDS: LIDOCAINE 1% MDV 20 ML VIAL SC SCH (08:42)
[2025-08-27] MEDS: ISOVUE-300 61% 100 ML VIAL IV SCH (08:43)
[2025-08-27 09:15] VITALS: BP 174/86; O2SAT 97
[2025-08-27] MEDS: HEPARIN LOCK FLUSH 100 UNITS/ML 3 ML SYRINGE IV PRN (09:31)
== END ==
LOC: M IRPRO 07:11
PROVIDERS: ATTEND Radiology Diagnostic Radiology
DX: N13.30 Unspecified hydronephrosis (principal)
CPT/HCPCS: 50435; 99152; C1729; J0688; J1642; J2250; J3010; Q9967